=== PATIENT | male | born 1935 | race Caucasian/White ===

== ENCOUNTER 2016-11-14 15:45 | Outpatient (RCR) | payer MEDICARE, OTHER ==
[~2016-11-14 15:45] MED LIST: ACHD5005 PO; AMIO200T50 PO; ASP81CT PO; ASP81TEC PO; ASPI-999 PO; CEPH500C PO; CIPR500T78 PO; CLPD75T PO; DCS100C PO; DOCU-161 PO; FESO4TAB PO; FLUT9.9S NS; LTRS15C TOP; MECL-124 PO; MELO7.5T PO; METO25TA PO; METO25TA2 PO; OMEP20CA6 PO; OMG1KC PO; ONDAN4ODT PO; PHEN200T27 PO; POTA10CA43 PO; PRD10T PO; ROSU10TA12 PO; SCOP1PAT TD; TAMS0.4C2 PO
== END 2016-11-14 16:27 | disposition home or self-care (01) ==
PROVIDERS: ATTEND Orthopaedic Surgery
DX: M41.9 Scoliosis, unspecified (principal); M47.896 Other spondylosis, lumbar region; M51.36 Other intervertebral disc degeneration, lumbar region; M25.551 Pain in right hip

== ENCOUNTER 2016-12-07 14:05 | Emergency (ER) | payer MEDICARE, OTHER ==
[~2016-12-07] VITALS: Ht 170.2 cm; Wt 80.7 kg
--- NOTE | 2016-12-07 15:23 | ED Abdominal Pain ---
General Chief Complaint: Abdominal/GI Problems Stated Complaint: ABD PAIN Nursing Triage Note: Pt c/o lower abd pain and nausea that started this morning. Sepsis Screen: No Definite Risk Source of Information: Patient, Spouse Exam Limitations: No Limitations History of Present Illness Time Seen By Provider: 15:22 Initial Comments Patient woke up this morning with some pain in his abdomen right lower quadrant and suprapubic area. He is having no difficulty urinating or discharge. He has had some nausea and threw up a little bit this morning and again during this interview. He has no history of abdominal surgery however he has had 2 colonoscopies which both were negative and he said no mention of diverticulosis. He had a bowel movement earlier today that was only a small amount. He does not think that he is constipated. No diarrhea rash fevers or chills. 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 He has no shortness of breath cough or chest pain. Allergies and Home Medications Allergies Coded Allergies: No Known Drug Allergies (Unverified , 05/19/11) Home Medications Aspirin 81 Mg Tab.chew, 81 MG PO DAILY, (Reported) Cephalexin 500 Mg Capsule, 500 MG PO BID for 7 Days, #14 Ref 0 Prescribed by: MARILYN SOTO on 12/07/161754 Docusate Sodium 100 Mg Capsule, 100 MG PO DAILY, (Reported) Fesoterodine Fumarate 4 Mg Tab.sr.24h, 4 MG PO DAILY, (Reported) Fluticasone Propionate 9.9 Ml [place].susp, 9.9 ML NS BID, #1 Prescribed by: SADI MATHEWS on 01/13/16 0923 Metoprolol Tartrate 25 Mg Tablet, 12.5 MG PO BID, (Reported) TAKE 1/2 OF (25MG) TAB [place] 3 Polyunsat Fatty Acids 1,000 Mg Cap, 1,200 MG PO DAILY, (Reported) Ondansetron 4 Mg Tab.rapdis, 4 MG PO Q4H PRN for NAUSEA/VOMITING-1ST LINE, #30 Ref 0 Prescribed by: MARILYN SOTO on 12/07/161754 Oxycodone HCl/Acetaminophen 1 Each Tablet, 1-2 EACH PO Q6H PRN for PAIN- MODERATE TO SEVERE, #30 Ref 0 Prescribed by: MARILYN SOTO on 12/07/161754 Rosuvastatin Calcium 10 Mg Tablet, 10 MG PO EVERY OTHER DAY, (Reported) Tamsulosin HCl 0.4 Mg Cap, 0.4 MG PO HS for 7 Days, #7 Ref 0 Prescribed by: MARILYN SOTO on 12/07/16 6583 Tamsulosin Hcl 0.4 Mg Cap.sr.24h, 0.4 MG PO HS, (Reported) Review of Systems Constitutional: No chills, No diaphoresis, No dizziness, No fever, malaise EENTM: No Blurred Vision, No Eye Pain, No Ear Pain Respiratory: Denies Cough, Denies Shortness of Air Cardiovascular: Denies Chest Pain, Denies Lightheadedness, Denies Syncope Gastrointestinal: See HPI, Denies Abdomen Distended, Abdominal Pain, Denies Constipated, Denies Diarrhea, Nausea, Vomiting Genitourinary: See HPI, Denies Burning, Denies Discharge, Denies Frequency, Flank Pain Musculoskeletal: No back pain, No joint pain Skin: No pruritus, No rash Psychiatric/Neurological: Denies Anxiety, Denies Depressed, Denies Headache Endocrine: Denies Increased Thrist, Denies Increased Urine, Denies Unexplained Weight Gain, Denies Unexplaned Weight Loss Hematologic/Lymphatic: Denies Blood Clots, Denies Easy Bleeding, Denies Easy Bruising Past Txehnex-Jhnmuy-Ewjrcs Hx Patient Social History Recent Foreign Travel: No Contact w/Someone Who Travel: No Recent Infectious Disease Expo: No Recent Hopitalizations: Yes Immunizations Up To Date Date of Influenza Vaccine: Jan 31, 2013 Surgeries Surgeries: Cardiac, CABG, Joint Replacement, Orthopedic Cardiovascular Cardiac Disorders: Coronary Artery Disease, High Cholesterol, Hypertension Reproductive System Hx Reproductive Disorders: No Sexually Transmitted Disease: No HIV/AIDS: No Genitourinary Genitourinary Disorders: Benign Prostatic Hyperpl Gastrointestinal Gastrointestinal Disorders: Chronic Constipation Musculoskeletal Musculoskeletal Disorders: Arthritis HEENT Loss of Vision: Bilateral Hearing Impairment: Denies Blood Transfusions Adverse Reaction to a Blood Tr: Yes Family Medical History Significant Family History: No Pertinent Family Hx Physical Exam Vital Signs VS - Last 72 Hours, by Label 12/07/16 12/07/16 14:29 16:27 Temp 97.3 Pulse 48 Resp 18 B/P (MAP) 189/60 Pulse Ox 99 84 O2 Delivery Room Air Nasal Cannula O2 Flow Rate 2.00 Capillary Refill : Less Than 3 Seconds General Appearance: WD/WN, moderate distress HEENT: PERRL/EOMI, pharynx normal (Oral mucous membranes dry) Neck: supple, normal inspection Respiratory: lungs clear, normal breath sounds Cardiovascular: normal peripheral pulses, regular rate, rhythm, no edema Peripheral Pulses: 2+ Dorsalis Pedis (R), 2+ Left Dors-Pedis (L) Gastrointestinal: normal bowel sounds, soft, tenderness (Right lower quadrant and suprapubic and left lower quadrant) Extremities: normal range of motion, non-tender, normal inspection, no pedal edema, normal capillary refill Back: normal inspection, CVA tenderness (R), CVA tenderness (L) Neurologic/Psychiatric: alert, oriented x 3 Skin: normal color, warm/dry Progress/Results/Core Measures Results/Orders Lab Results Laboratory Tests Test 12/07/16 15:15 12/07/16 15:50 12/07/16 16:05 Range/Units Sodium Level 143 135-145 MMOL/L Potassium Level 4.4 3.6-5.0 MMOL/L Chloride Level 109 H 98-107 MMOL/L Carbon Dioxide Level 25 21-32 MMOL/L Anion Gap 9 5-14 MMOL/L Blood Urea Nitrogen 18 7-18 MG/DL Creatinine 1.15 0.60-1.30 MG/DL Estimat Glomerular Filtration Rate > 60 BUN/Creatinine Ratio 16 Glucose Level 137 H 70-105 MG/DL Calcium Level 8.8 8.5-10.1 MG/DL Total Bilirubin 1.0 0.1-1.0 MG/DL Aspartate Amino Transf (AST/SGOT) 25 5-34 U/L Alanine Aminotransferase (ALT/SGPT) 23 0-55 U/L Alkaline Phosphatase 59 40-136 U/L Total Protein 6.4 6.4-8.2 GM/DL Albumin 4.1 3.2-4.5 GM/DL Urine Color YELLOW Urine Clarity SLIGHTLY CLOUDY Urine pH 6.5 5-9 Urine Specific [place] 1.015 L 1.016-1.022 Urine Protein 1+ H NEGATIVE Urine Glucose (UA) NEGATIVE NEGATIVE Urine Ketones 3+ H NEGATIVE Urine Nitrite NEGATIVE NEGATIVE Urine Bilirubin NEGATIVE NEGATIVE Urine Urobilinogen NORMAL NORMAL MG/DL Urine Leukocyte Esterase NEGATIVE NEGATIVE Urine RBC (Auto) 5+ H NEGATIVE Urine RBC 50-100 H /HPF Urine WBC NONE /HPF Urine Crystals NONE /LPF Urine Bacteria NONE /HPF Urine Casts NONE /LPF Urine Mucus NEGATIVE /LPF Urine Culture Indicated NO White Blood Count 17.9 H 4.3-11.0 10^3/uL Red Blood Count 4.40 4.35-5.85 10^6/uL Hemoglobin 13.4 13.3-17.7 G/DL Hematocrit 40 40-54 % Mean Corpuscular Volume 90 80-99 FL Mean Corpuscular Hemoglobin 31 25-34 PG Mean Corpuscular Hemoglobin Concent 34 32-36 G/DL Red Cell Distribution Width 13.0 10.0-14.5 % Platelet Count 168 130-400 10^3/uL Mean Platelet Volume 9.9 7.4-10.4 FL Prothrombin Time 14.7 12.2-14.7 SEC INR Comment 1.1 0.8-1.4 Activated Partial Thromboplast Time 27 24-35 SEC My Orders Orders - MARILYN SOTO Cbc No Diff (12/07/16 14:56) Comprehensive Metabolic Panel (12/07/16 14:56) Ua Culture If Indicated (12/07/16 14:56) Ondansetron Injection (Zofran Injectio (12/07/16 15:30) Fentanyl Injection (Sublimaze Injection (12/07/16 16:15) Ct Abd/Pelvis Wo(Kidney Stone) (12/07/16 16:54) Protime With Inr (12/07/16 16:57) Partial Thromboplastin Time (12/07/16 16:57) Chest 1 View, Ap/Pa Only (12/07/16 16:57) O2 (12/07/16 16:57) Saline Lock/Iv-Start (12/07/16 16:57) Vital Signs Adult Sepsis Patie Q1HR (12/07/16 16:57) Remove Rings In Anticipation O (12/07/16 16:57) Oxycodone/Acet 10/325mg Tablet (Percocet (12/07/16 18:00) Ondansetron Injection (Zofran Injectio (12/07/16 18:00) Ceftriaxone Injection (Rocephin Injectio (12/07/16 18:00) Abdomen/Kub 1[place] (12/07/16 17:50) Medications Given in ED Current Medications Medications Dose Ordered Sig/Emeli Route Start Time Stop Time Status Last Admin Dose Admin Ceftriaxone Sodium 1000 mg/ Sodium Chloride 50 ml @ 100 mls/hr ONCE ONCE IV 12/07/16 18:00 12/07/16 18:21 DC 12/07/16 17:59 100 MLS/HR Fentanyl Citrate 50 mcg ONCE ONCE IVP 12/07/16 16:15 12/07/16 16:16 DC 12/07/16 16:22 50 MCG Ondansetron HCl 4 mg ONCE ONCE IVP 12/07/16 15:30 12/07/16 15:31 DC 12/07/16 15:40 4 MG Ondansetron HCl 4 mg ONCE ONCE IVP 12/07/16 18:00 12/07/16 18:01 DC 12/07/16 17:59 4 MG Oxycodone/ Acetaminophen 1 tab ONCE ONCE PO 12/07/16 18:00 12/07/16 18:01 DC 12/07/16 18:15 1 TAB Vital Signs/I&O Vital Sign - Last 12Hours 12/07/16 12/07/16 14:29 16:27 Temp 97.3 Pulse 48 Resp 18 B/P (MAP) 189/60 Pulse Ox 99 84 O2 Delivery Room Air Nasal Cannula O2 Flow Rate 2.00 Blood Pressure Mean: 103 Progress Note #1: Time: 16:56 Progress Note Patient got significant white count as well as bradycardia. We'll go ahead and collect some cultures and since he's having red blood cells in his urine we'll get a CT without looking for kidney stones. Also the differential could be appendix or tumor. Progress Note #2: Time: 17:39 Progress Note Despite his white count he has a stone which is 5 mm so we'll get him in touch with urology next week and adequate pain management and given a gram or Rocephin today. If he feels like he can go home then we'll treat him outpatient tilting to the stone removed if it doesn't pass spontaneously. Diagnostic Imaging Diagonstic Imaging: CT Plain Films/CT/US/NM/MRI: abdomen, pelvis (without) Comments [facility], [facility] [place], [place] NAME: EL LINDO MED REC#: [id number] PT STATUS: REG ER : 1935 PHYSICIAN: MARILYN SOTO MD ADMIT DATE: 12/07/16/ER Draft Date of Exam:12/07/16 CT ABD/PELVIS WO(KIDNEY STONE) PROCEDURE: CT urinary tract, rule out kidney stone. TECHNIQUE: Multiple contiguous axial images were obtained through the abdomen and pelvis without the use of intravenous contrast. INDICATION: Pelvic pain. COMPARISON: Comparison made with prior examination from 11/21/2013. FINDINGS: There is cardiomegaly. Minimal scarring or atelectasis in the lung bases. The liver is normal in size and without focal lesions. There is cholelithiasis. Spleen is unremarkable. The pancreas and adrenal glands are unremarkable. There is left hydronephrosis and hydroureter secondary to a 5 mm stone at the left UVJ. There are mild chronic inflammatory changes about the right kidney. A few other nonobstructing calcifications are seen in both kidneys. There is atherosclerotic calcification in the aorta which is nonaneurysmal. The bowel gas pattern is nonspecific. There is no pelvic mass, adenopathy, or free fluid. There are degenerative changes in the spine. IMPRESSION: Moderate left hydronephrosis and hydroureter secondary to a 5 mm stone in the left UVJ. Additional bilateral nonobstructing calculi are also seen. Degenerative changes in the spine. Cholelithiasis. Dictated on workstation # [id number] Dict: 12/07/16 1712 Trans: 12/07/16 1716 [id number] Interpreted by: SHAYNA HUTCHINSON MD Electronically signed by: Reviewed: Reviewed by Me Diagonstic Imaging: Xray Plain Films/CT/US/NM/MRI: chest Comments [facility] [place], [place] NAME: EL LINDO [facility] REC#: [id number] PT STATUS: REG ER : 1935 PHYSICIAN: MRAILYN SOTO MD ADMIT DATE: 12/07/16/ER Draft Date of Exam:12/07/16 CHEST 1 VIEW, AP/PA ONLY INDICATION: Pelvic pain. FINDINGS: There is cardiomegaly. There is some left basilar atelectasis and/or pneumonitis. There has been previous median sternotomy and coronary bypass graft. There is no pleural effusion or pneumothorax. Mediastinum is unremarkable. IMPRESSION: Left basilar atelectasis and/or pneumonitis. Cardiomegaly. Dictated on workstation # [id number] Dict: 12/07/16 1718 Trans: 12/07/16 1722 [id number] Interpreted by: SHAYNA HUTCHINSON MD Electronically signed by: Reviewed: Reviewed by Me Departure Impression Impression: Primary Impression: Kidney stone on left side Disposition: 01 HOME, SELF-CARE Condition: Stable Departure-Patient Inst. Decision time for Depature: 17:46 Referrals: AUDI HALE MD (PCP/Family) Primary Care Physician Patient Instructions: Kidney Stones (DC) Add. Discharge Instructions: Drink lots of fluids. Caffeine is perfectly okay. Strain your urine every time to try and catch the stone. Use the Percocet 1-2 tablets every 6 hours as needed to control your pain. Do not wait for your pain to get out of control before using the pain medicine. While you're on the pain medicine you can experience side effects such as nausea or constipation. Make sure you have some kind of MiraLAX or other laxative to keep your bowels moving. Take the Flomax 1 tablet every night to help the stone pass. If you're expressing nausea you can take one tablet of the Zofran and place under your tongue allowed to dissolve and absorbed your mouth every 4 hours as needed for nausea or vomiting. Finally take the antibiotics 1 capsule twice a day for the next week. If you're not able to pass the stone by Sunday morning call Dr. [place], urology at [phone] and get scheduled to be seen to have the stone removed. If your symptoms become worse she started developing fevers or intractable nausea and vomiting or your pain is unbearable you should return to the ER to be reevaluated. All discharge instructions reviewed with patient and/or family. Voiced understanding. Scripts Oxycodone HCl/Acetaminophen (Percocet 10-325 mg Tablet) 1 Each Tablet 1-2 EACH PO Q6H Y for PAIN-MODERATE TO SEVERE, #30 TAB 0 Refills Prov: MARILYN SOTO 12/07/16 Tamsulosin HCl (Flomax) 0.4 Mg Cap 0.4 MG PO HS for 7 Days, #7 CAP 0 Refills Prov: MARILYN SOTO 12/07/16 Ondansetron (Zofran Odt) 4 Mg Tab.rapdis 4 MG PO Q4H Y for NAUSEA/VOMITING-1ST LINE, #30 TAB 0 Refills Prov: MARILYN SOTO 12/07/16 Cephalexin (Keflex) 500 Mg Capsule 500 MG PO BID for 7 Days, #14 CAP 0 Refills Prov: MARILYN SOTO 12/07/16 Copy Copies To 1: AUDI HALE MD Copies To 2: DELMAR HARDING MD, TITUS J Dec 07, 2016 15:23
[2016-12-07] MEDS ORDERED: ONDANSETRON 4 MG/2 ML (SDV) Z0FRAN IVP ONE ×2 (15:30→18:00)
[2016-12-07 16:02] LABS: ALANINE AMINOTRANSFERASE 23 U/L (0-55); ALBUMIN 4.1 GM/DL (3.2-4.5); ANION GAP 9 MMOL/L (5-14); ASPARTATE AMINO TRANSFERASE 25 U/L (5-34); BLOOD UREA NITROGEN 18 MG/DL (7-18); BUN/CREATININE RATIO 16; CALCIUM 8.8 MG/DL (8.5-10.1); CARBON DIOXIDE 25 MMOL/L (21-32); CHLORIDE 109 MMOL/L (98-107); CREATININE SERUM 1.15 MG/DL (0.60-1.30); GFR ESTIMATED > 60; GLUCOSE 137 MG/DL (70-105); POTASSIUM 4.4 MMOL/L (3.6-5.0); SODIUM 143 MMOL/L (135-145); TOTAL PROTEIN 6.4 GM/DL (6.4-8.2)
[2016-12-07 16:15] LABS: MEAN PLATELET VOLUME 9.9 FL (7.4-10.4); RED BLOOD COUNT 4.4 10^6/uL (4.35-5.85); WHITE BLOOD COUNT 17.9 10^3/uL (4.3-11.0)
[2016-12-07] MEDS ORDERED: fentaNYL INJECTION 100 MCG/2 ML AMP IVP ONE (16:15)
[2016-12-07 16:36] LABS: BILIRUBIN,URINE NEGATIVE (NEGATIVE); KETONES,URINE 3+ (NEGATIVE); LEUKOCYTE ESTERASE ,URINE NEGATIVE (NEGATIVE); NITRITE,URINE NEGATIVE (NEGATIVE); PH,URINE 6.5 (5-9); PROTEIN,URINE 1+ (NEGATIVE); UROBILINOGEN,URINE NORMAL (NORMAL)
--- NOTE | 2016-12-07 17:17 | Diagnostic Imaging Report ---
PROCEDURE: CT urinary tract, rule out kidney stone. TECHNIQUE: Multiple contiguous axial images were obtained through the abdomen and pelvis without the use of intravenous contrast. INDICATION: Pelvic pain. COMPARISON: Comparison made with prior examination from 11/21/2013. FINDINGS: There is cardiomegaly. Minimal scarring or atelectasis in the lung bases. The liver is normal in size and without focal lesions. There is cholelithiasis. Spleen is unremarkable. The pancreas and adrenal glands are unremarkable. There is left hydronephrosis and hydroureter secondary to a 5 mm stone at the left UVJ. There are mild chronic inflammatory changes about the right kidney. A few other nonobstructing calcifications are seen in both kidneys. There is atherosclerotic calcification in the aorta which is nonaneurysmal. The bowel gas pattern is nonspecific. There is no pelvic mass, adenopathy, or free fluid. There are degenerative changes in the spine. IMPRESSION: Moderate left hydronephrosis and hydroureter secondary to a 5 mm stone in the left UVJ. Additional bilateral nonobstructing calculi are also seen. Degenerative changes in the spine. Cholelithiasis. Dictated by: Dictated on workstation # [id number]
--- NOTE | 2016-12-07 17:23 | Diagnostic Imaging Report ---
INDICATION: Pelvic pain. FINDINGS: There is cardiomegaly. There is some left basilar atelectasis and/or pneumonitis. There has been previous median sternotomy and coronary bypass graft. There is no pleural effusion or pneumothorax. Mediastinum is unremarkable. IMPRESSION: Left basilar atelectasis and/or pneumonitis. Cardiomegaly. Dictated by: Dictated on workstation # [id number]
[2016-12-07 17:38] LABS: INR 1.1 (0.8-1.4); PROTHROMBIN TIME PATIENT 14.7 SEC (12.2-14.7)
[2016-12-07] MEDS ORDERED: OXYC-202 PO (17:55)
[2016-12-07] MEDS ORDERED: CEPH-507 PO (17:55)
[2016-12-07] MEDS ORDERED: ONDA4TAB8 PO (17:55)
[2016-12-07] MEDS ORDERED: TAMS0.4C98 PO (17:55)
[2016-12-07] MEDS ORDERED: oxyCODONE/APAP 10/325MG (PERCOCET 10) TABLET PO ONE (18:00)
[2016-12-07] MEDS ORDERED: cefTRIAXone INJECTION 1,000 MG in NS (IVPB) 50 ML IV ONE (18:00)
--- NOTE | 2016-12-07 18:19 | Diagnostic Imaging Report ---
INDICATION: Abdominal pain. FINDINGS: The bowel gas pattern is nonspecific. There are several calcifications in the left hemipelvis. These are indeterminate between phleboliths and/or distal ureteral stones. There are degenerative changes in the spine. There appears to be a mild age-indeterminate compression fracture of the L2 vertebral body although this is likely chronic. IMPRESSION: Several round calcifications in the left hemipelvis which are indeterminate between phleboliths and/or distal ureteral stones. Dictated by: Dictated on workstation # [id number]
[2016-12-07 18:21] VITALS: BP 135/64
== END 2016-12-07 18:21 | disposition home or self-care (01) ==
LOC: EDUNIT# 14:05 → ER 14:07
DX: N20.0 Calculus of kidney (principal); I25.10 Atherosclerotic heart disease of native coronary artery without angina pectoris; I10 Essential (primary) hypertension; E78.00 Pure hypercholesterolemia, unspecified; N40.0 Benign prostatic hyperplasia without lower urinary tract symptoms; M19.90 Unspecified osteoarthritis, unspecified site; Z87.19 Personal history of other diseases of the digestive system; Z79.82 Long term (current) use of aspirin; Z95.1 Presence of aortocoronary bypass graft
CPT/HCPCS: 36415; 71010; 74000; 74176; 80053; 81000; 85027; 85610; 85730; 96365; 96375; 96376

== ENCOUNTER 2016-12-09 00:22 | Emergency (ER) | payer MEDICARE, OTHER ==
[~2016-12-09] VITALS: Ht 170.2 cm; Wt 81.1 kg
[~2016-12-09 00:22] MED LIST changes: +CEPH-507 PO; +ONDA4TAB8 PO; +OXYC-202 PO; +TAMS0.4C98 PO
--- OUTSIDE RECORDS SUMMARY | 2016-12-09 00:32 | XMS REPORT | Clinical Summary ---
Author Author User, [employer] Dahiana Ahn DO, FACP Address Unknown Phone Allergies, Adverse Reactions, Alerts Allergy Name Reaction Description Start Date Severity Status Provider No Known Allergies Esequiel Judd Conditions or Problems Problem Name Problem Code Onset Date Status Entry Date Provider Comment Standard Description Annotate BURSITIS, LEFT ELBOW 726.33 Resolved Dahiana Ahn Olecranon bursitis NAUSEA 787.02 Resolved Dahiana Ahn Nausea alone BACK PAIN 724.5 Resolved Dahiana Ahn Backache, unspecified URINARY FREQUENCY 788.41 Resolved Dahiana Ahn Urinary frequency IBS 564.1 Resolved Dahiana Ahn Irritable bowel syndrome BENIGN PROSTATIC HYPERTROPHY, WITH OBSTRUCTION 600.01 Active Dahiana Ahn Hypertrophy (benign) of prostate with urinary obstruction and other lower urinary tract symptoms (LUTS) OTITIS EXTERNA 380.10 Resolved Dahiana Ahn Infective otitis externa, unspecified CORONARY ATHEROSCLEROSIS, [place] VESSEL 414.01 Active Dahiana Ahn Coronary atherosclerosis of [place] coronary artery CERUMEN IMPACTION, BILATERAL 380.4 Resolved Dahiana Ahn Impacted cerumen ABDOMINAL PAIN, EPIGASTRIC 789.06 Resolved Dahiana Ahn Abdominal pain, epigastric ABDOMINAL PAIN, GENERALIZED 789.07 Resolved Dahiana Ahn Abdominal pain, generalized SHOULDER PAIN 719.41 Resolved Dahiana Ahn Pain in joint involving shoulder region GERD 530.81 Active Dahiana Ahn Esophageal reflux CORONARY ARTERY BYPASS GRAFT, [place]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, 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 Dahiana Ahn Postsurgical aortocoronary bypass status ATRIAL FIBRILLATION 427.31 Resolved Dahiana Ahn Atrial fibrillation TREMOR, ESSENTIAL 333.1 Resolved Dahiana Ahn Essential and other specified forms of tremor HYPERCHOLESTEROLEMIA 272.0 Active Dahiana Ahn Pure hypercholesterolemia HOT FLASHES 627.2 Resolved Dahiana Ahn Symptomatic menopausal or female climacteric states NEUROPATHY, IDIOPATHIC PERIPHERAL 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 Dahiana Ahn Unspecified idiopathic peripheral neuropathy URTICARIA, ACUTE 708.9 Inactive Dahiana Ahn Unspecified urticaria RENAL CALCULUS 592.0 Active Dahiana Ahn Calculus of kidney Medication List Medication Instructions Start Date Stop Date Generic Name NDC Status Provider Patient Instruction FREESTYLE TEST STRP Test BS once daily DX: Diabetes GLUCOSE BLOOD 06539273693 No Longer Active Dahiana Ahn LASIX 40 MG TAB 1/2 PO daily FUROSEMIDE 71582484272 No Longer Active Dahiana Ahn AMIODARONE HCL 200 MG TABS 1 PO daily AMIODARONE HCL 43844009874 No Longer Active Dahiana Ahn COLACE 100 MG CAP 1 PO QAM DOCUSATE SODIUM 53885959866 Active Maddy Hendrix COLACE 100 MG CAP 1 PO QAM DOCUSATE SODIUM 59091158753 No Longer Active Dahiana Ahn K-DUR 20 MEQ TAB CR 1 PO daily POTASSIUM CHLORIDE No Longer Active Dahiana Kaye Ahn PLAVIX 75 MG TABS 1 po QD CLOPIDOGREL BISULFATE 91233377360 No Longer Active Dahiana Kaye Ahn ULTRAM 50 MG TAB 1 PO TID prn TRAMADOL HCL 83155775213 No Longer Active Dahiana Kaye Ahn HYDROCODONE-ACETAMINOPHEN 5-325 MG TABS 1 PO Q4hrs prn pain HYDROCODONE-ACETAMINOPHEN 33114572677 No Longer Active Dahiana Kaye Ahn ASPIRIN 81 MG TAB 1 PO BID ASPIRIN 37455121689 Active Dahiana Kaye Ahn FISH OIL 1000 MG CAPS 3 PO daily OMEGA-3 FATTY ACIDS 90768675316 Active Dahiana Kaye Ahn CRESTOR 10 MG TABS 1 PO daily ROSUVASTATIN CALCIUM 49100871832 Active Maddy Hendrix METOPROLOL TARTRATE 25 MG TABS 1/2 PO BID METOPROLOL TARTRATE 90609773464 Active Maddy Hendrix FLOMAX 0.4 MG CAPS 1 PO QHS TAMSULOSIN HCL 63508448241 Active Maddy Hendrix ANUSOL-HC 2.5 % CREA apply to rectum tid prn HYDROCORTISONE 28900105353 No Longer Active Dahiana Kaye Ahn LANCING DEVICE Test BS 1 time daily DX: Diabeties LANCING DEVICE No Longer Active Dahiana Kaye Ahn PRILOSEC 20 MG CAP CR 1 PO prn OMEPRAZOLE 96181649409 No Longer Active Dahiana Kaye Ahn CARAFATE 1 GM/10ML SUSP 1 teaspoon PO QID SUCRALFATE 24791444734 No Longer Active Dahiana Kaye Ahn OCUFLOX 0.3 % SOLN 3 drops right ear TID for 7 days OFLOXACIN 68137510658 No Longer Active Dahiana Kaye Ahn AVODART 0.5 MG CAPS 1 PO daily DUTASTERIDE 29589324094 No Longer Active Dahiana Kaye Ahn PHENERGAN 25 MG TAB 1 PO Q6hrs prn nausea PROMETHAZINE HCL 70498105169 No Longer Active Dahiana Ahn CARDURA 1 MG TAB 1 PO QHS DOXAZOSIN MESYLATE 50829480837 No Longer Active Dahiana Ahn FLOMAX 0.4 MG CP24 1 PO Daily in PM TAMSULOSIN HCL 68851478962 No Longer Active Dahianadg Ahn PREDNISONE 20 MG TAB 2 pills at once for 2 days then 1 pill daily for 2 days PREDNISONE 66725827511 No Longer Active Dahiana Ahn NAPROXEN 500 MG TAB 1 PO BID for 5 days NAPROXEN 92497572228 No Longer Active Dahiana Ahn LEVAQUIN 500 MG TAB 1 PO QD LEVOFLOXACIN 51585966350 No Longer Active Dahiana Ahn Vital Signs Date Name Value Unit Range Description blood pressure, diastolic - 8462-4 68 mm[Hg] BP aviels blood pressure, systolic - 8480-6 118 mm[Hg] BP sys pulse rate E&M - 8867-4 70 /min Heart rate respiratory rate E&M - 9279-1 14 /min Resp rate weight E&M - 3141-9 185 [lb_av] Weight Measured blood pressure, diastolic - 8462-4 64 mm[Hg] BP aviles blood pressure, systolic - 8480-6 114 mm[Hg] BP sys pulse rate E&M - 8867-4 60 /min Heart rate respiratory rate E&M - 9279-1 16 /min Resp rate weight E&M - 3141-9 182 [lb_av] Weight Measured Diagnostic Results Date Name Value Unit Range Description Clinical Lists Update: CBC,.CMP,FLP,TSH,HGA1C - Chemistry Estimated Glomerular Filtration Rate (calc) 84 mL/min/1.73m2 glucose, plasma fasting 102 mg/dL albumin, serum 4.0 g/dL alkaline phosphatase, serum 53 U/L urea nitrogen, blood 15 mg/dL calcium, serum 8.6 mg/dL chloride, serum 108 mmol/L cholesterol, serum 117 mg/dL cholesterol/HDL ratio, serum, percent 3.2 anion gap, serum 10 sodium, serum 138 mmol/L triglyceride, serum, fasting 92 mg/dL bilirubin, serum, total 0.8 mg/dL alanine aminotransferase (SGPT), serum 20 U/L aspartate aminotransferase (SGOT), serum 21 U/L protein, total, serum 6.1 g/dL potassium, serum 4.2 mmol/L LDL cholesterol, serum 62 mg/dL thyroid stimulating hormone, serum 2.00 u[iU]/mL hemoglobin A1C, blood, as % of total hemoglobin 5.7 % HDL cholesterol, serum 37.0 mg/dL creatinine, serum 0.9 mg/dL carbon dioxide, venous blood 24.0 mmol/L Clinical Lists Update: CBC,.CMP,FLP,TSH,HGA1C - Hematology leukocyte count, blood 6.3 10*3/mm3 mean corpuscular volume, RBC 95 fL red blood cell distribution width 13.2 % hemoglobin, blood 13.6 g/dL platelet count 181 10*3/mm3 erythrocyte (RBC) count 4.44 10*6/mm3 hematocrit, blood 42 % Clinical Lists Update: CBC,CMP,UA ER LABS - Chemistry Estimated Glomerular Filtration Rate (calc) 56 mL/min/1.73m2 glucose, plasma fasting 109 mg/dL sodium, serum 144 mmol/L bilirubin, serum, total 0.6 mg/dL alanine aminotransferase (SGPT), serum 22 U/L aspartate aminotransferase (SGOT), serum 23 U/L protein, total, serum 6.9 g/dL potassium, serum 4.4 mmol/L creatinine, serum 1.25 mg/dL carbon dioxide, venous blood 23 mmol/L chloride, serum 112 mmol/L calcium, serum 8.8 mg/dL urea nitrogen, blood 17 mg/dL alkaline phosphatase, serum 63 U/L albumin, serum 3.8 g/dL Clinical Lists Update: CBC,CMP,UA ER LABS - Hematology hematocrit, blood 40 % hemoglobin, blood 14.1 g/dL platelet count 176 10*3/mm3 erythrocyte (RBC) count 4.56 10*6/mm3 leukocyte count, blood 8.5 10*3/mm3 mean corpuscular volume, RBC 89 fL red blood cell distribution width 12.8 % Clinical Lists Update: CBC,CMP,UA ER LABS - Urinalysis glucose, urine, semiquantitative neg protein, urine, semiquantitative (dipstick) neg bilirubin, urine neg ketones, urine, by test strip neg nitrite, urine, semiquantitative neg pH, urine, semiquantitative 5 specific gravity, urine 1.025 urobilinogen, urine, semiquantitative (dipstick) normal appearance, urine Clear Yellow WBC urine on microscopy 0-2 {Cells}/[HPF] RBC urine by microscopy >100 bacteria, urine microscopy none hyaline casts, urine none /[LPF] mucus on urinalysis small blood in urine (hemoglobin) by dipstick 5+ Clinical Lists Update: CMP,FLP - Chemistry triglyceride, serum, fasting 97 mg/dL alanine aminotransferase (SGPT), serum 19 U/L anion gap, serum 10 cholesterol/HDL ratio, serum, percent 3.2 glucose, plasma fasting 111 mg/dL Estimated Glomerular Filtration Rate (calc) 87 mL/min/1.73m2 bilirubin, serum, total 0.8 mg/dL albumin, serum 3.9 g/dL alkaline phosphatase, serum 55 U/L urea nitrogen, blood 16 mg/dL calcium, serum 8.7 mg/dL chloride, serum 107 mmol/L cholesterol, serum 111 mg/dL carbon dioxide, venous blood 27.0 mmol/L creatinine, serum 0.9 mg/dL HDL cholesterol, serum 35.0 mg/dL LDL cholesterol, serum 57 mg/dL potassium, serum 4.3 mmol/L protein, total, serum 6.1 g/dL aspartate aminotransferase (SGOT), serum 23 U/L sodium, serum 140 mmol/L Encounters Code Encounter Date Provider Facility CPT-02980 Ofc Vst, Est Level III 12:19:17 CDT Dahiana Ahn DO, FACP CPT-77976 Ofc Vst, Est Level III 21:43:28 CDT Dahiana Ahn DO, FACP CPT-88395 Ofc Vst, Est Level III 16:47:28 CDT Dahiana Ahn DO, FACP CPT-76088 Ofc Vst, Est Level III 16:03:06 CDT Dahiana Ahn DO, FACP CPT-09139 Ofc Vst, Est Level IV 11:33:43 CDT Dahianadg Holder Jimy, DO, FACP CPT-25671 Ofc Vst, Est Level IV 11:50:30 CDT Dahiana Kaye Holder Ahn, DO, FACP CPT-77299 Ofc Vst, Est Level IV 14:39:32 [employer] Dahiana Kaye Holder Jimy, DO, FACP CPT-33331 Ofc Vst, Est Level III 14:07:15 [employer]ENER HEL[employer] Dahiana Holder Jimy, DO, FACP CPT-07046 Ofc Vst, Est Level V 11:55:56 CDT Dahiana Kaye Holder Jimy, DO, FACP CPT-64792 Ofc Vst, Est Level III 11:33:43 HARDENER HELPER Dahiana Bellner Dahiana Holder Jimy, DO, FACP CPT-17991 Ofc Vst, Est Level III 11:29:42 CDT Dahiana Kaye Holder Jimy, DO, FACP CPT-91044 Ofc Vst, Est Level IV 11:57:09 HARDENER HELPER Dahiana Holder Jimy, DO, FACP CPT-79733 Ofc Vst, Est Level III 10:14:45 CDT Dahianadg Bellner Dahiana Holder Jimy, DO, FACP CPT-50157 Ofc Vst, Est Level III 12:18:03 CDT Dahianadg Holder Jimy, DO, FACP CPT-57149 Ofc Vst, New Level III 16:51:24 CDT Dahiana Holder Jimy, DO, FACP Procedures Code Procedure Name Date Entry Date Standard Description CPT-G0439 Medicare Annual Wellness Visit 17:19:52 CDT CPT-G8446 E-Prescribing not done due to controlled substance 21:29 :22 CDT CPT-G0439 Medicare Annual Wellness Visit 21:29:22 CDT CPT-G8445 E-Prescribing Not sent due to no medication given 21:43: 28 CDT CPT-G8443 E-Prescribing Medication Sent 16:47:28 CDT CPT-G8443 E-Prescribing Medication Sent 16:03:06 CDT CPT-G8445 E-Prescribing Not sent due to no medication given 15:18: 03 CDT CPT-G0439 Medicare Annual Wellness Visit 15:18:03 CDT CPT-02601 EKG w/ Interpretation 11:55:56 CDT CPT-G0402 Medicare Annual Wellness Visit Initial 11:26:58 CDT CPT-65027 Ear Wax Removal 11:33:43 HARDENER HELPER
--- OUTSIDE RECORDS SUMMARY | 2016-12-09 00:32 | XMS REPORT | Clinical Summary ---
Author Author User, [employer] Dahiana Ahn DO, FACP Address Unknown [...] Ahn Infective otitis externa, unspecified CORONARY ATHEROSCLEROSIS, [place] VESSEL 414.01 Active Dahiana Ahn Coronary atherosclerosis of [place] coronary artery CERUMEN IMPACTION, BILATERAL 380.4 Resolved [...] BS once daily DX: Diabetes GLUCOSE BLOOD 83906153810 No Longer Active Dahiana Ahn LASIX 40 MG TAB 1/2 PO daily FUROSEMIDE 74529904842 No Longer Active Dahiana Ahn AMIODARONE HCL 200 MG TABS 1 PO daily AMIODARONE HCL 51832923763 No Longer Active Dahiana Ahn COLACE 100 MG CAP 1 PO QAM DOCUSATE SODIUM 91138311135 Active Maddy Hendrix COLACE 100 MG CAP 1 PO QAM DOCUSATE SODIUM 07264356448 No Longer Active Dahiana Ahn K-DUR 20 MEQ TAB CR 1 PO daily POTASSIUM CHLORIDE No Longer Active Dahiana Kaye Ahn PLAVIX 75 MG TABS 1 po QD CLOPIDOGREL BISULFATE 28184668745 No Longer Active Dahiana Kaye Ahn ULTRAM 50 MG TAB 1 PO TID prn TRAMADOL HCL 46923190865 No Longer Active Dahiana Kaye Ahn HYDROCODONE-ACETAMINOPHEN 5-325 MG TABS 1 PO Q4hrs prn pain HYDROCODONE-ACETAMINOPHEN 96615069569 No Longer Active Dahiana Kaye Ahn ASPIRIN 81 MG TAB 1 PO BID ASPIRIN 96298416480 Active Dahiana Kaye Ahn FISH OIL 1000 MG CAPS 3 PO daily OMEGA-3 FATTY ACIDS 78908572781 Active Dahiana Kaye Ahn CRESTOR 10 MG TABS 1 PO daily ROSUVASTATIN CALCIUM 76898081773 Active Maddy Hendrix METOPROLOL TARTRATE 25 MG TABS 1/2 PO BID METOPROLOL TARTRATE 97343668661 Active Maddy Hendrix FLOMAX 0.4 MG CAPS 1 PO QHS TAMSULOSIN HCL 98777501268 Active Maddy Hendrix ANUSOL-HC 2.5 % CREA apply to rectum tid prn HYDROCORTISONE 02788920937 No Longer Active Dahiana Kaye Ahn LANCING DEVICE Test BS 1 time daily DX: Diabeties LANCING DEVICE No Longer Active Dahiana Kaye Ahn PRILOSEC 20 MG CAP CR 1 PO prn OMEPRAZOLE 21785908522 No Longer Active Dahiana Kaye Ahn CARAFATE 1 GM/10ML SUSP 1 teaspoon PO QID SUCRALFATE 01010270769 No Longer Active Dahiana Kaye Ahn OCUFLOX 0.3 % SOLN 3 drops right ear TID for 7 days OFLOXACIN 66644226168 No Longer Active Dahiana Kaye Ahn AVODART 0.5 MG CAPS 1 PO daily DUTASTERIDE 58431652410 No Longer Active Dahiana Kaye Ahn PHENERGAN 25 MG TAB 1 PO Q6hrs prn nausea PROMETHAZINE HCL 23968297729 No Longer Active Dahiana Ahn CARDURA 1 MG TAB 1 PO QHS DOXAZOSIN MESYLATE 42362452622 No Longer Active Dahiana Ahn FLOMAX 0.4 MG CP24 1 PO Daily in PM TAMSULOSIN HCL 84997676433 No Longer Active Dahianadg Ahn PREDNISONE 20 MG TAB 2 pills at once for 2 days then 1 pill daily for 2 days PREDNISONE 52596210961 No Longer Active Dahiana Ahn NAPROXEN 500 MG TAB 1 PO BID for 5 days NAPROXEN 46674820683 No Longer Active Dahiana Ahn LEVAQUIN 500 MG TAB 1 PO QD LEVOFLOXACIN 35277769871 No Longer Active Dahiana Ahn Vital Signs Date Name Value Unit Range Description blood pressure, diastolic - 8462-4 68 mm[Hg] BP aviles blood pressure, systolic - 8480-6 118 mm[Hg] [...] mmol/L Encounters Code Encounter Date Provider Facility CPT-06255 Ofc Vst, Est Level III 12:19:17 CDT Dahiana Ahn DO, FACP CPT-48153 Ofc Vst, Est Level III 21:43:28 CDT Dahiana Ahn DO, FACP CPT-88525 Ofc Vst, Est Level III 16:47:28 CDT Dahiana Ahn DO, FACP CPT-11619 Ofc Vst, Est Level III 16:03:06 CDT Dahiana Ahn DO, FACP CPT-22871 Ofc Vst, Est Level IV 11:33:43 CDT Dahianadg Holder Jimy, DO, FACP CPT-75303 Ofc Vst, Est Level IV 11:50:30 CDT Dahiana Kaye Holder Ahn, DO, FACP CPT-67538 Ofc Vst, Est Level IV 14:39:32 COMPENSATION AGENT Dahiana Kaye Holder Jimy, DO, FACP CPT-65157 Ofc Vst, Est Level III 14:07:15 COMPENSATION AGENT Dahiana Holder Jimy, DO, FACP CPT-34476 Ofc Vst, Est Level V 11:55:56 CDT Dahiana Kaye Holder Jimy, DO, FACP CPT-04583 Ofc Vst, Est Level III 11:33:43 COMPENSATION AGENT Dahiana Bellner Dahiana Holder Jimy, DO, FACP CPT-91530 Ofc Vst, Est Level III 11:29:42 CDT Dahiana Kaye Holder Jimy, DO, FACP CPT-85667 Ofc Vst, Est Level IV 11:57:09 COMPENSATION AGENT Dahiana Holder Jimy, DO, FACP CPT-77690 Ofc Vst, Est Level III 10:14:45 CDT Dahianadg Bellner Dahiana Holder Jimy, DO, FACP CPT-23160 Ofc Vst, Est Level III 12:18:03 CDT Dahianadg Holder Jimy, DO, FACP CPT-95755 Ofc Vst, New Level III 16:51:24 CDT [...] CPT-G0439 Medicare Annual Wellness Visit 15:18:03 CDT CPT-40029 EKG w/ Interpretation 11:55:56 CDT CPT-G0402 Medicare Annual Wellness Visit Initial 11:26:58 CDT CPT-60615 Ear Wax Removal 11:33:43 COMPENSATION AGENT
--- NOTE | 2016-12-09 00:46 | ED GU-Male ---
General Chief Complaint: -Male Stated Complaint: POSS KIDNEY STONE Source: patient, spouse Exam Limitations: no limitations History of Present Illness Time seen by provider: 00:36 Initial Comments Patient present to ER by private conveyance with a chief complaint of hesitancy and inability to fully micturate. He says he can get a few dribbles out just before he came to the ER but still feels a lot of pressure and pain in his bladder. He was diagnosed , 2 days ago with a 5 mm distal ureteral vesicle junction stone. He says his urinary hesitancy began shortly after that. He has been taking the medications as prescribed. He is on an antibiotic, Flomax , Percocet and Zofran when necessary. He's had no fevers chills, cough, diarrhea , rash. Allergies and Home Medications Allergies Coded Allergies: No Known Drug Allergies (Unverified , 05/19/11) Home Medications Aspirin 81 Mg Tab.chew, 81 MG PO DAILY, (Reported) Cephalexin 500 Mg Capsule, 500 MG PO BID for 7 Days, #14 Ref 0 Prescribed by: MARILYN SOTO on 12/07/161754 Docusate Sodium 100 Mg Capsule, 100 MG PO DAILY, (Reported) Fesoterodine Fumarate 4 Mg Tab.sr.24h, 4 MG PO DAILY, (Reported) Fluticasone Propionate 9.9 Ml [place].susp, 9.9 ML NS BID, #1 Prescribed by: SADI MATHEWS on 01/13/16 0923 Metoprolol Tartrate 25 Mg Tablet, 12.5 MG PO BID, (Reported) TAKE 1/2 OF (25MG) TAB Burns 3 Polyunsat Fatty Acids 1,000 Mg Cap, 1,200 MG PO DAILY, (Reported) Ondansetron 4 Mg Tab.rapdis, 4 MG PO Q4H PRN for NAUSEA/VOMITING-1ST LINE, #30 Ref 0 Prescribed by: MARILYN SOTO on 12/07/161754 Oxycodone HCl/Acetaminophen 1 Each Tablet, 1-2 EACH PO Q6H PRN for PAIN- MODERATE TO SEVERE, #30 Ref 0 Prescribed by: MARILYN SOTO on 12/07/161754 Rosuvastatin Calcium 10 Mg Tablet, 10 MG PO EVERY OTHER DAY, (Reported) Tamsulosin HCl 0.4 Mg Cap, 0.4 MG PO HS for 7 Days, #7 Ref 0 Prescribed by: MARILYN SOTO on 12/07/16 1755 Tamsulosin Hcl 0.4 Mg Cap.sr.24h, 0.4 MG PO HS, (Reported) Constitutional: No chills, No diaphoresis, No fever, No malaise Respiratory: No cough, No short of breath Cardiovascular: No chest pain, No palpitations Gastrointestinal: abdominal pain (suprapubic), No constipation, No diarrhea, nausea, No vomiting Genitourinary: see HPI, burning, denies discharge, dysuria (hesitancy) Musculoskeletal: No back pain, No joint pain Skin: No pruritus, No rash Psychiatric/Neurological: Denies Headache, Denies Numbness, Denies Paresthesia Past Lhejcei-Vmrtzl-Eyqunc Hx Patient Social History Recent Foreign Travel: No Contact w/Someone Who Travel: No Recent Hopitalizations: No Immunizations Up To Date Date of Influenza Vaccine: Jan 31, 2013 Surgeries History of Surgeries: Yes (BILAT TKR, QUAD BYPASS, STENT, ESWL) Surgeries: Cardiac, CABG, Joint Replacement, Orthopedic Respiratory History of Respiratory Disorde: No Cardiovascular History of Cardiac Disorders: Yes Cardiac Disorders: Coronary Artery Disease, High Cholesterol, Hypertension Neurological History of Neurological Disord: No Reproductive System Hx Reproductive Disorders: No Sexually Transmitted Disease: No HIV/AIDS: No Genitourinary Genitourinary Disorders: Benign Prostatic Hyperpl, Kidney Stones Gastrointestinal History of Gastrointestinal Di: Yes (BLOOD IN STOOLS) Gastrointestinal Disorders: Chronic Constipation Musculoskeletal History of Musculoskeletal Dis: Yes Musculoskeletal Disorders: Arthritis Endocrine History of Endocrine Disorders: No HEENT Loss of Vision: Bilateral Hearing Impairment: Denies Cancer History of Cancer: No Psychosocial History of Psychiatric Problem: No Integumentary History of Skin or Integumenta: No Blood Transfusions History of Blood Disorders: No Adverse Reaction to a Blood Tr: Yes Family Medical History Significant Family History: No Pertinent Family Hx Physical Exam Vital Signs Vital Sign - Last 12Hours 12/09/16 00:29 Temp 99.3 Pulse 87 Resp 20 B/P (MAP) 193/105 Pulse Ox 94 O2 Delivery Room Air Capillary Refill : General Appearance: WD/WN, no apparent distress HEENT: PERRL/EOMI, pharynx normal Neck: non-tender, normal inspection Cardiovascular: normal peripheral pulses, regular rate, rhythm Respiratory: chest non-tender, lungs clear, normal breath sounds Gastrointestinal: normal bowel sounds, soft, no organomegaly, tenderness ( suprapubic, palpable bladder just over the pelvic brim.) Back: normal inspection, no CVA tenderness Extremities: non-tender, normal inspection, no pedal edema Neurologic/Psychiatric: alert, normal mood/affect, oriented x 3 Skin: normal color, warm/dry Progress/Results/Core Measures Results/Orders Lab Results Laboratory Tests Test 12/09/16 00:50 Range/Units Urine Color YELLOW Urine Clarity CLEAR Urine pH 5 5-9 Urine Specific [place] 1.015 L 1.016-1.022 Urine Protein NEGATIVE NEGATIVE Urine Glucose (UA) NEGATIVE NEGATIVE Urine Ketones NEGATIVE NEGATIVE Urine Nitrite NEGATIVE NEGATIVE Urine Bilirubin NEGATIVE NEGATIVE Urine Urobilinogen NORMAL NORMAL MG/DL Urine Leukocyte Esterase NEGATIVE NEGATIVE Urine RBC (Auto) 4+ H NEGATIVE Urine RBC 0-2 /HPF Urine WBC NONE /HPF Urine Crystals NONE /LPF Urine Bacteria NEGATIVE /HPF Urine Casts NONE /LPF Urine Mucus NEGATIVE /LPF Urine Culture Indicated NO My Orders Orders - MARILYN SOTO Straight Cath (Urinary) (12/09/16 00:37) Ua Culture If Indicated (12/09/16 00:37) Abdomen/Kub 1view (12/09/16 01:11) Vital Signs/I&O Vital Sign - Last 12Hours 12/09/16 00:29 Temp 99.3 Pulse 87 Resp 20 B/P (MAP) 193/105 Pulse Ox 94 O2 Delivery Room Air Progress Note #1: Time: 01:12 Progress Note 450 cc out by straight catheter after the patient micturated about 25 cc. Hard to know if the patient's got a urethral stone pass on its own or just has some soft tissue swelling after passing the stone. We'll get a KUB and compared to the last one see if we can see movement. Either way may be advantageous just to leave the Batres catheter in him until he sees the urologist Sunday or Sunday. Progress Note #2: Time: 01:34 Progress Note Patient's taking all the medications prescribed and does not appear to have anything of some red blood cells in his urine. X-ray is unchanged. Her to see if the opacities in the left side of the bladder are authorization representative of phleboliths versus kidney stone. Reviewed the CT scans and sagittal view. Since he's having urinary hesitancy ahead and put a Batres catheter in him and leg bag that he keep with him until he sees the urologist Sunday or Sunday. Patient's pre-sure he does not want a Batres catheter at this time and would like to just try to make 2 more days before he sees urologist. He says if he is not able to urinate again he will come back in except a Batres catheter. He's came back before so I trust he will seek help if he needs it. Gave good return precautions. Diagnostic Imaging Diagonstic Imaging: Xray Plain Films/CT/US/NM/MRI: abdomen (kub) Comments Unchanged exam from 12/07/16. Reviewed: Reviewed by Me Departure Impression Impression: Primary Impression: Urinary retention Additional Impression: Kidney stone Disposition: HOME, SELF-CARE Condition: Stable Departure-Patient Inst. Decision time for Depature: 01:41 Referrals: AUDI HALE MD (PCP/Family) Primary Care Physician Patient Instructions: Urinary Retention (DC) Add. Discharge Instructions: If you're unable to urinate and meaningful amount or your having increasing pain there pelvis or you start developing a fever he should return to the ER for evaluation. Otherwise plan on following up Sunday morning by calling Dr. Harding at [phone]. Continue to take all medications as prescribed. All discharge instructions reviewed with patient and/or family. Voiced understanding. Copy Copies To 1: AUDI HALE MD Copies To 2: DELMAR HARDING MD, TITUS J Dec 09, 2016 00:46
[2016-12-09 01:05] LABS: BILIRUBIN,URINE NEGATIVE (NEGATIVE); KETONES,URINE NEGATIVE (NEGATIVE); LEUKOCYTE ESTERASE ,URINE NEGATIVE (NEGATIVE); NITRITE,URINE NEGATIVE (NEGATIVE); PH,URINE 5 (5-9); PROTEIN,URINE NEGATIVE (NEGATIVE); UROBILINOGEN,URINE NORMAL (NORMAL)
[2016-12-09 01:48] VITALS: BP 178/96
--- NOTE | 2016-12-09 07:30 | Diagnostic Imaging Report ---
EXAM: ABDOMEN/KUB 1VIEW INDICATION: Renal stone. COMPARISON: Abdominal radiographs and CT abdomen pelvis without contrast 12/07/2016. FINDINGS: Nonspecific bowel gas pattern. Stable calcifications in the pelvis. Moderate to advanced degenerative changes in the lumbar spine including compression deformity of L2. Mild degenerative changes in both hips. No acute osseous findings. Sternotomy. Surgical clips near the GE junction. IMPRESSION: Stable calcifications in the pelvis. The prior CT demonstrated one of these to be a renal stone near the left UVJ. Dictated by: Dictated on workstation # [id number]
== END 2016-12-09 01:48 | disposition home or self-care (01) ==
LOC: EDUNIT# 00:22 → ER 00:26
DX: N20.0 Calculus of kidney (principal); I25.10 Atherosclerotic heart disease of native coronary artery without angina pectoris; E78.00 Pure hypercholesterolemia, unspecified; I10 Essential (primary) hypertension; N40.0 Benign prostatic hyperplasia without lower urinary tract symptoms; M19.90 Unspecified osteoarthritis, unspecified site; Z87.19 Personal history of other diseases of the digestive system; Z79.82 Long term (current) use of aspirin; Z96.653 Presence of artificial knee joint, bilateral; Z95.5 Presence of coronary angioplasty implant and graft; Z95.1 Presence of aortocoronary bypass graft
CPT/HCPCS: 51701; 74000; 81000; 99284

== ENCOUNTER → 2016-12-13 | Outpatient (CLI) | payer MEDICARE, OTHER ==
--- NOTE | 2016-12-13 19:24 | Diagnostic Imaging Report ---
INDICATION: History of left ureteral stone. COMPARISON: CT abdomen and pelvis from 12/07/2016 FINDINGS: There are numerous pelvic phleboliths. The calculus previously noted in the distal left ureter on CT cannot definitively be seen by radiography. Nonobstructive bowel gas pattern. Degenerative changes in lumbar spine. Atherosclerotic calcifications in the aorta. IMPRESSION: 1. Previously seen left ureteral stone cannot be definitively seen radiographically as there are multiple vascular calcifications and phleboliths within the pelvis. Dictated by: Dictated on workstation # [id number]
== END ==
LOC: RAD 11:52
PROVIDERS: ATTEND Urology
DX: Z87.442 Personal history of urinary calculi (principal)
CPT/HCPCS: 74000

== ENCOUNTER → 2017-01-10 | Outpatient (CLI) | payer MEDICARE, OTHER ==
--- NOTE | 2017-01-10 12:13 | Diagnostic Imaging Report ---
EXAMINATION: PA and lateral views of the chest. INDICATION: Chest pain. FINDINGS: The heart size is borderline enlarged. The lungs are mildly hyperexpanded but clear. No effusion or pneumothorax. The mediastinum and perla appear unremarkable. There are sternotomy wires noted. IMPRESSION: Borderline enlarged cardiac size. Dictated by: Dictated on workstation # [id number]
== END ==
LOC: RAD 10:47
PROVIDERS: ATTEND Family Medicine
DX: R07.9 Chest pain, unspecified (principal)
CPT/HCPCS: 71020

== ENCOUNTER → 2017-02-12 | Outpatient (CLI) | payer MEDICARE, OTHER | LOC: CARD 08:02 | PROVIDERS: ATTEND Physician Assistant | DX: I10 Essential (primary) hypertension (principal); I65.23 Occlusion and stenosis of bilateral carotid arteries; R07.89 Other chest pain; E78.2 Mixed hyperlipidemia ==

== ENCOUNTER → 2017-02-28 | Outpatient (CLI) | payer MEDICARE, OTHER ==
[~2017-02-28] VITALS: Ht 172.7 cm; Wt 81.2 kg
[~2017-02-28] MED LIST changes: +CATHETER FLUSH 10 ML SYR IV PRN
--- NOTE | 2017-02-28 22:15 | STRESS TEST ---
DATE OF SERVICE: 02/28/2017 EXERCISE MYOVIEW STRESS TEST REPORT REFERRING PHYSICIAN: Dr. Rajat Jackson. Baseline heart rate is 46. Baseline blood pressure 141/55. Baseline EKG is sinus rhythm with no ischemic changes. SUMMARY: The patient was injected with 10.73 mCi of technetium-99 Myoview and the resting images were obtained. Then, the patient started exercising with a baseline heart rate, blood pressure and EKG mentioned above. At minute 3 and 30 seconds, the patient was injected with 30.2 mCi of technetium-99 Myoview. The patient was able to finish a total of 4 minutes 30 seconds on standard Boom protocol. With peak exercise level, EKG was showing nondiagnostic changes. During recovery, heart rate and blood pressure returned to baseline. EKG returned to baseline. The resting and stress images were reviewed and compared in the short axis, horizontal long axis and vertical long axis views. Review of the images showed mild decreased uptake at the mid to apical anterolateral and inferolateral wall with subtle reversibility. SSS is 7, SDS 5, TID value 1.01. On the gated images, the left ventricle appeared to be in normal size with normal contractility. Calculated ejection fraction 72%. CONCLUSION: 1. Fair exercise tolerance, a total of 4 minutes 30 seconds on standard Boom protocol, total of 6.2 METS achieving over 100% of maximum expected heart rate. 2. Minimal nondiagnostic EKG changes with exercise, returned to baseline during recovery. 3. Mild decreased uptake at the mid to apical anterolateral and inferolateral wall with mild reversibility. 4. Normal left ventricular size with normal contractility. Calculated ejection fraction 72%. Job ID: [id number] DocumentID: [id number] Dictated Date: 02/28/2017 15:59:30 [employer] Date: 02/28/2017 19:44:35 Dictated By: YAMILE GRIGSBY MD
== END ==
LOC: CARD 08:03
PROVIDERS: ATTEND Physician Assistant
DX: I10 Essential (primary) hypertension (principal); I65.23 Occlusion and stenosis of bilateral carotid arteries; E78.2 Mixed hyperlipidemia; R07.89 Other chest pain
CPT/HCPCS: 78452; 93017

== ENCOUNTER → 2017-08-13 | Outpatient (CLI) | payer MEDICARE, OTHER ==
[~2017-08-13] MED LIST changes: -CATHETER FLUSH 10 ML SYR IV PRN; +DOCU100C37 PO; +IBUP-1780 PO; +METO-333 PO; +OMEG-109 PO; +ROSU10TA26 PO
--- NOTE | 2017-08-13 17:10 | Diagnostic Imaging Report ---
EXAM: LUMBAR SPINE - 2-3 VIEWS INDICATION: LOW BACK PAIN, SCIATICA LT LEG COMPARISON: Lumbar spine radiographs 11/14/2007. FINDINGS: There are five lumbar type vertebral bodies. Moderate right apex lumbar curvature centered at L2 has progressed since the prior exam. Increasing anterolisthesis of L5 on S1 is now grade 2. Superior endplate compression deformity of L2, resulting in approximately 30% height loss, is also new since the prior exam. Interval progression of diffuse advanced degenerative endplate changes with large anterior osteophytes. Progression of advanced facet arthropathy which is greatest at L3-S1. Advanced atherosclerotic calcifications including the abdominal aorta. IMPRESSION: 1. Marked interval progression of spondylotic changes which are now advanced. 2. Superior endplate compression deformity of L2 is new since the 2007 exam. Dictated by: Dictated on workstation # [id number]
--- NOTE | 2017-08-13 17:15 | Diagnostic Imaging Report ---
EXAMINATION: Pelvis, single view. COMPARISON: CT abdomen and pelvis from December 07, 2016. HISTORY: 82-year-old male, low back pain, left-sided sciatica symptoms. FINDINGS: There is severe disc height loss at L5-S1 and moderate disc height loss at L4-L5. There is severe disc height loss at L2-L3. There is a lumbosacral levocurvature. There is partial ankylosis across the sacroiliac joints bilaterally. The hips are not obviously dislocated. There is moderate medial joint space loss of both hips. There is mild osteophyte formation. There are vascular calcifications. There is normal alignment of the pubic symphysis. There is no identified acute fracture. There is no radiographically apparent bone lesion. IMPRESSION: 1. 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 2. Moderate osteoarthritis of the bilateral hips. 3. Advanced disc degenerative changes of the lumbar spine. 4. No identified acute fracture. Dictated by: Dictated on workstation # [id number]
== END ==
LOC: RAD 10:39
PROVIDERS: ATTEND Chiropractor Sports Physician
DX: M47.816 Spondylosis without myelopathy or radiculopathy, lumbar region (principal); M43.8X6 Other specified deforming dorsopathies, lumbar region; M43.28 Fusion of spine, sacral and sacrococcygeal region; M16.0 Bilateral primary osteoarthritis of hip; M51.16 Intervertebral disc disorders with radiculopathy, lumbar region
CPT/HCPCS: 72100; 72170

== ENCOUNTER 2017-09-03 09:11 | Outpatient (CLI) | payer MEDICARE, OTHER ==
[~2017-09-03] VITALS: Ht 170.2 cm; Wt 79.4 kg
[~2017-09-03 09:11] MED LIST changes: -DOCU100C37 PO; -IBUP-1780 PO; -METO-333 PO; -OMEG-109 PO; -ROSU10TA26 PO
[2017-09-03 09:23] VITALS: BP 129/60
[2017-09-03] MEDS ORDERED: DOCU100C37 PO (09:35)
[2017-09-03] MEDS ORDERED: ROSU10TA26 PO (09:35)
[2017-09-03] MEDS ORDERED: TAMS0.4C2 PO (09:35)
[2017-09-03] MEDS ORDERED: OMEG-109 PO (09:35)
[2017-09-03] MEDS ORDERED: METO-333 PO (09:35)
== END 2017-09-03 09:40 | disposition home or self-care (01) ==
LOC: PREOP 09:11
PROVIDERS: ATTEND Podiatrist Foot Surgery
DX: Z01.818 Encounter for other preprocedural examination (principal); M20.11 Hallux valgus (acquired), right foot
CPT/HCPCS: 87081

== ENCOUNTER 2017-09-10 06:00 | Day surgery (SDC) | payer MEDICARE, OTHER ==
[~2017-09-10] VITALS: Ht 170.2 cm; Wt 79.4 kg
[~2017-09-10 06:00] MED LIST changes: +DOCU100C37 PO; +METO-333 PO; +OMEG-109 PO; +ROSU10TA26 PO
[2017-09-10 06:10] VITALS: BP 146/78
[2017-09-10] MEDS ORDERED: LACTATED RINGERS 1,000 ML IV PRN (06:19)
--- OUTSIDE RECORDS SUMMARY | 2017-09-10 06:24 | XMS REPORT ---
Author Author JIM Guan [facility] Address [address] [place] [address] Care Team Providers Care Pension Manager Name Role Phone JIM Guan Unavailable PROBLEMS Unknown Problems ALLERGIES No Known Allergies ENCOUNTERS Encounter Location Date Diagnosis [facility] [address] [id number] [address] Dec, Nausea R11.0 and Acute nasopharyngitis (common cold) J00 IMMUNIZATIONS No Known Immunizations SOCIAL HISTORY Never Assessed REASON FOR VISIT nauseated for the past 4 hours. runny nose, cough and just doesnt feel good. [email or web address] PLAN OF CARE Activity Details Follow Up prn Reason: VITAL SIGNS Height 67 in 2016-12-07 Weight 179.2 lbs 2016-12-07 Temperature 98.2 degrees Fahrenheit 2016-12-07 Heart Rate 62 bpm 2016-12-07 Respiratory Rate 20 2016-12-07 BMI 28.06 kg/m2 2016-12-07 Blood pressure systolic 122 mmHg 2016-12-07 Blood pressure diastolic 68 mmHg 2016-12-07 MEDICATIONS Medication Instructions Dosage Frequency Start Date End Date Duration Status Docusate Sodium 100 MG Orally Once a day 1 capsule as needed 24h Active Aspir-81 81 MG Orally Once a day 1 tablet 24h Active Fish Oil 1200 MG Orally Once a day 1 capsule 24h Active Tamsulosin HCl 0.4 MG Orally Once a day 1 capsule 24h Active Crestor 10 MG Orally Once a day 1 tablet 24h Active Metoprolol Tartrate 25 MG Orally Twice a day 1 tablet with food 12h Active RESULTS Name Result Date Reference Range UA LONG DIP (IN HOUSE) 2016-12-07 Lot # [id number] Exp date 2017 Clarity clear Color dk yellow Odor none GLU negative JOCELYNE 1+ KET 1+ SG >1.030 BLO 3+ pH 5.5 Protein 1+ URO 0.2 NIT negative PALMER negative Lot # [id number] Exp date july 2017 PROCEDURES Procedure Date Ordered Result Body Site URINALYSIS, AUTO, W/O SCOPE Dec 07, 2016 [facility] VISIT ESTABLISHED PATIENT Dec 07, 2016 INSTRUCTIONS MEDICATIONS ADMINISTERED No Known Medications MEDICAL (GENERAL) HISTORY Type Description Date Surgical History CABG X 4 2011 Surgical History stent in heart 2002 Hospitalization History post surgery
[2017-09-10] MEDS ORDERED: ceFAZolin INJECTION 1,000 MG in NS (IVPB) 50 ML IV ONE (06:30)
[2017-09-10] MEDS ORDERED: MEPIVACAINE (CARBOCAINE) 2% 20 ML VIAL ONE (07:16)
[2017-09-10] MEDS ORDERED: BUPIVACAINE 0.5% 30 ML (SENSORCAINE) VIAL ONE (07:17)
[2017-09-10] MEDS ORDERED: PROPOFOL INJECTION 50 ML IV ONE (07:30)
--- NOTE | 2017-09-10 07:35 | Progress Note-Pre Operative ---
Pre-Operative Progress Note H&P Reviewed The H&P was reviewed, patient examined and no changes noted. Date Seen by Provider: Sep 10, 2017 Time Seen by Provider: 07:45 Date H&P Reviewed: Sep 10, 2017 Time H&P Reviewed: 07:46 Pre-Operative Diagnosis: hallux limoitis right foot DOMINICK NOVAK DPM Sep 10, 2017 7:35 am
[2017-09-10] MEDS ORDERED: fentaNYL INJECTION 100 MCG/2 ML AMP ONE (07:51)
[2017-09-10] MEDS ORDERED: DEXAMETHASONE 10 MG/ML (DECADRON) 1 ML VIAL ONE (09:15)
[2017-09-10] MEDS ORDERED: ESMOLOL 100 MG/10 ML (BREVIBLOC) VIAL ONE (09:23)
[2017-09-10] MEDS ORDERED: IBUP-1780 PO (09:56)
[2017-09-10 10:00] VITALS: BP 158/76
[2017-09-10 10:05] VITALS: BP 158/76
[2017-09-10 10:30] VITALS: BP 161/76
[2017-09-10 10:37] VITALS: BP 158/76
--- NOTE | 2017-09-10 10:51 | Anesthesia-General Post-Op ---
MAC Patient Condition Mental Status/LOC: Same as Preop Cardiovascular: Satisfactory Nausea/Vomiting: Absent Respiratory: Satisfactory Pain: Controlled Complications: Absent Post Op Complications Complications None Follow Up Care/Instructions Patient Instructions None needed. Anesthesiology Discharge Order Discharge Order Patient is doing well, no complaints, stable vital signs, no apparent adverse anesthesia problems. GRACIELA PEGUERO DO Sep 10, 2017 10:51
--- NOTE | 2017-09-10 10:56 | Diagnostic Imaging Report ---
INDICATION: Foot pain. FINDINGS: Three views of the right foot show postop changes from osteotomy of the base of the proximal phalanx of the great toe. There is no acute fracture or dislocation seen. IMPRESSION: Postop changes from hallux valgus repair of the right first MTP joint. No acute abnormality is seen. Dictated by: Dictated on workstation # [id number]
[2017-09-10 11:00] VITALS: BP 162/70
--- NOTE | 2017-09-10 14:34 | OPERATIVE REPORT ---
DATE OF SERVICE: 09/10/2017 PREOPERATIVE DIAGNOSIS: Hallux rigidus, right foot. POSTOPERATIVE DIAGNOSIS: Hallux rigidus, right foot. NAME OF OPERATION: Hernandez bunionectomy, right foot with remodeled first metatarsal head. DESCRIPTION OF OPERATION: With the patient in supine position, having been affected by a regional anesthetic utilizing 10 mL of 50:50 mixture of 0.5% Marcaine plain and 1% Carbocaine plain with anesthesia assist. Sterile prep and drape were performed. Jeison bandage was applied above the level of the right ankle and a 9 cm curvilinear incision was made over the dorsal aspect of the first metatarsal extended onto the first digit. This incision was deepened with sharp and blunt dissection. Vital structures were identified and retracted. Dissection was carried deep to the first MPJ capsule. Capsule periosteum were freed from the dorsal, medial and lateral aspect of the first metatarsal head and the proximal phalangeal base. A significant osteophytic lipping was noted on the first metatarsal head and proximal phalangeal base. This was remodeled down to normal bony contours. The base of the proximal phalanx was resected approximately 1 cm distal to the articular surface perpendicular to the long axis of the proximal phalanx. A plantar drill hole was then placed in the plantar medial aspect of the cortex, proximal phalanx and 2-0 Prolene suture was used to attach the plantar medial base of the proximal phalanx to the sesamoid apparatus. The area was flushed with copious amounts of saline, inspected for any other anatomical abnormalities. Following removal of any loose bony fragments and all osteophytes, the capsule was closed with continuous lock suture of 3-0 Vicryl. Superficial fascia was closed with continuous suture of 4-0 Vicryl and the skin was reapproximated with Dermabond. Tourniquet was released. Blood flow returned to the digits was within normal limits. The incision was injected with Marcaine to control postoperative pain. Adaptic and sterile corrective compressive wet to dry dressing were applied and carried above the level of the right ankle covered with circular Coban. The patient tolerated the procedure well with minimal blood loss, left the OR to PAR in apparent good condition. Job ID: [id number] DocumentID: [id number] Dictated Date: 09/10/2017 10:00:31 Retail Sales Clerk Date: 09/10/2017 14:33:13 Dictated By: DOMINICK NOVAK DPM
== END 2017-09-10 11:15 | disposition home or self-care (01) ==
LOC: SDC 06:00
PROVIDERS: ATTEND Podiatrist Foot Surgery
DX: M20.21 Hallux rigidus, right foot (principal); I25.10 Atherosclerotic heart disease of native coronary artery without angina pectoris; E78.5 Hyperlipidemia, unspecified; R07.9 Chest pain, unspecified; R00.1 Bradycardia, unspecified; Z95.5 Presence of coronary angioplasty implant and graft; I10 Essential (primary) hypertension; I65.29 Occlusion and stenosis of unspecified carotid artery; Z87.891 Personal history of nicotine dependence; Z79.82 Long term (current) use of aspirin; Z79.899 Other long term (current) drug therapy
CPT/HCPCS: 73620

== ENCOUNTER 2017-10-06 07:21 | Emergency (ER) | payer MEDICARE, OTHER ==
[~2017-10-06] VITALS: Ht 170.2 cm; Wt 77.1 kg
[~2017-10-06 07:21] MED LIST changes: +IBUP-1780 PO; -ROSU10TA26 PO; +ROSU10TA27 PO
--- NOTE | 2017-10-06 07:34 | ED Lower Extremity ---
General Chief Complaint: Lower Extremity Stated Complaint: R FOOT SWELLING Source: patient Exam Limitations: no limitations History of Present Illness Date Seen by Provider: Oct 06, 2017 Time Seen by Provider: 07:25 Initial Comments Patient reports to the ER with a chief complaint of nonhealing wound of his right foot. 3 weeks ago he had surgery by Dr. Beal and says he's been treating the wound with Merthiolate the past couple days. He denies any nausea fever chills or diarrhea. Says he does not have diabetes. He said he was getting some numbness in his toes of the surgeon corrected the bone of his first digit. Since then he had a little swelling in the skin edges . He said he went to see the surgeon one or 2 days ago and they put another dressing on it but that dressing fell off so he put his own dressing on it and it is still open. He's never been on antibiotics for this. He is not having any pain he says because he's got numbness in his feet. Allergies and Home Medications Allergies Coded Allergies: No Known Drug Allergies (Unverified , 05/19/11) Home Medications Aspirin 81 Mg Tab.chew, 81 MG PO DAILY, (Reported) Docusate Sodium 100 Mg Capsule, 100 MG PO BID, (Reported) Ibuprofen 800 Mg Tablet, 800 MG PO BID PRN for PAIN Prescribed by: ADDIE MORALES on 09/10/17 0956 Metoprolol Tartrate 25 Mg Tablet, 12.5 MG PO BID, (Reported) take 1/2 of 25mg tab Balfour-3 Fatty Acids/Fish Oil 1 Each Capsule, 1,200 MG PO BID, (Reported) Rosuvastatin Calcium 10 Mg Tablet, 10 MG PO Q48H, (Reported) Tamsulosin HCl 0.4 Mg Cap.er.24h, 0.4 MG PO HS, (Reported) Patient Home Medication List Home Medication List Reviewed: Yes Constitutional: No chills, No diaphoresis EENTM: No ear discharge, No ear pain Respiratory: No cough, No short of breath Cardiovascular: No chest pain, No palpitations Gastrointestinal: No abdominal pain, No constipation Genitourinary: No discharge, No dysuria Musculoskeletal: see HPI, joint swelling Skin: No pruritus, No rash Psychiatric/Neurological: Denies Headache, Denies Numbness Past Lmnuuvc-Ftdzpw-Phkkjv Hx Patient Social History Alcohol Use: Denies Use Recreational Drug Use: No Smoking Status: Never a Smoker 2nd Hand Smoke Exposure: No Recent Foreign Travel: No Contact w/Someone Who Travel: No Recent Hopitalizations: No Immunizations Up To Date Tetanus Booster (TDap): Unknown PED Vaccines UTD: No Date of Influenza Vaccine: Jan 31, 2013 Seasonal Allergies Seasonal Allergies: No Past Medical History Surgeries: Yes (BILAT TKR, QUAD BYPASS, STENT, ESWL, right arm fx) Cardiac, CABG, Joint Replacement, Orthopedic Respiratory: No Cardiac: Yes (quad bypass, ) Coronary Artery Disease, High Cholesterol, Hypertension Neurological: No Reproductive Disorders: No Sexually Transmitted Disease: No HIV/AIDS: No Genitourinary: Yes Benign Prostatic Hyperpl, Kidney Stones Gastrointestinal: Yes (BLOOD IN STOOLS) Chronic Constipation Musculoskeletal: Yes Arthritis, Chronic Back Pain, Fractures Endocrine: No HEENT: No Loss of Vision: Bilateral Hearing Impairment: Denies Cancer: No Psychosocial: No Integumentary: No Blood Disorders: No Adverse Reaction/Blood Tranf: Yes Family Medical History No Pertinent Family Hx Physical Exam Vital Signs Vital Signs - First Documented 10/06/17 07:27 Temp 95.9 Pulse 68 Resp 18 B/P (MAP) 170/80 (110) Pulse Ox 95 O2 Delivery Room Air Capillary Refill : Height, Weight, BMI Height: 5', 7.00" Weight: 175lbs 0.0oz, [id number] Method:Stated ,27.4BMI General Appearance: WD/WN, no apparent distress HEENT: PERRL/EOMI, pharynx normal Cardiovascular: normal peripheral pulses, regular rate, rhythm Respiratory: no respiratory distress, no accessory muscle use Ankles: bilateral ankle non-tender, bilateral ankle normal inspection, bilateral ankle normal range of motion, bilateral ankle no evidence of injury Feet: bilateral foot non-tender; left foot normal inspection; bilateral foot normal range of motion; left foot no evidence of injury; right foot swelling, right foot other (healing wound with granulation tissue on the dorsum of the right foot over the first metatarsal and digit without significant erythema or discharge. ) Neurologic/Tendon: normal motor functions, normal tendon functions, no evidence tendon injury, sensory deficit Neurologic/Psychiatric: alert, normal mood/affect, oriented x 3 Progress/Results/Core Measures Results/Orders My Orders Orders - MARILYN SOTO Foot, Right, 3 View (10/06/17 07:31) Vital Signs/I&O 10/06/17 07:27 Temp 95.9 Pulse 68 Resp 18 B/P (MAP) 170/80 (110) Pulse Ox 95 O2 Delivery Room Air Progress Progress Note : Time: 08:07 Progress Note Wound does not look particularly infected. Doesn't like some delayed healing of the skin and we'll recommend he go see his primary care provider Sunday and look into a wound care consult. We'll put him on some antibiotics for 7 days just for coverage. Diagnostic Imaging Diagonstic Imaging: Xray Plain Films/CT/US/NM/MRI: other (right foot) Comments VIA [facility]. [place], [place] NAME: [facility] REC#: [id number] PT STATUS: REG ER : 1935 PHYSICIAN: MARILYN SOTO MD ADMIT DATE: 10/06/17/ER Draft Date of Exam:10/06/17 FOOT, RIGHT, 3 VIEW EXAMINATION: Right foot, three views. COMPARISON: September 10, 2017. HISTORY: 82-year-old male, swelling of the right foot. FINDINGS: There are postoperative related changes of the proximal aspect of the first proximal phalanx. There is slight widening of the first metatarsophalangeal joint. There is adjacent soft tissue swelling which appears fairly similar to the comparison exam. There is no overt aggressive cortical or otherwise noted bone destruction. There is no periosteal reaction. There are vascular calcifications. There is a well-corticated ossification adjacent to the distal fibular tip most likely relating to sequela of remote prior injury and/or accessory ossicle. There is prominent degenerative type enthesopathy at the Achilles tendon insertion. There is a calcaneal heel spur. 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 There is no large ankle joint effusion. There are mild midfoot degenerative changes. IMPRESSION: 1. Postoperative changes of the base of the first proximal phalanx with slight widening of the first metatarsophalangeal joint and adjacent soft tissue swelling which appears fairly similar to comparison exam. 2. No radiographic evidence of osteomyelitis. Dictated on workstation # [id number] Dict: 10/06/17 0754 Trans: 10/06/17 0759 [facility] [id number] Interpreted by: LOBITO JUNE MD Electronically signed by: Reviewed: Reviewed by Me Departure Impression Primary Impression: Delayed surgical wound healing Qualified Codes: T81.89XA - Other complications of procedures, not elsewhere classified, initial encounter Disposition: 01 HOME, SELF-CARE Condition: Stable Departure-Patient Inst. Decision time for Depature: 08:08 Referrals: AUDI HALE MD (PCP/Family) Primary Care Physician Patient Instructions: Surgical Wound (DC), Wound Care Add. Discharge Instructions: Keep the wound clean with regular soap and water. You can apply thin layer of Vaseline over the wound and dress it with some gauze or a large Band-Aid. Follow up with your primary care doctor Sunday morning and discuss a referral to wound care Dr. Hernández. 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 If you begin to experience fevers, chills or nausea you should return to the doctor as soon as possible for reevaluation. All discharge instructions reviewed with patient and/or family. Voiced understanding. Scripts Sulfamethoxazole/Trimethoprim (Bactrim Ds Tablet) 1 Each Tablet 1 EACH PO BID for 7 Days, #14 TAB 0 Refills Prov: MARILYN SOTO 10/06/17 Copy Copies To 1: AUDI HALE MD, TITUS J Oct 06, 2017 07:34
--- NOTE | 2017-10-06 08:00 | Diagnostic Imaging Report ---
EXAMINATION: Right foot, three views. COMPARISON: September 10, 2017. HISTORY: 82-year-old male, swelling of the right foot. FINDINGS: There are postoperative related changes of the proximal aspect of the first proximal phalanx. There is slight widening of the first metatarsophalangeal joint. There is adjacent soft tissue swelling which appears fairly similar to the comparison exam. There is no overt aggressive cortical or otherwise noted bone destruction. There is no periosteal reaction. There are vascular calcifications. There is a well-corticated ossification adjacent to the distal fibular tip most likely relating to sequela of remote prior injury and/or accessory ossicle. There is prominent degenerative type enthesopathy at the Achilles tendon insertion. There is a calcaneal heel spur. 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 There is no large ankle joint effusion. There are mild midfoot degenerative changes. IMPRESSION: 1. Postoperative changes of the base of the first proximal phalanx with slight widening of the first metatarsophalangeal joint and adjacent soft tissue swelling which appears fairly similar to comparison exam. 2. No radiographic evidence of osteomyelitis. Dictated by: Dictated on workstation # [id number]
[2017-10-06] MEDS ORDERED: SULF1TAB35 PO (08:11)
[2017-10-06 08:23] VITALS: BP 170/80
== END 2017-10-06 08:23 | disposition home or self-care (01) ==
LOC: EDUNIT# 07:21 → ER 07:23
DX: T81.89XA Other complications of procedures, not elsewhere classified, initial encounter (principal); I25.10 Atherosclerotic heart disease of native coronary artery without angina pectoris; E78.00 Pure hypercholesterolemia, unspecified; I10 Essential (primary) hypertension; Z87.442 Personal history of urinary calculi; Z87.19 Personal history of other diseases of the digestive system; Z79.82 Long term (current) use of aspirin; Z95.1 Presence of aortocoronary bypass graft; Z96.653 Presence of artificial knee joint, bilateral; Z95.5 Presence of coronary angioplasty implant and graft; Z98.890 Other specified postprocedural states
CPT/HCPCS: 73630

== ENCOUNTER 2017-10-11 12:27 | Outpatient (CLI) | payer MEDICARE, OTHER ==
[~2017-10-11] VITALS: Ht 170.2 cm; Wt 77.1 kg
[~2017-10-11 12:27] MED LIST changes: +SULF1TAB35 PO
[2017-10-11] MEDS ORDERED: methylPREDNISolone 80 MG/ML (DEPO MEDROL) VIAL ONE (12:34)
[2017-10-11 12:44] VITALS: BP 149/71
[2017-10-11 13:23] VITALS: BP 121/69
== END 2017-10-11 13:24 | disposition home or self-care (01) ==
LOC: CARD 12:27
PROVIDERS: ATTEND Pain Medicine Interventional Pain Medicine
DX: M54.16 Radiculopathy, lumbar region (principal)
CPT/HCPCS: 62323

== ENCOUNTER 2017-10-17 05:40 | Emergency (ER) | payer MEDICARE, OTHER ==
[~2017-10-17] VITALS: Ht 170.2 cm; Wt 77.1 kg
[2017-10-17 05:54] LABS: BILIRUBIN,URINE NEGATIVE (NEGATIVE); CLARITY,URINE CLEAR; COLOR,URINE YELLOW; GLUCOSE, URINE (UA) NEGATIVE (NEGATIVE); KETONES,URINE NEGATIVE (NEGATIVE); LEUKOCYTE ESTERASE ,URINE NEGATIVE (NEGATIVE); NITRITE,URINE NEGATIVE (NEGATIVE); PH,URINE 6.5 (5-9); PROTEIN,URINE NEGATIVE (NEGATIVE); UROBILINOGEN,URINE NORMAL (NORMAL)
--- OUTSIDE RECORDS SUMMARY | 2017-10-17 05:55 | XMS REPORT | Continuity of Care Document ---
Author Author [facility] Organization [facility] Address Unknown Phone Unavailable Allergies Active Description Code Type Severity Reaction Onset Reported/Identified Relationship to Patient Clinical Status Yes No Known Drug Allergies [id number] Drug Allergy Unknown N/A 05/19/2011 Medications There is no data. Problems Date Dx Coded Attending Type Code Diagnosis Diagnosed By 03/01/1453 TASHA YEN DO Ot M47.816 SPONDYLOSIS W/O MYELOPATHY OR RADICULOPA 03/01/1453 TASHA YEN DO Ot M51.36 OTHER INTERVERTEBRAL DISC DEGENERATION, 05/19/2011 Ot 530.11 REFLUX ESOPHAGITIS 05/19/2011 Ot 535.50 UNSP GASTRITIS GASTRODUODENITIS W/O ME 05/19/2011 Ot 553.3 DIAPHRAGMATIC HERNIA 08/12/2011 Ot 272.4 HYPERLIPIDEMIA NEC/NOS 08/12/2011 Ot 414.01 CORONARY ATHEROSCLEROSIS OF [place] CORON 08/12/2011 Ot 427.89 CARDIAC DYSRHYTHMIAS NEC 08/12/2011 Ot 440.0 AORTIC ATHEROSCLEROSIS 08/12/2011 Ot 715.90 OSTEOARTHROS NOS-UNSPEC 08/12/2011 Ot V17.49 FAMILY HISTORY OF OTHER CARDIOVASCULAR D 08/12/2011 Ot V43.65 KNEE JOINT REPLACEMENT STATUS 08/12/2011 Ot V45.82 PERCUTANEOUS TRANSLUM CORON ANGIOPLASTY 08/12/2011 Ot V58.63 LONG-TERM( CURRENT)USE OF ANTIPLATELET/AN 09/17/2011 Ot 414.00 CORON ATHEROSCLER NOS TYPE VESSEL, NATIV 09/17/2011 Ot 530.81 ESOPHAGEAL REFLUX 09/17/2011 Ot 780.4 DIZZINESS AND GIDDINESS 09/17/2011 Ot 787.01 NAUSEA WITH VOMITING 09/17/2011 Ot V15.82 HISTORY OF TOBACCO USE 09/17/2011 Ot V45.81 AORTOCORONARY BYPASS 09/17/2011 Ot V58.66 LONG-TERM ( CURRENT) USE OF ASPIRIN 09/17/2011 Ot V58.69 OTH MED,LT, CURRENT USE 11/10/2011 Ot 780.4 DIZZINESS AND GIDDINESS 11/11/2011 Ot 414.00 CORON ATHEROSCLER NOS TYPE VESSEL, NATIV 11/11/2011 Ot 780.4 DIZZINESS AND GIDDINESS 11/11/2011 Ot V45.81 AORTOCORONARY BYPASS 11/11/2011 Ot V58.66 LONG-TERM ( CURRENT) USE OF ASPIRIN 11/11/2011 Ot V58.69 OTH MED,LT, CURRENT USE 12/30/2012 RIKI DOW KIESELGUHR REGENERATOR OPERATOR Ot 684 IMPETIGO 12/30/2012 RIKI DOW KIESELGUHR REGENERATOR OPERATOR Ot 708.9 URTICARIA NOS 01/02/2013 OKSANA NIETO, TOMAS Villarreal Ot 708.9 URTICARIA NOS 05/31/2013 SADI MATHEWS MD Ot 786.50 CHEST PAIN NOS 05/31/2013 SADI MATHEWS MD Ot 786.52 PAINFUL RESPIRATION 11/03/2013 MIRIAM LANDEROS DO Ot 272.0 PURE HYPERCHOLESTEROLEM 11/03/2013 MIRIAM LANDEROS DO Ot 401.9 HYPERTENSION NOS 11/03/2013 MIRIAM LANDEROS DO Ot 414.00 CORON ATHEROSCLER NOS TYPE VESSEL, NATIV 11/03/2013 MIRIAM LANDEROS DO Ot 564.00 UNSPEC CONSTIPATION 11/03/2013 MIRIAM LANDEROS DO Ot 592.1 CALCULUS OF URETER 11/03/2013 MIRIAM LANDEROS DO Ot 599.70 HEMATURIA, UNSPECIFIED 11/03/2013 MIRIAM LANDEROS DO Ot 716.90 ARTHROPATHY NOS-UNSPEC 11/03/2013 MIRIAM LANDEROS DO Ot 789.02 ABDOMINAL PAIN, LEFT UPPER QUADRANT 11/03/2013 MIRIAM LANDEROS DO Ot V45.81 AORTOCORONARY BYPASS 11/03/2013 MIRIAM LANDEROS DO Ot V45.82 PERCUTANEOUS TRANSLUM CORON ANGIOPLASTY 11/03/2013 MIRIAM LANDEROS DO Ot V58.66 LONG-TERM (CURRENT) USE OF ASPIRIN 12/02/2013 DELMAR HARDING MD Ot 592.1 CALCULUS OF URETER 12/02/2013 DELMAR HARDING MD Ot 598.9 URETHRAL STRICTURE NOS 12/02/2013 DELMAR HARDING MD Ot 600.00 HYPERTROPHY (BENIGN) OF PROSTATE W/O URI 05/27/2014 OJ ESCALONA, MARINA Mckeon Ot 272.4 05/27/2014 OJ PA, MARINA Mckeon Ot 401.1 05/27/2014 OJ ESCALONA, MARINA Mckeon Ot 414.00 02/28/2015 MARI NIETO, MERCEDEZ Zarate Ot F17.210 NICOTINE DEPENDENCE, CIGARETTES, UNCOMPL 02/28/2015 MARI NIETO, MERCEDEZ Zarate Ot M54.5 LOW BACK PAIN 02/28/2015 MARI NIETO, MERCEDEZ Zarate Ot R10.32 LEFT LOWER QUADRANT PAIN 02/28/2015 MARI NIETO, MERCEDEZ Zarate Ot R31.2 OTHER MICROSCOPIC HEMATURIA 05/20/2015 Ot 789.06 05/20/2015 Ot 789.07 05/20/2015 Ot V72.84 05/20/2015 Ot 401.9 05/20/2015 Ot 414.00 05/20/2015 Ot 786.50 05/20/2015 Ot 397.0 05/20/2015 Ot 401.9 05/20/2015 Ot 414.00 05/20/2015 Ot 424.0 05/20/2015 Ot 786.50 05/20/2015 OJ ESCALONA, MARINA Mckeon Ot 272.4 05/20/2015 OJ PA, MARINA Mckeon Ot 397.0 05/20/2015 OJ PA, MARINA Mckeon Ot 401.1 05/20/2015 OJ PA, MARINA Mckeon Ot 414.00 05/20/2015 OJ PA, MARINA K Ot 424.0 05/20/2015 OJ PA, MARINA K Ot 429.3 05/20/2015 OJ PA, MARINA K Ot 272.4 05/20/2015 OJ PA, MARINA Mckeon Ot 401.1 05/20/2015 OJ PA, MARINA Mckeon Ot 414.00 05/20/2015 Ot 592.1 05/20/2015 MEHDI NIETO, DELMAR Roldan Ot 592.1 05/20/2015 MEHDI NIETO, DELMAR Roldan Ot V72.81 05/20/2015 MEHDI NIETO, DELMAR Roldan Ot V74.8 05/24/2015 CALISTA NIETO, YAMILE Velasquez Ot E78.2 05/24/2015 YAMILE GRIGSBY MD Ot I25.10 05/24/2015 YAMILE GRIGSBY MD Ot I65.23 05/24/2015 YAMILE GRIGSBY MD Ot R07.89 06/08/2015 YAMILE GRIGSBY MD Ot E78.2 06/08/2015 YAMILE GRIGSBY MD Ot I25.10 06/08/2015 YAMILE GRIGSBY MD Ot I65.23 06/08/2015 YAMILE GRIGSBY MD Ot R07.89 06/22/2015 YAMILE GRIGSBY MD Ot E78.2 06/22/2015 YAMILE GRIGSBY MD Ot I25.10 06/22/2015 YAMILE GRIGSBY MD Ot I65.23 06/22/2015 YAMILE GRIGSBY MD Ot R07.89 06/24/2015 YAMILE GRIGSBY MD Ot E78.2 06/24/2015 YAMILE GRIGSBY MD Ot I25.10 06/24/2015 YAMILE GRIGSBY MD Ot I65.23 06/24/2015 YAMILE GRIGSBY MD Ot R07.89 01/13/2016 SADI MATHEWS MD Ot R42 DIZZINESS AND GIDDINESS 01/13/2016 SADI MATHEWS MD Ot R51 HEADACHE 01/13/2016 SADI MATHEWS MD Ot R53.81 OTHER MALAISE 01/13/2016 SADI MATHEWS MD Ot Z79.82 HALFWAY (CURRENT) USE OF ASPIRIN 01/13/2016 SADI MATHEWS MD Ot Z79.899 OTHER HALFWAY (CURRENT) DRUG THERAPY 01/13/2016 SADI MATHEWS MD Ot 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 BYPASS GRAFT 01/13/2016 YAMILE GRIGSBY MD Ot E78.2 MIXED HYPERLIPIDEMIA 01/13/2016 YAMILE GRIGSBY MD Ot I25.10 ATHSCL HEART DISEASE OF [place] CORONARY 01/13/2016 YAMILE GRIGSBY MD Ot 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 01/13/2016 YAMILE GRIGSBY MD Ot R07.89 OTHER CHEST PAIN 01/13/2016 YAMILE GRIGSBY MD Ot E78.2 MIXED HYPERLIPIDEMIA 01/13/2016 YAMILE GRIGSBY MD Ot I25.10 ATHSCL HEART DISEASE OF [place] CORONARY 01/13/2016 YAMILE GRIGSBY MD Ot 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 01/13/2016 YAMILE GRIGSBY MD Ot R07.89 OTHER CHEST PAIN 01/14/2016 SADI MATHEWS MD Ot R42 DIZZINESS AND GIDDINESS 01/14/2016 SADI MATHEWS MD Ot R51 HEADACHE 01/14/2016 SADI MATHEWS MD Ot R53.81 OTHER MALAISE 01/14/2016 SADI MATHEWS MD Ot Z79.82 HALFWAY (CURRENT) USE OF ASPIRIN 01/14/2016 SADI MATHEWS MD Ot Z79.899 OTHER HALFWAY (CURRENT) DRUG THERAPY 01/14/2016 SADI MATHEWS MD Ot 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 BYPASS GRAFT 01/19/2016 CHRISSIE NEWBERRY MD Ot K92.1 MELENA 01/19/2016 CHRISSIE NEWBERRY MD Ot Z01.818 ENCOUNTER FOR OTHER PREPROCEDURAL EXAMIN 01/21/2016 SADI MATHEWS MD Ot R42 DIZZINESS AND GIDDINESS 01/21/2016 SADI MATHEWS MD Ot R51 HEADACHE 01/21/2016 SADI MATHEWS MD Ot R53.81 OTHER MALAISE 01/21/2016 SADI MATHEWS MD Ot Z79.82 HALFWAY (CURRENT) USE OF ASPIRIN 01/21/2016 SADI MATHEWS MD Ot Z79.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 MAKER ROOTED HAIR (CURRENT) DRUG THERAPY 01/21/2016 SADI MATHEWS MD Ot 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 BYPASS GRAFT 01/21/2016 Ot 789.06 ABDOMINAL PAIN, EPIGASTRIC 01/21/2016 Ot 789.07 ABDOMINAL PAIN, GENERALIZED 01/21/2016 Ot V72.84 EXAM PRE- OPERATIVE NOS 01/21/2016 Ot 401.9 HYPERTENSION NOS 01/21/2016 Ot 414.00 CORON ATHEROSCLER NOS TYPE VESSEL, NATIV 01/21/2016 Ot 786.50 CHEST PAIN NOS 01/21/2016 Ot 397.0 TRICUSPID VALVE DISEASE 01/21/2016 Ot 401.9 HYPERTENSION NOS 01/21/2016 Ot 414.00 CORON ATHEROSCLER NOS TYPE VESSEL, NATIV 01/21/2016 Ot 424.0 MITRAL VALVE DISORDER 01/21/2016 Ot 786.50 CHEST PAIN NOS 01/21/2016 MARINA HERNANDEZ Ot 272.4 HYPERLIPIDEMIA NEC/NOS 01/21/2016 MARINA HERNANDEZ Ot 397.0 TRICUSPID VALVE DISEASE 01/21/2016 MARINA HERNANDEZ Ot 401.1 BENIGN HYPERTENSION 01/21/2016 MARINA HERNANDEZ Ot 414.00 CORON ATHEROSCLER NOS TYPE VESSEL, NATIV 01/21/2016 MARINA HERNANDEZ Ot 424.0 MITRAL VALVE DISORDER 01/21/2016 MARINA HERNANDEZ Ot 429.3 CARDIOMEGALY 01/21/2016 MARINA HERNANDEZ Ot 272.4 HYPERLIPIDEMIA NEC/NOS 01/21/2016 MARINA HERNANDEZ Ot 401.1 BENIGN HYPERTENSION 01/21/2016 MARINA HERNANDEZ Ot 414.00 CORON ATHEROSCLER NOS TYPE VESSEL, NATIV 01/21/2016 Ot 592.1 CALCULUS OF URETER 01/21/2016 MEHDI NIETO, DELMAR Roldan Ot 592.1 CALCULUS OF URETER 01/21/2016 MEHDI NIETO, DELAMR Roldan Ot V72.81 [id number] CARDIOVASCULAR 01/21/2016 DELMAR HARDING MD Ot V74.8 SCREEN-BACTERIAL DIS NEC 01/21/2016 YAMILE GRIGSBY MD Ot E78.2 MIXED HYPERLIPIDEMIA 01/21/2016 YAMILE GRIGSBY MD Ot I25.10 ATHSCL HEART DISEASE OF [place] CORONARY 01/21/2016 YAMILE GRIGSBY MD Ot 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 01/21/2016 YAMILE GRIGSBY MD Ot R07.89 OTHER CHEST PAIN 01/21/2016 YAMILE GRIGSBY MD Ot E78.2 MIXED HYPERLIPIDEMIA 01/21/2016 YAMILE GRIGSBY MD Ot I25.10 ATHSCL HEART DISEASE OF [place] CORONARY 01/21/2016 YAMILE GRIGSBY MD Ot 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 01/21/2016 YAMILE GRIGSBY MD Ot R07.89 OTHER CHEST PAIN 01/21/2016 ROHITH NIETO, CHRISSIE Blackwell Ot D12.8 BENIGN NEOPLASM OF RECTUM 01/21/2016 ROHITH NIETO, CHRISSIE Blackwell Ot K62.1 RECTAL POLYP 01/25/2016 ROHITH NIETO, CHRISSIE Blackwell Ot D12.8 BENIGN NEOPLASM OF RECTUM 11/09/2016 YOVANA DO, TASHA F Ot M25.551 PAIN IN RIGHT HIP 11/09/2016 YOVANA DO, TASHA F Ot M41.9 SCOLIOSIS, UNSPECIFIED 11/09/2016 YOVANA DO, TASHA F Ot M47.896 OTHER SPONDYLOSIS, LUMBAR REGION 11/09/2016 YOVANA DO, TASHA F Ot M51.36 OTHER INTERVERTEBRAL DISC DEGENERATION, 11/14/2016 YOVANA DO, TASHA F Ot M25.551 PAIN IN RIGHT HIP 11/14/2016 YOVANA DO, TASHA F Ot M41.9 SCOLIOSIS, UNSPECIFIED 11/14/2016 YOVANA DO, TASHA F Ot M47.896 OTHER SPONDYLOSIS, LUMBAR REGION 11/14/2016 YOVANA DO, TASHA F Ot M51.36 OTHER INTERVERTEBRAL DISC DEGENERATION, 12/07/2016 MARILYN SOTO MD Ot E78.00 PURE HYPERCHOLESTEROLEMIA, UNSPECIFIED 12/07/2016 MARILYN SOTO MD Ot I10 ESSENTIAL (PRIMARY) HYPERTENSION 12/07/2016 MARILYN SOTO MD Ot I25.10 ATHSCL HEART DISEASE OF [place] CORONARY 12/07/2016 MARILYN SOTO MD Ot M19.90 UNSPECIFIED OSTEOARTHRITIS, UNSPECIFIED 12/07/2016 MARILYN SOTO MD Ot N20.0 CALCULUS OF KIDNEY 12/07/2016 MARILYN SOTO MD Ot N40.0 BENIGN PROSTATIC HYPERPLASIA WITHOUT LOW 12/07/2016 MARILYN SOTO MD Ot R10.31 RIGHT LOWER QUADRANT PAIN 12/07/2016 MARILYN SOTO MD Ot Z79.82 DOLL WIG MAKER ROOTED HAIR (CURRENT) USE OF ASPIRIN 12/07/2016 MARILYN SOTO MD Ot Z87.19 PERSONAL HISTORY OF OTHER DISEASES OF TH 12/07/2016 MARILYN SOTO MD Ot 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 BYPASS GRAFT 12/07/2016 YAMILE GRISGBY MD Ot E78.2 MIXED HYPERLIPIDEMIA 12/07/2016 YAMILE GRIGSBY MD Ot I25.10 ATHSCL HEART DISEASE OF [place] CORONARY 12/07/2016 YAMILE GRIGSBY MD Ot 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 12/07/2016 YAMILE GRIGSBY MD Ot R07.89 OTHER CHEST PAIN 12/07/2016 YAMILE GRIGSBY MD Ot E78.2 MIXED HYPERLIPIDEMIA 12/07/2016 YAMILE GRIGSBY MD Ot I25.10 ATHSCL HEART DISEASE OF [place] CORONARY 12/07/2016 YAMILE GRIGSBY MD Ot 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 12/07/2016 YAMILE GRIGSBY MD Ot R07.89 OTHER CHEST PAIN 12/09/2016 Ot 401.9 HYPERTENSION NOS 12/09/2016 Ot 414.00 CORON ATHEROSCLER NOS TYPE VESSEL, NATIV 12/09/2016 Ot 786.50 CHEST PAIN NOS 12/09/2016 Ot 397.0 TRICUSPID VALVE DISEASE 12/09/2016 Ot 401.9 HYPERTENSION NOS 12/09/2016 Ot 414.00 CORON ATHEROSCLER NOS TYPE VESSEL, NATIV 12/09/2016 Ot 424.0 MITRAL VALVE DISORDER 12/09/2016 Ot 786.50 CHEST PAIN NOS 12/09/2016 MARINA HERNANDEZ Ot 272.4 HYPERLIPIDEMIA NEC/NOS 12/09/2016 MARINA HERNANDEZ Ot 397.0 TRICUSPID VALVE DISEASE 12/09/2016 MARINA HERNANDEZ Ot 401.1 BENIGN HYPERTENSION 12/09/2016 MARINA HERNANDEZ Ot 414.00 CORON ATHEROSCLER NOS TYPE VESSEL, NATIV 12/09/2016 MARINA HERNANDEZ Ot 424.0 MITRAL VALVE DISORDER 12/09/2016 MARINA HERNANDEZ Ot 429.3 CARDIOMEGALY 12/09/2016 MARINA HERNANDEZ Ot 272.4 HYPERLIPIDEMIA NEC/NOS 12/09/2016 MARINA HERNANDEZ Ot 401.1 BENIGN HYPERTENSION 12/09/2016 MARINA HERNANDEZ Ot 414.00 CORON ATHEROSCLER NOS TYPE VESSEL, NATIV 12/09/2016 Ot 592.1 CALCULUS OF URETER 12/09/2016 DELMAR HARDING MD Ot 592.1 CALCULUS OF [place]TER 12/09/2016 DELMAR HARDING MD Ot V72.81 [id number] CARDIOVASCULAR 12/09/2016 DELMAR HARDING MD Ot V74.8 SCREEN-BACTERIAL DIS NEC 12/09/2016 YAMILE GRIGSBY MD Ot E78.2 MIXED HYPERLIPIDEMIA 12/09/2016 YAMILE GRIGSBY MD Ot I25.10 ATHSCL HEART DISEASE OF [place] CORONARY 12/09/2016 YAMILE GRIGSBY MD Ot 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 12/09/2016 YAMILE GRIGSBY MD Ot R07.89 OTHER CHEST PAIN 12/09/2016 YAMILE GRIGSBY MD Ot E78.2 MIXED HYPERLIPIDEMIA 12/09/2016 YAMILE GRIGSBY MD Ot I25.10 ATHSCL HEART DISEASE OF [place] CORONARY 12/09/2016 YAMILE GRIGSBY MD Ot 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 12/09/2016 YAMILE GRIGSBY MD Ot R07.89 OTHER CHEST PAIN 12/09/2016 MARILYN SOTO MD Ot E78.00 PURE HYPERCHOLESTEROLEMIA, UNSPECIFIED 12/09/2016 MARILYN SOTO MD Ot I10 ESSENTIAL (PRIMARY) HYPERTENSION 12/09/2016 MARILYN SOTO MD Ot I25.10 ATHSCL HEART DISEASE OF [place] CORONARY 12/09/2016 MARILYN SOTO MD Ot M19.90 UNSPECIFIED OSTEOARTHRITIS, UNSPECIFIED 12/09/2016 MARILYN SOTO MD Ot N20.0 CALCULUS OF KIDNEY 12/09/2016 MARILYN SOTO MD Ot N40.0 BENIGN PROSTATIC HYPERPLASIA WITHOUT LOW 12/09/2016 MARILYN SOTO MD Ot R39.11 HESITANCY OF MICTURITION 12/09/2016 MARILYN SOTO MD Ot Z79.82 HALFWAY (CURRENT) USE OF ASPIRIN 12/09/2016 MARILYN SOTO MD Ot Z87.19 PERSONAL HISTORY OF OTHER DISEASES OF TH 12/09/2016 MARILYN SOTO MD Ot 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 BYPASS GRAFT 12/09/2016 MARILYN SOTO MD Ot Z95.5 PRESENCE OF CORONARY ANGIOPLASTY IMPLANT 12/09/2016 MARILYN SOTO MD Ot Z96.653 PRESENCE OF ARTIFICIAL KNEE JOINT, BILAT 12/09/2016 Ot 401.9 HYPERTENSION NOS 12/09/2016 Ot 414.00 CORON ATHEROSCLER NOS TYPE VESSEL, NATIV 12/09/2016 Ot 786.50 CHEST PAIN NOS 12/09/2016 Ot 397.0 TRICUSPID VALVE DISEASE 12/09/2016 Ot 401.9 HYPERTENSION NOS 12/09/2016 Ot 414.00 CORON ATHEROSCLER NOS TYPE VESSEL, NATIV 12/09/2016 Ot 424.0 MITRAL VALVE DISORDER 12/09/2016 Ot 786.50 CHEST PAIN NOS 12/09/2016 OJ ESCALONA MARINA K Ot 272.4 HYPERLIPIDEMIA NEC/NOS 12/09/2016 OJ ESCALONA MARINA Linda Ot 397.0 TRICUSPID VALVE DISEASE 12/09/2016 OJ ESCALONA MARINA K Ot 401.1 BENIGN HYPERTENSION 12/09/2016 OJ ESCALONA MARINA Linda Ot 414.00 CORON ATHEROSCLER NOS TYPE VESSEL, NATIV 12/09/2016 OJ ESCALONA MARINA K Ot 424.0 MITRAL VALVE DISORDER 12/09/2016 OJ ESCALONA MARINA K Ot 429.3 CARDIOMEGALY 12/09/2016 OJ ESCALONA MARINA K Ot 272.4 HYPERLIPIDEMIA NEC/NOS 12/09/2016 OJ ESCALONA MARINA Linda Ot 401.1 BENIGN HYPERTENSION 12/09/2016 OJ ESCALONA MARINA Linda Ot 414.00 CORON ATHEROSCLER NOS TYPE VESSEL, NATIV 12/09/2016 Ot 592.1 CALCULUS OF URETER 12/09/2016 DELMAR HARDING MD Ot 592.1 CALCULUS OF URETER 12/09/2016 DELMAR HARDING MD Ot V72.81 [id number] CARDIOVASCULAR 12/09/2016 DELMAR HARDING MD Ot V74.8 SCREEN-BACTERIAL DIS NEC 12/09/2016 YAMILE GRIGSBY MD Ot E78.2 MIXED HYPERLIPIDEMIA 12/09/2016 YAMILE GRIGSBY MD Ot I25.10 ATHSCL HEART DISEASE OF [place] CORONARY 12/09/2016 YAMILE GRIGSBY MD Ot 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 12/09/2016 YAMILE GRIGSBY MD Ot R07.89 OTHER CHEST PAIN 12/09/2016 YAMILE GRIGSBY MD Ot E78.2 MIXED HYPERLIPIDEMIA 12/09/2016 YAMILE GRIGSBY MD Ot I25.10 ATHSCL HEART DISEASE OF [place] CORONARY 12/09/2016 YAMILE GRIGSBY MD Ot 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 12/09/2016 YAMILE GRIGSBY MD Ot R07.89 OTHER CHEST PAIN 12/11/2016 MARILYN SOTO MD Ot E78.00 PURE HYPERCHOLESTEROLEMIA, UNSPECIFIED 12/11/2016 MARILYN SOTO MD Ot I10 ESSENTIAL (PRIMARY) HYPERTENSION 12/11/2016 MARILYN SOTO MD Ot I25.10 ATHSCL HEART DISEASE OF [place] CORONARY 12/11/2016 MARILYN SOTO MD Ot M19.90 UNSPECIFIED OSTEOARTHRITIS, UNSPECIFIED 12/11/2016 MARILYN SOTO MD Ot N20.0 CALCULUS OF KIDNEY 12/11/2016 MARILYN SOTO MD Ot N40.0 BENIGN PROSTATIC HYPERPLASIA WITHOUT LOW 12/11/2016 MARILYN SOTO MD Ot R39.11 HESITANCY OF MICTURITION 12/11/2016 MARILYN SOTO MD Ot Z79.82 DOLL WIG MAKER ROOTED HAIR (CURRENT) USE OF ASPIRIN 12/11/2016 MARILYN SOTO MD Ot Z87.19 PERSONAL HISTORY OF OTHER DISEASES OF TH 12/11/2016 MARILYN SOTO MD Ot 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 BYPASS GRAFT 12/11/2016 MARILYN SOTO MD Ot Z95.5 PRESENCE OF CORONARY ANGIOPLASTY IMPLANT 12/11/2016 MARILYN SOTO MD Ot Z96.653 PRESENCE OF ARTIFICIAL KNEE JOINT, BILAT 01/08/2017 MEHDI NIETO, DELMAR Roldan Ot Z87.442 PERSONAL HISTORY OF URINARY CALCULI 01/11/2017 GEOFFREY NIETO, AUDI Pierre Ot R07.9 CHEST PAIN, UNSPECIFIED 01/31/2017 Ot 401.9 HYPERTENSION NOS 01/31/2017 Ot 414.00 CORON ATHEROSCLER NOS TYPE VESSEL, NATIV 01/31/2017 Ot 786.50 CHEST PAIN NOS 01/31/2017 Ot 397.0 TRICUSPID VALVE DISEASE 01/31/2017 Ot 401.9 HYPERTENSION NOS 01/31/2017 Ot 414.00 CORON ATHEROSCLER NOS TYPE VESSEL, NATIV 01/31/2017 Ot 424.0 MITRAL VALVE DISORDER 01/31/2017 Ot 786.50 CHEST PAIN NOS 01/31/2017 MARINA HERNANDEZ Ot 272.4 HYPERLIPIDEMIA NEC/NOS 01/31/2017 MARINA HERNANDEZ Ot 397.0 TRICUSPID VALVE DISEASE 01/31/2017 MARINA HERNANDEZ Ot 401.1 BENIGN HYPERTENSION 01/31/2017 MARINA HERNANDEZ Ot 414.00 CORON ATHEROSCLER NOS TYPE VESSEL, NATIV 01/31/2017 MARINA HERNANDEZ Ot 424.0 MITRAL VALVE DISORDER 01/31/2017 MARINA HERNANDEZ Ot 429.3 CARDIOMEGALY 01/31/2017 MARINA HERNANDEZ Ot 272.4 HYPERLIPIDEMIA NEC/NOS 01/31/2017 MARINA HERNANDEZ Ot 401.1 BENIGN HYPERTENSION 01/31/2017 MARINA HERNANDEZ Ot 414.00 CORON ATHEROSCLER NOS TYPE VESSEL, NATIV 01/31/2017 Ot 592.1 CALCULUS OF URETER 01/31/2017 DELMAR HARDING MD Ot 592.1 CALCULUS OF URETER 01/31/2017 DELMAR HARDING MD Ot V72.81 [id number]-[id number] CARDIOVASCULAR 01/31/2017 DELMAR HARDING MD, Ot V74.8 SCREEN-BACTERIAL DIS NEC 01/31/2017 YAMILE GRIGSBY MD Ot E78.2 MIXED HYPERLIPIDEMIA 01/31/2017 YAMILE GRIGSBY MD Ot I25.10 ATHSCL HEART DISEASE OF [place] CORONARY 01/31/2017 YAMILE GRIGSBY MD Ot 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 01/31/2017 YAMILE GRIGSBY MD Ot R07.89 OTHER CHEST PAIN 01/31/2017 YAMILE GRIGSBY MD Ot E78.2 MIXED HYPERLIPIDEMIA 01/31/2017 YAMILE GRIGSBY MD Ot I25.10 ATHSCL HEART DISEASE OF [place] CORONARY 01/31/2017 YAMILE GRIGSBY MD Ot 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 01/31/2017 YAMILE GRIGSBY MD Ot R07.89 OTHER CHEST PAIN 01/31/2017 DELMAR HARDING MD Ot Z87.442 PERSONAL HISTORY OF URINARY CALCULI 01/31/2017 AUDI HALE MD Ot R07.9 CHEST PAIN, UNSPECIFIED 02/01/2017 AUDI HALE MD Ot R07.9 CHEST PAIN, UNSPECIFIED 02/13/2017 EDEN-AMADA PA, MARINA Mckeon Ot E78.2 MIXED HYPERLIPIDEMIA 02/13/2017 EDEN-AMADA PA, MARINA Mckeon Ot I10 ESSENTIAL (PRIMARY) HYPERTENSION 02/13/2017 EDEN-AMADA PA, MARINA Mckeon Ot 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 02/13/2017 EDEN-AMADA PA, MARINA Mckeon Ot R07.89 OTHER CHEST PAIN 02/26/2017 EDEN-AMADA PA, MARINA Mckeon Ot E78.2 MIXED HYPERLIPIDEMIA 02/26/2017 HARMON-AMADA PA, MARINA Mckeon Ot I10 ESSENTIAL (PRIMARY) HYPERTENSION 02/26/2017 EDEN-AMADA PA, MARINA Mckeon Ot 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 02/26/2017 EDEN-AMADA PA, MARINA Mckeon Ot R07.89 OTHER CHEST PAIN 03/02/2017 EDEN-AMADA PA, MARINA Mckeon Ot E78.2 MIXED HYPERLIPIDEMIA 03/02/2017 EDEN-AMADA PA, MARINA Mckeon Ot I10 ESSENTIAL (PRIMARY) HYPERTENSION 03/02/2017 EDEN-AMADA PA, MARINA Mckeon Ot 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 03/02/2017 EDEN-AMADA PA, MARINA Mckeon Ot R07.89 OTHER CHEST PAIN 03/21/2017 EDEN-AMADA PA, MARINA Mckeon Ot E78.2 MIXED HYPERLIPIDEMIA 03/21/2017 EDEN-AMADA PA, MARINA Mckeon Ot I10 ESSENTIAL (PRIMARY) HYPERTENSION 03/21/2017 EDEN-AMADA PA, MARINA Mckeon Ot 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 03/21/2017 EDEN-AMADA PA, MARINA Mckeon Ot R07.89 OTHER CHEST PAIN 07/12/2017 Ot 401.9 HYPERTENSION NOS 07/12/2017 Ot 414.00 CORON ATHEROSCLER NOS TYPE VESSEL, NATIV 07/12/2017 Ot 786.50 CHEST PAIN NOS 07/12/2017 Ot 397.0 TRICUSPID VALVE DISEASE 07/12/2017 Ot 401.9 HYPERTENSION NOS 07/12/2017 Ot 414.00 CORON ATHEROSCLER NOS TYPE VESSEL, NATIV 07/12/2017 Ot 424.0 MITRAL VALVE DISORDER 07/12/2017 Ot 786.50 CHEST PAIN NOS 07/12/2017 HARMON-AMADA PA, MARINA Mckeon Ot 272.4 HYPERLIPIDEMIA NEC/NOS 07/12/2017 OJ ESCALONA MARINA K Ot 397.0 TRICUSPID VALVE DISEASE 07/12/2017 OJ ESCALONA MARINA K Ot 401.1 BENIGN HYPERTENSION 07/12/2017 OJ ESCALONA MARINA Linda Ot 414.00 CORON ATHEROSCLER NOS TYPE VESSEL, NATIV 07/12/2017 OJ ESCALONA MARINA Linda Ot 424.0 MITRAL VALVE DISORDER 07/12/2017 OJ ESCALONA MARINA K Ot 429.3 CARDIOMEGALY 07/12/2017 OJ ESCALONA MARINA K Ot 272.4 HYPERLIPIDEMIA NEC/NOS 07/12/2017 OJ ESCALONA MARINA K Ot 401.1 BENIGN HYPERTENSION 07/12/2017 OJ ESCALONA MARINA K Ot 414.00 CORON ATHEROSCLER NOS TYPE VESSEL, NATIV 07/12/2017 Ot 592.1 CALCULUS OF URETER 07/12/2017 DELMAR HARDING MD Ot 592.1 CALCULUS OF URETER 07/12/2017 DELMAR HARDING MD Ot V72.81 PBPW-ZUS-[id number] CARDIOVASCULAR 07/12/2017 DELMAR HARDING MD Ot V74.8 SCREEN-BACTERIAL DIS NEC 07/12/2017 YAMILE GRIGSBY MD Ot E78.2 MIXED HYPERLIPIDEMIA 07/12/2017 YAMILE GRIGSBY MD Ot I25.10 ATHSCL HEART DISEASE OF [place] CORONARY 07/12/2017 YAMILE GRIGSBY MD Ot 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 07/12/2017 YAMILE GRIGSBY MD Ot R07.89 OTHER CHEST PAIN 07/12/2017 YAMILE GIRGSBY MD Ot E78.2 MIXED HYPERLIPIDEMIA 07/12/2017 YAMILE GRIGSBY MD Ot I25.10 ATHSCL HEART DISEASE OF [place] CORONARY 07/12/2017 YAMILE GRIGSBY MD Ot 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 07/12/2017 YAMILE GRIGSBY MD Ot R07.89 OTHER CHEST PAIN 07/12/2017 OJ ESCALONA MARINA K Ot E78.2 MIXED HYPERLIPIDEMIA 07/12/2017 OJ ESCALONA MARINA K Ot I10 ESSENTIAL (PRIMARY) HYPERTENSION 07/12/2017 JOSE HERNANDEZTH K Ot 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 07/12/2017 OJ ESCALONA, MARINA Mckeon Ot R07.89 OTHER CHEST PAIN 07/12/2017 OJ ESCALONA, MARINA Mckeon Ot E78.2 MIXED HYPERLIPIDEMIA 07/12/2017 OJ ESCALONA, MARINA Mckeon Ot I10 ESSENTIAL (PRIMARY) HYPERTENSION 07/12/2017 OJ ESCALONA, MARINA Mckeon Ot 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 07/12/2017 OJ ESCALONA, MARINA Mckeon Ot R07.89 OTHER CHEST PAIN 07/12/2017 MEHDI NIETO, DELMAR Roldan Ot Z87.442 PERSONAL HISTORY OF URINARY CALCULI 07/12/2017 GEOFFREY NIETO, AUDI Pierre Ot R07.9 CHEST PAIN, UNSPECIFIED 07/12/2017 OJ ESCALONA, MARINA Mckeon Ot E78.2 MIXED HYPERLIPIDEMIA 07/12/2017 OJ ESCALONA, MARINA Mckeon Ot I10 ESSENTIAL (PRIMARY) HYPERTENSION 07/12/2017 OJ ESCALONA, MARINA Mckeon Ot 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 07/12/2017 OJ ESCALONA, MARINA Mckeon Ot R07.89 OTHER CHEST PAIN 07/12/2017 TASHA YEN DO Ot M47.816 SPONDYLOSIS W/O MYELOPATHY OR RADICULOPA 07/12/2017 TASHA YEN DO Ot M51.36 OTHER INTERVERTEBRAL DISC DEGENERATION, 08/13/2017 Ot 401.9 HYPERTENSION NOS 08/13/2017 Ot 414.00 CORON ATHEROSCLER NOS TYPE VESSEL, NATIV 08/13/2017 Ot 786.50 CHEST PAIN NOS 08/13/2017 Ot 397.0 TRICUSPID VALVE DISEASE 08/13/2017 Ot 401.9 HYPERTENSION NOS 08/13/2017 Ot 414.00 CORON ATHEROSCLER NOS TYPE VESSEL, NATIV 08/13/2017 Ot 424.0 MITRAL VALVE DISORDER 08/13/2017 Ot 786.50 CHEST PAIN NOS 08/13/2017 OJ ESCALONA MARINA Mckeon Ot 272.4 HYPERLIPIDEMIA NEC/NOS 08/13/2017 OJ ESCALONA MARINA Mckeon Ot 397.0 TRICUSPID VALVE DISEASE 08/13/2017 OJ ESCALONA MARINA Mckeon Ot 401.1 BENIGN HYPERTENSION 08/13/2017 MARINA HERNANDEZ Ot 414.00 CORON ATHEROSCLER NOS TYPE VESSEL, NATIV 08/13/2017 MARINA HERNANDEZ Ot 424.0 MITRAL VALVE DISORDER 08/13/2017 MARINA HERNANDEZ Ot 429.3 CARDIOMEGALY 08/13/2017 MARINA HERNANDEZ Ot 272.4 HYPERLIPIDEMIA NEC/NOS 08/13/2017 MARINA HERNANDEZ Ot 401.1 BENIGN HYPERTENSION 08/13/2017 MAIRNA HERNANDEZ Ot 414.00 CORON ATHEROSCLER NOS TYPE VESSEL, NATIV 08/13/2017 Ot 592.1 CALCULUS OF URETER 08/13/2017 DELMAR HARDING MD Ot 592.1 CALCULUS OF [place] 08/13/2017 DELMAR HARDING MD Ot V72.81 [id number] CARDIOVASCULAR 08/13/2017 DELMAR HARDING MD Ot V74.8 SCREEN-BACTERIAL DIS NEC 08/13/2017 YAMILE GRIGSBY MD Ot E78.2 MIXED HYPERLIPIDEMIA 08/13/2017 YAMILE GRIGSBY MD Ot I25.10 ATHSCL HEART DISEASE OF [place] CORONARY 08/13/2017 YAMILE GRIGSBY MD Ot 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 08/13/2017 YAMILE GRIGSBY MD Ot R07.89 OTHER CHEST PAIN 08/13/2017 YAMILE GRIGSBY MD Ot E78.2 MIXED HYPERLIPIDEMIA 08/13/2017 YAMILE GRIGSBY MD Ot I25.10 ATHSCL HEART DISEASE OF [place] CORONARY 08/13/2017 YAMILE GRIGSBY MD Ot 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 08/13/2017 YAMILE GRIGSBY MD Ot R07.89 OTHER CHEST PAIN 08/13/2017 MARINA HERNANDEZ Ot E78.2 MIXED HYPERLIPIDEMIA 08/13/2017 MARINA HERNANDEZ Ot I10 ESSENTIAL (PRIMARY) HYPERTENSION 08/13/2017 MARINA HERNANDEZ Ot 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 08/13/2017 MARINA HERNANDEZ Ot R07.89 OTHER CHEST PAIN 08/13/2017 MARINA HERNANDEZ Ot E78.2 MIXED HYPERLIPIDEMIA 08/13/2017 CONNORAMADA ESCALONA, MARINA Mckeon Ot I10 ESSENTIAL (PRIMARY) HYPERTENSION 08/13/2017 HARMONORTIZ ESCALONA, MARINA Mckeon Ot 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 08/13/2017 HARMON-AMADA ESCALONA, MARINA Mckeon Ot R07.89 OTHER CHEST PAIN 08/13/2017 MEHDI NIETO, DELMAR Roldan Ot Z87.442 PERSONAL HISTORY OF URINARY CALCULI 08/13/2017 GEOFFREY NIETO, AUDI Pierre Ot R07.9 CHEST PAIN, UNSPECIFIED 08/13/2017 EDENORTIZ ESCALONA, MARINA Mckeon Ot E78.2 MIXED HYPERLIPIDEMIA 08/13/2017 CONNORAMADA ESCALONA, MARINA Mckeon Ot I10 ESSENTIAL (PRIMARY) HYPERTENSION 08/13/2017 HARMONORTIZ ESCALONA, MARINA Mckeon Ot 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 08/13/2017 HARMON-AMADA ESCALONA MARINA Mckeon Ot R07.89 OTHER CHEST PAIN 08/13/2017 TASHA YEN DO, Ot M47.816 SPONDYLOSIS W/O MYELOPATHY OR RADICULOPA 08/13/2017 TASHA YEN DO Ot M51.36 OTHER INTERVERTEBRAL DISC DEGENERATION, 08/14/2017 TOMAS MIX DC, Ot 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 OSTEOARTHRITIS OF HIP 08/14/2017 TOMAS MIX DC, Ot 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, SACRAL AND SACROCOCCYGE 08/14/2017 TOMAS MIX DC Ot M43.8X6 OTHER SPECIFIED DEFORMING DORSOPATHIES, 08/14/2017 TOMAS MIX DC, Ot M47.816 SPONDYLOSIS W/O MYELOPATHY OR RADICULOPA 08/14/2017 TOMAS MIX DC, Ot M51.16 INTERVERTEBRAL DISC DISORDERS W RADICULO 08/16/2017 TASHA YEN DO, Ot M47.816 SPONDYLOSIS W/O MYELOPATHY OR RADICULOPA 08/16/2017 TASHA YEN DO, Ot M51.36 OTHER INTERVERTEBRAL DISC DEGENERATION, 09/03/2017 DOMINICK NOVAK DPM Ot M20.11 HALLUX VALGUS (ACQUIRED), RIGHT FOOT 09/03/2017 DOMINICK NOVAK DPM Ot Z01.818 ENCOUNTER FOR OTHER PREPROCEDURAL EXAMIN 09/04/2017 TOMAS MIX DC, Ot 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 OSTEOARTHRITIS OF HIP 09/04/2017 TOMAS MIX DC, Ot 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, SACRAL AND SACROCOCCYGE 09/04/2017 TOMAS MIX DC, Ot M43.8X6 OTHER SPECIFIED DEFORMING DORSOPATHIES, 09/04/2017 TOMAS MIX DC, Ot M47.816 SPONDYLOSIS W/O MYELOPATHY OR RADICULOPA 09/04/2017 TOMAS MIX DC, Ot M51.16 INTERVERTEBRAL DISC DISORDERS W RADICULO 09/04/2017 SCARLET DPDOMINICK Blackwell Ot M20.11 HALLUX VALGUS (ACQUIRED), RIGHT FOOT 09/04/2017 DOMINICK NOVAK DPM Ot Z01.818 ENCOUNTER FOR OTHER PREPROCEDURAL EXAMIN 09/10/2017 DOMINICK NOVAK DPM Ot E78.5 HYPERLIPIDEMIA, UNSPECIFIED 09/10/2017 SCARLET DPDOMINICK Blackwell Ot I10 ESSENTIAL (PRIMARY) HYPERTENSION 09/10/2017 SCARLET DPDOMINICK Blackwell Ot I25.10 ATHSCL HEART DISEASE OF [place] CORONARY 09/10/2017 SCARLET DPDOMINICK Blackwell Ot I65.29 OCCLUSION AND STENOSIS OF UNSPECIFIED CA 09/10/2017 DOMINICK NOVAK DPM Ot M20.21 HALLUX RIGIDUS, RIGHT FOOT 09/10/2017 SCARLET WHALEY, DOMINICK Ramos Ot R00.1 BRADYCARDIA, UNSPECIFIED 09/10/2017 SCARLET DPRishi, DOMINICK Ramos Ot R07.9 CHEST PAIN, UNSPECIFIED 09/10/2017 SCARLET WHALEY, DOMINICK Ramos Ot Z79.82 HALFWAY (CURRENT) USE OF ASPIRIN 09/10/2017 DOMINICK NOVAK DPM Ot Z79.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 ROOTED 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 (CURRENT) 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 THERAPY 09/10/2017 DOMINICK NOVAK DPM Ot Z87.891 PERSONAL HISTORY OF NICOTINE DEPENDENCE 09/10/2017 DOMINICK NOVAK DPM Ot Z95.5 PRESENCE OF CORONARY ANGIOPLASTY IMPLANT 09/12/2017 SCARLET DPDOMINICK Blackwell Ot E78.5 HYPERLIPIDEMIA, UNSPECIFIED 09/12/2017 SCARLET DPM, DOMINICK Ramos Ot I10 ESSENTIAL (PRIMARY) HYPERTENSION 09/12/2017 SCARLET DPRishi, DOMINICK Ramos Ot I25.10 ATHSCL HEART DISEASE OF [place] CORONARY 09/12/2017 NOVAK DPM, DOMINICK P Ot I65.29 OCCLUSION AND STENOSIS OF UNSPECIFIED CA 09/12/2017 NOVAK DPRishi, DOMINICK P Ot M20.21 HALLUX RIGIDUS, RIGHT FOOT 09/12/2017 NOVAK DPM, DOMINICK P Ot R00.1 BRADYCARDIA, UNSPECIFIED 09/12/2017 NOVAK DPM, DOMINICK P Ot R07.9 CHEST PAIN, UNSPECIFIED 09/12/2017 NOVAK DPM, DOMINICK P Ot Z79.82 HALFWAY (CURRENT) USE OF ASPIRIN 09/12/2017 NOVAK DPMDOMINICK Ot Z79.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 ROOTED 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 (CURRENT) 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 THERAPY 09/12/2017 NOVAK DPRishi, DOMINICK P Ot Z87.891 PERSONAL HISTORY OF NICOTINE DEPENDENCE 09/12/2017 SCARLET DPDOMINICK Blackwell Ot Z95.5 PRESENCE OF CORONARY ANGIOPLASTY IMPLANT 10/06/2017 MARILYN SOTO MD Ot E78.00 PURE HYPERCHOLESTEROLEMIA, UNSPECIFIED 10/06/2017 MARILYN SOTO MD Ot I10 ESSENTIAL (PRIMARY) HYPERTENSION 10/06/2017 MARILYN SOTO MD Ot I25.10 ATHSCL HEART DISEASE OF [place] CORONARY 10/06/2017 MARILYN SOTO MD Ot M79.89 OTHER SPECIFIED SOFT TISSUE DISORDERS 10/06/2017 MARILYN SOTO MD Ot T81.89XA OTH COMPLICATIONS OF PROCEDURES, NEC, IN 10/06/2017 MARILYN SOTO MD Ot Z79.82 HALFWAY (CURRENT) USE OF ASPIRIN 10/06/2017 MARILYN SOTO MD Ot Z87.19 PERSONAL HISTORY OF OTHER DISEASES OF TH 10/06/2017 MARILYN SOTO MD Ot Z87.442 PERSONAL HISTORY OF URINARY CALCULI 10/06/2017 MARILYN SOTO MD Ot 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 BYPASS GRAFT 10/06/2017 MARILYN SOTO MD Ot Z95.5 PRESENCE OF CORONARY ANGIOPLASTY IMPLANT 10/06/2017 MARILYN SOTO MD Ot Z96.653 PRESENCE OF ARTIFICIAL KNEE JOINT, BILAT 10/06/2017 MARILYN SOTO MD Ot Z98.890 OTHER SPECIFIED POSTPROCEDURAL STATES 10/08/2017 MARILYN SOTO MD Ot E78.00 PURE HYPERCHOLESTEROLEMIA, UNSPECIFIED 10/08/2017 MARILYN SOTO MD Ot I10 ESSENTIAL (PRIMARY) HYPERTENSION 10/08/2017 MARILYN SOTO MD Ot I25.10 ATHSCL HEART DISEASE OF [place] CORONARY 10/08/2017 MARILYN SOTO MD Ot M79.89 OTHER SPECIFIED SOFT TISSUE DISORDERS 10/08/2017 MARILYN SOTO MD Ot T81.89XA OTH COMPLICATIONS OF PROCEDURES, NEC, IN 10/08/2017 MARILYN SOTO MD Ot Z79.82 HALFWAY (CURRENT) USE OF ASPIRIN 10/08/2017 MARILYN SOTO MD Ot Z87.19 PERSONAL HISTORY OF OTHER DISEASES OF TH 10/08/2017 MARILYN SOTO MD Ot Z87.442 PERSONAL HISTORY OF URINARY CALCULI 10/08/2017 MARIYLN SOTO MD Ot 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 BYPASS GRAFT 10/08/2017 MARILYN SOTO MD Ot Z95.5 PRESENCE OF CORONARY ANGIOPLASTY IMPLANT 10/08/2017 MARILYN SOTO MD Ot Z96.653 PRESENCE OF ARTIFICIAL KNEE JOINT, BILAT 10/08/2017 MARILYN SOTO MD Ot Z98.890 OTHER SPECIFIED POSTPROCEDURAL STATES 10/10/2017 MARINA HERNANDEZ Ot 272.4 HYPERLIPIDEMIA NEC/NOS 10/10/2017 MARINA HERNANDEZ Ot 397.0 TRICUSPID VALVE DISEASE 10/10/2017 MARINA HERNANDEZ Ot 401.1 BENIGN HYPERTENSION 10/10/2017 MARINA HERNANDEZ Ot 414.00 CORON ATHEROSCLER NOS TYPE VESSEL, NATIV 10/10/2017 MARINA HERNANDEZ Ot 424.0 MITRAL VALVE DISORDER 10/10/2017 MARINA HERNANDEZ Ot 429.3 CARDIOMEGALY 10/10/2017 MARINA HERNANDEZ Ot 272.4 HYPERLIPIDEMIA NEC/NOS 10/10/2017 MARINA HERNANDEZ Ot 401.1 BENIGN HYPERTENSION 10/10/2017 MARINA HERNANDEZ Ot 414.00 CORON ATHEROSCLER NOS TYPE VESSEL, NATIV 10/10/2017 Ot 592.1 CALCULUS OF URETER 10/10/2017 MEHDI NIETO, DELMAR Roldan Ot 592.1 CALCULUS OF URETER 10/10/2017 MEHDI NIETO, DELMAR Roldan Ot V72.81 [id number] CARDIOVASCULAR 10/10/2017 DELMAR HARDING MD Ot V74.8 SCREEN-BACTERIAL DIS NEC 10/10/2017 YAMILE GRIGSBY MD Ot E78.2 MIXED HYPERLIPIDEMIA 10/10/2017 YAMILE GRIGSBY MD Ot I25.10 ATHSCL HEART DISEASE OF [place] CORONARY 10/10/2017 YAMILE GRIGSBY MD Ot 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 10/10/2017 YAMILE GRIGSBY MD Ot R07.89 OTHER CHEST PAIN 10/10/2017 YAMILE GRIGSBY MD Ot E78.2 MIXED HYPERLIPIDEMIA 10/10/2017 YAMILE GRIGSBY MD Ot I25.10 ATHSCL HEART DISEASE OF [place] CORONARY 10/10/2017 YAMILE GRIGSBY MD Ot 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 10/10/2017 YAMILE GRIGSBY MD Ot R07.89 OTHER CHEST PAIN 10/10/2017 MARINA HERNANDEZ K Ot E78.2 MIXED HYPERLIPIDEMIA 10/10/2017 OJ ESCALONA, MARINA K Ot I10 ESSENTIAL (PRIMARY) HYPERTENSION 10/10/2017 JOSE HERNANDEZTH K Ot 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 10/10/2017 MARINA HERNANDEZ K Ot R07.89 OTHER CHEST PAIN 10/10/2017 MARINA HERNANDEZ K Ot E78.2 MIXED HYPERLIPIDEMIA 10/10/2017 MARINA HERNANDEZ K Ot I10 ESSENTIAL (PRIMARY) HYPERTENSION 10/10/2017 OJ ESCALONA, MARINA K Ot 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 10/10/2017 EDEN-AMADA PA, MARINA K Ot R07.89 OTHER CHEST PAIN 10/10/2017 MEHDI NIETO, DELMAR Roldan Ot Z87.442 PERSONAL HISTORY OF URINARY CALCULI 10/10/2017 GEOFFREY NIETO, AUDI Pierre Ot R07.9 CHEST PAIN, UNSPECIFIED 10/10/2017 MARINA HERNANDEZ K Ot E78.2 MIXED HYPERLIPIDEMIA 10/10/2017 HARMONMARINA MOYER Ot I10 ESSENTIAL (PRIMARY) HYPERTENSION 10/10/2017 MARINA HERNANDEZ Ot 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 10/10/2017 MARINA HERNANEDZ Ot R07.89 OTHER CHEST PAIN 10/10/2017 TOMAS MIX DC, Ot 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 OSTEOARTHRITIS OF HIP 10/10/2017 TOMAS MIX DC, Ot 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, SACRAL AND SACROCOCCYGE 10/10/2017 TOMAS MIX DC Ot M43.8X6 OTHER SPECIFIED DEFORMING DORSOPATHIES, 10/10/2017 TOMAS MIX DC, Ot M47.816 SPONDYLOSIS W/O MYELOPATHY OR RADICULOPA 10/10/2017 TOMAS MIX DC, Ot M51.16 INTERVERTEBRAL DISC DISORDERS W RADICULO 10/12/2017 MARILYN SOTO MD Ot E78.00 PURE HYPERCHOLESTEROLEMIA, UNSPECIFIED 10/12/2017 MARILYN SOTO MD, Ot I10 ESSENTIAL (PRIMARY) HYPERTENSION 10/12/2017 MARILYN SOTO MD Ot I25.10 ATHSCL HEART DISEASE OF [place] CORONARY 10/12/2017 MARILYN SOTO MD Ot M79.89 OTHER SPECIFIED SOFT TISSUE DISORDERS 10/12/2017 MARILYN SOTO MD Ot T81.89XA OTH COMPLICATIONS OF PROCEDURES, NEC, IN 10/12/2017 MARILYN SOTO MD Ot Z79.82 HALFWAY (CURRENT) USE OF ASPIRIN 10/12/2017 MARILYN SOTO MD Ot Z87.19 PERSONAL HISTORY OF OTHER DISEASES OF TH 10/12/2017 MARILYN SOTO MD Ot Z87.442 PERSONAL HISTORY OF URINARY CALCULI 10/12/2017 MARILYN SOTO MD Ot 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 BYPASS GRAFT 10/12/2017 MARILYN SOTO MD Ot Z95.5 PRESENCE OF CORONARY ANGIOPLASTY IMPLANT 10/12/2017 MARILYN SOTO MD Ot Z96.653 PRESENCE OF ARTIFICIAL KNEE JOINT, BILAT 10/12/2017 MARILYN SOTO MD Ot Z98.890 OTHER SPECIFIED POSTPROCEDURAL STATES 10/12/2017 MARINA HERNANDEZ Ot 272.4 HYPERLIPIDEMIA NEC/NOS 10/12/2017 MARINA HERNANDEZ Ot 397.0 TRICUSPID VALVE DISEASE 10/12/2017 OJ ESCALONA MARINA K Ot 401.1 BENIGN HYPERTENSION 10/12/2017 OJ ESCALONA MARINA K Ot 414.00 CORON ATHEROSCLER NOS TYPE VESSEL, NATIV 10/12/2017 OJ ESCALONA AMRINA K Ot 424.0 MITRAL VALVE DISORDER 10/12/2017 OJ ESCALONA MARINA K Ot 429.3 CARDIOMEGALY 10/12/2017 OJ ESCALONA MARINA K Ot 272.4 HYPERLIPIDEMIA NEC/NOS 10/12/2017 OJ ESCALONA MARINA K Ot 401.1 BENIGN HYPERTENSION 10/12/2017 OJ ESCALONA MARINA K Ot 414.00 CORON ATHEROSCLER NOS TYPE VESSEL, NATIV 10/12/2017 Ot 592.1 CALCULUS OF URETER 10/12/2017 DELMAR HARDING MD Ot 592.1 CALCULUS OF URETER 10/12/2017 DELMAR HARDING MD Ot V72.81 [id number] CARDIOVASCULAR 10/12/2017 DELMAR HARDING MD Ot V74.8 SCREEN-BACTERIAL DIS NEC 10/12/2017 YAMILE GRIGSBY MD Ot E78.2 MIXED HYPERLIPIDEMIA 10/12/2017 YAMILE GRIGSBY MD Ot I25.10 ATHSCL HEART DISEASE OF [place] CORONARY 10/12/2017 YAMILE GRIGSBY MD Ot 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 10/12/2017 YAMILE GRIGSBY MD Ot R07.89 OTHER CHEST PAIN 10/12/2017 YAMILE GRIGSBY MD Ot E78.2 MIXED HYPERLIPIDEMIA 10/12/2017 YAMILE GRIGSBY MD Ot I25.10 ATHSCL HEART DISEASE OF [place] CORONARY 10/12/2017 YAMILE GRIGSBY MD Ot 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 10/12/2017 YAMILE GRIGSBY MD Ot R07.89 OTHER CHEST PAIN 10/12/2017 MARINA HERNANDEZ Ot E78.2 MIXED HYPERLIPIDEMIA 10/12/2017 MARINA HERNANDEZ Ot I10 ESSENTIAL (PRIMARY) HYPERTENSION 10/12/2017 MARINA HERNANDEZ Ot 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 10/12/2017 OJ PA, MARINA Mckeon Ot R07.89 OTHER CHEST PAIN 10/12/2017 OJ IQRA, MARINA Mckeon Ot E78.2 MIXED HYPERLIPIDEMIA 10/12/2017 OJ IQRA, MARINA Mckeon Ot I10 ESSENTIAL (PRIMARY) HYPERTENSION 10/12/2017 OJ IQRA, MARINA Mckeon Ot 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 10/12/2017 OJ PA, MARINA Mckeon Ot R07.89 OTHER CHEST PAIN 10/12/2017 MEHDI NIETO, DELMAR Roldan Ot Z87.442 PERSONAL HISTORY OF URINARY CALCULI 10/12/2017 GEOFFREY NIETO, AUDI Pierre Ot R07.9 CHEST PAIN, UNSPECIFIED 10/12/2017 OJ IQRA, MARINA Mckeon Ot E78.2 MIXED HYPERLIPIDEMIA 10/12/2017 OJ IQRA, MARINA Mckeon Ot I10 ESSENTIAL (PRIMARY) HYPERTENSION 10/12/2017 OJ IQRA, MARINA Mckeon Ot 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 10/12/2017 OJ IQRA, MARINA Mckeon Ot R07.89 OTHER CHEST PAIN 10/12/2017 TOMAS MIX DC Ot 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 OSTEOARTHRITIS OF HIP 10/12/2017 TOMAS MIX DC Ot 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, SACRAL AND SACROCOCCYGE 10/12/2017 TOMAS MIX DC Ot M43.8X6 OTHER SPECIFIED DEFORMING DORSOPATHIES, 10/12/2017 TOMAS MIX DC, Ot M47.816 SPONDYLOSIS W/O MYELOPATHY OR RADICULOPA 10/12/2017 MARIA DEL ROSARIOTOMAS HASSAN DC, Ot M51.16 INTERVERTEBRAL DISC DISORDERS W RADICULO 10/15/2017 ELÍAS KASPER DO Ot M54.16 RADICULOPATHY, LUMBAR REGION Procedures There is no data. Results Test Result Range Complete urinalysis with reflex to culture - 01/13/16 07:15 Urine color determination YELLOW NRG Urine clarity determination CLEAR NRG Urine pH measurement by test strip 5 5-9 Specific gravity of urine by test strip 1.030 1.016- 1.022 Urine protein assay by test strip, semi-quantitative 2+ NEGATIVE Urine glucose detection by automated test strip NEGATIVE NEGATIVE Erythrocytes detection in urine sediment by light microscopy 1+ NEGATIVE Urine ketones detection by automated test strip NEGATIVE NEGATIVE Urine nitrite detection by test strip NEGATIVE NEGATIVE Urine total bilirubin detection by test strip 1+ NEGATIVE Urine urobilinogen measurement by automated test strip (mass/volume) 1 mg/dL NORMAL Urine leukocyte esterase detection by dipstick 1+ NEGATIVE Automated urine sediment erythrocyte count by microscopy (number/high power field) NONE NRG Automated urine sediment leukocyte count by microscopy (number/high power field ) [HPF] NRG Bacteria detection in urine sediment by light microscopy TRACE NRG Squamous epithelial cells detection in urine sediment by light microscopy RARE NRG Crystals detection in urine sediment by light microscopy PRESENT NRG Casts detection in urine sediment by light microscopy PRESENT NRG Mucus detection in urine sediment by light microscopy SMALL NRG Complete urinalysis with reflex to culture YES NRG Yeast detection in urine sediment by light microscopy FEW NRG Hyaline casts detection in urine sediment by light microscopy 2-5 NRG Calcium oxalate crystals detection in urine sediment by light microscopy MODERATE NRG Bacterial urine culture - 01/13/16 07:15 Bacterial urine culture [id number] NRG COLONY COUNT <10,000 NRG Complete blood count (CBC) with automated white blood cell (WBC) differential - 01/13/16 07:57 Blood leukocytes automated count (number/volume) 7.0 10*3/uL 4.3-11.0 Blood erythrocytes automated count (number/volume) 4.63 10*6/uL 4.35-5.85 Venous blood hemoglobin measurement (mass/volume) 14.1 g/dL 13.3-17.7 Blood hematocrit (volume fraction) 41 % 40-54 Automated erythrocyte mean corpuscular volume 89 [foz_us] 80-99 Automated erythrocyte mean corpuscular hemoglobin (mass per erythrocyte) 31 pg 25-34 Automated erythrocyte mean corpuscular hemoglobin concentration measurement ( mass/volume) 34 g/dL 32-36 Automated erythrocyte distribution width ratio 12.9 % 10.0-14.5 Automated blood platelet count (count/volume) 171 10*3/uL 130-400 Automated blood platelet mean volume measurement 9.6 [foz_us] 7.4-10.4 Automated blood neutrophils/100 leukocytes 63 % 42-75 Automated blood lymphocytes/100 leukocytes 24 % 12-44 Blood monocytes/100 leukocytes 10 % 0-12 Automated blood eosinophils/100 leukocytes 3 % 0-10 Automated blood basophils/100 leukocytes 0 % 0-10 Blood neutrophils automated count (number/volume) 4.4 10*3 1.8-7.8 Blood lymphocytes automated count (number/volume) 1.7 10*3 1.0-4.0 Blood monocytes automated count (number/volume) 0.7 10*3 0.0-1.0 Automated eosinophil count 0.2 10*3/uL 0.0-0.3 Automated blood basophil count (count/volume) 0.0 10*3/uL 0.0-0.1 Comprehensive metabolic panel - 01/13/16 07:57 Serum or plasma sodium measurement (moles/volume) 140 mmol/L 135-145 Serum or plasma potassium measurement (moles/volume) 4.1 mmol/L 3.6-5.0 Serum or plasma chloride measurement (moles/volume) 110 mmol/L 98-107 Carbon dioxide 22 mmol/L 21-32 Serum or plasma anion gap determination (moles/volume) 8 mmol/L 5-14 Serum or plasma urea nitrogen measurement (mass/volume) 19 mg/dL 7-18 Serum or plasma creatinine measurement (mass/volume) 1.03 mg/dL 0.60-1.30 Serum or plasma urea nitrogen/creatinine mass ratio 18 NRG Serum or plasma creatinine measurement with calculation of estimated glomerular filtration rate > NRG Serum or plasma glucose measurement (mass/volume) 114 mg/dL 70-105 Serum or plasma calcium measurement (mass/volume) 8.8 mg/dL 8.5-10.1 Serum or plasma total bilirubin measurement (mass/volume) 0.7 mg/dL 0.1-1.0 Serum or plasma alkaline phosphatase measurement (enzymatic activity/volume) 52 U/L 40-136 Serum or plasma aspartate aminotransferase measurement (enzymatic activity/ volume) 27 U/L 5-34 Serum or plasma alanine aminotransferase measurement (enzymatic activity/volume ) 29 U/L 0-55 Serum or plasma protein measurement (mass/volume) 6.5 g/dL 6.4-8.2 Serum or plasma albumin measurement (mass/volume) 4.0 g/dL 3.2-4.5 Comprehensive metabolic panel - 12/07/16 15:15 Serum or plasma sodium measurement (moles/volume) 143 mmol/L 135-145 Serum or plasma potassium measurement (moles/volume) 4.4 mmol/L 3.6-5.0 Serum or plasma chloride measurement (moles/volume) 109 mmol/L 98-107 Carbon dioxide 25 mmol/L 21-32 Serum or plasma anion gap determination (moles/volume) 9 mmol/L 5-14 Serum or plasma urea nitrogen measurement (mass/volume) 18 mg/dL 7-18 Serum or plasma creatinine measurement (mass/volume) 1.15 mg/dL 0.60-1.30 Serum or plasma urea nitrogen/creatinine mass ratio 16 NRG Serum or plasma creatinine measurement with calculation of estimated glomerular filtration rate > NRG Serum or plasma glucose measurement (mass/volume) 137 mg/dL 70-105 Serum or plasma calcium measurement (mass/volume) 8.8 mg/dL 8.5-10.1 Serum or plasma total bilirubin measurement (mass/volume) 1.0 mg/dL 0.1-1.0 Serum or plasma alkaline phosphatase measurement (enzymatic activity/volume) 59 U/L 40-136 Serum or plasma aspartate aminotransferase measurement (enzymatic activity/ volume) 25 U/L 5-34 Serum or plasma alanine aminotransferase measurement (enzymatic activity/volume ) 23 U/L 0-55 Serum or plasma protein measurement (mass/volume) 6.4 g/dL 6.4-8.2 Serum or plasma albumin measurement (mass/volume) 4.1 g/dL 3.2-4.5 Complete urinalysis with reflex to culture - 12/07/16 15:50 Urine color determination YELLOW NRG Urine clarity determination SLIGHTLY CLOUDY NRG Urine pH measurement by test strip 6.5 5-9 Specific gravity of urine by test strip 1.015 1.016- 1.022 Urine protein assay by test strip, semi-quantitative 1+ NEGATIVE Urine glucose detection by automated test strip NEGATIVE NEGATIVE Erythrocytes detection in urine sediment by light microscopy 5+ NEGATIVE Urine ketones detection by automated test strip 3+ NEGATIVE Urine nitrite detection by test strip NEGATIVE NEGATIVE Urine total bilirubin detection by test strip NEGATIVE NEGATIVE Urine urobilinogen measurement by automated test strip (mass/volume) NORMAL NORMAL Urine leukocyte esterase detection by dipstick NEGATIVE NEGATIVE Automated urine sediment erythrocyte count by microscopy (number/high power field) [HPF] NRG Automated urine sediment leukocyte count by microscopy (number/high power field ) NONE NRG Bacteria detection in urine sediment by light microscopy NONE NRG Crystals detection in urine sediment by light microscopy NONE NRG Casts detection in urine sediment by light microscopy NONE NRG Mucus detection in urine sediment by light microscopy NEGATIVE NRG Complete urinalysis with reflex to culture NO NRG Automated blood complete blood count (hemogram) panel - 12/07/16 16:05 Blood leukocytes automated count (number/volume) 17.9 10*3/uL 4.3-11.0 Blood erythrocytes automated count (number/volume) 4.40 10*6/uL 4.35-5.85 Venous blood hemoglobin measurement (mass/volume) 13.4 g/dL 13.3-17.7 Blood hematocrit (volume fraction) 40 % 40-54 Automated erythrocyte mean corpuscular volume 90 [foz_us] 80-99 Automated erythrocyte mean corpuscular hemoglobin (mass per erythrocyte) 31 pg 25-34 Automated erythrocyte mean corpuscular hemoglobin concentration measurement ( mass/volume) 34 g/dL 32-36 Automated erythrocyte distribution width ratio 13.0 % 10.0-14.5 Automated blood platelet count (count/volume) 168 10*3/uL 130-400 Automated blood platelet mean volume measurement 9.9 [foz_us] 7.4-10.4 PT panel in platelet poor plasma by coagulation assay - 12/07/16 16:05 Prothrombin time (PT) in platelet poor plasma by coagulation assay 14.7 s 12.2-14.7 INR in platelet poor plasma or blood by coagulation assay 1.1 0.8-1.4 Activated partial thromboplastin time (aPTT) in platelet poor plasma bycoagulation assay - 12/07/16 16:05 Activated partial thromboplastin time (aPTT) in platelet poor plasma bycoagulation assay 27 s 24-35 Complete urinalysis with reflex to culture - 12/09/16 00:50 Urine color determination YELLOW NRG Urine clarity determination CLEAR NRG Urine pH measurement by test strip 5 5-9 Specific gravity of urine by test strip 1.015 1.016- 1.022 Urine protein assay by test strip, semi-quantitative NEGATIVE NEGATIVE Urine glucose detection by automated test strip NEGATIVE NEGATIVE Erythrocytes detection in urine sediment by light microscopy 4+ NEGATIVE Urine ketones detection by automated test strip NEGATIVE NEGATIVE Urine nitrite detection by test strip NEGATIVE NEGATIVE Urine total bilirubin detection by test strip NEGATIVE NEGATIVE Urine urobilinogen measurement by automated test strip (mass/volume) NORMAL NORMAL Urine leukocyte esterase detection by dipstick NEGATIVE NEGATIVE Automated urine sediment erythrocyte count by microscopy (number/high power field) [HPF] NRG Automated urine sediment leukocyte count by microscopy (number/high power field ) NONE NRG Bacteria detection in urine sediment by light microscopy NEGATIVE NRG Crystals detection in urine sediment by light microscopy NONE NRG Casts detection in urine sediment by light microscopy NONE NRG Mucus detection in urine sediment by light microscopy NEGATIVE NRG Complete urinalysis with reflex to culture NO NRG Methicillin resistant Staphylococcus aureus (MRSA) screening culture - 09:37 Methicillin resistant Staphylococcus aureus (MRSA) screening culture NEG NRG Encounters ACCT No. Visit Date/Time Discharge Status Pt. Type Provider Facility Loc./Unit Complaint [id number] 10/11/2017 12:27:00 10/11/2017 13:24:00 DIS Outpatient ELÍSA KASPER DO [facility] CARD LUMBAR RADICULOPATHY [id number] 10/06/2017 07:23:00 10/06/2017 08:23:00 DIS Emergency MARILYN SOTO MD [facility] ER R FOOT SWELLING [id number] 09/10/2017 06:00:00 09/10/2017 11:15:00 DIS Outpatient DOMINICK NOVAK DPM [facility] SDC HALLUX VALGUS DEFORMITY RT FOOT [id number] 09/03/2017 09:11:00 09/03/2017 09:40:00 DIS Outpatient DOMINICK NOVAK DPM [facility] PREOP HALLUX VALGUS DEFORMITY RT FOOT [id number] 08/10/2017 12:49:00 08/16/2017 14:54:00 DIS Outpatient TASHA YEN DO [facility] REHAB LUMBAR DDD;LUMBAR SPONDYLOSIS;L5-S1 SPONDYLOLISTHE [id number] 08/13/2017 10:39:00 08/13/2017 23:59:59 CLS Outpatient TOMAS MIX DC [facility] RAD LOW BACK PAIN,SCIATICA LT LEG [id number] 02/28/2017 08:03:00 02/28/2017 23:59:59 CLS Outpatient MARINA HERNANDEZ [facility] CARD CHEST PAIN SYNDROME [id number] 02/12/2017 08:02:00 02/12/2017 23:59:59 CLS Outpatient MARINA HERNANDEZ [facility] CARD PALPITATIONS R00.2,CAD I25.10 [id number] 02/02/2017 08:14:00 02/02/2017 23:59:59 CLS Outpatient MARINA HERNANDEZ [facility] CARD HLP E78.2, CHEST PAIN SYNDROME R07.89 [id number] 01/10/2017 10:47:00 01/10/2017 23:59:59 CLS Outpatient AUDI HALE MD [facility] RAD CHEST PAIN,RIGHT SIDED [id number] 12/13/2016 11:52:00 12/13/2016 23:59:59 CLS Outpatient DELMAR HARDING MD [facility] RAD LT URETERAL STONE [id number] 12/09/2016 00:26:00 12/09/2016 01:48:00 DIS Emergency MARILYN SOTO MD [facility] ER POSS KIDNEY STONE [id number] 12/07/2016 14:07:00 12/07/2016 18:21:00 DIS Emergency MARILYN SOTO MD [facility] ER ABD PAIN [id number] 11/14/2016 15:45:00 11/14/2016 16:27:00 DIS Outpatient TASHA YEN DO [facility] REHAB LUMBAR SCOLIOSIS; SPONDYLOSIS;DDD;R HIP PAIN [id number] 01/21/2016 13:00:00 01/21/2016 16:20:00 DIS Outpatient CHRISSIE NEWBERRY MD [facility] SDC BLOOD IN STOOLS [id number] 01/19/2016 05:39:00 01/19/2016 11:30:00 DIS Outpatient CHRISSIE NEWBERRY MD [facility] PREOP BLOOD IN STOOLS [id number] 01/13/2016 06:57:00 01/13/2016 09:31:00 DIS Emergency SADI MATHEWS MD [facility] ER FEELS BAD ALL OVER,DIZZY [id number] 06/02/2015 12:05:00 06/02/2015 23:59:59 CLS Outpatient YAMILE GRIGSBY MD [facility] CARD CAD CAROTID ARTERY STENOSIS CHEST PAIN [id number] 05/20/2015 11:33:00 05/20/2015 23:59:59 CLS Outpatient YAMILE GRIGSBY MD [facility] CARD CAD CAROTID ARTERY STENOSIS CHEST PAIN [id number] 02/28/2015 04:45:00 02/28/2015 06:09:00 DIS Emergency MARI NIETO, MERCEDEZ Zarate [facility] ER ABD,BACK PAIN [id number] 12/02/2013 07:00:00 12/02/2013 12:15:00 DIS Outpatient DELMAR HARDING MD [facility] RIGHT URETERAL STONE [id number] 11/28/2013 08:48:00 11/28/2013 23:59:59 CLS Outpatient DELMAR HARDING MD [facility] PREOP RIGHT URETERAL STONE [id number] 11/03/2013 06:04:00 11/03/2013 08:24:00 DIS Emergency MIRIAM LANDEROS DO [facility] ER ABD PAIN [id number] 08/18/2013 07:18:00 08/18/2013 23:59:59 CLS Outpatient MARINA HERNANDEZ [facility] CARD CAD,DJD,HIP PAIN,HLP [id number] 08/14/2013 08:44:00 08/14/2013 23:59:59 CLS Outpatient MARINA HERNANDEZ [facility] CARD CAD,DJD,HIP PAIN,HLP [id number] 05/31/2013 09:18:00 05/31/2013 10:56:00 DIS Emergency SADI MATHEWS MD [facility] ER CHEST PAIN [id number] 01/02/2013 02:37:00 01/02/2013 07:40:00 DIS Emergency TOMAS GANDHI MD [facility] ER ALLERGIC RXN [id number] 12/30/2012 21:47:00 12/30/2012 22:25:00 DIS Emergency RIKI DOW APRN [facility] ER HIVES, POSS ALLERGIC REACTION [id number] 10/17/2017 05:41:00 ACT Emergency MARI NIETO, MERCEDEZ Zarate [facility] ER UNABLE TO URINATE [id number] 05/20/2015 11:33:00 Document Registration [id number] 11/21/2013 12:43:00 Document Registration [id number] 03/13/2012 11:18:00 Document Registration [id number] 03/06/2012 10:06:00 Document Registration [id number] 11/11/2011 09:08:00 Document Registration [id number] 11/10/2011 16:03:00 Document Registration [id number] 09/16/2011 23:47:00 Document Registration [id number] 08/11/2011 22:00:00 Document Registration [id number] 05/19/2011 09:49:00 Document Registration [id number] 05/17/2011 09:28:00 Document Registration [id number] 01/18/2011 12:13:00 Document Registration [id number] 07/24/2017 09:11:00 07/24/2017 23:59:00 DIS Outpatient KAREEN FLOWERS [id number] 07/04/2017 11:03:00 07/04/2017 23:59:00 DIS Outpatient KAREEN FLOWERS
[2017-10-17 06:04] LABS: BACTERIA,URINE TRACE /HPF; SQUAMOUS EPITHELIAL CELL,UR RARE /HPF; WBC,URINE RARE /HPF
--- NOTE | 2017-10-17 06:32 | ED GU-Male ---
General Chief Complaint: -Male Stated Complaint: UNABLE TO URINATE Nursing Triage Note: TO ED AMB REPORTING DYSURIA AND CAN'T URINATE WELL. PT REPORTS ONGOING PROBLEMS OVER THE YEARS WITH DRIBBLING STREAM. Source: patient Exam Limitations: no limitations History of Present Illness Date Seen by Provider: Oct 17, 2017 Time Seen by Provider: 05:57 Initial Comments Here with report of frequency of urination but still amounts. States that he's had intermittent problems over the past few years and actually has had to have either straight catheter for temporary catheter placed for the problem. He does have established care with Dr. Harding. Denies fever or chills. Denies nausea or vomiting. Does feel fullness in the abdomen and feels like he has to urinate but can't. Timing/Duration: yesterday, getting worse Severity/Quality: moderate, full Location: suprapubic Radiation: none Activities at Onset: none Prior Genitourinary Problems: similar symptoms Modifying Factors: Improves With Urinating Associated Symptoms: abdominal pain; No fever/chills, No nausea/vomiting; urinary frequency Allergies and Home Medications Allergies Coded Allergies: No Known Drug Allergies (Unverified , 05/19/11) Home Medications Aspirin 81 Mg Tab.chew, 81 MG PO DAILY, (Reported) Docusate Sodium 100 Mg Capsule, 100 MG PO BID, (Reported) Ibuprofen 800 Mg Tablet, 800 MG PO BID PRN for PAIN Prescribed by: ADDIE MORALES on 09/10/17 0956 Metoprolol Tartrate 25 Mg Tablet, 12.5 MG PO BID, (Reported) take 1/2 of 25mg tab [place]-3 Fatty Acids/Fish Oil 1 Each Capsule, 1,200 MG PO BID, (Reported) Rosuvastatin Calcium 10 Mg Tablet, 10 MG PO Q48H, (Reported) Sulfamethoxazole/Trimethoprim 1 Each Tablet, 1 EACH PO BID Prescribed by: MARILYN SOTO on 10/06/17 0811 Tamsulosin HCl 0.4 Mg Cap.er.24h, 0.4 MG PO HS, (Reported) Tamsulosin HCl 0.4 Mg Cap, 0.4 MG PO DAILY Prescribed by: TOMAS GANDHI on 10/17/17 0638 Patient Home Medication List Home Medication List Reviewed: Yes Review of Systems Constitutional: see HPI; No chills, No fever Respiratory: no symptoms reported Cardiovascular: no symptoms reported Gastrointestinal: see HPI Genitourinary: see HPI; denies flank pain; pain, urgency Psychiatric/Neurological: No Symptoms Reported Past Owicrrh-Bnqvdu-Morymq Hx Past Med/Social Hx: Reviewed Nursing Past Med/Soc Hx Patient Social History Alcohol Use: Denies Use Recreational Drug Use: No Smoking Status: Never a Smoker 2nd Hand Smoke Exposure: No Recent Foreign Travel: No Contact w/Someone Who Travel: No Recent Infectious Disease Expo: No Recent Hopitalizations: No Immunizations Up To Date Tetanus Booster (TDap): Unknown PED Vaccines UTD: No Date of Influenza Vaccine: Jan 31, 2013 Seasonal Allergies Seasonal Allergies: No Past Medical History Surgeries: Yes (BILAT TKR, QUAD BYPASS, STENT, ESWL, R ARM FX) Cardiac, CABG, Joint Replacement, Orthopedic Respiratory: No Cardiac: Yes (QUAD BYPASS) Coronary Artery Disease, High Cholesterol, Hypertension Neurological: No Reproductive Disorders: No Sexually Transmitted Disease: No HIV/AIDS: No Genitourinary: Yes Benign Prostatic Hyperpl, Kidney Stones Gastrointestinal: Yes (BLOOD IN STOOLS) Chronic Constipation Musculoskeletal: Yes Arthritis, Chronic Back Pain, Fractures Endocrine: No HEENT: No Loss of Vision: Bilateral Hearing Impairment: Denies Cancer: No Psychosocial: No Integumentary: No Blood Disorders: No Adverse Reaction/Blood Tranf: Yes Family Medical History Reviewed Nursing Family Hx No Pertinent Family Hx Physical Exam Vital Signs Vital Signs - First Documented 10/17/17 05:50 Temp 96.9 Pulse 57 Resp 20 B/P (MAP) 148/76 (100) Pulse Ox 98 O2 Delivery Room Air Capillary Refill : Less Than 3 Seconds Height, Weight, BMI Height: 5'7.00" Weight: 170lbs. 0.0oz. 77.876902qa; 26.6 BMI Method:Stated General Appearance: WD/WN, no apparent distress Cardiovascular: regular rate, rhythm, no murmur Respiratory: lungs clear, normal breath sounds Gastrointestinal: soft; No guarding, No rebound; other (bladder palpable suprapubic region) Back: normal inspection, no CVA tenderness, no vertebral tenderness Neurologic/Psychiatric: alert, oriented x 3 Skin: normal color, warm/dry Progress/Results/Core Measures Suspected Sepsis Recent Fever Within 48 Hours: No Infection Criteria Present: None New/Unexplained Altered Menta: No Sepsis Screen: No Definite Risk SIRS Temperature:96.9 Pulse: 57 Respiratory Rate: 20 Blood Pressure 148 /76 Mean: 100 Results/Orders Lab Results Laboratory Tests Test 10/17/17 05:45 Range/Units Urine Color YELLOW Urine Clarity CLEAR Urine pH 6.5 5-9 Urine Specific [place] 1.010 L 1.016-1.022 Urine Protein NEGATIVE NEGATIVE Urine Glucose (UA) NEGATIVE NEGATIVE Urine Ketones NEGATIVE NEGATIVE Urine Nitrite NEGATIVE NEGATIVE Urine Bilirubin NEGATIVE NEGATIVE Urine Urobilinogen NORMAL NORMAL MG/DL Urine Leukocyte Esterase NEGATIVE NEGATIVE Urine RBC (Auto) NEGATIVE NEGATIVE Urine RBC NONE /HPF Urine WBC RARE /HPF Urine Squamous Epithelial Cells RARE /HPF Urine Crystals NONE /LPF Urine Bacteria TRACE /HPF Urine Casts NONE /LPF Urine Mucus NEGATIVE /LPF Urine Culture Indicated NO My Orders Orders - TOMAS GANDHI MD Bladder Scan (10/17/17 06:32) Vital Signs/I&O 10/17/17 05:50 Temp 96.9 Pulse 57 Resp 20 B/P (MAP) 148/76 (100) Pulse Ox 98 O2 Delivery Room Air Capillary Refill : Less Than 3 Seconds Blood Pressure Mean: 100 Progress Note : Progress Note Seen and evaluated. UA obtained. Post void residual 700. Catheter placed by nursing and had about this much out. We did discuss keeping the catheter in place versus withdrawing and have him return if things are coming back. Patient does not want to keep the catheter and at this point. Catheter was removed after urine flow complete. Discharged home with return precautions. Patient verbalize understanding instructions and agreement with plan. Departure Impression Primary Impression: Acute urinary retention Disposition: 01 HOME, SELF-CARE Condition: Improved Departure-Patient Inst. Decision time for Depature: 06:32 Referrals: AUDI HALE MD (PCP/Family) Primary Care Physician DELMAR HARDING MD Patient Instructions: Batres Catheter, Male, Urinary Retention (DC) Add. Discharge Instructions: All discharge instructions reviewed with patient and/or family. Voiced understanding. Follow-up with Dr. Harding in the next few days for recheck and further evaluation. Take medications as directed. Return for worse pain, fever, vomiting, weakness, breathing problems, difficulties with urination or other concerns as needed. Scripts Tamsulosin HCl (Flomax) 0.4 Mg Cap 0.4 MG PO DAILY for 30 Days, #30 CAP 0 Refills Prov: TOMAS GANDHI MD 10/17/17 Copy Copies To 1: DELMAR HARDING MD Copies To 2: AUDI HALE MD, TIMOTHY D MD Oct 17, 2017 06:32
[2017-10-17] MEDS ORDERED: TAMS0.4C98 PO (06:38)
[2017-10-17 07:00] VITALS: BP 141/73
== END 2017-10-17 07:00 | disposition home or self-care (01) ==
LOC: EDUNIT# 05:40 → ER 05:41
DX: R33.9 Retention of urine, unspecified (principal); N40.1 Benign prostatic hyperplasia with lower urinary tract symptoms; I25.10 Atherosclerotic heart disease of native coronary artery without angina pectoris; I10 Essential (primary) hypertension; E78.00 Pure hypercholesterolemia, unspecified; Z87.19 Personal history of other diseases of the digestive system; Z87.442 Personal history of urinary calculi; Z79.82 Long term (current) use of aspirin; Z95.1 Presence of aortocoronary bypass graft; Z96.653 Presence of artificial knee joint, bilateral; Z95.5 Presence of coronary angioplasty implant and graft
CPT/HCPCS: 51702; 81000

== ENCOUNTER 2017-11-11 06:21 | Emergency (ER) | payer MEDICARE, OTHER ==
[~2017-11-11] VITALS: Ht 170.2 cm; Wt 77.1 kg
--- OUTSIDE RECORDS SUMMARY | 2017-11-11 06:31 | XMS REPORT | Continuity of Care Document ---
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 NEC [...] OTH MED,LT, CURRENT USE 12/30/2012 RIKI DOW PROFESSOR OF RELIGION Ot 684 IMPETIGO 12/30/2012 RIKI DOW PROFESSOR OF RELIGION Ot 708.9 URTICARIA NOS 01/02/2013 OKSANA NIETO, [...] MALAISE 01/13/2016 SADI MATHEWS MD Ot Z79.82 SNF (CURRENT) USE OF ASPIRIN 01/13/2016 SADI MATHEWS MD Ot Z79.899 OTHER SNF (CURRENT) DRUG THERAPY 01/13/2016 SADI MATHEWS MD Ot 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 BYPASS GRAFT 01/13/2016 YAMILE GRIGSBY MD Ot E78.2 MIXED HYPERLIPIDEMIA 01/13/2016 YAMILE GRIGSBY MD Ot I25.10 ATHSCL HEART DISEASE OF [place] CORONARY 01/13/2016 YAMILE GRIGSBY MD Ot 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 01/13/2016 YAMILE GRIGSBY MD Ot R07.89 OTHER CHEST PAIN 01/13/2016 YAMILE GRIGSBY MD Ot E78.2 MIXED HYPERLIPIDEMIA 01/13/2016 YAMILE GRIGSBY MD Ot I25.10 ATHSCL HEART DISEASE OF [place] CORONARY 01/13/2016 YAMILE GRIGSBY MD Ot 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 01/13/2016 YAMILE GRIGSBY MD Ot R07.89 OTHER CHEST PAIN 01/14/2016 SADI MATHEWS MD Ot R42 DIZZINESS AND GIDDINESS 01/14/2016 SADI MATHEWS MD Ot R51 HEADACHE 01/14/2016 SADI MATHEWS MD Ot R53.81 OTHER MALAISE 01/14/2016 SADI MATHEWS MD Ot Z79.82 SNF (CURRENT) USE OF ASPIRIN 01/14/2016 SADI MATHEWS MD Ot Z79.899 OTHER SNF (CURRENT) DRUG THERAPY 01/14/2016 SADI MATHEWS MD Ot 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 BYPASS GRAFT 01/19/2016 CHRISSIE NEWBERRY MD Ot K92.1 MELENA 01/19/2016 CHRISSIE NEWBERRY MD Ot Z01.818 ENCOUNTER FOR OTHER PREPROCEDURAL EXAMIN 01/21/2016 SADI MATHEWS MD Ot R42 DIZZINESS AND GIDDINESS 01/21/2016 SADI MATHEWS MD Ot R51 HEADACHE 01/21/2016 SADI MATHEWS MD Ot R53.81 OTHER MALAISE 01/21/2016 SADI MATHEWS MD Ot Z79.82 SNF (CURRENT) USE OF ASPIRIN 01/21/2016 SADI MATHEWS MD Ot Z79.899 OTHER [place] (CURRENT) DRUG THERAPY 01/21/2016 SADI MATHEWS MD [...] URETER 01/21/2016 MEHDI NIETO, DELMAR Roldan Ot V72.81 BUHQ-JHW-JTGKEQZNF CARDIOVASCULAR 01/21/2016 DELMAR HARDING MD Ot V74.8 SCREEN-BACTERIAL DIS NEC 01/21/2016 YAMILE GRIGSBY MD Ot E78.2 MIXED HYPERLIPIDEMIA 01/21/2016 YAMILE GRIGSBY MD Ot I25.10 ATHSCL HEART DISEASE OF [place] CORONARY 01/21/2016 YAMILE GRIGSBY MD Ot 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 01/21/2016 YAMILE GRIGSBY MD Ot R07.89 OTHER CHEST PAIN 01/21/2016 YAMILE GRIGSBY MD Ot E78.2 MIXED HYPERLIPIDEMIA 01/21/2016 YAMILE GRIGSBY MD Ot I25.10 ATHSCL HEART DISEASE OF [place] CORONARY 01/21/2016 YAMILE GRIGSBY MD Ot I65.23 [...] MD Ot I25.10 ATHSCL HEART DISEASE OF [place] CORONARY 12/07/2016 MARILYN SOTO MD Ot M19.90 UNSPECIFIED OSTEOARTHRITIS, UNSPECIFIED 12/07/2016 MARILYN SOTO MD Ot N20.0 CALCULUS OF KIDNEY 12/07/2016 MARILYN SOTO MD Ot N40.0 BENIGN PROSTATIC HYPERPLASIA WITHOUT LOW 12/07/2016 MARILYN SOTO MD Ot R10.31 RIGHT LOWER QUADRANT PAIN 12/07/2016 MARILYN SOTO MD Ot Z79.82 [place] (CURRENT) USE OF ASPIRIN 12/07/2016 MARILYN SOTO MD Ot Z87.19 PERSONAL HISTORY OF OTHER DISEASES OF TH 12/07/2016 MARILYN SOTO MD Ot 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 BYPASS GRAFT 12/07/2016 YAMILE GRIGSBY MD Ot E78.2 MIXED HYPERLIPIDEMIA 12/07/2016 YAMILE GRIGSBY MD Ot I25.10 ATHSCL HEART DISEASE OF [place] CORONARY 12/07/2016 YAMILE GRIGSBY MD Ot 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 12/07/2016 YAMILE GRIGSBY MD Ot R07.89 OTHER CHEST PAIN 12/07/2016 YAMILE GRIGSBY MD Ot E78.2 MIXED HYPERLIPIDEMIA 12/07/2016 YAMILE GRIGSBY MD Ot I25.10 ATHSCL HEART DISEASE OF [place] CORONARY 12/07/2016 YAMILE GRIGSBY MD Ot I65.23 [...] URETER 12/09/2016 DELMAR HARDING MD Ot V72.81 BLRK-[id number]-[id number] CARDIOVASCULAR 12/09/2016 DELMAR HARDING MD Ot V74.8 SCREEN-BACTERIAL DIS NEC 12/09/2016 YAMILE GRIGSBY MD Ot E78.2 MIXED HYPERLIPIDEMIA 12/09/2016 YAMILE GRIGSBY MD Ot I25.10 ATHSCL HEART DISEASE OF [place] CORONARY 12/09/2016 YAMILE GRIGSBY MD Ot 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 12/09/2016 YAMILE GRIGSBY MD Ot R07.89 OTHER CHEST PAIN 12/09/2016 YAMILE GRIGSBY MD Ot E78.2 MIXED HYPERLIPIDEMIA 12/09/2016 YAMILE GRIGSBY MD Ot I25.10 ATHSCL HEART DISEASE OF [place] CORONARY 12/09/2016 YAMILE GRIGSBY MD Ot 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 12/09/2016 YAMILE GRIGSBY MD Ot R07.89 OTHER CHEST PAIN 12/09/2016 MARILYN SOTO MD Ot E78.00 PURE HYPERCHOLESTEROLEMIA, UNSPECIFIED 12/09/2016 MARILYN SOTO MD Ot I10 ESSENTIAL (PRIMARY) HYPERTENSION 12/09/2016 MARILYN SOTO MD Ot I25.10 ATHSCL HEART DISEASE OF [place] CORONARY 12/09/2016 MARILYN SOTO MD Ot M19.90 UNSPECIFIED OSTEOARTHRITIS, UNSPECIFIED 12/09/2016 MARILYN SOTO MD Ot N20.0 CALCULUS OF KIDNEY 12/09/2016 MARILYN SOTO MD Ot N40.0 BENIGN PROSTATIC HYPERPLASIA WITHOUT LOW 12/09/2016 MARILYN SOTO MD Ot R39.11 HESITANCY OF MICTURITION 12/09/2016 MARILYN SOTO MD Ot Z79.82 SNF (CURRENT) USE OF ASPIRIN 12/09/2016 MARILYN SOTO [...] URETER 12/09/2016 DELMAR HARDING MD Ot V72.81 GHMT-ZPT-TLOBGFVRE CARDIOVASCULAR 12/09/2016 DELMAR HARDING MD Ot V74.8 SCREEN-BACTERIAL DIS NEC 12/09/2016 YAMILE GRIGSBY MD Ot E78.2 MIXED HYPERLIPIDEMIA 12/09/2016 YAMILE GRIGSBY MD Ot I25.10 ATHSCL HEART DISEASE OF [place] CORONARY 12/09/2016 YAMILE GRIGSBY MD Ot 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 12/09/2016 YAMILE GRIGSBY MD Ot R07.89 OTHER CHEST PAIN 12/09/2016 YAMILE GRIGSBY MD Ot E78.2 MIXED HYPERLIPIDEMIA 12/09/2016 YAMILE GRIGSBY MD Ot I25.10 ATHSCL HEART DISEASE OF [place] CORONARY 12/09/2016 YAMILE GRIGSBY MD Ot 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 12/09/2016 YAMILE GRIGSBY MD Ot R07.89 OTHER CHEST PAIN 12/11/2016 MARILYN SOTO MD Ot E78.00 PURE HYPERCHOLESTEROLEMIA, UNSPECIFIED 12/11/2016 MARILYN SOTO MD Ot I10 ESSENTIAL (PRIMARY) HYPERTENSION 12/11/2016 MARILYN SOTO MD Ot I25.10 ATHSCL HEART DISEASE OF [place] CORONARY 12/11/2016 MARILYN SOTO MD Ot M19.90 UNSPECIFIED OSTEOARTHRITIS, UNSPECIFIED 12/11/2016 MARILYN SOTO MD Ot N20.0 CALCULUS OF KIDNEY 12/11/2016 MARILYN SOTO MD Ot N40.0 BENIGN PROSTATIC HYPERPLASIA WITHOUT LOW 12/11/2016 MRAILYN SOTO MD Ot R39.11 HESITANCY OF MICTURITION 12/11/2016 MARILYN SOTO MD Ot Z79.82 [place] (CURRENT) USE OF ASPIRIN 12/11/2016 MARILYN SOTO [...] URETER 01/31/2017 DELMAR HARDING MD Ot V72.81 HYBY-GAA-HQEUIAVGY CARDIOVASCULAR 01/31/2017 DELMAR HARDING MD, Ot V74.8 SCREEN-BACTERIAL DIS NEC 01/31/2017 YAMILE GRIGSBY MD Ot E78.2 MIXED HYPERLIPIDEMIA 01/31/2017 YAMILE GRIGSBY MD Ot I25.10 ATHSCL HEART DISEASE OF [place] CORONARY 01/31/2017 YAMILE GRIGSBY MD Ot 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 01/31/2017 YAMILE GRIGSBY MD Ot R07.89 OTHER CHEST PAIN 01/31/2017 YAMILE GRIGSBY MD Ot E78.2 MIXED HYPERLIPIDEMIA 01/31/2017 YAMILE GRIGSBY MD Ot I25.10 ATHSCL HEART DISEASE OF [place] CORONARY 01/31/2017 YAMILE GRIGSBY MD Ot I65.23 [...] URETER 07/12/2017 DELMAR HARDING MD Ot V72.81 YRHD-PIY-PJFTXQHOA CARDIOVASCULAR 07/12/2017 DELMAR HARDING MD Ot V74.8 SCREEN-BACTERIAL DIS NEC 07/12/2017 YAMILE GRIGSBY MD Ot E78.2 MIXED HYPERLIPIDEMIA 07/12/2017 YAMILE GRIGSBY MD Ot I25.10 ATHSCL HEART DISEASE OF [place] CORONARY 07/12/2017 YAMILE GRIGSBY MD Ot 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 07/12/2017 YAMILE GRIGSBY MD Ot R07.89 OTHER CHEST PAIN 07/12/2017 YAMILE GRIGSBY MD Ot E78.2 MIXED HYPERLIPIDEMIA 07/12/2017 YAMILE GRIGSBY MD Ot I25.10 ATHSCL HEART DISEASE OF [place] CORONARY 07/12/2017 YAMILE GRIGSBY MD Ot 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 07/12/2017 YAMILE GRIGSBY MD Ot R07.89 OTHER CHEST PAIN 07/12/2017 OJ ESCALONA MARINA K Ot E78.2 MIXED HYPERLIPIDEMIA 07/12/2017 OJ ESCALONA MARINA K Ot I10 ESSENTIAL (PRIMARY) HYPERTENSION 07/12/2017 JOSE HENRANDEZTH K Ot I65.23 OCCLUSION AND STENOSIS OF [...] MARINA HERNANDEZ Ot 401.1 BENIGN HYPERTENSION 08/13/2017 MARINA HERNANDEZ Ot 414.00 CORON ATHEROSCLER NOS TYPE VESSEL, NATIV 08/13/2017 Ot 592.1 CALCULUS OF URETER 08/13/2017 DELMAR HARDING MD Ot 592.1 CALCULUS OF URETER 08/13/2017 DELMAR HARDING MD Ot V72.81 SSAL-HIO-PVLNZFTTS CARDIOVASCULAR 08/13/2017 DELMAR HARDING MD Ot V74.8 SCREEN-BACTERIAL DIS NEC 08/13/2017 YAMILE GRIGSBY MD Ot E78.2 MIXED HYPERLIPIDEMIA 08/13/2017 YAMILE GRIGSBY MD Ot I25.10 ATHSCL HEART DISEASE OF [place] CORONARY 08/13/2017 YAMILE GRIGSBY MD Ot 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 08/13/2017 YAMILE GRIGSBY MD Ot R07.89 OTHER CHEST PAIN 08/13/2017 YAMILE GRIGSBY MD Ot E78.2 MIXED HYPERLIPIDEMIA 08/13/2017 YAMILE GRIGSBY MD Ot I25.10 ATHSCL HEART DISEASE OF [place] CORONARY 08/13/2017 YAMILE GRIGSBY MD Ot I65.23 [...] AND STENOSIS OF BILATERAL [place] 08/13/2017 HARMON-AMADA ESCALOAN MARINA Mckeon Ot R07.89 OTHER CHEST PAIN [...] Blackwell Ot I25.10 ATHSCL HEART DISEASE OF [place] CORONARY 09/10/2017 SCARLET DPDOMINICK Blackwell Ot I65.29 OCCLUSION AND STENOSIS OF UNSPECIFIED CA 09/10/2017 DOMINICK NOVAK DPM Ot M20.21 HALLUX RIGIDUS, RIGHT FOOT 09/10/2017 SCARLET WHALEY, DOMINICK Ramos Ot R00.1 BRADYCARDIA, UNSPECIFIED 09/10/2017 SCARLET DPRishi, DOMINICK Ramos Ot R07.9 CHEST PAIN, UNSPECIFIED 09/10/2017 SCARLET WHALEY, DOMINICK Ramos Ot Z79.82 SNF (CURRENT) USE OF ASPIRIN 09/10/2017 DOMINICK NOVAK DPM Ot Z79.899 OTHER [place] (CURRENT) DRUG THERAPY 09/10/2017 DOMINICK NOVAK DPM Ot Z87.891 PERSONAL HISTORY OF NICOTINE DEPENDENCE 09/10/2017 DOMINICK NOVAK DPM Ot Z95.5 PRESENCE OF CORONARY ANGIOPLASTY IMPLANT 09/12/2017 SCARLET DPDOMINICK Blackwell Ot E78.5 HYPERLIPIDEMIA, UNSPECIFIED 09/12/2017 SCARLET DPM, DOMINICK Ramos Ot I10 ESSENTIAL (PRIMARY) HYPERTENSION 09/12/2017 SCARLET DPRishi, DOMINICK Ramos Ot I25.10 ATHSCL HEART DISEASE OF [place] CORONARY 09/12/2017 NOVAK DPM, DOMINICK P Ot I65.29 OCCLUSION AND STENOSIS OF UNSPECIFIED CA 09/12/2017 NOVAK DPRishi, DOMINICK P Ot M20.21 HALLUX RIGIDUS, RIGHT FOOT 09/12/2017 NOVAK DPM, DOMINICK P Ot R00.1 BRADYCARDIA, UNSPECIFIED 09/12/2017 NOVAK DPM, DOMINICK P Ot R07.9 CHEST PAIN, UNSPECIFIED 09/12/2017 NOVAK DPM, DOMINICK P Ot Z79.82 SNF (CURRENT) USE OF ASPIRIN 09/12/2017 NOVAK DPMDOMINICK Ot Z79.899 OTHER [place] (CURRENT) DRUG THERAPY 09/12/2017 NOVAK DPRishi, DOMINICK P Ot Z87.891 PERSONAL HISTORY OF NICOTINE DEPENDENCE 09/12/2017 SCARLET DPDOMINICK Blackwell Ot Z95.5 PRESENCE OF CORONARY ANGIOPLASTY IMPLANT 10/06/2017 MARILYN SOTO MD Ot E78.00 PURE HYPERCHOLESTEROLEMIA, UNSPECIFIED 10/06/2017 MARILYN SOTO MD Ot I10 ESSENTIAL (PRIMARY) HYPERTENSION 10/06/2017 MARILYN SOTO MD Ot I25.10 ATHSCL HEART DISEASE OF [place] CORONARY 10/06/2017 MARILYN SOTO MD Ot M79.89 OTHER SPECIFIED SOFT TISSUE DISORDERS 10/06/2017 MAIRLYN SOTO MD Ot T81.89XA OTH COMPLICATIONS OF PROCEDURES, NEC, IN 10/06/2017 MARILYN SOTO MD Ot Z79.82 SNF (CURRENT) USE OF ASPIRIN 10/06/2017 MARILYN SOTO [...] MD Ot I25.10 ATHSCL HEART DISEASE OF [place] CORONARY 10/08/2017 MARILYN SOTO MD Ot M79.89 OTHER SPECIFIED SOFT TISSUE DISORDERS 10/08/2017 MARILYN SOTO MD Ot T81.89XA OTH COMPLICATIONS OF PROCEDURES, NEC, IN 10/08/2017 MARILYN SOTO MD Ot Z79.82 SNF (CURRENT) USE OF ASPIRIN 10/08/2017 MARILYN SOTO MD Ot Z87.19 PERSONAL HISTORY OF OTHER DISEASES OF TH 10/08/2017 MARILYN SOTO MD Ot Z87.442 PERSONAL HISTORY OF URINARY CALCULI 10/08/2017 MARILYN SOTO MD Ot 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 BYPASS GRAFT 10/08/2017 AMRILYN SOTO MD Ot Z95.5 PRESENCE OF CORONARY [...] 10/10/2017 MEHDI NIETO, DELMAR Roldan Ot V72.81 VJTR-IVI-VQFGAZPRT CARDIOVASCULAR 10/10/2017 DELMAR HARDING MD Ot V74.8 SCREEN-BACTERIAL DIS NEC 10/10/2017 YAMILE GRIGSBY MD Ot E78.2 MIXED HYPERLIPIDEMIA 10/10/2017 YAMILE GRIGSBY MD Ot I25.10 ATHSCL HEART DISEASE OF [place] CORONARY 10/10/2017 YAMILE GRIGSBY MD Ot 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 10/10/2017 YAMILE GRIGSBY MD Ot R07.89 OTHER CHEST PAIN 10/10/2017 YAMILE GRIGSBY MD Ot E78.2 MIXED HYPERLIPIDEMIA 10/10/2017 YAMILE GRIGSBY MD Ot I25.10 ATHSCL HEART DISEASE OF [place] CORONARY 10/10/2017 YAMILE GRIGSBY MD Ot I65.23 [...] STENOSIS OF [place]ILATERAL [place] 10/10/2017 MARINA HERNANDEZ Ot R07.89 OTHER CHEST PAIN 10/10/2017 TOMAS [...] MD Ot I25.10 ATHSCL HEART DISEASE OF [place] CORONARY 10/12/2017 MARILYN SOTO MD Ot M79.89 OTHER SPECIFIED SOFT TISSUE DISORDERS 10/12/2017 MARILYN SOTO MD Ot T81.89XA OTH COMPLICATIONS OF PROCEDURES, NEC, IN 10/12/2017 MARILYN SOTO MD Ot Z79.82 SNF (CURRENT) USE OF ASPIRIN 10/12/2017 MARILYN SOTO [...] NOS TYPE VESSEL, NATIV 10/12/2017 OJ ESCALONA MARINA K Ot 424.0 MITRAL VALVE DISORDER 10/12/2017 [...] URETER 10/12/2017 DELMAR HARDING MD Ot V72.81 GHMI-XRC-ACMFLPIIE CARDIOVASCULAR 10/12/2017 DELMAR HARDING MD Ot V74.8 SCREEN-BACTERIAL DIS NEC 10/12/2017 YAMILE GRIGSBY MD Ot E78.2 MIXED HYPERLIPIDEMIA 10/12/2017 YAMILE GRIGSBY MD Ot I25.10 ATHSCL HEART DISEASE OF [place] CORONARY 10/12/2017 YAMILE GRIGSBY MD Ot 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 10/12/2017 YAMILE GRIGSBY MD Ot R07.89 OTHER CHEST PAIN 10/12/2017 YAMILE GRIGSBY MD Ot E78.2 MIXED HYPERLIPIDEMIA 10/12/2017 YAMILE GRIGSBY MD Ot I25.10 ATHSCL HEART DISEASE OF [place] CORONARY 10/12/2017 YAMILE GRIGSBY MD Ot 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 10/12/2017 YAMILE GRIGSBY MD Ot R07.89 OTHER CHEST PAIN 10/12/2017 MARINA HERNANDEZ Ot E78.2 MIXED HYPERLIPIDEMIA 10/12/2017 MARINA HERNANDEZ Ot I10 ESSENTIAL (PRIMARY) HYPERTENSION 10/12/2017 MARINA HERNANDEZ Ot 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 10/12/2017 OJ PA, MARINA Mckeon Ot R07.89 OTHER CHEST PAIN 10/12/2017 OJ PA, MARINA Mckeon Ot E78.2 MIXED HYPERLIPIDEMIA 10/12/2017 OJ PA, MARINA Mckeon Ot I10 ESSENTIAL (PRIMARY) HYPERTENSION 10/12/2017 OJ PA, MARINA Mckeon Ot 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 10/12/2017 OJ PA, MARINA Mckeon Ot R07.89 OTHER CHEST PAIN 10/12/2017 MEHDI NIETO, DELMAR Roldan Ot Z87.442 PERSONAL HISTORY OF URINARY CALCULI 10/12/2017 GEOFFREY NIETO, AUDI Pierre Ot R07.9 CHEST PAIN, UNSPECIFIED 10/12/2017 OJ PA, MARINA Mckeon Ot E78.2 MIXED HYPERLIPIDEMIA 10/12/2017 OJ PA, MARINA Mckeon Ot I10 ESSENTIAL (PRIMARY) HYPERTENSION 10/12/2017 OJ PA, MARINA Mckeon Ot 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 10/12/2017 OJ PA, MARINA Mckeon Ot R07.89 OTHER CHEST PAIN 10/12/2017 TOMAS MIX DC Ot 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 OSTEOARTHRITIS OF HIP 10/12/2017 TOMAS MIX DC, Ot 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, SACRAL AND SACROCOCCYGE 10/12/2017 TOMAS MIX DC Ot M43.8X6 OTHER SPECIFIED DEFORMING DORSOPATHIES, 10/12/2017 TOMAS MIX DC, Ot M47.816 SPONDYLOSIS W/O MYELOPATHY OR RADICULOPA 10/12/2017 TOMAS MIX DC, Ot M51.16 INTERVERTEBRAL DISC DISORDERS W RADICULO 10/15/2017 ELÍAS KASPER DO Ot M54.16 RADICULOPATHY, LUMBAR REGION 10/19/2017 TOMAS GANDHI MD, Ot E78.00 PURE HYPERCHOLESTEROLEMIA, UNSPECIFIED 10/19/2017 TOMAS GANDHI MD Ot I10 ESSENTIAL (PRIMARY) HYPERTENSION 10/19/2017 TOMAS GANDHI MD, Ot I25.10 ATHSCL HEART DISEASE OF [place] CORONARY 10/19/2017 TOMAS GANDHI MD Ot N40.1 BENIGN PROSTATIC HYPERPLASIA WITH LOWER 10/19/2017 TOMAS GANDHI MD Ot R33.9 RETENTION OF URINE, UNSPECIFIED 10/19/2017 TOMAS GANDHI MD Ot R35.0 FREQUENCY OF MICTURITION 10/19/2017 TOMAS GANDHI MD Ot Z79.82 SNF (CURRENT) USE OF ASPIRIN 10/19/2017 TOMAS GANDHI MD Ot Z87.19 PERSONAL HISTORY OF OTHER DISEASES OF 10/19/2017 TOMAS GANDHI MD Ot Z87.442 PERSONAL HISTORY OF URINARY CALCULI 10/19/2017 TOMAS GANDHI MD Ot 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 BYPASS GRAFT 10/19/2017 TOMAS GANDHI MD Ot Z95.5 PRESENCE OF CORONARY ANGIOPLASTY IMPLANT 10/19/2017 TOMAS GANDHI MD Ot Z96.653 PRESENCE OF ARTIFICIAL KNEE JOINT, BILAT 10/23/2017 TOMAS GANDHI MD Ot E78.00 PURE HYPERCHOLESTEROLEMIA, UNSPECIFIED 10/23/2017 TOMAS GANDHI MD Ot I10 ESSENTIAL (PRIMARY) HYPERTENSION 10/23/2017 TOMAS GANDHI MD Ot I25.10 ATHSCL HEART DISEASE OF [place] CORONARY 10/23/2017 TOMAS GANDHI MD Ot N40.1 BENIGN PROSTATIC HYPERPLASIA WITH LOWER 10/23/2017 TOMAS GANDHI MD Ot R33.9 RETENTION OF URINE, UNSPECIFIED 10/23/2017 TOMAS GANDHI MD Ot R35.0 FREQUENCY OF MICTURITION 10/23/2017 TOMAS GANDHI MD Ot Z79.82 SNF (CURRENT) USE OF ASPIRIN 10/23/2017 TOMAS GANDHI MD Ot Z87.19 PERSONAL HISTORY OF OTHER DISEASES OF 10/23/2017 TOMAS GANDHI MD Ot Z87.442 PERSONAL HISTORY OF URINARY CALCULI 10/23/2017 TOMAS GANDHI MD Ot 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 BYPASS GRAFT 10/23/2017 TOMAS GANDHI MD Ot Z95.5 PRESENCE OF CORONARY ANGIOPLASTY IMPLANT 10/23/2017 TOMAS GANDHI MD Ot Z96.653 PRESENCE OF ARTIFICIAL KNEE JOINT, BILAT Procedures There is no data. Results Test [...] culture - 01/13/16 07:15 Bacterial urine culture [id number] NRG COLONY COUNT <10,000 NRG Complete blood [...] Staphylococcus aureus (MRSA) screening culture NEG NRG Complete urinalysis with reflex to culture - 10/17/17 05:45 Urine color determination YELLOW NRG Urine clarity determination CLEAR NRG Urine pH measurement by test strip 6.5 5-9 Specific gravity of urine by test strip 1.010 1.016- 1.022 Urine protein assay by test strip, semi-quantitative NEGATIVE NEGATIVE Urine glucose detection by automated test strip NEGATIVE NEGATIVE Erythrocytes detection in urine sediment by light microscopy NEGATIVE NEGATIVE Urine ketones detection by automated test [...] count by microscopy (number/high power field ) RARE NRG Bacteria detection in urine sediment by light microscopy TRACE NRG Squamous epithelial cells detection in urine sediment by light microscopy RARE NRG Crystals detection in urine sediment by light microscopy NONE NRG Casts detection in urine sediment by light microscopy NONE NRG Mucus detection in urine sediment by light microscopy NEGATIVE NRG Complete urinalysis with reflex to culture NO NRG Encounters ACCT No. Visit Date/Time Discharge Status Pt. Type Provider Facility Loc./Unit Complaint [id number] 10/17/2017 05:41:00 10/17/2017 07:00:00 DIS Outpatient TOMAS GANDHI MD [facility] ER UNABLE TO URINATE [id number] 10/11/2017 12:27:00 10/11/2017 13:24:00 DIS Outpatient ELÍAS KASPER DO [facility] CARD LUMBAR RADICULOPATHY [id number] 10/06/2017 07:23:00 10/06/2017 08:23:00 DIS Emergency MARILYN SOTO MD [facility] ER R FOOT SWELLING [id number] 09/10/2017 06:00:00 09/10/2017 11:15:00 DIS [facility] HALLUX VALGUS DEFORMITY RT FOOT [id number] 09/03/2017 09:11:00 09/03/2017 09:40:00 DIS Outpatient DOMINICK NOVAK DPM [facility] PREOP HALLUX VALGUS DEFORMITY RT FOOT [id number] 08/10/2017 12:49:00 08/16/2017 14:54:00 DIS Outpatient TASHA YEN DO [facility] REHAB LUMBAR DDD;LUMBAR SPONDYLOSIS;L5-S1 SPONDYLOLISTHE [id number] 08/13/2017 10:39:00 08/13/2017 23:59:59 CLS Outpatient TOMAS MIX DC [facility] RAD LOW BACK PAIN,SCIATICA LT LEG [id number] 02/28/2017 08:03:00 02/28/2017 23:59:59 CLS Outpatient MARINA HERNANDEZ [facility] CARD CHEST PAIN SYNDROME [id number] 02/12/2017 08:02:00 02/12/2017 23:59:59 CLS Outpatient MARINA HERNANDEZ [facility] CARD PALPITATIONS R00.2,CAD I25.10 [id number] 02/02/2017 08:14:00 02/02/2017 23:59:59 CLS Outpatient MARINA HERNANDEZ [facility] CARD HLP E78.2, CHEST PAIN SYNDROME R07.89 [id number] 01/10/2017 10:47:00 01/10/2017 23:59:59 CLS Outpatient AUDI HALE MD [facility] RAD CHEST PAIN,RIGHT SIDED [id number] 12/13/2016 11:52:00 12/13/2016 23:59:59 CLS Outpatient DELMAR HARDING MD [facility] RAD LT URETERAL STONE [id number] 12/09/2016 00:26:00 12/09/2016 01:48:00 DIS Emergency MARILYN SOTO MD [facility] ER POSS KIDNEY STONE [id number] 12/07/2016 14:07:00 12/07/2016 18:21:00 DIS Emergency MARILYN SOTO MD [facility] ER ABD PAIN [id number] 11/14/2016 15:45:00 11/14/2016 16:27:00 DIS Outpatient TASHA YEN DO [facility] REHAB LUMBAR SCOLIOSIS; SPONDYLOSIS;DDD;R HIP PAIN [id number] 01/21/2016 13:00:00 01/21/2016 16:20:00 DIS Outpatient CHRISSIE NEWBERRY MD [facility] SDC BLOOD IN STOOLS [id number] 01/19/2016 05:39:00 01/19/2016 11:30:00 DIS Outpatient CHRISSIE NEWBERRY MD [facility] PREOP BLOOD IN STOOLS [id number] 01/13/2016 06:57:00 01/13/2016 09:31:00 DIS Emergency SADI MATHEWS MD [facility] ER FEELS BAD ALL OVER,DIZZY [id number] 06/02/2015 12:05:00 06/02/2015 23:59:59 CLS Outpatient YAMILE GRIGSBY MD [facility] CARD CAD CAROTID ARTERY STENOSIS CHEST PAIN [id number] 05/20/2015 11:33:00 05/20/2015 23:59:59 CLS Outpatient YAMILE GRIGSBY MD [facility] CARD CAD CAROTID ARTERY STENOSIS CHEST PAIN [id number] 02/28/2015 04:45:00 02/28/2015 06:09:00 DIS Emergency BRUEGGEMANN MD, MERCEDEZ Zarate [facility] ER ABD,BACK PAIN [id number] 12/02/2013 07:00:00 12/02/2013 12:15:00 DIS Out[facility] URETERAL ST[facility] [id number] 11/28/2013 08:48:00 11/28/2013 23:59:59 CLS Outpatient DELMAR HARDING MD [facility] PREOP RIGHT URETERAL STONE [id number] 11/03/2013 06:04:00 11/03/2013 08:24:00 DIS Emergency MIRIAM LANDEROS DO [facility] ER ABD PAIN [id number] 08/18/2013 07:18:00 08/18/2013 23:59:59 CLS Outpatient MARINA HERNANDEZ [facility] CARD CAD,DJD,HIP PAIN,HLP [id number] 08/14/2013 08:44:00 08/14/2013 23:59:59 CLS Outpatient MARINA HERNANDEZ [facility] CARD CAD,DJD,HIP PAIN,HLP [id number] 05/31/2013 09:18:00 05/31/2013 10:56:00 DIS Emergency SADI MATHEWS MD [facility] ER CHEST PAIN [id number] 01/02/2013 02:37:00 01/02/2013 07:40:00 DIS Emergency TOMAS GANDHI MD [facility] ER ALLERGIC RXN [id number] 12/30/2012 21:47:00 12/30/2012 22:25:00 DIS Emergency RIKI DOW [employer] [facility] ER KHANG AGUILLON ALLERGIC REACTION [id number] 05/20/2015 11:33:00 Document Registration [id number] 11/21/2013 12:43:00 Document Registration [id number] 03/13/2012 11:18:00 Document Registration [id number] 03/06/2012 10:06:00 Document Registration [id number] 11/11/2011 09:08:00 Document Registration [id number] 11/10/2011 16:03:00 Document Registration [id number] 09/16/2011 23:47:00 Document Registration [id number] 08/11/2011 22:00:00 Document Registration [id number] 05/19/2011 09:49:00 Document Registration [id number] 05/17/2011 09:28:00 Document Registration [id number] 01/18/2011 12:13:00 Document Registration [id number] 07/24/2017 09:11:00 07/24/2017 23:59:00 DIS Outpatient KAREEN FLOWERS [id number] 07/04/2017 11:03:00 07/04/2017 23:59:00 DIS Outpatient KAREEN FLOEWRS
--- NOTE | 2017-11-11 07:34 | ED Lower Extremity ---
General Chief Complaint: Lower Extremity Stated Complaint: BOTH FEET HURTING & HAVE SORES Nursing Triage Note: BILATERAL FOOT PAIN/SWELLING X3 MONTHS WITHOUT IMPROVEMENT Nursing Sepsis Screen: No Definite Risk Source: patient Exam Limitations: no limitations History of Present Illness Date Seen by Provider: Nov 11, 2017 Time Seen by Provider: 06:30 Initial Comments Here with report of bilateral foot pain that is greatest at the great toes bilaterally but also spreads across the bottom of the feet. This is gotten worse over the last weeks to months. Did have lumbar spine x-ray and this year which did show degeneration at L5 and S1. This was reviewed by me. States that he takes Tylenol occasionally that will sometimes help and he has been putting cream on his feet and that has helped. Did recently have surgery to the right great toe in August of this year and that has healed up well. Denies fever or chills. His main concern was infection of the feet. Onset: other Severity: mild, moderate Pain/Injury Location: bilateral foot Method of Injury: unknown Modifying Factors: Improves With Rest Allergies and Home Medications Allergies Coded Allergies: No Known Drug Allergies (Unverified , 05/19/11) Home Medications Aspirin 81 Mg Tab.chew, 81 MG PO DAILY, (Reported) Docusate Sodium 100 Mg Capsule, 100 MG PO BID, (Reported) Ibuprofen 800 Mg Tablet, 800 MG PO BID PRN for PAIN Prescribed by: ADDIE MORALES on 09/10/17 0956 Metoprolol Tartrate 25 Mg Tablet, 12.5 MG PO BID, (Reported) take 1/2 of 25mg tab [place]-3 Fatty Acids/Fish Oil 1 Each Capsule, 1,200 MG PO BID, (Reported) Rosuvastatin Calcium 10 Mg Tablet, 10 MG PO Q48H, (Reported) Sulfamethoxazole/Trimethoprim 1 Each Tablet, 1 EACH PO BID Prescribed by: MARILYN SOTO on 10/06/17 0811 Tamsulosin HCl 0.4 Mg Cap.er.24h, 0.4 MG PO HS, (Reported) Tamsulosin HCl 0.4 Mg Cap, 0.4 MG PO DAILY Prescribed by: TOMAS GANDHI on 10/17/17 0638 Patient Home Medication List Home Medication List Reviewed: Yes Constitutional: see HPI; No chills, No fever Respiratory: no symptoms reported Cardiovascular: no symptoms reported Musculoskeletal: see HPI, muscle pain Psychiatric/Neurological: See HPI, Numbness, Tingling; Denies Weakness Past Tfyvpxc-Xuykiu-Wmxdpf Hx Past Med/Social Hx: Reviewed Nursing Past Med/Soc Hx Patient Social History Alcohol Use: Denies Use Recreational Drug Use: No Smoking Status: Never a Smoker 2nd Hand Smoke Exposure: No Recent Foreign Travel: No Contact w/Someone Who Travel: No Recent Infectious Disease Expo: No Recent Hopitalizations: No Immunizations Up To Date Tetanus Booster (TDap): Unknown PED Vaccines UTD: No Date of Influenza Vaccine: Jan 31, 2013 Seasonal Allergies Seasonal Allergies: No Past Medical History Surgeries: Yes (BILAT TKR, QUAD BYPASS, STENT, ESWL, R ARM FX, R FOOT) Cardiac, CABG, Joint Replacement, Orthopedic Respiratory: No Cardiac: Yes (QUAD BYPASS) Coronary Artery Disease, High Cholesterol, Hypertension Neurological: No Reproductive Disorders: No Sexually Transmitted Disease: No HIV/AIDS: No Genitourinary: Yes Benign Prostatic Hyperpl, Kidney Stones Gastrointestinal: Yes (BLOOD IN STOOLS) Chronic Constipation Musculoskeletal: Yes Arthritis, Chronic Back Pain, Fractures Endocrine: No HEENT: No Loss of Vision: Bilateral Hearing Impairment: Denies Cancer: No Psychosocial: No Integumentary: No Blood Disorders: No Adverse Reaction/Blood Tranf: Yes Family Medical History Reviewed Nursing Family Hx No Pertinent Family Hx Physical Exam Vital Signs Vital Signs - First Documented 11/11/17 06:25 Temp 96.6 Pulse 64 Resp 18 B/P (MAP) 129/86 (100) Pulse Ox 98 O2 Delivery Room Air Capillary Refill : Less Than 3 Seconds Height, Weight, BMI Height: 5'7.00" Weight: 170lbs. 0.0oz. [id number]; 26.6 BMI Method:Stated General Appearance: WD/WN, no apparent distress Cardiovascular: regular rate, rhythm, no murmur Respiratory: lungs clear, normal breath sounds Feet: bilateral foot other (bilateral feet without any significant signs of infection or wounds/injuries. Right great toe dorsum has healed surgical wounds at the MTP. Retains full range of motion throughout the bilateral as well as sensation. No obvious signs of infection or wounds.) Neurologic/Psychiatric: alert, oriented x 3 Skin: normal color, warm/dry Progress/Results/Core Measures Results/Orders Vital Signs/I&O 11/11/17 06:25 Temp 96.6 Pulse 64 Resp 18 B/P (MAP) 129/86 (100) Pulse Ox 98 O2 Delivery Room Air Blood Pressure Mean: 100 Progress Progress Note : Progress Note Seen and evaluated. Previous x-rays of feet and lumbar spine reviewed. Patient has findings consistent with neuropathy and potentially radiculopathy. This was discussed with the patient. He will try and Aleve at nighttime and follow-up with his doctor. Consideration for gabapentin or similar that we will defer to primary care. Discharged home with return precautions. Patient verbalize understanding instructions and agreement with plan. Departure Impression Primary Impression: Neuropathy involving both lower extremities Additional Impression: Radiculopathy Qualified Codes: M54.10 - Radiculopathy, site unspecified Disposition: HOME, SELF-CARE Condition: Stable Departure-Patient Inst. Decision time for Depature: 07:33 Referrals: AUDI HALE MD (PCP/Family) Primary Care Physician Patient Instructions: Peripheral Neuropathy (DC), Radiculopathy (DC) Add. Discharge Instructions: All discharge instructions reviewed with patient and/or family. Voiced understanding. You may take an Aleve at nighttime a couple hours before you go to bed to help with the pain. You may also take Tylenol/acetaminophen 1000 mg every 8 hours as needed for pain. Follow-up with Dr. Hale earlier this week for recheck and further evaluation and to discuss other options for evaluation and treatment. Return for worse pain, fever, weakness, swelling of the feet, red streaks up the leg or other concerns as needed Copy Copies To 1: AUDI HALE MD, TIMOTHY D MD Nov 11, 2017 07:34
[2017-11-11 07:43] VITALS: BP 129/86
== END 2017-11-11 07:39 | disposition home or self-care (01) ==
LOC: EDUNIT# 06:21 → ER 06:23
DX: G57.93 Unspecified mononeuropathy of bilateral lower limbs (principal); M54.16 Radiculopathy, lumbar region; I25.10 Atherosclerotic heart disease of native coronary artery without angina pectoris; I10 Essential (primary) hypertension; E78.00 Pure hypercholesterolemia, unspecified; Z87.19 Personal history of other diseases of the digestive system; Z87.442 Personal history of urinary calculi; Z79.82 Long term (current) use of aspirin; Z96.653 Presence of artificial knee joint, bilateral; Z95.1 Presence of aortocoronary bypass graft; Z95.5 Presence of coronary angioplasty implant and graft
CPT/HCPCS: 99283

== ENCOUNTER → 2017-12-14 | Outpatient (CLI) | payer MEDICARE, OTHER ==
[~2017-12-14] MED LIST changes: +AMOX500C2 PO; -OXYC-202 PO; +OXYC1TAB12 PO; +TRAM-42 PO
--- NOTE | 2017-12-14 11:25 | Diagnostic Imaging Report ---
PROCEDURE: MRI lumbar spine. TECHNIQUE: Multiplanar, multisequence MRI of the lumbar spine was performed without contrast. INDICATION: Low back pain. FINDINGS: Curvature of the lumbar spine is normal. There is grade 1 spondylolisthesis of L5 on S1. There appear to be bilateral pars defects at this level. 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 No acute compression fracture is identified. There is multilevel degenerative disc disease with variable disc space narrowing and desiccation. The conus is unremarkable at the T12-L1 level. T12-L1: Central canal is widely patent. The neural foramina are patent. L1-2: There is broad-based disc/osteophyte complex as well as ligamentous thickening and facet changes resulting in moderate trefoil stenosis to the canal. There is also significant bilateral lateral recess stenosis and moderate bilateral neural foraminal stenosis. L2-3: Severe trefoil stenosis due to ligamentous thickening, facet changes and broad-based disc/osteophyte complex is seen. Severe bilateral lateral recess stenosis is seen. There is significant bilateral neural foraminal stenosis. L3-4: There is severe central canal stenosis with ligamentous and facet changes as well as broad-based disc/osteophyte complex. There is severe bilateral lateral recess stenosis and moderate bilateral neural foraminal stenosis. L4-5: Marked hypertrophic facet changes are identified. There is ligamentous thickening. The AP dimensions of the canal are within normal limits. There is narrowing in the transverse diameter. Severe lateral recess stenosis is seen. There is severe right and moderate left neural foraminal stenosis. L5-S1: There is marked facet arthropathy. Significant central canal stenosis is seen. There is severe lateral recess stenosis and moderate neural foraminal stenosis. Paraspinous tissues are unremarkable. IMPRESSION: Severe lumbar spondylosis with multilevel severe central canal, lateral recess and neural foraminal stenosis described level by level above. No acute compression fracture is seen. Dictated by: Dictated on workstation # [id number]
== END ==
LOC: RAD 08:58
PROVIDERS: ATTEND Pain Medicine Interventional Pain Medicine
DX: M48.07 Spinal stenosis, lumbosacral region (principal); M47.26 Other spondylosis with radiculopathy, lumbar region; M51.16 Intervertebral disc disorders with radiculopathy, lumbar region; M43.17 Spondylolisthesis, lumbosacral region; M46.87 Other specified inflammatory spondylopathies, lumbosacral region; M99.73 Connective tissue and disc stenosis of intervertebral foramina of lumbar region
CPT/HCPCS: 72148

== ENCOUNTER 2017-12-29 13:49 | Emergency (ER) | payer MEDICARE, OTHER ==
[~2017-12-29] VITALS: Ht 170.2 cm; Wt 77.1 kg
[~2017-12-29 13:49] MED LIST changes: -AMOX500C2 PO; -TRAM-42 PO
[2017-12-29] MEDS ORDERED: TRAM-42 PO (14:21)
[2017-12-29] MEDS ORDERED: AMOX500C2 PO (14:21)
--- NOTE | 2017-12-29 14:23 | ED EENT ---
History of Present Illness General Stated Complaint: TOOTH PAIN Source: patient Exam Limitations: no limitations History of Present Illness Date Seen by Provider: Dec 29, 2017 Time Seen by Provider: 14:18 Initial Comments To ER with reports of left lower dental pain for about 6 months. He has seen his dentist 3 times and states this tooth has been "drilled on". Denies any improvement after that. He believes the tooth needs to be pulled. However he is taking aspirin which does help with the pain but the pain recurs as soon as the aspirin wears off. Timing/Duration: gradual Severity: moderate Location: dental Associated Symptoms: facial pain/swelling (pain no swelling) Allergies and Home Medications Allergies Coded Allergies: No Known Drug Allergies (Unverified , 05/19/11) Home Medications Amoxicillin 500 Mg Capsule, 500 MG PO TID Prescribed by: RIKI DOW on 12/29/17 1421 Aspirin 81 Mg Tab.chew, 81 MG PO DAILY, (Reported) Docusate Sodium 100 Mg Capsule, 100 MG PO BID, (Reported) Ibuprofen 800 Mg Tablet, 800 MG PO BID PRN for PAIN Prescribed by: ADDIE MORALES on 09/10/17 0956 Metoprolol Tartrate 25 Mg Tablet, 12.5 MG PO BID, (Reported) take 1/2 of 25mg tab [place]-3 Fatty Acids/Fish Oil 1 Each Capsule, 1,200 MG PO BID, (Reported) Rosuvastatin Calcium 10 Mg Tablet, 10 MG PO Q48H, (Reported) Tamsulosin HCl 0.4 Mg Cap.er.24h, 0.4 MG PO HS, (Reported) Tamsulosin HCl 0.4 Mg Cap, 0.4 MG PO DAILY Prescribed by: TOMAS GANDHI on 10/17/17 0638 Tramadol HCl 50 Mg Tablet, 50 MG PO Q6H PRN for PAIN-MODERATE TO SEVERE Prescribed by: RIKI DOW on 12/29/17 142 Patient Home Medication List Home Medication List Reviewed: Yes Review of Systems Review of Systems Constitutional: see HPI Eyes: No Symptoms Reported Ears: No Symptoms Reported Nose: see HPI Mouth: see HPI, pain Throat: no symptoms reported Respiratory: no symptoms reported Cardiovascular: no symptoms reported Past Jdulzzj-Mgaots-Ilbtzv Hx Patient Social History 2nd Hand Smoke Exposure: No Recent Foreign Travel: No Contact w/Someone Who Travel: No Recent Hopitalizations: No Immunizations Up To Date Tetanus Booster (TDap): Unknown PED Vaccines UTD: No Date of Influenza Vaccine: Jan 31, 2013 Seasonal Allergies Seasonal Allergies: No Past Medical History Surgeries: Yes (BILAT TKR, QUAD BYPASS, STENT, ESWL, R ARM FX, R FOOT) Cardiac, CABG, Joint Replacement, Orthopedic Respiratory: No Cardiac: Yes (QUAD BYPASS) Coronary Artery Disease, High Cholesterol, Hypertension Neurological: No Reproductive Disorders: No Sexually Transmitted Disease: No HIV/AIDS: No Genitourinary: Yes Benign Prostatic Hyperpl, Kidney Stones Gastrointestinal: Yes (BLOOD IN STOOLS) Chronic Constipation Musculoskeletal: Yes Arthritis, Chronic Back Pain, Fractures Endocrine: No HEENT: No Loss of Vision: Bilateral Hearing Impairment: Denies Cancer: No Psychosocial: No Integumentary: No Blood Disorders: No Adverse Reaction/Blood Tranf: Yes Family Medical History No Pertinent Family Hx Physical Exam Vital Signs Vital Signs - First Documented 12/29/17 14:19 Temp 95.0 Pulse 58 Resp 18 B/P (MAP) 155/82 (106) O2 Delivery Room Air Height, Weight, BMI Height: 5'7.00" Weight: 170lbs. 0.0oz. [id number]; 26.6 BMI Method:Stated General Appearance: WD/WN, no apparent distress Eyes: bilateral eye normal inspection, bilateral eye PERRL, bilateral eye EOMI Ears: bilateral ear auricle normal, bilateral ear canal normal, bilateral ear TM normal Mouth/Throat: No mandibular swelling; other (left lower molar pain. There is no fluctuance or palpable abscess. I did offer an inferior alveolar nerve block for pain control and he would like to have this done.) Neck: non-tender, full range of motion; No lymphadenopathy (R), No lymphadenopathy (L) Respiratory: no respiratory distress, no accessory muscle use Gastrointestinal: normal bowel sounds, non tender Neurologic/Psychiatric: alert, normal mood/affect, oriented x 3 Skin: normal color, warm/dry Left inferior alveolar nerve block done using 1 mL of 2% lidocaine with epinephrine 1-100,001 mL of 0.5% Marcaine. Progress/Results/Core Measures Results/Orders My Orders Orders - RIKI DOW APRN Lidocaine/Epi 1% 1:100,000 (Xylocaine /E (12/29/17 14:30) Lidocaine/Epi 2% 1:100,000 (Xylocaine/Ep (12/29/17 14:30) Bupivacaine 0.5% Injection (Sensorcaine (12/29/17 14:30) Vital Signs/I&O 12/29/17 14:19 Temp 95.0 Pulse 58 Resp 18 B/P (MAP) 155/82 (106) O2 Delivery Room Air Departure Impression Primary Impression: Pain, dental Disposition: HOME, SELF-CARE Condition: Stable Departure-Patient Inst. Decision time for Depature: 14:20 Referrals: AUDI HALE MD (PCP/Family) Primary Care Physician Patient Instructions: Dental Pain Add. Discharge Instructions: 1. Call your dentist on Sunday for follow up . Return to ER for any concerns Scripts Tramadol HCl (Ultram) 50 Mg Tablet 50 MG PO Q6H PRN for PAIN-MODERATE TO SEVERE, #20 TAB Prov: RIKI DOW APRN 12/29/17 Amoxicillin (Amoxicillin) 500 Mg Capsule 500 MG PO TID, #15 CAP Prov: RIKI DOW APRN 12/29/17 Images Mouth/Nose 1 - Tenderness RIKI DOW APRN Dec 29, 2017 14:23
[2017-12-29] MEDS ORDERED: LIDOCAINE/EPI 1%-1:100,000 (XYLOCAINE) 20ML INJ ONE (14:30)
[2017-12-29] MEDS ORDERED: LIDOCAINE/EPI 2% 1:100,00 (XYLOCAINE) 20 ML VIAL INJ ONE (14:30)
[2017-12-29] MEDS ORDERED: BUPIVACAINE 0.5% 30 ML (SENSORCAINE) VIAL INJ ONE (14:30)
[2017-12-29 14:50] VITALS: BP 155/82
== END 2017-12-29 14:50 | disposition home or self-care (01) ==
LOC: EDUNIT# 13:49 → ER 13:50
DX: K08.89 Other specified disorders of teeth and supporting structures (principal); I25.10 Atherosclerotic heart disease of native coronary artery without angina pectoris; E78.00 Pure hypercholesterolemia, unspecified; I10 Essential (primary) hypertension; Z87.19 Personal history of other diseases of the digestive system; Z87.442 Personal history of urinary calculi; Z79.82 Long term (current) use of aspirin; Z96.653 Presence of artificial knee joint, bilateral; Z95.5 Presence of coronary angioplasty implant and graft; Z95.1 Presence of aortocoronary bypass graft
CPT/HCPCS: 99282

== ENCOUNTER 2018-02-10 12:39 | Emergency (ER) | payer MEDICARE, OTHER ==
[~2018-02-10] VITALS: Ht 170.2 cm; Wt 77.1 kg
[~2018-02-10 12:39] MED LIST changes: +AMOX500C2 PO; +TRAM-42 PO
--- OUTSIDE RECORDS SUMMARY | 2018-02-10 13:06 | XMS REPORT | Continuity of Care Document ---
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 NEC [...] OTH MED,LT, CURRENT USE 12/30/2012 RIKI DOW CISCO CERTIFIED INTERNETWORK EXPERT Ot 684 IMPETIGO 12/30/2012 RIKI DOW CISCO CERTIFIED INTERNETWORK EXPERT Ot 708.9 URTICARIA NOS 01/02/2013 OKSANA NIETO, [...] YAMILE GRIGSBY MD Ot I25.10 06/24/2015 YAMILE GIRGSBY MD Ot I65.23 06/24/2015 YAMILE GRIGSBY MD Ot R07.89 01/13/2016 SADI MATHWES MD Ot R42 DIZZINESS AND GIDDINESS 01/13/2016 SADI MATHEWS MD Ot R51 HEADACHE 01/13/2016 SADI MATHEWS MD Ot R53.81 OTHER MALAISE 01/13/2016 SADI MATHEWS MD Ot Z79.82 ALF (CURRENT) USE OF ASPIRIN 01/13/2016 SADI MATHEWS MD Ot Z79.899 OTHER ALF (CURRENT) DRUG THERAPY 01/13/2016 SADI MATHEWS MD Ot 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 BYPASS GRAFT 01/13/2016 YAMILE GRIGSBY MD Ot E78.2 MIXED HYPERLIPIDEMIA 01/13/2016 YAMILE GRIGSBY MD Ot I25.10 ATHSCL HEART DISEASE OF [place] CORONARY 01/13/2016 YAMILE GRIGSBY MD Ot 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 01/13/2016 YAMILE GRIGSBY MD Ot R07.89 OTHER CHEST PAIN 01/13/2016 YAMILE GRIGSBY MD Ot E78.2 MIXED HYPERLIPIDEMIA 01/13/2016 YAMILE GRIGSBY MD Ot I25.10 ATHSCL HEART DISEASE OF [place] CORONARY 01/13/2016 YAMILE GRIGSBY MD Ot 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 01/13/2016 YAMILE GRIGSBY MD Ot R07.89 OTHER CHEST PAIN 01/14/2016 SADI MATHEWS MD Ot R42 DIZZINESS AND GIDDINESS 01/14/2016 SADI MATHEWS MD Ot R51 HEADACHE 01/14/2016 SADI MATHEWS MD Ot R53.81 OTHER MALAISE 01/14/2016 SADI MATHEWS MD Ot Z79.82 ALF (CURRENT) USE OF ASPIRIN 01/14/2016 SADI MATHEWS MD Ot Z79.899 OTHER ALF (CURRENT) DRUG THERAPY 01/14/2016 SADI MATHEWS MD Ot 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 BYPASS GRAFT 01/19/2016 CHRISSIE NEWBERRY MD Ot K92.1 MELENA 01/19/2016 CHRISSIE NEWBERRY MD Ot Z01.818 ENCOUNTER FOR OTHER PREPROCEDURAL EXAMIN 01/21/2016 SADI MATHEWS MD Ot R42 DIZZINESS AND GIDDINESS 01/21/2016 SADI MATHEWS MD Ot R51 HEADACHE 01/21/2016 SADI MATHEWS MD Ot R53.81 OTHER MALAISE 01/21/2016 SADI MATHEWS MD Ot Z79.82 ALF (CURRENT) USE OF ASPIRIN 01/21/2016 SADI MATHEWS MD Ot 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.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 THERAPY 01/21/2016 SADI MATHEWS MD [...] 01/21/2016 MEHDI NIETO, DELMAR Roldan Ot V72.81 CQLP-DJH-KLATIDFWG CARDIOVASCULAR 01/21/2016 DELMAR HARDING MD Ot V74.8 SCREEN-BACTERIAL DIS NEC 01/21/2016 YAMILE GRIGSBY MD Ot E78.2 MIXED HYPERLIPIDEMIA 01/21/2016 YAMILE GRIGSBY MD Ot I25.10 ATHSCL HEART DISEASE OF [place] CORONARY 01/21/2016 YAMILE GRIGSBY MD Ot 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 01/21/2016 YAMILE GRIGSBY MD Ot R07.89 OTHER CHEST PAIN 01/21/2016 YAMILE GRIGSBY MD Ot E78.2 MIXED HYPERLIPIDEMIA 01/21/2016 YAMILE GRIGSBY MD Ot I25.10 ATHSCL HEART DISEASE OF [place] CORONARY 01/21/2016 YAMILE GRIGSBY MD Ot I65.23 [...] PAIN IN RIGHT HIP 11/09/2016 YOVANA DO, TASAH F Ot M41.9 SCOLIOSIS, UNSPECIFIED 11/09/2016 YOVANA [...] MD Ot I25.10 ATHSCL HEART DISEASE OF [place] CORONARY 12/07/2016 MARILYN SOTO MD Ot M19.90 UNSPECIFIED OSTEOARTHRITIS, UNSPECIFIED 12/07/2016 MARILYN SOTO MD Ot N20.0 CALCULUS OF KIDNEY 12/07/2016 MARILYN SOTO MD Ot N40.0 BENIGN PROSTATIC HYPERPLASIA WITHOUT LOW 12/07/2016 MARILYN SOTO MD Ot R10.31 RIGHT LOWER QUADRANT PAIN 12/07/2016 MARILYN SOTO MD Ot 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 12/07/2016 MARILYN SOTO MD Ot Z87.19 PERSONAL HISTORY OF OTHER DISEASES OF TH 12/07/2016 MARILYN SOTO MD Ot 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 BYPASS GRAFT 12/07/2016 YAMILE GRIGSBY MD Ot E78.2 MIXED HYPERLIPIDEMIA 12/07/2016 YAMILE GRIGSBY MD Ot I25.10 ATHSCL HEART DISEASE OF [place] CORONARY 12/07/2016 YAMILE GRIGSBY MD Ot 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 12/07/2016 YAMILE GRIGSBY MD Ot R07.89 OTHER CHEST PAIN 12/07/2016 YAMILE GRIGSBY MD Ot E78.2 MIXED HYPERLIPIDEMIA 12/07/2016 YAMILE GRIGSBY MD Ot I25.10 ATHSCL HEART DISEASE OF [place] CORONARY 12/07/2016 YAMILE GRIGSBY MD Ot I65.23 [...] URETER 12/09/2016 DELMAR HARDING MD Ot V72.81 IUYN-LUK-QYPOEHTCT CARDIOVASCULAR 12/09/2016 DELMAR HARDING MD Ot V74.8 SCREEN-BACTERIAL DIS NEC 12/09/2016 YAMILE GRIGSBY MD Ot E78.2 MIXED HYPERLIPIDEMIA 12/09/2016 YAMILE GRIGSBY MD Ot I25.10 ATHSCL HEART DISEASE OF [place] CORONARY 12/09/2016 YAMILE GRIGSBY MD Ot 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 12/09/2016 YAMILE GRIGSBY MD Ot R07.89 OTHER CHEST PAIN 12/09/2016 YAMILE GRIGSBY MD Ot E78.2 MIXED HYPERLIPIDEMIA 12/09/2016 YAMILE GRIGSBY MD Ot I25.10 ATHSCL HEART DISEASE OF [place] CORONARY 12/09/2016 YAMILE GRIGSBY MD Ot 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 12/09/2016 YAMILE GRIGSBY MD Ot R07.89 OTHER CHEST PAIN 12/09/2016 MARILYN SOTO MD Ot E78.00 PURE HYPERCHOLESTEROLEMIA, UNSPECIFIED 12/09/2016 MARILYN SOTO MD Ot I10 ESSENTIAL (PRIMARY) HYPERTENSION 12/09/2016 MARILYN SOTO MD Ot I25.10 ATHSCL HEART DISEASE OF [place] CORONARY 12/09/2016 MARILYN SOTO MD Ot M19.90 UNSPECIFIED OSTEOARTHRITIS, UNSPECIFIED 12/09/2016 MARILYN SOTO MD Ot N20.0 CALCULUS OF KIDNEY 12/09/2016 MARILYN SOTO MD Ot N40.0 BENIGN PROSTATIC HYPERPLASIA WITHOUT LOW 12/09/2016 MARILYN SOTO MD Ot R39.11 HESITANCY OF MICTURITION 12/09/2016 MARILYN SOTO MD Ot Z79.82 ALF (CURRENT) USE OF ASPIRIN 12/09/2016 MARILYN SOTO [...] URETER 12/09/2016 DELMAR HARDING MD Ot V72.81 NLGY-TTL-OHNSUEQWI CARDIOVASCULAR 12/09/2016 DELMAR HARDING MD Ot V74.8 SCREEN-BACTERIAL DIS NEC 12/09/2016 YAMILE GRIGSBY MD Ot E78.2 MIXED HYPERLIPIDEMIA 12/09/2016 YAMILE GRIGSBY MD Ot I25.10 ATHSCL HEART DISEASE OF [place] CORONARY 12/09/2016 YAMILE GRIGSBY MD Ot 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 12/09/2016 YAMILE GRIGSBY MD Ot R07.89 OTHER CHEST PAIN 12/09/2016 YAMILE GRIGSBY MD Ot E78.2 MIXED HYPERLIPIDEMIA 12/09/2016 YAMILE GRIGSBY MD Ot I25.10 ATHSCL HEART DISEASE OF [place] CORONARY 12/09/2016 YAMILE GRIGSBY MD Ot 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 12/09/2016 YAMILE GRIGSBY MD Ot R07.89 OTHER CHEST PAIN 12/11/2016 MARILYN SOTO MD Ot E78.00 PURE HYPERCHOLESTEROLEMIA, UNSPECIFIED 12/11/2016 MARILYN SOTO MD Ot I10 ESSENTIAL (PRIMARY) HYPERTENSION 12/11/2016 MARILYN SOTO MD Ot I25.10 ATHSCL HEART DISEASE OF [place] CORONARY 12/11/2016 MARILYN SOTO MD Ot M19.90 UNSPECIFIED OSTEOARTHRITIS, UNSPECIFIED 12/11/2016 MARILYN SOTO MD Ot N20.0 CALCULUS OF KIDNEY 12/11/2016 MARILYN SOTO MD Ot N40.0 BENIGN PROSTATIC HYPERPLASIA WITHOUT LOW 12/11/2016 MARILYN SOTO MD Ot R39.11 HESITANCY OF MICTURITION 12/11/2016 MARILYN SOTO MD Ot 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 12/11/2016 MARILYN SOTO [...] URETER 01/31/2017 DELMAR HARDING MD Ot V72.81 JQHE-JHY-EYVNYWLBV CARDIOVASCULAR 01/31/2017 DELMAR HARDING MD, Ot V74.8 SCREEN-BACTERIAL DIS NEC 01/31/2017 YAMILE GRIGSBY MD Ot E78.2 MIXED HYPERLIPIDEMIA 01/31/2017 YAMILE GRIGSBY MD Ot I25.10 ATHSCL HEART DISEASE OF [place] CORONARY 01/31/2017 YAMILE GRIGSBY MD Ot 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 01/31/2017 YAMILE GRIGSBY MD Ot R07.89 OTHER CHEST PAIN 01/31/2017 YAMILE GRIGSBY MD Ot E78.2 MIXED HYPERLIPIDEMIA 01/31/2017 YAMILE GRIGSBY MD Ot I25.10 ATHSCL HEART DISEASE OF [place] CORONARY 01/31/2017 YAMILE GRIGSBY MD Ot I65.23 [...] URETER 07/12/2017 DELMAR HARDING MD Ot V72.81 DZAR-TGE-PMVCQUZQD CARDIOVASCULAR 07/12/2017 DELMAR HARDING MD Ot V74.8 SCREEN-BACTERIAL DIS NEC 07/12/2017 YAMILE GRIGSBY MD Ot E78.2 MIXED HYPERLIPIDEMIA 07/12/2017 YAMILE GRIGSBY MD Ot I25.10 ATHSCL HEART DISEASE OF [place] CORONARY 07/12/2017 YAMILE GRIGSBY MD Ot 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 07/12/2017 YAMILE GRIGSBY MD Ot R07.89 OTHER CHEST PAIN 07/12/2017 YAMILE GRIGSBY MD Ot E78.2 MIXED HYPERLIPIDEMIA 07/12/2017 YAMILE GRIGSBY MD Ot I25.10 ATHSCL HEART DISEASE OF [place] CORONARY 07/12/2017 YAMILE GRIGSBY MD Ot I65.23 [...] URETER 08/13/2017 DELMAR HARDING MD Ot V72.81 WJZW-NQM-XQJDJAJTK CARDIOVASCULAR 08/13/2017 DELMAR HARDING MD Ot V74.8 SCREEN-BACTERIAL DIS NEC 08/13/2017 YAMILE GRIGSBY MD Ot E78.2 MIXED HYPERLIPIDEMIA 08/13/2017 YAMILE GRIGSBY MD Ot I25.10 ATHSCL HEART DISEASE OF [place] CORONARY 08/13/2017 YAMILE GRIGSBY MD Ot 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 08/13/2017 YAMILE GRIGSBY MD Ot R07.89 OTHER CHEST PAIN 08/13/2017 YAMILE GRIGSBY MD Ot E78.2 MIXED HYPERLIPIDEMIA 08/13/2017 YAMILE GRIGSBY MD Ot I25.10 ATHSCL HEART DISEASE OF [place] CORONARY 08/13/2017 YAMILE GRIGSBY MD Ot I65.23 [...] ESSENTIAL (PRIMARY) HYPERTENSION 08/13/2017 HARMONORTIZ ESCALONA, MARINA cMkeon Ot I65.23 OCCLUSION AND STENOSIS OF BILATERAL [...] Blackwell Ot I25.10 ATHSCL HEART DISEASE OF [place] CORONARY 09/10/2017 SCARLET DPDOMINICK Blackwell Ot I65.29 OCCLUSION AND STENOSIS OF UNSPECIFIED CA 09/10/2017 DOMINICK NOVAK DPM Ot M20.21 HALLUX RIGIDUS, RIGHT FOOT 09/10/2017 SCARLET WHALEY, DOMINICK Ramos Ot R00.1 BRADYCARDIA, UNSPECIFIED 09/10/2017 SCARLET DPRishi, DOMINICK Ramos Ot R07.9 CHEST PAIN, UNSPECIFIED 09/10/2017 SCARLET WHALEY, DOMINICK Ramos Ot Z79.82 ALF (CURRENT) USE OF ASPIRIN 09/10/2017 DOMINICK NOVAK DPM Ot Z79.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 THERAPY 09/10/2017 DOMINICK NOVAK DPM Ot Z87.891 PERSONAL HISTORY OF NICOTINE DEPENDENCE 09/10/2017 DOMINICK NOVAK DPM Ot Z95.5 PRESENCE OF CORONARY ANGIOPLASTY IMPLANT 09/12/2017 SCARLET DPDOMINICK Blackwell Ot E78.5 HYPERLIPIDEMIA, UNSPECIFIED 09/12/2017 SCARLET DPM, DOMINICK Ramos Ot I10 ESSENTIAL (PRIMARY) HYPERTENSION 09/12/2017 SCARLET DPRishi, DOMINICK Ramos Ot I25.10 ATHSCL HEART DISEASE OF [place] CORONARY 09/12/2017 NOVAK DPM, DOMINICK P Ot I65.29 OCCLUSION AND STENOSIS OF UNSPECIFIED CA 09/12/2017 NOVAK DPRishi, DOMINICK P Ot M20.21 HALLUX RIGIDUS, RIGHT FOOT 09/12/2017 NOVAK DPM, DOMINICK P Ot R00.1 BRADYCARDIA, UNSPECIFIED 09/12/2017 NOVAK DPM, DOMINICK P Ot R07.9 CHEST PAIN, UNSPECIFIED 09/12/2017 NOVAK DPM, DOMINICK P Ot Z79.82 ALF (CURRENT) USE OF ASPIRIN 09/12/2017 NOVAK DPMDOMINICK Ot Z79.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 09/12/2017 NOVAK DPRishi, DOMINICK P Ot Z87.891 PERSONAL HISTORY OF NICOTINE DEPENDENCE 09/12/2017 SCARLET DPDOMINICK Blackwell Ot Z95.5 PRESENCE OF CORONARY ANGIOPLASTY IMPLANT 10/06/2017 MARILYN SOTO MD Ot E78.00 PURE HYPERCHOLESTEROLEMIA, UNSPECIFIED 10/06/2017 MARILYN SOTO MD Ot I10 ESSENTIAL (PRIMARY) HYPERTENSION 10/06/2017 MARILYN SOTO MD Ot I25.10 ATHSCL HEART DISEASE OF [place] CORONARY 10/06/2017 MARILYN SOTO MD Ot M79.89 OTHER SPECIFIED SOFT TISSUE DISORDERS 10/06/2017 MARILYN SOTO MD Ot T81.89XA OTH COMPLICATIONS OF PROCEDURES, NEC, IN 10/06/2017 MARILYN SOTO MD Ot Z79.82 ALF (CURRENT) USE OF ASPIRIN 10/06/2017 MARILYN SOTO [...] MD Ot I25.10 ATHSCL HEART DISEASE OF [place] CORONARY 10/08/2017 MARILYN SOTO MD Ot M79.89 OTHER SPECIFIED SOFT TISSUE DISORDERS 10/08/2017 MARILYN SOTO MD Ot T81.89XA OTH COMPLICATIONS OF PROCEDURES, NEC, IN 10/08/2017 MARILYN SOTO MD Ot Z79.82 ALF (CURRENT) USE OF ASPIRIN 10/08/2017 MARILYN SOTO [...] 10/10/2017 MEHDI NIETO, DELMAR Roldan Ot V72.81 GDVR-GKZ-HMQBZOYEW CARDIOVASCULAR 10/10/2017 DELMAR HARDING MD Ot V74.8 SCREEN-BACTERIAL DIS NEC 10/10/2017 YAMILE GRIGSBY MD Ot E78.2 MIXED HYPERLIPIDEMIA 10/10/2017 YAMILE GRIGSBY MD Ot I25.10 ATHSCL HEART DISEASE OF [place] CORONARY 10/10/2017 YAMILE GRIGSBY MD Ot 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 10/10/2017 YAMILE GRIGSBY MD Ot R07.89 OTHER CHEST PAIN 10/10/2017 YAMILE GRIGSBY MD Ot E78.2 MIXED HYPERLIPIDEMIA 10/10/2017 YAMILE GRIGSBY MD Ot I25.10 ATHSCL HEART DISEASE OF [place] CORONARY 10/10/2017 YAMILE GRIGSBY MD Ot I65.23 [...] SPINE, SACRAL AND SACROCOCCYGE 10/10/2017 TOMAS MIX DC, Ot M43.8X6 OTHER SPECIFIED DEFORMING DORSOPATHIES, 10/10/2017 TOMAS MIX DC, Ot M47.816 SPONDYLOSIS W/O MYELOPATHY OR RADICULOPA 10/10/2017 TOMAS MIX DC, Ot M51.16 INTERVERTEBRAL DISC DISORDERS W RADICULO 10/11/2017 ELÍAS KASPER DO Ot M54.16 RADICULOPATHY, LUMBAR REGION 10/12/2017 MARILYN SOTO MD Ot E78.00 PURE HYPERCHOLESTEROLEMIA, UNSPECIFIED 10/12/2017 MARILYN SOTO MD, Ot I10 ESSENTIAL (PRIMARY) HYPERTENSION 10/12/2017 MARILYN SOTO MD Ot I25.10 ATHSCL HEART DISEASE OF [place] CORONARY 10/12/2017 MARILYN SOTO MD Ot M79.89 OTHER SPECIFIED SOFT TISSUE DISORDERS 10/12/2017 MARILYN SOTO MD Ot T81.89XA OTH COMPLICATIONS OF PROCEDURES, NEC, IN 10/12/2017 MARILYN SOTO MD Ot Z79.82 ALF (CURRENT) USE OF ASPIRIN 10/12/2017 MARILYN SOTO [...] ARTIFICIAL KNEE JOINT, BILAT 10/12/2017 MARILYN SOTO MD, Ot Z98.890 OTHER SPECIFIED POSTPROCEDURAL STATES 10/12/2017 OJ ESCALONA MARINA K Ot 272.4 HYPERLIPIDEMIA NEC/NOS 10/12/2017 OJ ESCALONA MARINA K Ot 397.0 TRICUSPID VALVE DISEASE 10/12/2017 OJ [...] URETER 10/12/2017 DELMAR HARDING MD Ot V72.81 QRYZ-BWQ-WNAIHRDOA CARDIOVASCULAR 10/12/2017 DELMAR HARDING MD Ot V74.8 SCREEN-BACTERIAL DIS NEC 10/12/2017 YAMILE GRIGSBY MD Ot E78.2 MIXED HYPERLIPIDEMIA 10/12/2017 YAMILE GRIGSBY MD Ot I25.10 ATHSCL HEART DISEASE OF [place] CORONARY 10/12/2017 YAMILE GRIGSBY MD Ot 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 10/12/2017 YAMILE GRIGSBY MD Ot R07.89 OTHER CHEST PAIN 10/12/2017 YAMILE GRIGSBY MD Ot E78.2 MIXED HYPERLIPIDEMIA 10/12/2017 YAMILE GRIGSBY MD Ot I25.10 ATHSCL HEART DISEASE OF [place] CORONARY 10/12/2017 YAMILE GRIGSBY MD Ot 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 10/12/2017 YAMILE GRIGSBY MD Ot R07.89 OTHER CHEST PAIN 10/12/2017 MARINA HERNANDEZ Ot E78.2 MIXED HYPERLIPIDEMIA 10/12/2017 MARINA HERNANDEZ Ot I10 ESSENTIAL (PRIMARY) HYPERTENSION 10/12/2017 OJ PA, MARINA Mckeon Ot 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 10/12/2017 OJ PA, MARINA Mckeon Ot R07.89 OTHER CHEST PAIN 10/12/2017 OJ PA, MARINA Mckeon Ot E78.2 MIXED HYPERLIPIDEMIA 10/12/2017 OJ PA, MARINA Mckeon Ot I10 ESSENTIAL (PRIMARY) HYPERTENSION 10/12/2017 OJ PA, MARINA Mckeon Ot 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 10/12/2017 EDEN-AMADA PA, MARINA Mckeon Ot R07.89 OTHER CHEST PAIN 10/12/2017 MEHDI NIETO, DELMAR Roldan Ot Z87.442 PERSONAL HISTORY OF URINARY CALCULI 10/12/2017 GEOFFREY NIETO, AUDI Pierre Ot R07.9 CHEST PAIN, UNSPECIFIED 10/12/2017 OJ PA, MARINA Mckeon Ot E78.2 MIXED HYPERLIPIDEMIA 10/12/2017 OJ ESCALONA, MARINA Mckeon Ot I10 ESSENTIAL (PRIMARY) HYPERTENSION 10/12/2017 OJ ESCALONA, MARINA Mckeon Ot 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 10/12/2017 OJ PA, MARINA Mckeon Ot R07.89 OTHER CHEST PAIN 10/12/2017 TOMAS MIX DC, Ot 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 OSTEOARTHRITIS OF HIP 10/12/2017 TOMAS MIX DC Ot 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, SACRAL AND SACROCOCCYGE 10/12/2017 TOMAS MIX DC Ot M43.8X6 OTHER SPECIFIED DEFORMING DORSOPATHIES, 10/12/2017 TOMAS MIX DC, Ot M47.816 SPONDYLOSIS W/O MYELOPATHY OR RADICULOPA 10/12/2017 TOMAS MIX DC, Ot M51.16 INTERVERTEBRAL DISC DISORDERS W RADICULO 10/15/2017 ELÍAS KASPER DO Ot M54.16 RADICULOPATHY, LUMBAR REGION 10/17/2017 OKSANA NIETO, TOMAS Villarreal Ot E78.00 PURE HYPERCHOLESTEROLEMIA, UNSPECIFIED 10/17/2017 TOMAS GANDHI MD Ot I10 ESSENTIAL (PRIMARY) HYPERTENSION 10/17/2017 TOMAS GANDHI MD Ot I25.10 ATHSCL HEART DISEASE OF [place] CORONARY 10/17/2017 TOMAS GANDHI MD Ot N40.1 BENIGN PROSTATIC HYPERPLASIA WITH LOWER 10/17/2017 TOMAS GANDHI MD Ot R33.9 RETENTION OF URINE, UNSPECIFIED 10/17/2017 TOMAS GANDHI MD Ot R35.0 FREQUENCY OF MICTURITION 10/17/2017 TOMAS GANDHI MD Ot 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 10/17/2017 TOMAS GANDHI MD Ot Z87.19 PERSONAL HISTORY OF OTHER DISEASES OF 10/17/2017 TOMAS GANDHI MD Ot Z87.442 PERSONAL HISTORY OF URINARY CALCULI 10/17/2017 TOMAS GANDHI MD Ot 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 BYPASS GRAFT 10/17/2017 TOMAS GANDHI MD Ot Z95.5 PRESENCE OF CORONARY ANGIOPLASTY IMPLANT 10/17/2017 TOMAS GANDHI MD Ot Z96.653 PRESENCE OF ARTIFICIAL KNEE JOINT, BILAT 10/19/2017 TOMAS GANDHI MD Ot E78.00 PURE HYPERCHOLESTEROLEMIA, UNSPECIFIED 10/19/2017 TOMAS GANDHI MD Ot I10 ESSENTIAL (PRIMARY) HYPERTENSION 10/19/2017 TOMAS GANDHI MD Ot I25.10 ATHSCL HEART DISEASE OF [place] CORONARY 10/19/2017 TOMAS GANDHI MD Ot N40.1 BENIGN PROSTATIC HYPERPLASIA WITH LOWER 10/19/2017 TOMAS GANDHI MD Ot R33.9 RETENTION OF URINE, UNSPECIFIED 10/19/2017 TOMAS GANDHI MD Ot R35.0 FREQUENCY OF MICTURITION 10/19/2017 TOMAS GANDHI MD Ot Z79.82 ALF (CURRENT) USE OF ASPIRIN 10/19/2017 TOMAS GANDHI [...] MD Ot I25.10 ATHSCL HEART DISEASE OF [place] CORONARY 10/23/2017 TOMAS GANDHI MD Ot N40.1 BENIGN PROSTATIC HYPERPLASIA WITH LOWER 10/23/2017 TOMAS GANDHI MD Ot R33.9 RETENTION OF URINE, UNSPECIFIED 10/23/2017 TOMAS GANDHI MD Ot R35.0 FREQUENCY OF MICTURITION 10/23/2017 TOMAS GANDHI MD Ot 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 10/23/2017 TOMAS GANDHI MD Ot Z87.19 PERSONAL HISTORY OF OTHER DISEASES OF 10/23/2017 TOMAS GANDHI MD Ot Z87.442 PERSONAL HISTORY OF URINARY CALCULI 10/23/2017 TOMAS GANDHI MD Ot 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 BYPASS GRAFT 10/23/2017 TOMAS GANDHI MD Ot Z95.5 PRESENCE OF CORONARY ANGIOPLASTY IMPLANT 10/23/2017 TOMAS GANDHI MD Ot Z96.653 PRESENCE OF ARTIFICIAL KNEE JOINT, BILAT 11/11/2017 Ot E78.00 PURE HYPERCHOLESTEROLEMIA, UNSPECIFIED 11/11/2017 Ot 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 11/11/2017 Ot I10 ESSENTIAL ( PRIMARY) HYPERTENSION 11/11/2017 Ot I25.10 ATHSCL HEART DISEASE OF [place] CORONARY 11/11/2017 Ot M54.16 RADICULOPATHY, LUMBAR REGION 11/11/2017 Ot M79.672 PAIN IN LEFT FOOT 11/11/2017 Ot Z79.82 ALF ( CURRENT) USE OF ASPIRIN 11/11/2017 Ot Z87.19 PERSONAL HISTORY OF OTHER DISEASES OF TH 11/11/2017 Ot Z87.442 PERSONAL HISTORY OF URINARY CALCULI 11/11/2017 Ot 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 BYPASS GRAFT 11/11/2017 Ot Z95.5 PRESENCE OF CORONARY ANGIOPLASTY IMPLANT 11/11/2017 Ot Z96.653 PRESENCE OF ARTIFICIAL KNEE JOINT, BILAT 12/12/2017 YAMILE GRIGSBY MD Ot E78.2 MIXED HYPERLIPIDEMIA 12/12/2017 YAMILE GRIGSBY MD Ot I25.10 ATHSCL HEART DISEASE OF [place] CORONARY 12/12/2017 YAMILE GRIGSBY MD Ot 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 12/12/2017 YAMILE GRIGSBY MD Ot R07.89 OTHER CHEST PAIN 12/12/2017 YAMILE GRIGSBY MD Ot E78.2 MIXED HYPERLIPIDEMIA 12/12/2017 YAMILE GRIGSBY MD Ot I25.10 ATHSCL HEART DISEASE OF [place] CORONARY 12/12/2017 YAMILE GRIGSBY MD Ot 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 12/12/2017 YAMILE GRIGSBY MD Ot R07.89 OTHER CHEST PAIN 12/12/2017 MARINA HERNANDEZ Ot E78.2 MIXED HYPERLIPIDEMIA 12/12/2017 OJ ESCALONA MARINA K Ot I10 ESSENTIAL (PRIMARY) HYPERTENSION 12/12/2017 OJ ESCALONA, MARINA K Ot 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 12/12/2017 EDEN-AMADA ESCALONA, MARINA K Ot R07.89 OTHER CHEST PAIN 12/12/2017 OJ ESCALONA, MARINA K Ot E78.2 MIXED HYPERLIPIDEMIA 12/12/2017 JO ESCALONA, MARINA K Ot I10 ESSENTIAL (PRIMARY) HYPERTENSION 12/12/2017 OJ ESCALONA, MARINA K Ot 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 12/12/2017 EDEN-AMADA ESCALONA, MARINA K Ot R07.89 OTHER CHEST PAIN 12/12/2017 MEHDI NIETO, DELMAR Roldan Ot Z87.442 PERSONAL HISTORY OF URINARY CALCULI 12/12/2017 GEOFFREY NIETO, AUDI Pierre Ot R07.9 CHEST PAIN, UNSPECIFIED 12/12/2017 OJ ESCALONA MARINA K Ot E78.2 MIXED HYPERLIPIDEMIA 12/12/2017 OJ ESCALONA, MARINA K Ot I10 ESSENTIAL (PRIMARY) HYPERTENSION 12/12/2017 OJ ESCALONA, MARINA K Ot 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 12/12/2017 MARINA HERNANDEZ Ot R07.89 OTHER CHEST PAIN 12/12/2017 TOMAS MIX DC, Ot 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 OSTEOARTHRITIS OF HIP 12/12/2017 TOMAS MIX DC, Ot 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, SACRAL AND SACROCOCCYGE 12/12/2017 MARIA DEL ROSARIOTOMAS HASSAN DC, Ot M43.8X6 OTHER SPECIFIED DEFORMING DORSOPATHIES, 12/12/2017 MARIA DEL ROSARIOTOMAS HASSAN DC, Ot M47.816 SPONDYLOSIS W/O MYELOPATHY OR RADICULOPA 12/12/2017 TOMAS MIX DC, Ot M51.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, LUMBOSACRAL REGION 12/17/2017 ELÍAS KASPER DO, Ot M46.87 OTH INFLAMMATORY SPONDYLOPATHIES, LUMBOS 12/17/2017 ELÍAS KASPER DO Ot M47.26 OTHER SPONDYLOSIS WITH RADICULOPATHY, EJSSIE 12/17/2017 ELÍAS KASPER DO Ot M48.07 SPINAL STENOSIS, LUMBOSACRAL REGION 12/17/2017 ELÍAS KASPER DO Ot M51.16 INTERVERTEBRAL DISC DISORDERS W RADICULO 12/17/2017 ELÍAS KASPER DO Ot M99.73 CONN TISS AND DISC STENOS OF INTVRT FORA 12/29/2017 RIKI DOW APRN Ot E78.00 PURE HYPERCHOLESTEROLEMIA, UNSPECIFIED 12/29/2017 RIKI DOW APRN Ot I10 ESSENTIAL (PRIMARY) HYPERTENSION 12/29/2017 RIKI DOW APRN Ot I25.10 ATHSCL HEART DISEASE OF [place] CORONARY 12/29/2017 RIKI DOW APRN Ot K08.89 OTHER SPECIFIED DISORDERS OF TEETH AND S 12/29/2017 RIKI DOW APRN Ot Z79.82 ALF (CURRENT) USE OF ASPIRIN 12/29/2017 RIKI DOW APRN Ot Z87.19 PERSONAL HISTORY OF OTHER DISEASES OF TH 12/29/2017 RIKI DOW APRN Ot Z87.442 PERSONAL HISTORY OF URINARY CALCULI 12/29/2017 RIKI DOW APRN Ot 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 BYPASS GRAFT 12/29/2017 RIKI DOW APRN Ot Z95.5 PRESENCE OF CORONARY ANGIOPLASTY IMPLANT 12/29/2017 RIKI DOW APRN Ot Z96.653 PRESENCE OF ARTIFICIAL KNEE JOINT, BILAT 12/31/2017 RIKI DOW APRN Ot E78.00 PURE HYPERCHOLESTEROLEMIA, UNSPECIFIED 12/31/2017 RIKI DOW APRN Ot I10 ESSENTIAL (PRIMARY) HYPERTENSION 12/31/2017 RIKI DOW APRN Ot I25.10 ATHSCL HEART DISEASE OF [place] CORONARY 12/31/2017 RIKI DOW APRN Ot K08.89 OTHER SPECIFIED DISORDERS OF TEETH AND S 12/31/2017 RIKI DOW APRN Ot 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 12/31/2017 RIKI DOW APRN Ot Z87.19 PERSONAL HISTORY OF OTHER DISEASES OF TH 12/31/2017 RIKI DOW APRN Ot Z87.442 PERSONAL HISTORY OF URINARY CALCULI 12/31/2017 RIKI DOW APRN Ot 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 BYPASS GRAFT 12/31/2017 RIKI DOW APRN Ot Z95.5 PRESENCE OF CORONARY ANGIOPLASTY IMPLANT 12/31/2017 RIKI DOW APRN Ot Z96.653 PRESENCE OF ARTIFICIAL KNEE JOINT, BILAT 01/03/2018 ELÍAS KASPER DO Ot M43.17 SPONDYLOLISTHESIS, LUMBOSACRAL REGION 01/03/2018 ELÍAS KASPER DO, Ot M46.87 OTH INFLAMMATORY SPONDYLOPATHIES, LUMBOS 01/03/2018 ELÍAS KASPER DO Ot M47.26 OTHER SPONDYLOSIS WITH RADICULOPATHY, JESSIE 01/03/2018 ELÍAS KASPER DO, Ot M48.07 SPINAL STENOSIS, LUMBOSACRAL REGION 01/03/2018 ELÍAS KASPER DO Ot M51.16 INTERVERTEBRAL DISC DISORDERS W RADICULO 01/03/2018 ELÍAS KASPER DO, Ot M99.73 CONN TISS AND DISC STENOS OF INTVRT [place] Procedures There is no data. Results Test [...] culture - 01/13/16 07:15 Bacterial urine culture [id number] NRG COLONY COUNT <10,000 NRG Complete blood [...] Status Pt. Type Provider Facility Loc./Unit Complaint [id number] 12/29/2017 13:50:00 12/29/2017 14:50:00 DIS Emergency RIKI DOW APRN [facility] ER TOOTH PAIN [id number] 12/11/2017 14:11:00 12/11/2017 23:59:59 CLS Outpatient ELÍAS KASPER DO [facility] RAD M54.16 RADICULOPATHY [id number] 10/17/2017 05:41:00 10/17/2017 07:00:00 DIS Emergency TOMAS GANDHI MD [facility] ER UNABLE TO URINATE [id number] 10/11/2017 12:27:00 10/11/2017 13:24:00 DIS Outpatient ELÍAS KASPER DO [facility] CARD LUMBAR RADICULOPATHY [id number] 10/06/2017 07:23:00 10/06/2017 08:23:00 DIS Emergency MARILYN SOTO MD [facility] ER R FOOT SWELLING [id number] 09/10/2017 06:00:00 09/10/2017 11:15:00 DIS Outpatient DOMINICK NOVAK DPM [facility] SDC HALLUX VALGUS DEFORMITY RT FOOT [id number] 09/03/2017 09:11:00 09/03/2017 09:40:00 DIS Outpatient DOMINICK NOVAK DPM [facility] PREOP HALLUX VALGUS DEFORMITY RT FOOT [id number] 08/10/2017 12:49:00 08/16/2017 14:54:00 DIS Outpatient TASHA YEN DO [facility] REHAB LUMBAR DDD;LUMBAR SPONDYLOSIS;L5-S1 SPONDYLOLISTHE [id number] 08/13/2017 10:39:00 08/13/2017 23:59:59 CLS Outpatient TOMAS MIX DC [facility] RAD LOW BACK PAIN,SCIATICA LT LEG [id number] 02/28/2017 08:03:00 02/28/2017 23:59:59 CLS Outpatient MARINA HERNANDEZ [facility] CARD CHEST PAIN SYNDROME [id number] 02/12/2017 08:02:00 02/12/2017 23:59:59 CLS Outpatient MARINA HERNANDEZ [facility] CARD PALPITATIONS R00.2,CAD I25.10 [id number] 02/02/2017 08:14:00 02/02/2017 23:59:59 CLS Outpatient MARINA HERNANDEZ [facility] CARD HLP E78.2, CHEST PAIN SYNDROME R07.89 [id number] 01/10/2017 10:47:00 01/10/2017 23:59:59 CLS Outpatient AUDI HALE MD [facility] RAD CHEST PAIN,RIGHT SIDED [id number] 12/13/2016 11:52:00 12/13/2016 23:59:59 CLS Outpatient DELMAR HARDING MD [facility] RAD LT URETERAL STONE [id number] 12/09/2016 00:26:00 12/09/2016 01:48:00 DIS Emergency MARILYN SOTO MD [facility] ER POSS KIDNEY STONE [id number] 12/07/2016 14:07:00 12/07/2016 18:21:00 DIS Emergency MARILYN SOTO MD [facility] ER ABD PAIN [id number] 11/14/2016 15:45:00 11/14/2016 16:27:00 DIS Outpatient TASHA YEN DO [facility] REHAB LUMBAR SCOLIOSIS; SPONDYLOSIS;DDD;R HIP PAIN [id number] 01/21/2016 13:00:00 01/21/2016 16:20:00 DIS Outpatient CHRISSIE NEWBERRY MD [facility] SDC BLOOD IN STOOLS [id number] 01/19/2016 05:39:00 01/19/2016 11:30:00 DIS Outpatient CHRISSIE NEWBERRY MD [facility] PREOP BLOOD IN STOOLS [id number] 01/13/2016 06:57:00 01/13/2016 09:31:00 DIS Emergency SADI MATHEWS MD [facility] ER FEELS BAD ALL OVER,DIZZY [id number] 06/02/2015 12:05:00 06/02/2015 23:59:59 CLS Outpatient YAMILE GRIGSBY MD [facility] CARD CAD CAROTID ARTERY STENOSIS CHEST PAIN [id number] 05/20/2015 11:33:00 05/20/2015 23:59:59 CLS Outpatient YAMILE GRIGSBY MD [facility] CARD CAD CAROTID ARTERY STENOSIS CHEST PAIN [id number] 02/28/2015 04:45:00 02/28/2015 06:09:00 DIS Emergency MERCEDEZ GUERRA MD [facility] ER ABD,BACK PAIN [id number] 12/02/2013 07:00:00 12/02/2013 12:15:00 DIS Outpatient DELMAR HARDING MD [facility] SDC RIGHT URETERAL STONE [id number] 11/28/2013 08:48:00 11/28/2013 23:59:59 CLS Outpatient DELMAR HARDING MD [facility] PREOP RIGHT URETERAL STONE [id number] 11/03/2013 06:04:00 11/03/2013 08:24:00 DIS Emergency MIRIAM LANDEROS DO [facility] ER ABD PAIN [id number] 08/18/2013 07:18:00 08/18/2013 23:59:59 CLS Outpatient MARINA HERNANDEZ [facility] CARD CAD,DJD,HIP PAIN,HLP [id number] 08/14/2013 08:44:00 08/14/2013 23:59:59 CLS Outpatient MARINA HERNANDEZ [facility] CARD CAD,DJD,HIP PAIN,HLP [id number] 05/31/2013 09:18:00 05/31/2013 10:56:00 DIS Emergency SADI MATHEWS MD [facility] ER CHEST PAIN [id number] 01/02/2013 02:37:00 01/02/2013 07:40:00 DIS Emergency TOMAS GANDHI MD [facility] ER ALLERGIC RXN [id number] 12/30/2012 21:47:00 12/30/2012 22:25:00 DIS Emergency RIKI DOW [employer] [facility] ER HIVJADEN, POSS ALLERGIC REACTION [id number] 11/11/2017 06:23:00 Document Registration [id number] 05/20/2015 11:33:00 Document Registration [id number] 11/21/2013 12:43:00 Document Registration [id number] 03/13/2012 11:18:00 Document Registration [id number] 03/06/2012 10:06:00 Document Registration [id number] 11/11/2011 09:08:00 Document Registration [id number] 11/10/2011 16:03:00 Document Registration [id number] 09/16/2011 23:47:00 Document Registration [id number] 08/11/2011 22:00:00 Document Registration [id number] 05/19/2011 09:49:00 Document Registration [id number] 05/17/2011 09:28:00 Document Registration [id number] 01/18/2011 12:13:00 Document Registration [id number] 07/24/2017 09:11:00 07/24/2017 23:59:00 DIS Outpatient KAREEN FLOWERS [id number] 07/04/2017 11:03:00 07/04/2017 23:59:00 DIS Outpatient KAREEN FLOWERS
--- NOTE | 2018-02-10 13:48 | ED Lower Extremity ---
General Chief Complaint: Lower Extremity Stated Complaint: FEET ARE SWOLLEN,SWELLING IS SPREAD UP TO KNEES Nursing Triage Note: PT PRESENTS TO THE ED ABULATORY, STATES HE HAD AN MRI TAKEN IN AND WAS TOLD HIS TAILBONE IS "CROOKED". PRESENTS TO THE ED COMPLAINING OF INCREASED NUMBNESS AND SWELLING TO THE LOWER EXTREMITY. PT STATES HE FEELS LIKE NUMBNESS IS SPREADING UPWARDS TOWARDS HIS HIPS. 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 Nursing Sepsis Screen: No Definite Risk Source: patient Exam Limitations: no limitations History of Present Illness Date Seen by Provider: Feb 10, 2018 Time Seen by Provider: 13:35 Initial Comments The patient presents to ER by private conveyance with chief complaint that for the past several months she's had some numbness, tingling in his bilateral lower extremities and pain in his low back around the level of coccyx and sacrum. He had MRI done and found to have some narrowing of his canals and no surgery was scheduled but he has been being treated outpatient by his primary doctor. He has a history of CABG but denies CHF, diabetes. He says he presents today because the numbness tingling and swelling sensation has gotten worse today. He is not having any incontinence, saddle anesthesia, urinary hesitancy. He does have some baseline prostatism. He denies any fevers chills nausea vomiting or diarrhea. Bowel movements have been regular. Allergies and Home Medications Allergies Coded Allergies: No Known Drug Allergies (Unverified , 05/19/11) Home Medications Amoxicillin 500 Mg Capsule, 500 MG PO TID Prescribed by: RIKI DOW on 12/29/17 1421 Aspirin 81 Mg Tab.chew, 81 MG PO DAILY, (Reported) Docusate Sodium 100 Mg Capsule, 100 MG PO BID, (Reported) Ibuprofen 800 Mg Tablet, 800 MG PO BID PRN for PAIN Prescribed by: ADDIE MORALES on 09/10/17 0956 Metoprolol Tartrate 25 Mg Tablet, 12.5 MG PO BID, (Reported) take 1/2 of 25mg tab [place]-3 Fatty Acids/Fish Oil 1 Each Capsule, 1,200 MG PO BID, (Reported) Rosuvastatin Calcium 10 Mg Tablet, 10 MG PO Q48H, (Reported) Tamsulosin HCl 0.4 Mg Cap.er.24h, 0.4 MG PO HS, (Reported) Tamsulosin HCl 0.4 Mg Cap, 0.4 MG PO DAILY Prescribed by: TOMAS GANDHI on 10/17/17 0638 Tramadol HCl 50 Mg Tablet, 50 MG PO Q6H PRN for PAIN-MODERATE TO SEVERE Prescribed by: RIKI DOW on 12/29/17 1421 Patient Home Medication List Home Medication List Reviewed: Yes Review of Systems Constitutional: No chills, No diaphoresis Respiratory: No cough, No orthopnea, No short of breath Cardiovascular: No chest pain; Hx of Intervention; No palpitations Gastrointestinal: No abdominal pain, No nausea, No vomiting Genitourinary: No discharge, No dysuria Musculoskeletal: No back pain Past Hhbvcof-Dqapkh-Rcgukj Hx Patient Social History Alcohol Use: Denies Use Recreational Drug Use: No Smoking Status: Never a Smoker 2nd Hand Smoke Exposure: No Recent Foreign Travel: No Contact w/Someone Who Travel: No Recent Infectious Disease Expo: No Recent Hopitalizations: No Immunizations Up To Date Tetanus Booster (TDap): Unknown PED Vaccines UTD: No Date of Influenza Vaccine: Jan 31, 2013 Seasonal Allergies Seasonal Allergies: No Past Medical History Surgeries: Yes (BILAT TKR, QUAD BYPASS, STENT, ESWL, R ARM FX, R FOOT) Cardiac, CABG, Joint Replacement, Orthopedic Respiratory: No Cardiac: Yes (QUAD BYPASS) Coronary Artery Disease, High Cholesterol, Hypertension Neurological: No Reproductive Disorders: No Sexually Transmitted Disease: No HIV/AIDS: No Genitourinary: Yes Benign Prostatic Hyperpl, Kidney Stones Gastrointestinal: Yes (BLOOD IN STOOLS) Chronic Constipation Musculoskeletal: Yes Arthritis, Chronic Back Pain, Fractures Endocrine: No HEENT: No Loss of Vision: Bilateral Hearing Impairment: Denies Cancer: No Psychosocial: No Integumentary: No Blood Disorders: No Adverse Reaction/Blood Tranf: Yes Family Medical History No Pertinent Family Hx Physical Exam Vital Signs Vital Signs - First Documented 02/10/18 13:08 Temp 98.0 Pulse 69 Resp 20 B/P (MAP) 136/70 (92) Pulse Ox 98 O2 Delivery Room Air Capillary Refill : Less Than 3 Seconds Height, Weight, BMI Height: 5'7.00" Weight: 170lbs. 0.0oz. 77.494420pa; 26.6 BMI Method:Stated General Appearance: WD/WN, no apparent distress HEENT: PERRL/EOMI, pharynx normal Neck: non-tender, full range of motion, supple, normal inspection Cardiovascular: normal peripheral pulses, regular rate, rhythm, no edema Respiratory: no respiratory distress, no accessory muscle use Feet: bilateral foot non-tender, bilateral foot normal inspection, bilateral foot normal range of motion, bilateral foot no evidence of injury Neurologic/Psychiatric: no motor/sensory deficits, alert, normal mood/affect, oriented x 3 Progress/Results/Core Measures Results/Orders Lab Results Laboratory Tests Test 02/10/18 13:48 Range/Units White Blood Count 7.3 4.3-11.0 10^3/uL Red Blood Count 4.23 L 4.35-5.85 10^6/uL Hemoglobin 13.0 L 13.3-17.7 G/DL Hematocrit 38 L 40-54 % Mean Corpuscular Volume 91 80-99 FL Mean Corpuscular Hemoglobin 31 25-34 PG Mean Corpuscular Hemoglobin Concent 34 32-36 G/DL Red Cell Distribution Width 12.5 10.0-14.5 % Platelet Count 186 130-400 10^3/uL Mean Platelet Volume 9.5 7.4-10.4 FL Neutrophils (%) (Auto) 72 42-75 % Lymphocytes (%) (Auto) 18 12-44 % Monocytes (%) (Auto) 8 0-12 % Eosinophils (%) (Auto) 1 0-10 % Basophils (%) (Auto) 0 0-10 % Neutrophils # (Auto) 5.3 1.8-7.8 X 10^3 Lymphocytes # (Auto) 1.3 1.0-4.0 X 10^3 Monocytes # (Auto) 0.6 0.0-1.0 X 10^3 Eosinophils # (Auto) 0.1 0.0-0.3 10^3/uL Basophils # (Auto) 0.0 0.0-0.1 10^3/uL Sodium Level 141 135-145 MMOL/L Potassium Level 3.7 3.6-5.0 MMOL/L Chloride Level 109 H 98-107 MMOL/L Carbon Dioxide Level 21 21-32 MMOL/L Anion Gap 11 5-14 MMOL/L Blood Urea Nitrogen 20 H 7-18 MG/DL Creatinine 0.82 0.60-1.30 MG/DL Estimat Glomerular Filtration Rate > 60 BUN/Creatinine Ratio 24 Glucose Level 143 H 70-105 MG/DL Calcium Level 9.2 8.5-10.1 MG/DL Corrected Calcium 9.2 8.5-10.1 MG/DL Total Bilirubin 0.6 0.1-1.0 MG/DL Aspartate Amino Transf (AST/SGOT) 26 5-34 U/L Alanine Aminotransferase (ALT/SGPT) 28 0-55 U/L Alkaline Phosphatase 52 40-136 U/L B-Type Natriuretic Peptide 94.3 <100.0 PG/ML Total Protein 6.4 6.4-8.2 GM/DL Albumin 4.0 3.2-4.5 GM/DL My Orders Orders - MARILYN SOTO BNP (02/10/18 13:41) Cbc With Automated Diff (02/10/18 13:41) Comprehensive Metabolic Panel (02/10/18 13:41) Ct Lumbar Spine Wo (02/10/18 13:53) Vital Signs/I&O 02/10/18 13:08 Temp 98.0 Pulse 69 Resp 20 B/P (MAP) 136/70 (92) Pulse Ox 98 O2 Delivery Room Air Blood Pressure Mean: 92 Progress Progress Note #1: Time: 13:51 Progress Note Central and foraminal spinal stenosis with more paresthesias and numbness working the way up his calves. No saddle anesthesia just pain. No hesitancy or incontinence. No falls. Possibility of changes such as fracture or pathologic fracture or worsening stenosis so we will obtain a CT without contrast of his lumbar spine to compare with the MRI from December. If there is nothing acute to be seen and we can have him follow-up with the outpatient. Progress Note #2: Time: 15:33 Progress Note Spondylosis of L5-S1 similar to that seen in December on the MRI. No new acute fractures or other pathology acutely noted. Plan to put him on some prednisone. Because of his CABG he is not a good candidate for NSAIDs so we will also supply him with a small dose of some opiate medicines for pain. Diagnostic Imaging Diagonstic Imaging: CT (c/o contrast) Plain Films/CT/US/NM/MRI: other (lumbar spine) Comments NAME: EL LINDO MED REC#: [id number] PHYSICIAN: MARILYN SOTO MD CC: MARY ANN PARKS MD; MARILYN SOTO Page 1 of 1 RADIOLOGY REPORT VIA [facility]. [place], [place] CC: MARY ANN PARKS MD; MARILYN SOTO Page 1 of 1 RADIOLOGY REPORT NAME: EL LINDO [facility] REC#: [id number] PT STATUS: REG ER : 1935 PHYSICIAN: MARILYN SOTO MD ADMIT DATE: 02/10/18/ER Signed Date of Exam: 02/10/18 CT LUMBAR SPINE WO PROCEDURE: CT lumbar spine without contrast. TECHNIQUE: Multiple contiguous axial images were obtained through the lumbar spine without the use of intravenous contrast. Sagittal and coronal reformations were then performed. INDICATION: Bilateral feet swelling and difficulty standing. Curvature of the lumbar spine is normal. There is approximately 11 mm of anterolisthesis of L5 on S1. Patient appears to have bilateral pars defects at this level. Vertebral body heights appear to be fairly well-maintained. There is a chronic anterior wedging of the L2 vertebral body with large anterior osteophytes at the L1-S2 level. No acute compression fracture is seen. Multilevel degenerative disc disease with variable disc space narrowing and marginal spurring with vacuum disc phenomena. Severe multilevel facet arthropathy is seen. No acute fracture is identified. Paraspinous tissues are unremarkable. IMPRESSION: Severe lumbar spondylosis with L5-S1 spondylolisthesis and spondylolysis. No acute bony abnormality is detected. Dictated by: Dictated on workstation # [id number] Dict: 02/10/18 1434 Trans: 02/10/18 1506 Interpreted by: MARY ANN PARKS MD Electronically signed by: MARY ANN PARKS MD 02/10/18 1506 Reviewed: Reviewed by Me Departure Impression Primary Impression: Spondylosis Qualified Codes: M47.817 - Spondylosis without myelopathy or radiculopathy, lumbosacral region Additional Impression: Bilateral leg paresthesia Disposition: 01 HOME, SELF-CARE Condition: Stable Departure-Patient Inst. Decision time for Depature: 15:47 Referrals: AUDI HALE MD (PCP/Family) Primary Care Physician Patient Instructions: Spinal Stenosis Stretching Exercises Add. Discharge Instructions: The prednisone from the pharmacy and start taking 2 tablets daily for the next 5 days. You can also use Tylenol 1000 g every 8 hours. Plan to follow up with the orthopedic surgeon Dr. Eisenberg as was recommended to you. If you lose all feeling in her legs, control of your bowel or bladder, inability to walk or start having weakness and falls that he should return to the nearest ER immediately. Follow-up with primary care. All discharge instructions reviewed with patient and/or family. Voiced understanding. Scripts Prednisone (Prednisone) 20 Mg Tab 40 MG PO DAILY for 5 Days, #10 TAB 0 Refills Prov: MARILYN SOTO 02/10/18 MARILYN SOTO Feb 10, 2018 13:48
[2018-02-10 13:56] LABS: BASOPHILS % (AUTO) 0 % (0-10); EOSINOPHILS # (AUTO) 0.1 10^3/uL (0.0-0.3); EOSINOPHILS % (AUTO) 1 % (0-10); HEMATOCRIT 38 % (40-54); LYMPHOCYTES # (AUTO) 1.3 X 10^3 (1.0-4.0); LYMPHOCYTES % (AUTO) 18 % (12-44); MEAN CORPUSCULAR HEMOGLOBIN 31 PG (25-34); MEAN CORPUSCULAR HGB CONC 34 G/DL (32-36); MEAN CORPUSCULAR VOLUME 91 FL (80-99); MEAN PLATELET VOLUME 9.5 FL (7.4-10.4); MONOCYTES # (AUTO) 0.6 X 10^3 (0.0-1.0); MONOCYTES % (AUTO) 8 % (0-12); NEUTROPHILS # (AUTO) 5.3 X 10^3 (1.8-7.8); NEUTROPHILS % (AUTO) 72 % (42-75); PLATELET COUNT 186 10^3/uL (130-400); RED BLOOD COUNT 4.23 10^6/uL (4.35-5.85); RED CELL DISTRIBUTION WIDTH 12.5 % (10.0-14.5); WHITE BLOOD COUNT 7.3 10^3/uL (4.3-11.0)
[2018-02-10 14:16] LABS: ALANINE AMINOTRANSFERASE 28 U/L (0-55); ALKALINE PHOSPHATASE 52 U/L (40-136); BILIRUBIN,TOTAL 0.6 MG/DL (0.1-1.0); BUN/CREATININE RATIO 24; CALCIUM 9.2 MG/DL (8.5-10.1); CARBON DIOXIDE 21 MMOL/L (21-32); CHLORIDE 109 MMOL/L (98-107); CREATININE SERUM 0.82 MG/DL (0.60-1.30); GFR ESTIMATED > 60; GLUCOSE 143 MG/DL (70-105); POTASSIUM 3.7 MMOL/L (3.6-5.0); SODIUM 141 MMOL/L (135-145); TOTAL PROTEIN 6.4 GM/DL (6.4-8.2)
--- NOTE | 2018-02-10 14:39 | Diagnostic Imaging Report ---
PROCEDURE: CT lumbar spine without contrast. TECHNIQUE: Multiple contiguous axial images were obtained through the lumbar spine without the use of intravenous contrast. Sagittal and coronal reformations were then performed. INDICATION: Bilateral feet swelling and difficulty standing. Curvature of the lumbar spine is normal. There is approximately 11 mm of anterolisthesis of L5 on S1. Patient appears to have bilateral pars defects at this level. Vertebral body heights appear to be fairly well-maintained. There is a chronic anterior wedging of the L2 vertebral body with large anterior osteophytes at the L1-S2 level. No acute compression fracture is seen. Multilevel degenerative disc disease with variable disc space narrowing and marginal spurring with vacuum disc phenomena. Severe multilevel facet arthropathy is seen. No acute fracture is identified. Paraspinous tissues are unremarkable. IMPRESSION: Severe lumbar spondylosis with L5-S1 spondylolisthesis and spondylolysis. No acute bony abnormality is detected. Dictated by: Dictated on workstation # [id number]
[2018-02-10] MEDS ORDERED: PRD20T PO (15:50)
[2018-02-10] MEDS ORDERED: predniSONE 20 MG TAB PO ONE (16:00)
[2018-02-10 16:01] VITALS: BP 177/81
== END 2018-02-10 16:02 | disposition home or self-care (01) ==
LOC: EDUNIT# 12:39 → ER 12:40
DX: M47.817 Spondylosis without myelopathy or radiculopathy, lumbosacral region (principal); R20.2 Paresthesia of skin; I25.10 Atherosclerotic heart disease of native coronary artery without angina pectoris; E78.00 Pure hypercholesterolemia, unspecified; I10 Essential (primary) hypertension; Z87.19 Personal history of other diseases of the digestive system; Z87.448 Personal history of other diseases of urinary system; Z87.442 Personal history of urinary calculi; Z79.82 Long term (current) use of aspirin; Z96.653 Presence of artificial knee joint, bilateral; Z95.5 Presence of coronary angioplasty implant and graft; Z95.1 Presence of aortocoronary bypass graft
CPT/HCPCS: 36415; 72131; 80053; 83880; 85025

== ENCOUNTER → 2018-05-22 | Outpatient (CLI) | payer MEDICARE, OTHER ==
[~2018-05-22] MED LIST changes: +CATHETER FLUSH 10 ML SYR IV PRN; +PRD20T PO; +REGADENOSON 0.4 MG/5 ML SYR (LEXISCAN) IV ONE
--- NOTE | 2018-05-22 17:58 | STRESS TEST ---
DATE OF SERVICE: 05/22/2018 LEXISCAN MYOVIEW STRESS TEST REPORT REFERRING PHYSICIAN: Dr. Rajat Jackson. Baseline heart rate is 61, baseline blood pressure 158/69. Baseline EKG is sinus rhythm with no ischemic changes. In summary, the patient was injected with 10.17 mCi of technetium-99 Myoview and the resting images were obtained. Then, the patient received 0.4 mg of Lexiscan followed by 28.4 mCi of technetium-99 Myoview. Throughout the test, there were no EKG changes. The resting and stress images were reviewed and compared in the short axis, horizontal long axis, and vertical long axis views. Review of the images showed diaphragmatic attenuation with mild decrease uptake at the basal to mid inferior wall with subtle reversibility. SSS is 6, SDS 2, and TID value 1.12. On the gated images, the left ventricle appeared to be normal size with normal contractility. Calculated ejection fraction is 70%. CONCLUSION: 1. The patient tolerated Lexiscan well. 2. Diaphragmatic attenuation with typical male pattern affecting the quality of the images, subtle abnormality at the basal to mid inferolateral wall with no significant reversibility, no significant ischemia or infarction was noted. 3. Normal left ventricular size with normal contractility. Calculated ejection fraction is 70%. Job ID: [id number] DocumentID: [id number] Dictated Date: 05/22/2018 15:35:22 Byproducts Maker Date: 05/22/2018 17:57:53 Dictated By: YAMILE GRIGSBY MD
== END ==
LOC: CARD 11:38
PROVIDERS: ATTEND Physician Assistant
DX: I25.10 Atherosclerotic heart disease of native coronary artery without angina pectoris (principal); R07.89 Other chest pain; E78.5 Hyperlipidemia, unspecified
CPT/HCPCS: 78452; 93017

== ENCOUNTER 2018-09-25 12:19 | Emergency (ER) | payer MEDICARE, OTHER ==
[~2018-09-25] VITALS: Ht 170.2 cm; Wt 77.1 kg
[~2018-09-25 12:19] MED LIST changes: -CATHETER FLUSH 10 ML SYR IV PRN; -REGADENOSON 0.4 MG/5 ML SYR (LEXISCAN) IV ONE
[2018-09-25] MEDS ORDERED: MELO7.5T46 PO (12:48)
--- NOTE | 2018-09-25 12:48 | ED Lower Extremity ---
General Chief Complaint: Lower Extremity Stated Complaint: FOOT SWELLING Nursing Triage Note: PT AMBULATES TO TRIAGE. PT STATES HE'S HAD SWELLING IN HIS FEET FOR A YEAR AND A HALF. Nursing Sepsis Screen: No Definite Risk Source: patient Exam Limitations: no limitations History of Present Illness Date Seen by Provider: Sep 25, 2018 Time Seen by Provider: 12:45 Initial Comments To ER with bilateral ankle stiffness and swelling to the bottom of his feet for a year and a half. It is no different today. Onset: just prior to arrival Severity: moderate Pain/Injury Location: bilateral ankle Method of Injury: fell Modifying Factors: Worse With Movement Allergies and Home Medications Allergies Coded Allergies: No Known Drug Allergies (Unverified , 05/19/11) Home Medications Amoxicillin 500 Mg Capsule, 500 MG PO TID Prescribed by: RIKI DOW on 12/29/17 142 Aspirin 81 Mg Tab.chew, 81 MG PO DAILY, (Reported) Docusate Sodium 100 Mg Capsule, 100 MG PO BID, (Reported) Ibuprofen 800 Mg Tablet, 800 MG PO BID PRN for PAIN Prescribed by: ADDIE MORALES on 09/10/17 0956 Metoprolol Tartrate 25 Mg Tablet, 12.5 MG PO BID, (Reported) take 1/2 of 25mg tab [place]-3 Fatty Acids/Fish Oil 1 Each Capsule, 1,200 MG PO BID, (Reported) Prednisone 20 Mg Tab, 40 MG PO DAILY Prescribed by: MARILYN SOTO on 02/10/18 1550 Rosuvastatin Calcium 10 Mg Tablet, 10 MG PO Q48H, (Reported) Tamsulosin HCl 0.4 Mg Cap.er.24h, 0.4 MG PO HS, (Reported) Tamsulosin HCl 0.4 Mg Cap, 0.4 MG PO DAILY Prescribed by: TOMAS GANDHI on 10/17/17 0638 Tramadol HCl 50 Mg Tablet, 50 MG PO Q6H PRN for PAIN-MODERATE TO SEVERE Prescribed by: RIKI DOW on 12/29/17 142 Patient Home Medication List Home Medication List Reviewed: Yes Review of Systems Constitutional: see HPI EENTM: see HPI Respiratory: no symptoms reported Cardiovascular: no symptoms reported Genitourinary: no symptoms reported Musculoskeletal: see HPI Skin: no symptoms reported Psychiatric/Neurological: No Symptoms Reported Past Lxyestw-Zivwtg-Ywktgv Hx Patient Social History Alcohol Use: Denies Use Recreational Drug Use: No Smoking Status: Never a Smoker 2nd Hand Smoke Exposure: No Recent Foreign Travel: No Contact w/Someone Who Travel: No Recent Infectious Disease Expo: No Recent Hopitalizations: No Immunizations Up To Date Tetanus Booster (TDap): Unknown PED Vaccines UTD: No Date of Influenza Vaccine: Jan 31, 2013 Seasonal Allergies Seasonal Allergies: No Past Medical History Surgeries: Yes (BILAT TKR, QUAD BYPASS, STENT, ESWL, R ARM FX, R FOOT) Cardiac, CABG, Joint Replacement, Orthopedic Respiratory: No Cardiac: Yes (QUAD BYPASS) Coronary Artery Disease, High Cholesterol, Hypertension Neurological: No Reproductive Disorders: No Sexually Transmitted Disease: No HIV/AIDS: No Genitourinary: Yes Benign Prostatic Hyperpl, Kidney Stones Gastrointestinal: Yes (BLOOD IN STOOLS) Chronic Constipation Musculoskeletal: Yes Arthritis, Chronic Back Pain, Fractures Endocrine: No HEENT: No Loss of Vision: Bilateral Hearing Impairment: Denies Cancer: No Psychosocial: No Integumentary: No Blood Disorders: No Adverse Reaction/Blood Tranf: Yes Family Medical History No Pertinent Family Hx Physical Exam Vital Signs Vital Signs - First Documented 09/25/18 12:31 Temp 98.1 Pulse 67 Resp 18 B/P (MAP) 130/79 (96) Pulse Ox 97 O2 Delivery Room Air Capillary Refill : Less Than 3 Seconds Height, Weight, BMI Height: 5'7.00" Weight: 170lbs. 0.0oz. 77.218489gk; 26.6 BMI Method:Stated General Appearance: WD/WN, no apparent distress Hips: bilateral hip non-tender, bilateral hip normal inspection, bilateral hip normal range of motion Legs: bilateral leg non-tender, bilateral leg normal inspection, bilateral leg normal range of motion Knees: bilateral knee non-tender, bilateral knee normal inspection, bilateral knee normal range of motion, bilateral knee other (scars from bilateral knee replacements) Ankles: bilateral ankle other (complains of ankle stiffness but there is absolutely no swelling to the ankles or feet, no erythema no open wounds. He has an incision has healed over the first MTP joint right foot.) Neurologic/Psychiatric: alert, normal mood/affect, oriented x 3 Skin: normal color, warm/dry Progress/Results/Core Measures Results/Orders Vital Signs/I&O 09/25/18 12:31 Temp 98.1 Pulse 67 Resp 18 B/P (MAP) 130/79 (96) Pulse Ox 97 O2 Delivery Room Air Blood Pressure Mean: 96 Departure Impression Primary Impression: Ankle stiffness Additional Impression: subjective swelling of feet Disposition: 01 HOME, SELF-CARE Condition: Stable Departure-Patient Inst. Decision time for Depature: 12:47 Referrals: AUDI HALE MD (PCP/Family) Primary Care Physician Patient Instructions: NO INSTRUCTIONS GIVEN Add. Discharge Instructions: 1. Medication as directed 2. Follow-up with your doctor next week 3. All discharge instructions reviewed with patient and/or family. Voiced understanding. Scripts Meloxicam (Meloxicam) 7.5 Mg Tablet 7.5 MG PO DAILY, #7 TAB Prov: RIKI DOW APRN 09/25/18 Copy Copies To 1: AUDI HALE MD, PETER J APRN Sep 25, 2018 12:48
[2018-09-25 12:53] VITALS: BP 130/79
== END 2018-09-25 12:53 | disposition home or self-care (01) ==
LOC: EDUNIT# 12:19 → ER 12:20
DX: M25.671 Stiffness of right ankle, not elsewhere classified (principal); M25.672 Stiffness of left ankle, not elsewhere classified; I10 Essential (primary) hypertension; E78.00 Pure hypercholesterolemia, unspecified; I25.10 Atherosclerotic heart disease of native coronary artery without angina pectoris; N40.0 Benign prostatic hyperplasia without lower urinary tract symptoms; Z87.19 Personal history of other diseases of the digestive system; Z87.442 Personal history of urinary calculi; Z79.82 Long term (current) use of aspirin; Z96.653 Presence of artificial knee joint, bilateral; Z95.1 Presence of aortocoronary bypass graft; Z87.81 Personal history of (healed) traumatic fracture
CPT/HCPCS: 99282

== ENCOUNTER 2018-12-28 09:12 | Emergency (ER) | payer MEDICARE, OTHER ==
[~2018-12-28] VITALS: Ht 170 cm; Wt 82.0 kg
[~2018-12-28 09:12] MED LIST changes: +MELO7.5T46 PO; -ROSU10TA27 PO; +ROSU10TA28 PO
[2018-12-28] MEDS ORDERED: ROSU20TA2 PO (09:39)
[2018-12-28 09:42] LABS: BASOPHILS % (AUTO) 1 % (0-10); EOSINOPHILS # (AUTO) 0.1 10^3/uL (0.0-0.3); EOSINOPHILS % (AUTO) 1 % (0-10); HEMATOCRIT 43 % (40-54); HEMOGLOBIN 14.8 G/DL (13.3-17.7); LYMPHOCYTES # (AUTO) 1.5 X 10^3 (1.0-4.0); LYMPHOCYTES % (AUTO) 20 % (12-44); MEAN CORPUSCULAR HEMOGLOBIN 31 PG (25-34); MEAN CORPUSCULAR HGB CONC 35 G/DL (32-36); MEAN CORPUSCULAR VOLUME 89 FL (80-99); MEAN PLATELET VOLUME 9.6 FL (7.4-10.4); MONOCYTES # (AUTO) 0.6 X 10^3 (0.0-1.0); MONOCYTES % (AUTO) 8 % (0-12); NEUTROPHILS # (AUTO) 5.1 X 10^3 (1.8-7.8); NEUTROPHILS % (AUTO) 70 % (42-75); PLATELET COUNT 211 10^3/uL (130-400); WHITE BLOOD COUNT 7.3 10^3/uL (4.3-11.0)
[2018-12-28 09:57] LABS: ALANINE AMINOTRANSFERASE 30 U/L (0-55); ALBUMIN 4.2 GM/DL (3.2-4.5); ALKALINE PHOSPHATASE 74 U/L (40-136); BILIRUBIN,TOTAL 0.9 MG/DL (0.1-1.0); BUN/CREATININE RATIO 18; CALCIUM 9.1 MG/DL (8.5-10.1); CARBON DIOXIDE 24 MMOL/L (21-32); CHLORIDE 108 MMOL/L (98-107); CREATININE SERUM 1.09 MG/DL (0.60-1.30); GFR ESTIMATED > 60; GLUCOSE 142 MG/DL (70-105); POTASSIUM 5.2 MMOL/L (3.6-5.0); SODIUM 140 MMOL/L (135-145); TOTAL PROTEIN 7.5 GM/DL (6.4-8.2)
[2018-12-28 09:58] LABS: BILIRUBIN,URINE NEGATIVE (NEGATIVE); CLARITY,URINE SLIGHTLY CLOUDY; COLOR,URINE YELLOW; GLUCOSE, URINE (UA) NEGATIVE (NEGATIVE); KETONES,URINE NEGATIVE (NEGATIVE); LEUKOCYTE ESTERASE ,URINE 2+ (NEGATIVE); NITRITE,URINE NEGATIVE (NEGATIVE); PH,URINE 7 (5-9); PROTEIN,URINE NEGATIVE (NEGATIVE); UROBILINOGEN,URINE NORMAL (NORMAL)
[2018-12-28 10:09] LABS: AMORPHOUS SEDIMENT,UR FEW AMOR PHOSPHATE /LPF; BACTERIA,URINE LARGE /HPF; SQUAMOUS EPITHELIAL CELL,UR 0-2 /HPF
[2018-12-28 10:09] LABS: ERYTHROCYTE SEDIMENTATION RATE 7 MM/HR (0-30)
--- NOTE | 2018-12-28 10:22 | ED General ---
General Chief Complaint: General Problems/Pain Stated Complaint: BACK PAIN / CRAMPING IN LEGS Nursing Triage Note: PT TO ROOM 6 PT CO OF BACK PAIN DURING NITE /, DENIES PAIN AT THIS X. SWOLLEN FEET, NO EDEMA NOTED, CRAMPING IN LOWER EXT UP TO THIGHS AND BUTTOCKS SOMETIMES AT NITE. HAS SEEN NUMEROUS DR.S FOR C/O W NO RELIEF. HAS BEEN GOING ON FOR 2 YEARS Nursing Sepsis Screen: No Definite Risk Source of Information: Patient Exam Limitations: No Limitations History of Present Illness Date Seen by Provider: Dec 28, 2018 Time Seen by Provider: 09:27 Initial Comments Here with bradycardia of complaints centered around his legs. States that he has muscles on the bottom of his feet and in his legs that are cramping especially at night. He states is been to multiple doctors and none of whom are doing anything for him over the last 2 years. Not significantly changed today but did have very significant cramps overnight and he is worried that the problem with his muscle is getting travel to his heart and that we will "be the end of it". Denies any recent injury. Has not taken anything for the pain. Does not currently have the pain. Has taken Tylenol/acetaminophen in the past and that has helped some. He does follow with Dr. Audi Hale. He has seen neurosurgery and they did not recommend operation. He is somewhat frustrated and concerned and would like to figure out what's going on. States that he has tried ev erything including stopping drinking tea, driving with his windows down so he doesn't get exhaust fumes and even wearing a mask. Concerned about exhaust zacarias because he has a film on the inside of his windows that he is concerned is from the exhaust. Does report occasional pain from the right low back to the right upper leg. Does have history of sciatica symptoms. Timing/Duration: Changing Over Time, Other (2 years) Severity: Moderate Associated Systoms: No Chest Pain, No Fever/Chills, No Nausea/Vomiting, No Shortness of Air, No Weakness Allergies and Home Medications Allergies Coded Allergies: No Known Drug Allergies (Unverified , 05/19/11) Patient Home Medication List Home Medication List Reviewed: Yes Review of Systems Review of Systems Constitutional: see HPI; No chills, No fever EENTM: no symptoms reported Respiratory: no symptoms reported Cardiovascular: no symptoms reported Gastrointestinal: no symptoms reported Musculoskeletal: see HPI, joint pain, muscle pain, muscle cramps Skin: no symptoms reported Psychiatric/Neurological: Anxiety; Denies Emotional Problems, Denies Numbness Hematologic/Lymphatic: No Symptoms Reported All Other Systems Reviewed Negative Unless Noted: Yes Past Vcigjhv-Ezimyp-Agbtwa Hx Past Med/Social Hx: Reviewed Nursing Past Med/Soc Hx Patient Social History Alcohol Use: Denies Use Recreational Drug Use: No Smoking Status: Never a Smoker 2nd Hand Smoke Exposure: No Recent Foreign Travel: No Contact w/Someone Who Travel: No Recent Infectious Disease Expo: No Recent Hopitalizations: No Physical Abuse: No Sexual Abuse: No Immunizations Up To Date Tetanus Booster (TDap): Unknown PED Vaccines UTD: No Date of Influenza Vaccine: Jan 31, 2013 Seasonal Allergies Seasonal Allergies: No Past Medical History Surgeries: Yes (BILAT TKR, QUAD BYPASS, STENT, ESWL, R ARM FX, R FOOT) Cardiac, CABG, Joint Replacement, Orthopedic Respiratory: No Cardiac: Yes (QUAD BYPASS) Coronary Artery Disease, High Cholesterol, Hypertension Neurological: No Reproductive Disorders: No Sexually Transmitted Disease: No HIV/AIDS: No Genitourinary: Yes Benign Prostatic Hyperpl, Kidney Stones Gastrointestinal: Yes (BLOOD IN STOOLS) Chronic Constipation Musculoskeletal: Yes Arthritis, Chronic Back Pain, Fractures Endocrine: No HEENT: No Loss of Vision: Bilateral Hearing Impairment: Denies Cancer: No Psychosocial: No Integumentary: No Blood Disorders: No Adverse Reaction/Blood Tranf: Yes Family Medical History Reviewed Nursing Family Hx No Pertinent Family Hx Physical Exam Vital Signs Vital Signs - First Documented 12/28/18 09:15 Temp 36.0 Pulse 72 Resp 18 B/P (MAP) 144/77 (99) Pulse Ox 97 Capillary Refill : Less Than 3 Seconds Height, Weight, BMI Height: 5'7.00" Weight: 170lbs. 0.0oz. [id number]; 28.00 BMI Method:Stated General Appearance: No Apparent Distress, WD/WN HEENT: PERRL/EOMI, Pharynx Normal Neck: Non Tender, Supple Respiratory: Lungs Clear, Normal Breath Sounds Cardiovascular: Regular Rate, Rhythm, No Murmur Gastrointestinal: Non Tender, Soft Back: Normal Inspection, No CVA Tenderness, No Vertebral Tenderness Extremity: Normal Capillary Refill, Normal Inspection, Normal Range of Motion, Non Tender, No Calf Tenderness Neurologic/Psychiatric: Alert, Oriented x3 Skin: Normal Color, Warm/Dry Progress/Results/Core Measures Suspected Sepsis Recent Fever Within 48 Hours: No Infection Criteria Present: None New/Unexplained Altered Menta: No Sepsis Screen: No Definite Risk SIRS Temperature: Pulse: 72 Respiratory Rate: 18 Laboratory Tests 12/28/18 09:28: White Blood Count 7.3 Blood Pressure 144 /77 Mean: 99 Laboratory Tests 12/28/18 09:28: Creatinine 1.09, Platelet Count 211, Total Bilirubin 0.9 Results/Orders Lab Results Laboratory Tests Test 12/28/18 09:28 12/28/18 09:54 Range/Units White Blood Count 7.3 4.3-11.0 10^3/uL Red Blood Count 4.85 4.35-5.85 10^6/uL Hemoglobin 14.8 13.3-17.7 G/DL Hematocrit 43 40-54 % Mean Corpuscular Volume 89 80-99 FL Mean Corpuscular Hemoglobin 31 25-34 PG Mean Corpuscular Hemoglobin Concent 35 32-36 G/DL Red Cell Distribution Width 13.0 10.0-14.5 % Platelet Count 211 130-400 10^3/uL Mean Platelet Volume 9.6 7.4-10.4 FL Neutrophils (%) (Auto) 70 42-75 % Lymphocytes (%) (Auto) 20 12-44 % Monocytes (%) (Auto) 8 0-12 % Eosinophils (%) (Auto) 1 0-10 % Basophils (%) (Auto) 1 0-10 % Neutrophils # (Auto) 5.1 1.8-7.8 X 10^3 Lymphocytes # (Auto) 1.5 1.0-4.0 X 10^3 Monocytes # (Auto) 0.6 0.0-1.0 X 10^3 Eosinophils # (Auto) 0.1 0.0-0.3 10^3/uL Basophils # (Auto) 0.0 0.0-0.1 10^3/uL Erythrocyte Sedimentation Rate 7 0-30 MM/HR Sodium Level 140 135-145 MMOL/L Potassium Level 5.2 H 3.6-5.0 MMOL/L Chloride Level 108 H 98-107 MMOL/L Carbon Dioxide Level 24 21-32 MMOL/L Anion Gap 8 5-14 MMOL/L Blood Urea Nitrogen 20 H 7-18 MG/DL Creatinine 1.09 0.60-1.30 MG/DL Estimat Glomerular Filtration Rate > 60 BUN/Creatinine Ratio 18 Glucose Level 142 H 70-105 MG/DL Calcium Level 9.1 8.5-10.1 MG/DL Corrected Calcium 8.9 8.5-10.1 MG/DL Total Bilirubin 0.9 0.1-1.0 MG/DL Aspartate Amino Transf (AST/SGOT) 38 H 5-34 U/L Alanine Aminotransferase (ALT/SGPT) 30 0-55 U/L Alkaline Phosphatase 74 40-136 U/L C-Reactive Protein High Sensitivity 0.07 0.00-0.50 MG/DL Total Protein 7.5 6.4-8.2 GM/DL Albumin 4.2 3.2-4.5 GM/DL Urine Color YELLOW Urine Clarity SLIGHTLY CLOUDY Urine pH 7 5-9 Urine Specific [place] 1.015 L 1.016-1.022 Urine Protein NEGATIVE NEGATIVE Urine Glucose (UA) NEGATIVE NEGATIVE Urine Ketones NEGATIVE NEGATIVE Urine Nitrite NEGATIVE NEGATIVE Urine Bilirubin NEGATIVE NEGATIVE Urine Urobilinogen NORMAL NORMAL MG/DL Urine Leukocyte Esterase 2+ H NEGATIVE Urine RBC (Auto) NEGATIVE NEGATIVE Urine RBC NONE /HPF Urine WBC 2-5 /HPF Urine Squamous Epithelial Cells 0-2 /HPF Urine Crystals PRESENT H /LPF Urine Amorphous Sediment FEW CLAUDIO PHOSPHATE H /LPF Urine Bacteria LARGE H /HPF Urine Casts NONE /LPF Urine Mucus NEGATIVE /LPF Urine Culture Indicated YES My Orders Orders - TOMAS GANDHI MD Cbc With Automated Diff (12/28/18 09:36) Comprehensive Metabolic Panel (12/28/18 09:36) Hs C Reactive Protein (12/28/18 09:36) Ua Culture If Indicated (12/28/18 09:36) Erythrocyte Sedimentation Rate (12/28/18 09:36) Ed Iv/Invasive Line Start (12/28/18 09:36) Urine Culture (12/28/18 09:54) Vital Signs/I&O 12/28/18 09:15 Temp 36.0 Pulse 72 Resp 18 B/P (MAP) 144/77 (99) Pulse Ox 97 Capillary Refill : Less Than 3 Seconds Blood Pressure Mean: 99 Progress Note : Progress Note Seen and evaluated. Challenging evaluation due to prolonged history. We will check basic labs at this point including UA as patient has reported some minor incontinence of urine/dribbling of urine. Monitor patient. 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 1125: Labs reviewed. There is a question of urinary tract infection so we will treat that. Given his previous MRI findings, I do have concerns that this may be related to spinal stenosis and degenerative changes in the spine. We will initiate short course of steroids and see if that helps. I have given him the name of Dr. Benoit and we'll add that to his discharge instructions to see if he would like to follow-up with him. I have highly recommended that he follow up with Dr. Hale. I will send a copy of the chart to Dr. Hale. Discharged home with return precautions. Patient verbalize understanding instructions and agreement with plan. Departure Impression Primary Impression: Leg cramping Additional Impression: UTI (urinary tract infection) Qualified Codes: N30.00 - Acute cystitis without hematuria Disposition: HOME, SELF-CARE Condition: Stable Departure-Patient Inst. Decision time for Depature: 11:27 Referrals: RADHA BENOIT MD, CHAD C MD (PCP/Family) Primary Care Physician Patient Instructions: Urinary Tract Infection, Adult (DC), Nocturnal (Nighttime) Leg Cramps (DC) Add. Discharge Instructions: All discharge instructions reviewed with patient and/or family. Voiced understanding. Take medications as directed. You may take an Aleve/Naprosyn one tablet at night time. You may also take one or 2 ofuk-gsk-uwoxwls Tylenol tablets at nighttime to help with leg pain and cramping. Is very important that you follow up with your doctor for recheck and further evaluation. You may also follow up with Dr. BENOIT for further evaluation of her back. Return for worse pain, fever, vomiting, weakness, breathing problems or other concerns as needed. Scripts Prednisone (Prednisone) 20 Mg Tab 40 MG PO DAILY, #10 TAB 0 Refills Prov: TOMAS GANDHI MD 12/28/18 Cephalexin (Cephalexin) 500 Mg Tablet 500 MG PO BID, #10 TAB 0 Refills Prov: TOMAS GANDHI MD 12/28/18 Copy Copies To 1: AUDI HALE MD, TIMOTHY D MD Dec 28, 2018 10:21
[2018-12-28] MEDS ORDERED: PRD20T PO (11:29)
[2018-12-28] MEDS ORDERED: CEPH500T PO (11:29)
[2018-12-28 11:34] VITALS: BP 144/77
== END 2018-12-28 11:34 | disposition home or self-care (01) ==
LOC: EDUNIT# 09:12 → ER 09:13
DX: R25.2 Cramp and spasm (principal); N39.0 Urinary tract infection, site not specified; I10 Essential (primary) hypertension; E78.00 Pure hypercholesterolemia, unspecified; I25.10 Atherosclerotic heart disease of native coronary artery without angina pectoris; Z87.442 Personal history of urinary calculi; Z95.1 Presence of aortocoronary bypass graft; Z96.653 Presence of artificial knee joint, bilateral
CPT/HCPCS: 36415; 80053; 81000; 85025; 85652; 86141; 87077; 87088; 87186

== ENCOUNTER 2019-04-03 06:57 | Emergency (ER) | payer MEDICARE, OTHER ==
[~2019-04-03] VITALS: Ht 170 cm; Wt 84.0 kg
[~2019-04-03 06:57] MED LIST changes: +CEPH500T PO; +ROSU20TA2 PO
--- NOTE | 2019-04-03 07:04 | ED Chest Pain ---
General Stated Complaint: PAIN UNDER RT NIPPLE,STABBING PAIN Source: patient Exam Limitations: no limitations History of Present Illness Date Seen by Provider: Apr 03, 2019 Time Seen by Provider: 07:03 Initial Comments This 83-year-old white male presents with stabbing pain to his right chest. The patient at approximately 11 p.m. last night noted sharp pain beneath his right nipple when he lay on his right side in bed. Sharp severe right-sided chest pain was relieved by rolling onto his back or left side. The sharp chest pain required approximately 30 minutes of lying on his right side to reproduce. At this time the patient is pain-free. Patient denies any associated shortness of breath, productive cough, fever or chill, associated nausea or vomiting, diaphoresis, or similar episodes in the past. The patient denies previous myocardial infarction, stent, or bypass that on looking at his chest evidence of a sternotomy was present. Patient then recalled that he had had quadruple bypass surgery in the past Allergies and Home Medications Allergies Coded Allergies: No Known Drug Allergies (Unverified , 05/19/11) Patient Home Medication List Home Medication List Reviewed: Yes Review of Systems Review of Systems Constitutional: No chills, No fever Respiratory: Denies Cough, Denies Shortness of Air Cardiovascular: See HPI, Chest Pain; Denies Palpitations, Denies Syncope Gastrointestinal: Denies Diarrhea, Denies Vomiting Genitourinary: No Symptoms Reported Musculoskeletal: no symptoms reported Skin: no symptoms reported; No rash Psychiatric/Neurological: No Symptoms Reported Endocrine: No Symptoms Reported Hematologic/Lymphatic: No Symptoms Reported Past Kqndsaq-Htlalq-Dydbgd Hx Past Med/Social Hx: Reviewed Nursing Past Med/Soc Hx Patient Social History 2nd Hand Smoke Exposure: No Recent Foreign Travel: No Contact w/Someone Who Travel: No Recent Hopitalizations: No Immunizations Up To Date Tetanus Booster (TDap): Unknown PED Vaccines UTD: No Date of Influenza Vaccine: Jan 31, 2013 Seasonal Allergies Seasonal Allergies: No Past Medical History Surgeries: Yes (BILAT TKR, QUAD BYPASS, STENT, ESWL, R ARM FX, R FOOT) Cardiac, CABG, Joint Replacement, Orthopedic Respiratory: No Cardiac: Yes (QUAD BYPASS) Coronary Artery Disease, High Cholesterol, Hypertension Neurological: No Reproductive Disorders: No Sexually Transmitted Disease: No HIV/AIDS: No Genitourinary: Yes Benign Prostatic Hyperpl, Kidney Stones Gastrointestinal: Yes (BLOOD IN STOOLS) Chronic Constipation Musculoskeletal: Yes Arthritis, Chronic Back Pain, Fractures Endocrine: No HEENT: No Loss of Vision: Bilateral Hearing Impairment: Denies Cancer: No Psychosocial: No Integumentary: No Blood Disorders: No Adverse Reaction/Blood Tranf: Yes Family Medical History No Pertinent Family Hx Physical Exam Vital Signs Vital Signs - First Documented 04/03/19 07:02 Temp 36.4 Pulse 68 Resp 18 B/P (MAP) 160/95 (116) Pulse Ox 98 O2 Delivery Room Air Capillary Refill : Height, Weight, BMI Height: 5'7.00" Weight: 170lbs. 0.0oz. 77.714411sb; 28.00 BMI Method:Stated General Appearance: No Apparent Distress, WD/WN HEENT: Normal ENT Inspection Neck: Normal Inspection Respiratory: Lungs Clear, Normal Breath Sounds Cardiovascular: Regular Rate, Rhythm Gastrointestinal: Normal Bowel Sounds, Non Tender Extremity: Normal Inspection Neurologic/Psychiatric: Oriented x3, No Motor/Sensory Deficits, Normal Mood/Affect Skin: Normal Color, Warm/Dry Progress/Results/Core Measures Results/Orders Lab Results Laboratory Tests Test 04/03/19 08:09 04/03/19 08:17 Range/Units White Blood Count 6.0 4.3-11.0 10^3/uL Red Blood Count 4.38 4.35-5.85 10^6/uL Hemoglobin 13.2 L 13.3-17.7 G/DL Hematocrit 39 L 40-54 % Mean Corpuscular Volume 90 80-99 FL Mean Corpuscular Hemoglobin 30 25-34 PG Mean Corpuscular Hemoglobin Concent 34 32-36 G/DL Red Cell Distribution Width 13.1 10.0-14.5 % Platelet Count 188 130-400 10^3/uL Mean Platelet Volume 9.6 7.4-10.4 FL Neutrophils (%) (Auto) 64 42-75 % Lymphocytes (%) (Auto) 23 12-44 % Monocytes (%) (Auto) 11 0-12 % Eosinophils (%) (Auto) 2 0-10 % Basophils (%) (Auto) 1 0-10 % Neutrophils # (Auto) 3.8 1.8-7.8 X 10^3 Lymphocytes # (Auto) 1.4 1.0-4.0 X 10^3 Monocytes # (Auto) 0.7 0.0-1.0 X 10^3 Eosinophils # (Auto) 0.1 0.0-0.3 10^3/uL Basophils # (Auto) 0.0 0.0-0.1 10^3/uL Erythrocyte Sedimentation Rate 7 0-30 MM/HR D-Dimer 0.78 H 0.00-0.49 UG/ML Sodium Level 142 135-145 MMOL/L Potassium Level 3.8 3.6-5.0 MMOL/L Chloride Level 110 H 98-107 MMOL/L Carbon Dioxide Level 21 21-32 MMOL/L Anion Gap 11 5-14 MMOL/L Blood Urea Nitrogen 21 H 7-18 MG/DL Creatinine 0.84 0.60-1.30 MG/DL Estimat Glomerular Filtration Rate > 60 BUN/Creatinine Ratio 25 Glucose Level 107 H 70-105 MG/DL Calcium Level 8.5 8.5-10.1 MG/DL Corrected Calcium 8.6 8.5-10.1 MG/DL Total Bilirubin 0.8 0.1-1.0 MG/DL Aspartate Amino Transf (AST/SGOT) 23 5-34 U/L Alanine Aminotransferase (ALT/SGPT) 23 0-55 U/L Alkaline Phosphatase 57 40-136 U/L Troponin I < 0.028 <0.028 NG/ML C-Reactive Protein High Sensitivity 0.03 0.00-0.50 MG/DL B-Type Natriuretic Peptide 133.3 H <100.0 PG/ML Total Protein 6.1 L 6.4-8.2 GM/DL Albumin 3.9 3.2-4.5 GM/DL Urine Color YELLOW Urine Clarity CLEAR Urine pH 6.0 5-9 Urine Specific [place] >=1.030 1.016-1.022 Urine Protein NEGATIVE NEGATIVE Urine Glucose (UA) NEGATIVE NEGATIVE Urine Ketones NEGATIVE NEGATIVE Urine Nitrite NEGATIVE NEGATIVE Urine Bilirubin NEGATIVE NEGATIVE Urine Urobilinogen 0.2 < = 1.0 MG/DL Urine Leukocyte Esterase NEGATIVE NEGATIVE Urine RBC (Auto) NEGATIVE NEGATIVE Urine RBC RARE /HPF Urine WBC 0-2 /HPF Urine Squamous Epithelial Cells RARE /HPF Urine Crystals PRESENT H /LPF Urine Calcium Oxalate Crystals RARE H /LPF Urine Bacteria TRACE /HPF Urine Casts NONE /LPF Urine Mucus MODERATE H /LPF Urine Culture Indicated NO My Orders Orders - TRACY DEJESUS MD Cbc With Automated Diff (04/03/19 07:27) Troponin I (04/03/19 07:27) Chest 1 View, Ap/Pa Only (04/03/19 07:27) Ekg Tracing (04/03/19 07:27) Comprehensive Metabolic Panel (04/03/19 07:27) Erythrocyte Sedimentation Rate (04/03/19 07:27) Hs C Reactive Protein (04/03/19 07:27) Ua Culture If Indicated (04/03/19 07:27) Fibrin Degradation Products (04/03/19 07:27) BNP (04/03/19 07:27) Ns Iv 1000 Ml (Sodium Chloride 0.9%) (04/03/19 07:30) Ct Angio Chest W (04/03/19 08:46) Iohexol Injection (Omnipaque 350 Mg/Ml 1 (04/03/19 09:00) Received Contrast (Hold Metformin- Contr (04/03/19 09:00) Sodium Chloride Flush (Catheter Flush Sy (04/03/19 09:00) Ns (Ivpb) (Sodium Chloride 0.9% Ivpb Bag (04/03/19 09:00) Ekg Tracing (04/03/19 10:18) Medications Given in ED Current Medications Medications Dose Ordered Sig/Emeli Route Start Time Stop Time Status Last Admin Dose Admin Iohexol 100 ml ONCE ONCE IV 04/03/19 09:00 04/03/19 09:01 DC 04/03/19 09:12 73 ML Sodium Chloride 10 ml NEEDED PRN IV 04/03/19 09:00 04/03/19 09:12 10 ML Sodium Chloride 100 ml ONCE ONCE IV 04/03/19 09:00 04/03/19 09:01 DC 04/03/19 09:12 80 ML Vital Signs/I&O 04/03/19 07:02 Temp 36.4 Pulse 68 Resp 18 B/P (MAP) 160/95 (116) Pulse Ox 98 O2 Delivery Room Air Progress Progress Note : Time: 08:50 Progress Note The patient's d-dimer was elevated. A CT of his chest for PE study was ordered. 1014 a.m. The patient's PE study was unremarkable. The remainder the patient's laboratory evaluation was completed. The patient appeared to have new A. fib on his EKG. Patient is to stay for further evaluation in the hospital. I talked with Dr. Audi Hale, the patient's primary care physician, placed the patient on baby aspirin daily. We asked Mr. Ortega to follow-up with Doctor Desai next week. Departure Impression Primary Impression: Chest wall pain Additional Impression: Atrial fibrillation Disposition: 01 HOME, SELF-CARE Condition: Unchanged Departure-Patient Inst. Decision time for Depature: 10:43 Referrals: AUDI HALE MD (PCP/Family) Primary Care Physician Patient Instructions: Atrial Fibrillation (DC) Add. Discharge Instructions: Taking a baby aspirin each day. Follow-up with Dr. Hale next week. Return if any problems. TRACY DEJESUS MD Apr 03, 2019 07:04
[2019-04-03] MEDS ORDERED: NS IV 1000 ML 1,000 ML IV SCH (07:30)
[2019-04-03 08:17] LABS: BASOPHILS % (AUTO) 1 % (0-10); EOSINOPHILS # (AUTO) 0.1 10^3/uL (0.0-0.3); EOSINOPHILS % (AUTO) 2 % (0-10); HEMATOCRIT 39 % (40-54); HEMOGLOBIN 13.2 G/DL (13.3-17.7); LYMPHOCYTES # (AUTO) 1.4 X 10^3 (1.0-4.0); LYMPHOCYTES % (AUTO) 23 % (12-44); MEAN CORPUSCULAR HEMOGLOBIN 30 PG (25-34); MEAN CORPUSCULAR HGB CONC 34 G/DL (32-36); MEAN CORPUSCULAR VOLUME 90 FL (80-99); MEAN PLATELET VOLUME 9.6 FL (7.4-10.4); MONOCYTES # (AUTO) 0.7 X 10^3 (0.0-1.0); MONOCYTES % (AUTO) 11 % (0-12); NEUTROPHILS # (AUTO) 3.8 X 10^3 (1.8-7.8); NEUTROPHILS % (AUTO) 64 % (42-75); PLATELET COUNT 188 10^3/uL (130-400); RED CELL DISTRIBUTION WIDTH 13.1 % (10.0-14.5)
[2019-04-03 08:25] LABS: BILIRUBIN,URINE NEGATIVE (NEGATIVE); CLARITY,URINE CLEAR; COLOR,URINE YELLOW; GLUCOSE, URINE (UA) NEGATIVE (NEGATIVE); KETONES,URINE NEGATIVE (NEGATIVE); LEUKOCYTE ESTERASE ,URINE NEGATIVE (NEGATIVE); NITRITE,URINE NEGATIVE (NEGATIVE); PROTEIN,URINE NEGATIVE (NEGATIVE)
[2019-04-03 08:38] LABS: BACTERIA,URINE TRACE /HPF; RBC,URINE RARE /HPF; SQUAMOUS EPITHELIAL CELL,UR RARE /HPF; WBC,URINE 0-2 /HPF
--- NOTE | 2019-04-03 08:38 | Diagnostic Imaging Report ---
INDICATION: Chest pain. Frontal chest obtained at 0826 a.m. and compared to 01/10/2017. There is cardiomegaly with poststernotomy change. There is no focal infiltrate or pneumothorax or pleural fluid. There is no significant change from 01/10/2017. IMPRESSION: Cardiomegaly with postoperative changes with no acute pulmonary infiltrate or pleural fluid. Dictated by: Dictated on workstation # [id number]
[2019-04-03 08:39] LABS: CALCIUM OXALATE CRYSTALS,UR RARE /LPF
[2019-04-03 08:42] LABS: ALANINE AMINOTRANSFERASE 23 U/L (0-55); ALBUMIN 3.9 GM/DL (3.2-4.5); ALKALINE PHOSPHATASE 57 U/L (40-136); BILIRUBIN,TOTAL 0.8 MG/DL (0.1-1.0); BUN/CREATININE RATIO 25; CALCIUM 8.5 MG/DL (8.5-10.1); CARBON DIOXIDE 21 MMOL/L (21-32); CHLORIDE 110 MMOL/L (98-107); CREATININE SERUM 0.84 MG/DL (0.60-1.30); GFR ESTIMATED > 60; GLUCOSE 107 MG/DL (70-105); POTASSIUM 3.8 MMOL/L (3.6-5.0); SODIUM 142 MMOL/L (135-145); TOTAL PROTEIN 6.1 GM/DL (6.4-8.2)
[2019-04-03 08:46] LABS: ERYTHROCYTE SEDIMENTATION RATE 7 MM/HR (0-30)
[2019-04-03] MEDS ORDERED: CATHETER FLUSH 10 ML SYR IV PRN (09:00)
[2019-04-03] MEDS ORDERED: IOHEXOL 350 MG/ML 100 ML (OMNIPAQUE 350) VIAL IV ONE (09:00)
[2019-04-03] MEDS ORDERED: HOLD METFORMIN - RECEIVED CONTRAST 20 ML VIAL IV SCH (09:00)
[2019-04-03] MEDS ORDERED: NS 100 ML (IVPB) BAG IV ONE (09:00)
--- NOTE | 2019-04-03 09:51 | Diagnostic Imaging Report ---
PROCEDURE: CT angiography of the chest with contrast. TECHNIQUE: Multiple contiguous axial images were obtained through the chest after uneventful bolus administration of intravenous contrast. 3D reconstructed CTA MIP acquisitions were also performed. Auto Exposure Controls were utilized during the CT exam to meet ALARA standards for radiation dose reduction. INDICATION: Right nipple pain. Positive D-dimer. COMPARISON: 09/17/2011 FINDINGS: There is no evidence acute pulmonary embolus in the first subsegmental division of the pulmonary arteries. Thoracic aorta is minimally opacified. There is moderate scattered calcified aortic atherosclerosis. There is no evidence of focal stenosis or aneurysm. Heart size is mildly prominent. There is no large pericardial effusion. Note is made of advanced calcified coronary atherosclerosis. Indwelling coronary stents are noted. No pathologically enlarged or morphologically abnormal adenopathy is seen within the mediastinum, perla, nor axilla. Evaluation of the lung israel demonstrates no focal consolidation, large effusion, nor pneumothorax. Small 3-4 mm micronodular densities associated with the minor fissure on the right (image 76, series 4). 4 mm subpleural micronodule is also noted within the posterior margins of the left lower lobe (image 106, series 4). Slightly superior and lateral to this, there is an additional 3 mm subpleural micronodule also within the left lower lobe (image 104, series 4). These appear to be new when compared to 09/17/2011. Several small micronodular densities are also noted within the subpleural posterior lateral margins of the left upper lobe (image 53, series 4). Osseous structures show no acute abnormalities. Age-related degenerative changes are noted. Sternotomy wires are present. Included portions of the upper abdomen show punctate nonobstructive right renal calculus, which may be vascular in nature. Note is also made of cholelithiasis. IMPRESSION: 1. No evidence of acute pulmonary embolus the first subsegmental division of the pulmonary arteries. 2. Significant calcified coronary and aortic atherosclerosis as described above. 3. Mild cardiomegaly. 4. Small pulmonary micronodules, bilaterally. Please see below for follow-up recommendations. 5. Cholelithiasis. 6. Punctate nonobstructive right renal calculus. PULMONARY NODULE FOLLOW-UP Multiple nodules: <6 mm: * Low risk patient - no routine follow up * High risk patient - optional CT at 12 months 6-8 mm in size: * Low risk patient - Ct at 3-6 months, then consider CT at 18-24 months * High risk patient - CT at 3-6 months, then at 18-24 months >8 mm: * Low risk patient - CT at 3-6 months, then consider CT at 18-24 months * High risk patient - CT at 3-6 months, then at 18-24 months (Use most suspicious nodule as guide to management. Follow up interval may vary according to size and risk) Dictated by: Dictated on workstation # [id number]
[2019-04-03 10:50] VITALS: BP 170/85
== END 2019-04-03 10:58 | disposition home or self-care (01) ==
LOC: EDUNIT# 06:57 → ER 06:59
DX: R07.89 Other chest pain (principal); I48.91 Unspecified atrial fibrillation; I25.10 Atherosclerotic heart disease of native coronary artery without angina pectoris; E78.00 Pure hypercholesterolemia, unspecified; I10 Essential (primary) hypertension; Z87.442 Personal history of urinary calculi; Z96.653 Presence of artificial knee joint, bilateral; Z95.1 Presence of aortocoronary bypass graft
CPT/HCPCS: 36415; 71045; 71275; 80053; 81000; 83880; 84484; 85025; 85379; 85652; 86141; 93005; 96360

== ENCOUNTER 2019-06-27 13:09 | Emergency (ER) | payer MEDICARE, OTHER ==
[~2019-06-27] VITALS: Ht 170.2 cm; Wt 81.4 kg
[~2019-06-27 13:09] MED LIST changes: -TAMS0.4C98 PO; +TMSL.4C PO
[2019-06-27 13:15] VITALS: BP 127/77
[2019-06-27] MEDS ORDERED: TRAM-42 PO (13:36)
--- NOTE | 2019-06-27 13:36 | ED Lower Extremity ---
General Chief Complaint: Orthopedic Problems Stated Complaint: FEET SWELLING Nursing Triage Note: Pt amb to triage with c/o bilat feet swelling. Pt reports he has been experiencing swelling et discomfort to his feet for >2 years. Pt reports "numbness" when he is in seated position. Pt arrives wearing compression socks. No swelling noted to bilat feet . Pt denies injury. A&OX4. Nursing Sepsis Screen: No Definite Risk Source: patient Exam Limitations: no limitations History of Present Illness Date Seen by Provider: Jun 27, 2019 Time Seen by Provider: 13:33 Initial Comments To ER with bilateral feet swelling for over 2 years. He seen a multitude of physicians and no one could find an answer Onset: other Severity: moderate Method of Injury: unknown Modifying Factors: Worse With Movement Allergies and Home Medications Allergies Coded Allergies: No Known Drug Allergies (Unverified , 05/19/11) Patient Home Medication List Home Medication List Reviewed: Yes Review of Systems Constitutional: see HPI EENTM: see HPI Respiratory: no symptoms reported Cardiovascular: no symptoms reported Genitourinary: no symptoms reported Musculoskeletal: see HPI Skin: no symptoms reported Psychiatric/Neurological: No Symptoms Reported Past [id number]-[id number]-Iyzaqi Hx Patient Social History 2nd Hand Smoke Exposure: No Recent Foreign Travel: No Contact w/Someone Who Travel: No Recent Infectious Disease Expo: No Recent Hopitalizations: No Immunizations Up To Date Tetanus Booster (TDap): Unknown PED Vaccines UTD: No Date of Influenza Vaccine: Jan 31, 2013 Seasonal Allergies Seasonal Allergies: No Past Medical History Surgeries: Yes (BILAT TKR, QUAD BYPASS, STENT, ESWL, R ARM FX, R FOOT) Cardiac, CABG, Joint Replacement, Orthopedic Respiratory: No Cardiac: Yes (QUAD BYPASS) Coronary Artery Disease, High Cholesterol, Hypertension Neurological: No Reproductive Disorders: No Sexually Transmitted Disease: No HIV/AIDS: No Genitourinary: Yes Benign Prostatic Hyperpl, Kidney Stones Gastrointestinal: Yes (BLOOD IN STOOLS) Chronic Constipation Musculoskeletal: Yes Arthritis, Chronic Back Pain, Fractures Endocrine: No HEENT: No Loss of Vision: Bilateral Hearing Impairment: Denies Cancer: No Psychosocial: No Integumentary: No Blood Disorders: No Adverse Reaction/Blood Tranf: Yes Family Medical History No Pertinent Family Hx Physical Exam Vital Signs Vital Signs - First Documented 06/27/19 13:15 Temp 36.5 Pulse 68 Resp 18 B/P (MAP) 127/77 (94) Pulse Ox 97 O2 Delivery Room Air Capillary Refill : Less Than 3 Seconds Height, Weight, BMI Height: 5'7.00" Weight: 170lbs. 0.0oz. [id number]; 28.00 BMI Method:Stated General Appearance: WD/WN, no apparent distress Respiratory: no respiratory distress, no accessory muscle use Hips: bilateral hip non-tender, bilateral hip normal inspection Legs: bilateral leg non-tender, bilateral leg normal inspection Knees: bilateral knee non-tender, bilateral knee normal inspection Ankles: bilateral ankle non-tender, bilateral ankle normal inspection, bilateral ankle normal range of motion Feet: bilateral foot non-tender, bilateral foot normal inspection, bilateral foot normal range of motion, bilateral foot other (both feet are warm, there is a palpable dorsalis pedis pulse bilaterally, there is absolutely no swelling to either foot or ankle) Neurologic/Psychiatric: alert, normal mood/affect, oriented x 3 Skin: normal color, warm/dry He may have some neuropathy causing him to have discomfort in his feet. He's taken Tylenol without much improvement, we could try an Ultram. Progress/Results/Core Measures Results/Orders Vital Signs/I&O 06/27/19 13:15 Temp 36.5 Pulse 68 Resp 18 B/P (MAP) 127/77 (94) Pulse Ox 97 O2 Delivery Room Air Blood Pressure Mean: 94 Departure Impression Primary Impression: chronic sensation of feet swelling Disposition: 01 HOME, SELF-CARE Condition: Stable Departure-Patient Inst. Decision time for Depature: 13:35 Referrals: AUDI HALE MD (PCP/Family) Primary Care Physician Patient Instructions: NO INSTRUCTIONS GIVEN RIKI DOW APRN Jun 27, 2019 13:36
--- OUTSIDE RECORDS SUMMARY | 2019-06-27 13:40 | XMS REPORT | Continuity of Care Document ---
Author Organization Unknown Address Unknown Phone Unavailable Allergies Active Description Code Type Severity Reaction Onset Reported/Identified Relationship to Patient Clinical Status Yes No Known Drug Allergies [id number] Drug Allergy Unknown N/A 05/19/2011 Medications There is no data. 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 08/12/2011 Ot 440.0 AORT IC ATHEROSCLEROSIS 08/12/2011 Ot 715.90 OST EOARTHROS NOS- UNSPEC 08/12/2011 Ot V17.49 FAM ROSIO HISTORY OF OTHER CARDIOVASCULAR D 08/12/2011 Ot V43.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 08/12/2011 Ot V45.82 PER CUTANEOUS TRANSLUM CORON ANGIOPLASTY 08/12/2011 Ot V58.63 STARLA G- TERM(CURRENT)USE OF ANTIPLATELET/AN 09/17/2011 Ot 414.00 COR ON ATHEROSCLER NOS TYPE VESSEL, NATIV 09/17/2011 Ot 530.81 ESO PHAGEAL REFLUX 09/17/2011 Ot 780.4 DIZZ INESS AND GIDDINESS 09/17/2011 Ot 787.01 WILLIAM SEA WITH VOMITING 09/17/2011 Ot V15.82 HIS TORY OF TOBACCO USE 09/17/2011 Ot 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 09/17/2011 Ot V58.66 STARLA G-TERM (CURRENT) USE OF ASPIRIN 09/17/2011 Ot V58.69 OTH MED,LT,CURRENT USE 11/10/2011 Ot 780.4 DIZZ INESS AND GIDDINESS 11/11/2011 Ot 414.00 COR ON ATHEROSCLER NOS TYPE VESSEL, NATIV 11/11/2011 Ot 780.4 DIZZ INESS AND GIDDINESS 11/11/2011 Ot 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 11/11/2011 Ot V58.66 STARLA G-TERM (CURRENT) USE OF ASPIRIN 11/11/2011 Ot V58.69 OTH MED,LT,CURRENT USE 12/30/2012 RIKI DOW INSURANCE UNDERWRITER Ot 684 IMPETIGO 12/30/2012 RIKI DOW INSURANCE UNDERWRITER Ot 708 .9 URTICARIA NOS 01/02/2013 OKSANA NIETO, TOMAS Villarreal [...] MD Ot 598.9 URETHRAL STRICTURE NOS 12/02/2013 MEHDI MD, DELMAR A Ot 600.0 0 HYPERTROPHY (BENIGN) OF PROSTATE W/O URI 05/27/2014 OJ ESCALONA, MARINA Mckeon Ot 272.4 05/27/2014 OJ ESCALONA, MARINA Mckeon Ot 401.1 05/27/2014 OJ ESCALONA, [...] ESCALONA, MARINA Mckeon Ot 272.4 05/20/2015 OJ ESCALONA, MARINA Mckeon Ot 397.0 05/20/2015 OJ ESCALONA, MARINA Mckeon Ot 401.1 05/20/2015 OJ ESCALONA, MARINA Mckeon Ot 414.00 05/20/2015 OJ ESCALONA, MARINA Mckeon Ot 424.0 05/20/2015 OJ ESCALONA, MARINA Mckeon Ot 429.3 05/20/2015 OJ ESCALONA, MARINA Mckeon Ot 272.4 05/20/2015 OJ ESCALONA, MARINA Mckeon Ot 401.1 05/20/2015 OJ ESCALONA, MARINA Mckeon Ot 414.00 05/20/2015 Ot 592.1 05/20/2015 MEHDI NIETO, DELMAR Roldan Ot 592.1 05/20/2015 MEHDI NIETO, DELMAR Roldan Ot V72.8 1 05/20/2015 MEHDI NIETO, DELMAR A Ot V74.8 05/24/2015 YAMILE GRIGSBY MD Ot E78. 2 05/24/2015 YAMILE GRIGSBY MD Ot I25. 10 05/24/2015 YAMILE GRIGSBY MD Ot I65. 23 05/24/2015 YAMILE GRIGSBY MD Ot R07. 89 06/08/2015 YAMILE GRIGSBY MD Ot E78. 2 06/08/2015 YAMILE GRIGSBY MD Ot I25. 10 06/08/2015 YAMILE GRIGSBY MD Ot I65. 23 06/08/2015 YAMILE GRIGSBY MD Ot R07. 89 06/22/2015 YAMILE GRIGSBY MD Ot E78. 2 06/22/2015 YAMILE GRIGSBY MD Ot I25. 10 06/22/2015 YAMILE GRIGSBY MD Ot I65. 23 06/22/2015 YAMLIE GRIGSBY MD Ot R07. 89 06/24/2015 YAMILE GRIGSBY MD Ot E78. 2 06/24/2015 YAMILE GRIGSBY MD Ot I25. 10 06/24/2015 YAMILE GRIGSBY MD Ot I65. 23 06/24/2015 YAMILE GRIGSBY MD Ot R07. 89 01/13/2016 SADI MATHEWS MD Ot R42 DIZZINESS AND GIDDINESS 01/13/2016 SADI MATHEWS MD Ot R51 HEADACHE 01/13/2016 SADI MATHEWS MD Ot R53.81 OTHER [place] 01/13/2016 SADI MATHEWS MD Ot Z79.82 SHELTER (CURRENT) USE OF ASPIRIN 01/13/2016 SADI MATHEWS MD Ot Z79.899 OTHER JAMMER HOOKER (CURRENT) DRUG THERAPY 01/13/2016 SADI MATHEWS MD Ot Z95 .1 PRESENCE OF AORTOCORONARY BYPASS GRAFT 01/13/2016 YAMILE GRIGSBY MD Ot E78. 2 MIXED HYPERLIPIDEMIA 01/13/2016 YAMILE GRIGSBY MD Ot I25. 10 ATHSCL HEART DISEASE OF [place] CORONARY 01/13/2016 YAMILE GRIGSBY MD Ot I65. 23 OCCLUSION AND STENOSIS OF BILATERAL [place] 01/13/2016 YAMILE GRIGSBY MD Ot R07. 89 OTHER CHEST PAIN 01/13/2016 YAMILE GRIGSBY MD Ot E78. 2 MIXED HYPERLIPIDEMIA 01/13/2016 YAMILE GRIGSBY MD Ot I25. 10 ATHSCL HEART DISEASE OF [place] CORONARY 01/13/2016 YAMILE GRIGSBY MD Ot I65. 23 OCCLUSION AND STENOSIS OF [place]ILATERAL [place] 01/13/2016 YAMILE GRIGSBY MD Ot R07. 89 OTHER CHEST PAIN 01/14/2016 SADI MATHEWS MD Ot R42 DIZZINESS AND GIDDINESS 01/14/2016 SADI MATHEWS MD Ot R51 HEADACHE 01/14/2016 SADI MATHEWS MD Ot R53.81 OTHER [place] 01/14/2016 SADI MATHEWS MD Ot Z79.82 SHELTER (CURRENT) USE OF ASPIRIN 01/14/2016 SADI MATHEWS MD Ot Z79.899 OTHER JAMMER HOOKER (CURRENT) DRUG THERAPY 01/14/2016 SADI MATHEWS MD Ot Z95 .1 PRESENCE OF AORTOCORONARY BYPASS GRAFT 01/19/2016 CHRISSIE NEWBERRY MD Ot K92.1 MELENA 01/19/2016 CHRISSIE NEWBERRY MD Ot Z01.818 ENCOUNTER FOR OTHER PREPROCEDURAL EXAMIN 01/21/2016 SADI MATHEWS MD Ot R42 DIZZINESS AND GIDDINESS 01/21/2016 SADI MATHEWS MD Ot R51 HEADACHE 01/21/2016 SADI MATHEWS MD Ot R53.81 OTHER [place] 01/21/2016 SADI MATHEWS MD Ot Z79.82 JAMMER HOOKER (CURRENT) USE OF ASPIRIN 01/21/2016 SADI MATHEWS MD Ot Z79.899 OTHER JAMMER HOOKER (CURRENT) DRUG THERAPY 01/21/2016 SADI MATHEWS MD Ot Z95 .1 PRESENCE OF AORTOCORONARY BYPASS GRAFT 01/21/2016 Ot 789.06 ABD OMINAL PAIN, EPIGASTRIC 01/21/2016 Ot 789.07 ABD OMINAL PAIN, GENERALIZED 01/21/2016 Ot V72.84 EXA M PRE- OPERATIVE NOS 01/21/2016 Ot 401.9 HYPE RTENSION NOS 01/21/2016 Ot 414.00 COR ON ATHEROSCLER NOS TYPE VESSEL, NATIV 01/21/[address] PAIN NOS 01/21/2016 Ot 397.0 TRIC USPID VALVE DISEASE 01/21/2016 Ot 401.9 HYPE RTENSION NOS 01/21/2016 Ot 414.00 COR ON ATHEROSCLER NOS TYPE VESSEL, NATIV 01/21/2016 Ot 424.0 MITR AL VALVE DISORDER 01/21/[address] PAIN NOS 01/21/2016 OJ ESCALONA MARINA K Ot 272.4 HYPERLIPIDEMIA NEC/NOS 01/21/2016 OJ ESCALONA MARINA K Ot 397.0 TRICUSPID VALVE DISEASE 01/21/2016 OJ ESCALONA MARINA K Ot 401.1 BENIGN HYPERTENSION 01/21/2016 OJ ESCALONA MARINA K Ot 414.00 CORON ATHEROSCLER NOS TYPE VESSEL, NATIV 01/21/2016 OJ ESCALONA MARINA K Ot 424.0 MITRAL VALVE DISORDER 01/21/2016 OJ ESCALONA MARINA K Ot 429.3 CARDIOMEGALY 01/21/2016 OJ ESCALONA MARINA K Ot 272.4 HYPERLIPIDEMIA NEC/NOS 01/21/2016 OJ ESCALONA MARINA K Ot 401.1 BENIGN HYPERTENSION 01/21/2016 OJ ESCALONA MARINA K Ot 414.00 CORON ATHEROSCLER NOS TYPE VESSEL, NATIV 01/21/2016 Ot 592.1 CALC ULUS OF [place] 01/21/2016 DELMAR HARDING MD Ot 592.1 CALCULUS OF [place] 01/21/2016 DELMAR HARDING MD Ot V72.8 1 KKWK-[id number]-APLIUIGOH CARDIOVASCULAR 01/21/2016 DELMAR HARDING MD Ot V74.8 SCREEN-BACTERIAL DIS NEC 01/21/2016 YAMILE GRIGSBY MD Ot E78. 2 MIXED HYPERLIPIDEMIA 01/21/2016 YAMILE GRIGSBY MD Ot I25. 10 ATHSCL HEART DISEASE OF [place] CORONARY 01/21/2016 YAMILE GRIGSBY MD Ot I65. 23 OCCLUSION AND STENOSIS OF BILATERAL [place] 01/21/2016 YAMILE GRIGSBY MD Ot R07. 89 OTHER CHEST PAIN 01/21/2016 YAMILE GRIGSBY MD Ot E78. 2 MIXED HYPERLIPIDEMIA 01/21/2016 YAMILE GRIGSBY MD Ot I25. 10 ATHSCL HEART DISEASE OF [place] CORONARY 01/21/2016 YAMILE GRIGSBY MD Ot I65. 23 OCCLUSION AND STENOSIS OF [place]ILATERAL [place] 01/21/2016 CALISTA NIETO, YAMILE Velasquez Ot R07. 89 OTHER CHEST PAIN 01/21/2016 ROHITH NIETO, CHRISSIE Blackwell Ot D12.8 BENIGN NEOPLASM OF RECTUM 01/21/2016 ROHITH NIETO, CHRISSIE Blackwell Ot K62.1 RECTAL POLYP 01/25/2016 ROHITH NIETO, CHRISSIE Blackwell Ot D12.8 BENIGN NEOPLASM OF RECTUM 11/09/2016 YVOANA DO, TASHA F Ot M25.551 PAIN IN [...] DISC DEGENERATION, 12/07/2016 MARILYN SOTO MD Ot E78. 00 PURE HYPERCHOLESTEROLEMIA, UNSPECIFIED 12/07/2016 MARILYN SOTO MD Ot I10 ESSENTIAL (PRIMARY) HYPERTENSION 12/07/2016 MARILYN SOTO MD Ot I25. 10 ATHSCL HEART DISEASE OF [place] CORONARY 12/07/2016 MARILYN SOTO MD Ot M19. 90 UNSPECIFIED OSTEOARTHRITIS, UNSPECIFIED 12/07/2016 MARILYN SOTO MD Ot N20. 0 CALCULUS OF KIDNEY 12/07/2016 MARILYN SOTO MD Ot N40. 0 BENIGN PROSTATIC HYPERPLASIA WITHOUT LOW 12/07/2016 MARILYN SOTO MD Ot R10. 31 RIGHT LOWER QUADRANT PAIN 12/07/2016 MARILYN SOTO MD Ot Z79. 82 JAMMER HOOKER (CURRENT) USE OF ASPIRIN 12/07/2016 MARILYN SOTO MD Ot Z87. 19 PERSONAL HISTORY OF OTHER DISEASES OF TH 12/07/2016 MARILYN SOTO MD Ot Z95. 1 PRESENCE OF AORTOCORONARY BYPASS GRAFT 12/07/2016 YAMILE GRIGSBY MD Ot E78. 2 MIXED HYPERLIPIDEMIA 12/07/2016 YAMILE GRIGSBY MD Ot I25. 10 ATHSCL HEART DISEASE OF [place] CORONARY 12/07/2016 YAMILE GRIGSBY MD Ot I65. 23 OCCLUSION AND STENOSIS OF [place]ILATERAL [place] 12/07/2016 YAMILE GRIGSBY MD Ot R07. 89 OTHER CHEST PAIN 12/07/2016 YAMILE GRIGSBY MD Ot E78. 2 MIXED HYPERLIPIDEMIA 12/07/2016 YAMILE GRIGSBY MD Ot I25. 10 ATHSCL HEART DISEASE OF [place] CORONARY 12/07/2016 YAMILE GRIGSBY MD Ot I65. 23 OCCLUSION AND STENOSIS OF [place]ILATERAL [place] 12/07/2016 YAMILE GRIGSBY MD Ot R07. 89 OTHER CHEST PAIN 12/09/2016 Ot 401.9 HYPE RTENSION NOS 12/09/2016 Ot 414.00 COR ON ATHEROSCLER NOS TYPE VESSEL, NATIV 12/09/[address] PAIN NOS 12/09/2016 Ot 397.0 TRIC USPID VALVE DISEASE 12/09/2016 Ot 401.9 HYPE RTENSION NOS 12/09/2016 Ot 414.00 COR ON ATHEROSCLER NOS TYPE VESSEL, NATIV 12/09/2016 Ot 424.0 MITR AL VALVE DISORDER 12/09/[address] PAIN NOS 12/09/2016 MARINA HERNANDEZ Ot 272.4 [...] NOS TYPE VESSEL, NATIV 12/09/2016 Ot 592.1 CALC ULUS OF [place] 12/09/2016 DELMAR HARDING MD Ot 592.1 CALCULUS OF [place] 12/09/2016 DELMAR HARDING MD Ot V72.8 1 [id number]-[id number]-[id number] CARDIOVASCULAR 12/09/2016 DELMAR HARDING MD Ot V74.8 SCREEN-BACTERIAL DIS NEC 12/09/2016 YAMILE GRIGSBY MD Ot E78. 2 MIXED HYPERLIPIDEMIA 12/09/2016 YAMILE GRIGSBY MD Ot I25. 10 ATHSCL HEART DISEASE OF [place] CORONARY 12/09/2016 YAMILE GRIGSBY MD Ot I65. 23 OCCLUSION AND STENOSIS OF [place]ILATERAL [place] 12/09/2016 YAMILE GRIGSBY MD Ot R07. 89 OTHER CHEST PAIN 12/09/2016 YAMILE GRIGSBY MD Ot E78. 2 MIXED HYPERLIPIDEMIA 12/09/2016 YAMILE GRIGSBY MD Ot I25. 10 ATHSCL HEART DISEASE OF [place] CORONARY 12/09/2016 YAMILE GRIGSBY MD Ot I65. 23 OCCLUSION AND STENOSIS OF [place]ILATERAL [place] 12/09/2016 YAMILE GRIGSBY MD Ot R07. 89 OTHER CHEST PAIN 12/09/2016 MARILYN SOTO MD Ot E78. 00 PURE HYPERCHOLESTEROLEMIA, UNSPECIFIED 12/09/2016 MARILYN SOTO MD Ot I10 ESSENTIAL (PRIMARY) HYPERTENSION 12/09/2016 MARILYN SOTO MD Ot I25. 10 ATHSCL HEART DISEASE OF [place] CORONARY 12/09/2016 MARILYN SOTO MD Ot M19. 90 UNSPECIFIED OSTEOARTHRITIS, UNSPECIFIED 12/09/2016 MARILYN SOTO MD Ot N20. 0 CALCULUS OF KIDNEY 12/09/2016 MARILYN SOTO MD Ot N40. 0 BENIGN PROSTATIC HYPERPLASIA WITHOUT LOW 12/09/2016 MARILYN SOTO MD Ot R39. 11 HESITANCY OF MICTURITION 12/09/2016 MARILYN SOTO MD Ot Z79. 82 JAMMER HOOKER (CURRENT) USE OF ASPIRIN 12/09/2016 MARILYN SOTO MD Ot Z87. 19 PERSONAL HISTORY OF OTHER DISEASES OF TH 12/09/2016 MARILYN SOTO MD Ot Z95. 1 PRESENCE OF AORTOCORONARY BYPASS GRAFT 12/09/2016 MARILYN SOTO MD Ot Z95. 5 PRESENCE OF CORONARY ANGIOPLASTY IMPLANT 12/09/2016 BRITTANY NIETO, MARILYN Velasquez Ot Z96.653 PRESENCE OF ARTIFICIAL KNEE JOINT, BILAT 12/09/2016 Ot 401.9 HYPE RTENSION NOS 12/09/2016 Ot 414.00 COR ON ATHEROSCLER NOS TYPE VESSEL, NATIV 12/09/[address] PAIN NOS 12/09/2016 Ot 397.0 TRIC USPID VALVE DISEASE 12/09/2016 Ot 401.9 HYPE RTENSION NOS 12/09/2016 Ot 414.00 COR ON ATHEROSCLER NOS TYPE VESSEL, NATIV 12/09/2016 Ot 424.0 MITR AL VALVE DISORDER 12/09/[address] PAIN NOS 12/09/2016 MARINA HERNANDEZ Ot 272.4 [...] NOS TYPE VESSEL, NATIV 12/09/2016 Ot 592.1 CALC ULUS OF [place] 12/09/2016 DELMAR HARDING MD Ot 592.1 CALCULUS OF [place] 12/09/2016 DELMAR HARDING MD Ot V72.8 1 AJQP-HMI-IBMBKDFIG CARDIOVASCULAR 12/09/2016 DELMAR HARDING MD Ot V74.8 SCREEN-BACTERIAL DIS NEC 12/09/2016 YAMILE GRIGSBY MD Ot E78. 2 MIXED HYPERLIPIDEMIA 12/09/2016 YAMILE GRIGSBY MD Ot I25. 10 ATHSCL HEART DISEASE OF [place] CORONARY 12/09/2016 YAMILE GRIGSBY MD Ot I65. 23 OCCLUSION AND STENOSIS OF [place]ILATERAL [place] 12/09/2016 YAMILE GRIGSBY MD Ot R07. 89 OTHER CHEST PAIN 12/09/2016 YAMILE GRIGSBY MD Ot E78. 2 MIXED HYPERLIPIDEMIA 12/09/2016 YAMILE GRIGSBY MD Ot I25. 10 ATHSCL HEART DISEASE OF [place] CORONARY 12/09/2016 YAMIEL GRIGSBY MD Ot I65. 23 OCCLUSION AND STENOSIS OF [place]ILATERAL [place] 12/09/2016 YAMILE GRIGSBY MD Ot R07. 89 OTHER CHEST PAIN 12/11/2016 MARILYN SOTO MD Ot E78. 00 PURE HYPERCHOLESTEROLEMIA, UNSPECIFIED 12/11/2016 MARILYN SOTO MD Ot I10 ESSENTIAL (PRIMARY) HYPERTENSION 12/11/2016 MARILYN SOTO MD Ot I25. 10 ATHSCL HEART DISEASE OF [place] CORONARY 12/11/2016 MARILYN SOTO MD Ot M19. 90 UNSPECIFIED OSTEOARTHRITIS, UNSPECIFIED 12/11/2016 MARILYN SOTO MD Ot N20. 0 CALCULUS OF KIDNEY 12/11/2016 MARILYN SOTO MD Ot N40. 0 BENIGN PROSTATIC HYPERPLASIA WITHOUT LOW 12/11/2016 MARILYN SOTO MD Ot R39. 11 HESITANCY OF MICTURITION 12/11/2016 MARILYN SOTO MD Ot Z79. 82 JAMMER HOOKER (CURRENT) USE OF ASPIRIN 12/11/2016 MARILYN SOTO MD Ot Z87. 19 PERSONAL HISTORY OF OTHER DISEASES OF TH 12/11/2016 MARILYN SOTO MD Ot Z95. 1 PRESENCE OF AORTOCORONARY BYPASS GRAFT 12/11/2016 MARILYN SOTO MD Ot Z95. 5 PRESENCE OF CORONARY ANGIOPLASTY IMPLANT 12/11/2016 MARILYN SOTO MD Ot Z96.653 PRESENCE OF ARTIFICIAL KNEE JOINT, BILAT 01/08/2017 DELMAR HARDING MD Ot Z87.4 42 PERSONAL HISTORY OF URINARY CALCULI 01/11/2017 GEOFFREY NIETO, AUDI Pierre Ot R07. 9 CHEST PAIN, UNSPECIFIED 01/31/2017 Ot 401.9 HYPE RTENSION NOS 01/31/2017 Ot 414.00 COR ON ATHEROSCLER NOS TYPE VESSEL, NATIV 01/31/[address] PAIN NOS 01/31/2017 Ot 397.0 TRIC USPID VALVE DISEASE 01/31/2017 Ot 401.9 HYPE RTENSION NOS 01/31/2017 Ot 414.00 COR ON ATHEROSCLER NOS TYPE VESSEL, NATIV 01/31/2017 Ot 424.0 MITR AL VALVE DISORDER 01/31/[address] PAIN NOS 01/31/2017 OJ ESCALONA MARINA K Ot 272.4 HYPERLIPIDEMIA NEC/NOS 01/31/2017 OJ ESCALONA MARINA K Ot 397.0 TRICUSPID VALVE DISEASE 01/31/2017 OJ ESCALONA MARINA K Ot 401.1 BENIGN HYPERTENSION 01/31/2017 OJ ESCALONA MARINA K Ot 414.00 CORON ATHEROSCLER NOS TYPE VESSEL, NATIV 01/31/2017 OJ ESCALONA MARINA K Ot 424.0 MITRAL VALVE DISORDER 01/31/2017 OJ ESCALONA MARINA K Ot 429.3 CARDIOMEGALY 01/31/2017 OJ ESCALONA MARINA K Ot 272.4 HYPERLIPIDEMIA NEC/NOS 01/31/2017 OJ ESCALONA MARINA K Ot 401.1 BENIGN HYPERTENSION 01/31/2017 OJ ESCALONA MARINA K Ot 414.00 CORON ATHEROSCLER NOS TYPE VESSEL, NATIV 01/31/2017 Ot 592.1 CALC ULUS OF [place] 01/31/2017 DELMAR HARDING MD Ot 592.1 CALCULUS OF [place] 01/31/2017 DELMAR HARDING MD Ot V72.8 1 QMSM-EOY-EWGLMCKCZ CARDIOVASCULAR 01/31/2017 DELMAR HARDING MD Ot V74.8 SCREEN-BACTERIAL DIS NEC 01/31/2017 YAMILE GRIGSBY MD Ot E78. 2 MIXED HYPERLIPIDEMIA 01/31/2017 YAMILE GRIGSBY MD Ot I25. 10 ATHSCL HEART DISEASE OF [place] CORONARY 01/31/2017 YAMILE GRIGSBY MD Ot I65. 23 OCCLUSION AND STENOSIS OF [place]ILATERAL [place] 01/31/2017 YAMILE GRIGSBY MD Ot R07. 89 OTHER CHEST PAIN 01/31/2017 YAMILE GRIGSBY MD Ot E78. 2 MIXED HYPERLIPIDEMIA 01/31/2017 YAMILE GRIGSBY MD Ot I25. 10 ATHSCL HEART DISEASE OF [place] CORONARY 01/31/2017 YAMILE GRIGSBY MD Ot I65. 23 OCCLUSION AND STENOSIS OF BILATERAL [place] 01/31/2017 CALISTA NIETO, YAMILE Velasquez Ot R07. 89 OTHER CHEST PAIN 01/31/2017 MEHDI NIETO, DELMAR Roldan Ot Z87.4 42 PERSONAL HISTORY OF URINARY CALCULI 01/31/2017 GEOFFREY NIETO, AUDI Pierre Ot R07. 9 CHEST PAIN, UNSPECIFIED 02/01/2017 GEOFFREY NIETO, AUDI Pierre Ot R07. 9 CHEST PAIN, UNSPECIFIED 02/13/2017 HARMON-AMADA PA, MARINA K Ot E78.2 MIXED HYPERLIPIDEMIA 02/13/2017 HARMON-AMADA PA, MARINA K Ot I10 ESSENTIAL (PRIMARY) HYPERTENSION 02/13/2017 HARMON-AMADA PA, MARINA K Ot 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 02/13/2017 HARMON-AMADA PA, MARINA K Ot R07.89 OTHER CHEST PAIN 02/26/2017 HARMON-AMADA PA, MARINA K Ot E78.2 MIXED HYPERLIPIDEMIA 02/26/2017 HARMON-AMADA PA, MARINA K Ot I10 ESSENTIAL (PRIMARY) HYPERTENSION 02/26/2017 HARMON-AMADA PA, MARINA K Ot 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 02/26/2017 HARMON-AMADA PA, MARINA K Ot R07.89 OTHER CHEST PAIN 03/02/2017 HARMON-AMADA PA, MARINA K Ot E78.2 MIXED HYPERLIPIDEMIA 03/02/2017 HARMON-AMADA PA, MARINA K Ot I10 ESSENTIAL (PRIMARY) HYPERTENSION 03/02/2017 HARMON-AMADA PA, MARINA K Ot 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 03/02/2017 HARMON-AMADA PA, MARINA K Ot R07.89 OTHER CHEST PAIN 03/21/2017 HARMON-AMADA PA, MARINA K Ot E78.2 MIXED HYPERLIPIDEMIA 03/21/2017 HARMON-AMADA PA, MARINA K Ot I10 ESSENTIAL (PRIMARY) HYPERTENSION 03/21/2017 HARMON-AMADA PA, MARINA K Ot 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 03/21/2017 HARMON-AMADA PA, MARINA K Ot R07.89 OTHER CHEST PAIN 07/12/2017 Ot 401.9 HYPE RTENSION NOS 07/12/2017 Ot 414.00 COR ON ATHEROSCLER NOS TYPE VESSEL, NATIV 07/12/[address] PAIN NOS 07/12/2017 Ot 397.0 TRIC USPID VALVE DISEASE 07/12/2017 Ot 401.9 HYPE RTENSION NOS 07/12/2017 Ot 414.00 COR ON ATHEROSCLER NOS TYPE VESSEL, NATIV 07/12/2017 Ot 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 AL VALVE DISORDER 07/12/[address] PAIN NOS 07/12/2017 OJ ESCALONA MARINA K Ot 272.4 HYPERLIPIDEMIA NEC/NOS 07/12/2017 OJ ESCALONA MARINA K Ot 397.0 TRICUSPID VALVE DISEASE 07/12/2017 OJ ESCALONA MARINA K Ot 401.1 BENIGN HYPERTENSION 07/12/2017 OJ ESCALONA MARINA K Ot 414.00 CORON ATHEROSCLER NOS TYPE VESSEL, NATIV 07/12/2017 MARINA HERNANDEZ Ot 424.0 MITRAL VALVE DISORDER 07/12/2017 MARINA HERNANDEZ Ot 429.3 CARDIOMEGALY 07/12/2017 OJ ESCALONA MARINA K Ot 272.4 HYPERLIPIDEMIA NEC/NOS 07/12/2017 OJ ESCALONA MARINA K Ot 401.1 BENIGN HYPERTENSION 07/12/2017 OJ ESCALONA MARINA K Ot 414.00 CORON ATHEROSCLER NOS TYPE VESSEL, NATIV 07/12/2017 Ot 592.1 CALC ULUS OF [place] 07/12/2017 DELMAR HARDING MD Ot 592.1 CALCULUS OF [place] 07/12/2017 MEHDI NIETO, DELMAR Roldan Ot V72.8 1 PUIO-LYT-MNVZUQUIB CARDIOVASCULAR 07/12/2017 DELMAR HARDING MD Ot V74.8 SCREEN-BACTERIAL DIS NEC 07/12/2017 YAMILE GRIGSBY MD Ot E78. 2 MIXED HYPERLIPIDEMIA 07/12/2017 YAMILE GRIGSBY MD Ot I25. 10 ATHSCL HEART DISEASE OF [place] CORONARY 07/12/2017 YAMILE GRIGSBY MD Ot I65. 23 OCCLUSION AND STENOSIS OF BILATERAL [place] 07/12/2017 YAMILE GRIGSBY MD Ot R07. 89 OTHER CHEST PAIN 07/12/2017 YAMILE GRIGSBY MD Ot E78. 2 MIXED HYPERLIPIDEMIA 07/12/2017 YAMILE GRIGSBY MD Ot I25. 10 ATHSCL HEART DISEASE OF [place] CORONARY 07/12/2017 CALISTA NIETO, YAMILE Velasquez Ot I65. 23 OCCLUSION AND STENOSIS OF [place]ILATERAL [place] 07/12/2017 CALISTA NIETO, YAMILE Velasquez Ot R07. 89 OTHER CHEST PAIN 07/12/2017 OJ ESCALONA MARINA K Ot E78.2 MIXED HYPERLIPIDEMIA 07/12/2017 OJ ESCALONA, MARINA K Ot I10 ESSENTIAL (PRIMARY) HYPERTENSION 07/12/2017 OJ ESCALONA, MARINA Linda Ot 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 07/12/2017 HARMONORTIZ ESCALONA, MARINA Linda Ot R07.89 OTHER CHEST PAIN 07/12/2017 OJ ESCALONA, MARINA Linda Ot E78.2 MIXED HYPERLIPIDEMIA 07/12/2017 OJ ESCALONA, MARINA Linda Ot I10 ESSENTIAL (PRIMARY) HYPERTENSION 07/12/2017 OJ ESCALONA, MARINA Linda Ot 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 07/12/2017 EDEN-AMADA ESCALONA, MARINA Linda Ot R07.89 OTHER CHEST PAIN 07/12/2017 MEHDI NIETO, DELMAR Roldan Ot Z87.4 42 PERSONAL HISTORY OF URINARY CALCULI 07/12/2017 GEOFFREY NIETO, AUDI Pierre Ot R07. 9 CHEST PAIN, UNSPECIFIED 07/12/2017 OJ ESCALONA, MARINA Linda Ot E78.2 MIXED HYPERLIPIDEMIA 07/12/2017 OJ ESCALONA, MARINA Linda Ot I10 ESSENTIAL (PRIMARY) HYPERTENSION 07/12/2017 OJ ESCALONA, MARINA Linda Ot 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 07/12/2017 OJ ESCALONA, MARINA Mckeon Ot R07.89 OTHER CHEST PAIN 07/12/2017 TASHA YEN DO Ot M47.816 SPONDYLOSIS W/O MYELOPATHY OR RADICULOPA 07/12/2017 TASHA YEN DO Ot M51.36 OTHER INTERVERTEBRAL DISC DEGENERATION, 08/13/2017 Ot 401.9 HYPE RTENSION NOS 08/13/2017 Ot 414.00 COR ON ATHEROSCLER NOS TYPE VESSEL, NATIV 08/13/[address] PAIN NOS 08/13/2017 Ot 397.0 TRIC USPID VALVE DISEASE 08/13/2017 Ot 401.9 HYPE RTENSION NOS 08/13/2017 Ot 414.00 COR ON ATHEROSCLER NOS TYPE VESSEL, NATIV 08/13/2017 Ot 424.0 MITR AL VALVE DISORDER 08/13/[address] PAIN NOS 08/13/2017 OJ ESCALONA MARINA Mckeon Ot 272.4 HYPERLIPIDEMIA NEC/NOS 08/13/2017 OJ ESCALONA MARINA Mckeon Ot 397.0 TRICUSPID VALVE DISEASE 08/13/2017 OJ ESCALONA MARINA Mckeon Ot 401.1 BENIGN HYPERTENSION 08/13/2017 OJ ESCALONA MARINA Mckeon Ot 414.00 CORON ATHEROSCLER NOS TYPE VESSEL, NATIV 08/13/2017 OJ ESCALONA MARINA Mckeon Ot 424.0 MITRAL VALVE DISORDER 08/13/2017 OJ ESCALONA MARINA Mckeon Ot 429.3 CARDIOMEGALY 08/13/2017 OJ ESCALONA MARINA Mckeon Ot 272.4 HYPERLIPIDEMIA NEC/NOS 08/13/2017 OJ ESCALONA MARINA Mckeon Ot 401.1 BENIGN HYPERTENSION 08/13/2017 OJ ESCALONA MARINA Mckeon Ot 414.00 CORON ATHEROSCLER NOS TYPE VESSEL, NATIV 08/13/2017 Ot 592.1 CALC ULUS OF URETER 08/13/2017 DELMAR HARDING MD Ot 592.1 CALCULUS OF URETER 08/13/2017 DELMAR HARDING MD Ot V72.8 1 [id number] CARDIOVASCULAR 08/13/2017 DELMAR HARDING MD Ot V74.8 SCREEN-BACTERIAL DIS NEC 08/13/2017 YAMILE GRIGSBY MD Ot E78. 2 MIXED HYPERLIPIDEMIA 08/13/2017 YAMILE GRIGSBY MD Ot I25. 10 ATHSCL HEART DISEASE OF [place] CORONARY 08/13/2017 YAMILE GRIGSBY MD Ot I65. 23 OCCLUSION AND STENOSIS OF BILATERAL [place] 08/13/2017 YAMILE GRIGSBY MD Ot R07. 89 OTHER CHEST PAIN 08/13/2017 YAMILE GRIGSBY MD Ot E78. 2 MIXED HYPERLIPIDEMIA 08/13/2017 YAMILE GRIGSBY MD Ot I25. 10 ATHSCL HEART DISEASE OF [place] CORONARY 08/13/2017 YAMILE GRIGSBY MD Ot I65. 23 OCCLUSION AND STENOSIS OF BILATERAL [place] 08/13/2017 CALISTA NIETO, YAMILE Velasquez Ot R07. 89 OTHER CHEST PAIN 08/13/2017 EDEN-AMADA PA, MARINA Mckoen Ot E78.2 MIXED HYPERLIPIDEMIA 08/13/2017 EDEN-AMADA PA, MARINA Mckeon Ot I10 ESSENTIAL (PRIMARY) HYPERTENSION 08/13/2017 OJ PA, MARINA Mckeon Ot 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 08/13/2017 EDEN-AMADA PA, MARINA Mckeon Ot R07.89 OTHER CHEST PAIN 08/13/2017 EDEN-AMADA PA, MARINA Mckeon Ot E78.2 MIXED HYPERLIPIDEMIA 08/13/2017 EDEN-AMADA PA, MARINA K Ot I10 ESSENTIAL (PRIMARY) HYPERTENSION 08/13/2017 EDEN-AMADA PA, MARINA Mckeon Ot 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 08/13/2017 EDEN-AMADA PA, MARINA Mckeon Ot R07.89 OTHER CHEST PAIN 08/13/2017 MEHDI NIETO, DELMAR Roldan Ot Z87.4 42 PERSONAL HISTORY OF URINARY CALCULI 08/13/2017 GEOFFREY NIETO, AUDI Pierre Ot R07. 9 CHEST PAIN, UNSPECIFIED 08/13/2017 OJ PA, MARINA Mckeon Ot E78.2 MIXED HYPERLIPIDEMIA 08/13/2017 OJ ESCALONA, MARINA Mckeon Ot I10 ESSENTIAL (PRIMARY) HYPERTENSION 08/13/2017 OJ ESCALONA, MARINA Mckeon Ot 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 08/13/2017 OJ PA, MARINA Mckeon Ot R07.89 OTHER CHEST PAIN 08/13/2017 TASHA YEN DO Ot M47.816 SPONDYLOSIS W/O MYELOPATHY OR RADICULOPA 08/13/2017 TASHA YEN DO Ot M51.36 OTHER INTERVERTEBRAL DISC DEGENERATION, 08/14/2017 TOMAS MIX DC, Ot M16. 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 16 INTERVERTEBRAL DISC DISORDERS W RADICULO 08/16/2017 TASHA YEN DO, Ot M47.816 SPONDYLOSIS W/O MYELOPATHY OR RADICULOPA 08/16/2017 TASHA YEN DO Ot M51.36 OTHER INTERVERTEBRAL DISC DEGENERATION, 09/03/2017 DOMINICK NOVAK DPM Ot M20.11 HALLUX VALGUS (ACQUIRED), RIGHT FOOT 09/03/2017 DOMINICK NOVAK DPM Ot Z01.818 ENCOUNTER FOR OTHER PREPROCEDURAL EXAMIN 09/04/2017 TOMAS MIX DC, Ot M16. 0 BILATERAL PRIMARY OSTEOARTHRITIS OF HIP 09/04/2017 TOMAS MIX DC, Ot M43. 28 FUSION OF SPINE, SACRAL AND SACROCOCCYGE 09/04/2017 TOMAS MIX DC, Ot M43.8X6 OTHER SPECIFIED DEFORMING DORSOPATHIES, 09/04/2017 TOMAS MIX DC, Ot M47.816 SPONDYLOSIS W/O MYELOPATHY OR RADICULOPA 09/04/2017 TOMAS MIX DC, Ot M51. 16 INTERVERTEBRAL DISC DISORDERS W RADICULO 09/04/2017 DOMINICK NOVAK DPM Ot M20.11 HALLUX VALGUS (ACQUIRED), RIGHT FOOT 09/04/2017 DOMINICK NOVAK DPM Ot Z01.818 ENCOUNTER FOR OTHER PREPROCEDURAL EXAMIN 09/10/2017 DOMINICK NOVAK DPM Ot E78.5 HYPERLIPIDEMIA, UNSPECIFIED 09/10/2017 DOMINICK NOVAK DPM Ot I 10 ESSENTIAL (PRIMARY) HYPERTENSION 09/10/2017 DOMINICK NOVAK DPM Ot I25.10 ATHSCL HEART DISEASE OF [place] CORONARY 09/10/2017 DOMINICK NOVAK DPM Ot I65.29 OCCLUSION AND STENOSIS OF UNSPECIFIED CA 09/10/2017 DOMINICK NOVAK DPM Ot M20.21 HALLUX RIGIDUS, RIGHT FOOT 09/10/2017 DOMINICK NOVAK DPM Ot R00.1 BRADYCARDIA, UNSPECIFIED 09/10/2017 DOMINICK NOVAK DPM Ot R07.9 CHEST PAIN, UNSPECIFIED 09/10/2017 DOMINICK NOVAK DPM Ot Z79.82 SHELTER (CURRENT) USE OF ASPIRIN 09/10/2017 NOVAK DPM, DOMINICK P Ot Z79.899 OTHER SHELTER (CURRENT) DRUG THERAPY 09/10/2017 NOVAK DPM, DOMINICK P Ot Z87.891 PERSONAL HISTORY OF NICOTINE DEPENDENCE 09/10/2017 NOVAK DPM, DOMINICK P Ot Z95.5 PRESENCE OF CORONARY ANGIOPLASTY IMPLANT 09/12/2017 NOVAK DPM, DOMINICK P Ot E78.5 HYPERLIPIDEMIA, UNSPECIFIED 09/12/2017 NOVAK DPM, DOMINICK P Ot I 10 ESSENTIAL (PRIMARY) HYPERTENSION 09/12/2017 NOVAK DPM, DOMINICK P Ot I25.10 ATHSCL HEART DISEASE OF [place] CORONARY 09/12/2017 NOVAK DPM, DOMINICK P Ot I65.29 OCCLUSION AND STENOSIS OF UNSPECIFIED CA 09/12/2017 NOVAK DPM, DOMINICK P Ot M20.21 HALLUX RIGIDUS, RIGHT FOOT 09/12/2017 NOVAK DPM, DOMINICK P Ot R00.1 BRADYCARDIA, UNSPECIFIED 09/12/2017 NOVAK DPM, DOMINICK P Ot R07.9 CHEST PAIN, UNSPECIFIED 09/12/2017 NOVAK DPM, DOMINICK P Ot Z79.82 SHELTER (CURRENT) USE OF ASPIRIN 09/12/2017 NOVAK DPM, DOMINICK P Ot Z79.899 OTHER JAMMER HOOKER (CURRENT) DRUG THERAPY 09/12/2017 NOVAK DPM, DOMINICK P Ot Z87.891 PERSONAL HISTORY OF NICOTINE DEPENDENCE 09/12/2017 NOVAK DPRishi, DOMINICK P Ot Z95.5 PRESENCE OF CORONARY ANGIOPLASTY IMPLANT 10/06/2017 MARILYN SOTO MD Ot E78. 00 PURE HYPERCHOLESTEROLEMIA, UNSPECIFIED 10/06/2017 MARILYN SOTO MD Ot I10 ESSENTIAL (PRIMARY) HYPERTENSION 10/06/2017 MARILYN SOTO MD Ot I25. 10 ATHSCL HEART DISEASE OF [place] CORONARY 10/06/2017 MARILYN SOTO MD Ot M79. 89 OTHER SPECIFIED SOFT TISSUE DISORDERS 10/06/2017 MARILYN SOTO MD Ot T81.89XA OTH COMPLICATIONS OF PROCEDURES, NEC, IN 10/06/2017 MARILYN SOTO MD Ot Z79. 82 SHELTER (CURRENT) USE OF ASPIRIN 10/06/2017 MARILYN SOTO MD Ot Z87. 19 PERSONAL HISTORY OF OTHER DISEASES OF TH 10/06/2017 MARILYN SOTO MD Ot Z87.442 PERSONAL HISTORY OF URINARY CALCULI 10/06/2017 MARILYN SOTO MD Ot Z95. 1 PRESENCE OF AORTOCORONARY BYPASS GRAFT 10/06/2017 MARILYN SOTO MD Ot Z95. 5 PRESENCE OF CORONARY ANGIOPLASTY IMPLANT 10/06/2017 MARILYN SOTO MD Ot Z96.653 PRESENCE OF ARTIFICIAL KNEE JOINT, BILAT 10/06/2017 MARILYN SOTO MD Ot Z98.890 OTHER SPECIFIED POSTPROCEDURAL STATES 10/08/2017 MARILYN SOTO MD Ot E78. 00 PURE HYPERCHOLESTEROLEMIA, UNSPECIFIED 10/08/2017 MARILYN SOTO MD Ot I10 ESSENTIAL (PRIMARY) HYPERTENSION 10/08/2017 MARILYN SOTO MD Ot I25. 10 ATHSCL HEART DISEASE OF [place] CORONARY 10/08/2017 MARILYN SOTO MD Ot M79. 89 OTHER SPECIFIED SOFT TISSUE DISORDERS 10/08/2017 MARILYN SOTO MD Ot T81.89XA OTH COMPLICATIONS OF PROCEDURES, NEC, IN 10/08/2017 MARILYN SOTO MD Ot Z79. 82 SHELTER (CURRENT) USE OF ASPIRIN 10/08/2017 MARILYN SOTO MD Ot Z87. 19 PERSONAL HISTORY OF OTHER DISEASES OF TH 10/08/2017 MARILYN SOTO MD Ot Z87.442 PERSONAL HISTORY OF URINARY CALCULI 10/08/2017 MARILYN SOTO MD Ot Z95. 1 PRESENCE OF AORTOCORONARY BYPASS GRAFT 10/08/2017 MARILYN SOTO MD Ot Z95. 5 PRESENCE OF CORONARY ANGIOPLASTY IMPLANT 10/08/2017 MARILYN [...] NOS TYPE VESSEL, NATIV 10/10/2017 Ot 592.1 CALC ULUS OF [place]RE[place] 10/10/2017 DELMAR HARDING MD Ot 592.1 CALCULUS OF [place] 10/10/2017 DELMAR HARDING MD Ot V72.8 1 [id number]-[id number] CARDIOVASCULAR 10/10/2017 DELMAR HARDING MD Ot V74.8 SCREEN-BACTERIAL DIS NEC 10/10/2017 YAMILE GRIGSBY MD Ot E78. 2 MIXED HYPERLIPIDEMIA 10/10/2017 YAMILE GRIGSBY MD Ot I25. 10 ATHSCL HEART DISEASE OF [place] CORONARY 10/10/2017 YAMILE GRIGSBY MD Ot I65. 23 OCCLUSION AND STENOSIS OF BILATERAL [place] 10/10/2017 YAMILE GRIGSBY MD Ot R07. 89 OTHER CHEST PAIN 10/10/2017 YAMILE GRIGSBY MD Ot E78. 2 MIXED HYPERLIPIDEMIA 10/10/2017 YAMILE GRIGSBY MD Ot I25. 10 ATHSCL HEART DISEASE OF [place] CORONARY 10/10/2017 YAMILE GRIGSBY MD Ot I65. 23 OCCLUSION AND STENOSIS OF BILATERAL [place] 10/10/2017 YAMILE GRIGSBY MD Ot R07. 89 OTHER CHEST PAIN 10/10/2017 MARINA HERNANDEZ Ot E78.2 MIXED HYPERLIPIDEMIA 10/10/2017 MARINA HERNANDEZ Ot I10 ESSENTIAL (PRIMARY) HYPERTENSION 10/10/2017 MARINA HERNANDEZ Ot 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 10/10/2017 MARINA HERNANDEZ Ot R07.89 OTHER CHEST PAIN 10/10/2017 MARINA HERNANDEZ Ot E78.2 MIXED HYPERLIPIDEMIA 10/10/2017 MARINA HERNANDEZ Ot I10 ESSENTIAL (PRIMARY) HYPERTENSION 10/10/2017 MARINA HERNANDEZ Ot 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 10/10/2017 OJ ESCALONA MARINA K Ot R07.89 OTHER CHEST PAIN 10/10/2017 MEHDI NIETO, DELMAR Roldan Ot Z87.4 42 PERSONAL HISTORY OF URINARY CALCULI 10/10/2017 GEOFFREY NIETO, AUDI Pierre Ot R07. 9 CHEST PAIN, UNSPECIFIED 10/10/2017 MARINA HERNANDEZ Ot E78.2 MIXED HYPERLIPIDEMIA 10/10/2017 MARINA HERNANDEZ Ot I10 ESSENTIAL (PRIMARY) HYPERTENSION 10/10/2017 OJ ESCALONA MARINA K Ot 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 10/10/2017 MARINA HERNANDEZ Ot R07.89 OTHER CHEST PAIN 10/10/2017 TOMAS MIX DC Ot M16. 0 BILATERAL PRIMARY OSTEOARTHRITIS OF HIP 10/10/2017 TOMAS MIX DC Ot M43. 28 FUSION OF SPINE, SACRAL AND SACROCOCCYGE 10/10/2017 TOMAS MIX DC Ot M43.8X6 OTHER SPECIFIED DEFORMING DORSOPATHIES, 10/10/2017 TOMAS MIX DC Ot M47.816 SPONDYLOSIS W/O MYELOPATHY OR RADICULOPA 10/10/2017 TOMAS MIX DC, Ot M51. 16 INTERVERTEBRAL DISC DISORDERS W RADICULO 10/11/2017 ELÍAS KASPER DO Ot M54.16 RADICULOPATHY, LUMBAR REGION 10/12/2017 MARILYN SOTO MD Ot E78. 00 PURE HYPERCHOLESTEROLEMIA, UNSPECIFIED 10/12/2017 MARILYN SOTO MD Ot I10 ESSENTIAL (PRIMARY) HYPERTENSION 10/12/2017 MARILYN SOTO MD Ot I25. 10 ATHSCL HEART DISEASE OF [place] CORONARY 10/12/2017 MARILYN SOTO MD Ot M79. 89 OTHER SPECIFIED SOFT TISSUE DISORDERS 10/12/2017 MARILYN SOTO MD Ot T81.89XA OTH COMPLICATIONS OF PROCEDURES, NEC, IN 10/12/2017 MARILYN SOTO MD Ot Z79. 82 SHELTER (CURRENT) USE OF ASPIRIN 10/12/2017 MARILYN SOTO MD Ot Z87. 19 PERSONAL HISTORY OF OTHER DISEASES OF 10/12/2017 MARILYN SOTO MD Ot Z87.442 PERSONAL HISTORY OF URINARY CALCULI 10/12/2017 MARILYN SOTO MD Ot Z95. 1 PRESENCE OF AORTOCORONARY BYPASS GRAFT 10/12/2017 MARILYN SOTO MD Ot Z95. 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 2 MIXED HYPERLIPIDEMIA 10/12/2017 YAMILE GRIGSBY MD Ot I25. 10 ATHSCL HEART DISEASE OF [place] CORONARY 10/12/2017 YAMILE GRIGSBY MD Ot I65. 23 OCCLUSION AND STENOSIS OF BILATERAL [place] 10/12/2017 YAMILE GRIGSBY MD Ot R07. 89 OTHER CHEST PAIN 10/12/2017 CALISTA NIETO, YAMILE Velasquez Ot E78. 2 MIXED HYPERLIPIDEMIA 10/12/2017 CALISTA NIETO, YAMILE Velasquez Ot I25. 10 ATHSCL HEART DISEASE OF [place] CORONARY 10/12/2017 CALISTA NIETO, YAMILE Velasquez Ot I65. 23 OCCLUSION AND STENOSIS OF BILATERAL [place] 10/12/2017 CALISTA NIETO, YAMILE Velasquez Ot R07. 89 OTHER CHEST PAIN 10/12/2017 HARMON-AMADA PA, MARINA K Ot E78.2 MIXED HYPERLIPIDEMIA 10/12/2017 HARMON-AMADA PA, MARINA K Ot I10 ESSENTIAL (PRIMARY) HYPERTENSION 10/12/2017 HARMON-AMADA PA, MARINA K Ot 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 10/12/2017 HARMON-AMADA PA, MARINA K Ot R07.89 OTHER CHEST PAIN 10/12/2017 HARMON-AMADA PA, MARINA K Ot E78.2 MIXED HYPERLIPIDEMIA 10/12/2017 HARMON-AMADA PA, MARINA K Ot I10 ESSENTIAL (PRIMARY) HYPERTENSION 10/12/2017 HARMON-AMADA PA, MARINA K Ot 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 10/12/2017 HARMON-AMADA PA, MARINA K Ot R07.89 OTHER CHEST PAIN 10/12/2017 MEHDI NIETO, DELMAR Roldan Ot Z87.4 42 PERSONAL HISTORY OF URINARY CALCULI 10/12/2017 GEOFFREY NIETO, AUDI Pierre Ot R07. 9 CHEST PAIN, UNSPECIFIED 10/12/2017 HARMON-AMADA PA, MARINA K Ot E78.2 MIXED HYPERLIPIDEMIA 10/12/2017 HARMON-AMADA PA, MARINA K Ot I10 ESSENTIAL (PRIMARY) HYPERTENSION 10/12/2017 HARMON-AMADA PA, MARINA K Ot 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 10/12/2017 HARMON-AMADA PA, MARINA K Ot R07.89 OTHER CHEST PAIN 10/12/2017 MARIA DEL ROSARIOMO MERRITT, TOMAS Velasquez Ot M16. 0 BILATERAL PRIMARY OSTEOARTHRITIS OF HIP 10/12/2017 MARIA DEL ROSARIOMO MERRITT, TOMAS Velasquez Ot M43. 28 FUSION OF SPINE, SACRAL AND SACROCOCCYGE 10/12/2017 MARIA DEL ROSARIO SHAINA, TOMAS Velasquez Ot M43.8X6 OTHER SPECIFIED DEFORMING DORSOPATHIES, 10/12/2017 TOMAS MIX DC Ot M47.816 SPONDYLOSIS W/O MYELOPATHY OR RADICULOPA 10/12/2017 TOMAS MIX DC, Ot M51. 16 INTERVERTEBRAL DISC DISORDERS W RADICULO 10/15/2017 YUNIMELINDA CARNEYELÍAS Ot M54.16 RADICULOPATHY, LUMBAR REGION 10/17/2017 TOMAS GANDHI MD, Ot E78.00 PURE HYPERCHOLESTEROLEMIA, UNSPECIFIED 10/17/2017 TOMAS GANDHI MD, Ot I10 ESSENTIAL (PRIMARY) HYPERTENSION 10/17/2017 TOMAS GANDHI MD Ot I25.10 ATHSCL HEART DISEASE OF [place] CORONARY 10/17/2017 TOMAS GANDHI MD, Ot N40.1 BENIGN PROSTATIC HYPERPLASIA WITH LOWER 10/17/2017 TOMAS GANDHI MD Ot R33.9 RETENTION OF URINE, UNSPECIFIED 10/17/2017 TOMAS GANDHI MD Ot R35.0 FREQUENCY OF MICTURITION 10/17/2017 TOMAS GANDHI MD Ot Z79.82 JAMMER HOOKER (CURRENT) USE OF ASPIRIN 10/17/2017 TOMAS GANDHI MD Ot Z87.19 PERSONAL HISTORY OF OTHER DISEASES OF TH 10/17/2017 TOMAS GANDHI MD, Ot Z87.442 PERSONAL HISTORY OF URINARY CALCULI [...] MD Ot I25.10 ATHSCL HEART DISEASE OF [place] CORONARY 10/19/2017 TOMAS GANDHI MD Ot N40.1 BENIGN PROSTATIC HYPERPLASIA WITH LOWER 10/19/2017 TOMAS GANDHI MD Ot R33.9 RETENTION OF URINE, UNSPECIFIED 10/19/2017 TOMAS GANDHI MD Ot R35.0 FREQUENCY OF MICTURITION 10/19/2017 TOMAS GANDHI MD Ot Z79.82 JAMMER HOOKER (CURRENT) USE OF ASPIRIN 10/19/2017 TOMAS GANDHI [...] MD Ot I25.10 ATHSCL HEART DISEASE OF [place] CORONARY 10/23/2017 TOMAS GANDHI MD Ot N40.1 BENIGN PROSTATIC HYPERPLASIA WITH LOWER 10/23/2017 TOMAS GANDHI MD Ot R33.9 RETENTION OF URINE, UNSPECIFIED 10/23/2017 TOMAS GANDHI MD Ot R35.0 FREQUENCY OF MICTURITION 10/23/2017 TOMAS GANDHI MD Ot Z79.82 JAMMER HOOKER (CURRENT) USE OF ASPIRIN 10/23/2017 TOMAS GANDHI MD Ot Z87.19 PERSONAL HISTORY OF OTHER DISEASES OF 10/23/2017 TOMAS GANDHI MD Ot Z87.442 PERSONAL HISTORY OF URINARY CALCULI 10/23/2017 TOAMS GANDHI MD Ot 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 BYPASS GRAFT 10/23/2017 TOMAS GANDHI MD Ot Z95.5 PRESENCE OF CORONARY ANGIOPLASTY IMPLANT 10/23/2017 TOMAS GANDHI MD Ot Z96.653 PRESENCE OF ARTIFICIAL KNEE JOINT, BILAT 11/11/2017 Ot E78.00 PUR E HYPERCHOLESTEROLEMIA, UNSPECIFIED 11/11/2017 Ot 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 11/11/2017 Ot I10 ESSENT IAL (PRIMARY) HYPERTENSION 11/11/2017 Ot I25.10 ATH SCL HEART DISEASE OF [place] CORONARY 11/11/2017 Ot M54.16 RAD ICULOPATHY, LUMBAR REGION 11/11/2017 Ot M79.672 PA IN IN LEFT FOOT 11/11/2017 Ot Z79.82 STARLA G TERM (CURRENT) USE OF ASPIRIN 11/11/2017 Ot Z87.19 PER MARCO A HISTORY OF OTHER DISEASES OF TH 11/11/2017 Ot Z87.442 PE RSONAL HISTORY OF URINARY CALCULI 11/11/2017 Ot Z95.1 PRES ENCE OF AORTOCORONARY BYPASS GRAFT 11/11/2017 Ot Z95.5 PRES ENCE OF CORONARY ANGIOPLASTY IMPLANT 11/11/2017 Ot Z96.653 NV ESENCE OF ARTIFICIAL KNEE JOINT, BILAT 12/12/2017 YAMILE GRIGSBY MD Ot E78. 2 MIXED HYPERLIPIDEMIA 12/12/2017 YAMILE GRIGSBY MD Ot I25. 10 ATHSCL HEART DISEASE OF [place] CORONARY 12/12/2017 YAMILE GRIGSBY MD Ot I65. 23 OCCLUSION AND STENOSIS OF BILATERAL [place] 12/12/2017 YAMILE GRIGSBY MD Ot R07. 89 OTHER CHEST PAIN 12/12/2017 YAMILE GRIGSBY MD Ot E78. 2 MIXED HYPERLIPIDEMIA 12/12/2017 YAMILE GRIGSBY MD Ot I25. 10 ATHSCL HEART DISEASE OF [place] CORONARY 12/12/2017 YAMILE GRIGSBY MD Ot I65. 23 OCCLUSION AND STENOSIS OF BILATERAL [place] 12/12/2017 YAMILE GRIGSBY MD Ot R07. 89 OTHER CHEST PAIN 12/12/2017 MARINA HERNANDEZ Ot E78.2 MIXED HYPERLIPIDEMIA 12/12/2017 MARINA HERNANDEZ Ot I10 ESSENTIAL (PRIMARY) HYPERTENSION 12/12/2017 MARINA HERNANDEZ Ot 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 12/12/2017 MARINA HERNANDEZ Ot R07.89 OTHER CHEST PAIN 12/12/2017 MARINA HERNANDEZ Ot E78.2 MIXED HYPERLIPIDEMIA 12/12/2017 MARINA HERNANDEZ Ot I10 ESSENTIAL (PRIMARY) HYPERTENSION 12/12/2017 MARINA HERNANDEZ Ot 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 12/12/2017 OJ ESCALONA, MARINA Mckeon Ot R07.89 OTHER CHEST PAIN 12/12/2017 MEHDI NIETO, DELMAR Roldan Ot Z87.4 42 PERSONAL HISTORY OF URINARY CALCULI 12/12/2017 GEOFFREY NIETO, AUDI Pierre Ot R07. 9 CHEST PAIN, UNSPECIFIED 12/12/2017 MARINA HERNANDEZ Ot E78.2 MIXED HYPERLIPIDEMIA 12/12/2017 MARINA HERNANDEZ Ot I10 ESSENTIAL (PRIMARY) HYPERTENSION 12/12/2017 OJ ESCALONA, MARINA Mckeon Ot 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 12/12/2017 OJ ESCALONA, MARINA Mckeon Ot R07.89 OTHER CHEST PAIN 12/12/2017 TOMAS MIX DC, Ot M16. 0 BILATERAL PRIMARY OSTEOARTHRITIS OF HIP 12/12/2017 TOMAS MIX DC, Ot M43. 28 FUSION OF SPINE, SACRAL AND SACROCOCCYGE 12/12/2017 TOMAS MIX DC Ot M43.8X6 OTHER SPECIFIED DEFORMING DORSOPATHIES, 12/12/2017 TOMAS MIX DC Ot M47.816 SPONDYLOSIS W/O MYELOPATHY OR RADICULOPA 12/12/2017 TOMAS MIX DC, Ot M51. 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, LUMBOSACRAL REGION 12/17/2017 ELÍAS AKSPER DO, Ot M46.87 OTH INFLAMMATORY SPONDYLOPATHIES, LUMBOS 12/17/2017 ELÍAS KASPER DO Ot M47.26 OTHER SPONDYLOSIS WITH RADICULOPATHY, JESSIE 12/17/2017 ELÍAS KASPER DO Ot M48.07 SPINAL STENOSIS, LUMBOSACRAL REGION 12/17/2017 ELÍAS KASPER DO, Ot M51.16 INTERVERTEBRAL DISC DISORDERS W RADICULO 12/17/2017 ELÍAS KASPER DO, Ot M99.73 CONN TISS AND DISC STENOS OF INTVRT FORA 12/29/2017 RIKI DOW APRN Ot E78.00 PURE HYPERCHOLESTEROLEMIA, UNSPECIFIED 12/29/2017 RIKI DOW APRN Ot I10 ESSENTIAL (PRIMARY) HYPERTENSION 12/29/2017 RIKI DOW APRN Ot I25.10 ATHSCL HEART DISEASE OF [place] CORONARY 12/29/2017 RIKI DOW APRN Ot K08.89 OTHER SPECIFIED DISORDERS OF TEETH AND S 12/29/2017 RIKI DOW APRN Ot Z79.82 JAMMER HOOKER (CURRENT) USE OF ASPIRIN 12/29/2017 RIKI DOW APRN Ot Z87.19 PERSONAL HISTORY OF OTHER DISEASES OF TH 12/29/2017 RIKI DOW APRN Ot Z87.442 PERSONAL HISTORY OF URINARY CALCULI 12/29/2017 RIKI DOW APRN Ot Z95 .1 PRESENCE OF AORTOCORONARY BYPASS GRAFT 12/29/2017 RIKI DOW APRN Ot Z95 .5 PRESENCE OF CORONARY ANGIOPLASTY IMPLANT 12/29/2017 RIKI DOW APRN Ot Z96.653 PRESENCE OF ARTIFICIAL KNEE JOINT, BILAT 12/31/2017 RIKI DOW APRN Ot E78.00 PURE HYPERCHOLESTEROLEMIA, UNSPECIFIED 12/31/2017 RIKI DOW APRN Ot I10 ESSENTIAL (PRIMARY) HYPERTENSION 12/31/2017 RIKI DOW APRN Ot I25.10 ATHSCL HEART DISEASE OF [place] CORONARY 12/31/2017 RIKI DOW APRN Ot K08.89 OTHER SPECIFIED DISORDERS OF TEETH AND S 12/31/2017 RIKI DOW APRN Ot Z79.82 JAMMER HOOKER (CURRENT) USE OF ASPIRIN 12/31/2017 RIKI DOW APRN Ot Z87.19 PERSONAL HISTORY OF OTHER DISEASES OF TH 12/31/2017 RIIK DOW APRN Ot Z87.442 PERSONAL HISTORY OF URINARY CALCULI 12/31/2017 RIKI DOW APRN Ot Z95 .1 PRESENCE OF AORTOCORONARY BYPASS GRAFT 12/31/2017 RIKI DOW APRN Ot Z95 .5 PRESENCE OF CORONARY ANGIOPLASTY IMPLANT 12/31/2017 RIKI DOW APRN Ot Z96.653 PRESENCE OF ARTIFICIAL KNEE JOINT, BILAT 01/03/2018 ELÍAS KASPER DO Ot 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 00 PURE HYPERCHOLESTEROLEMIA, UNSPECIFIED 02/10/2018 MARILYN SOTO MD Ot I10 ESSENTIAL (PRIMARY) HYPERTENSION 02/10/2018 MARILYN SOTO MD Ot I25. 10 ATHSCL HEART DISEASE OF [place] CORONARY 02/10/2018 MARILYN SOTO MD Ot M47.817 SPONDYLS W/O MYELOPATHY OR RADICULOPATHY 02/10/2018 MARILYN SOTO MD Ot R20. 2 PARESTHESIA OF SKIN 02/10/2018 MARILYN SOTO MD Ot Z79. 82 JAMMER HOOKER (CURRENT) USE OF ASPIRIN 02/10/2018 MARILYN SOTO MD Ot Z87. 19 PERSONAL HISTORY OF OTHER DISEASES OF TH 02/10/2018 MARILYN SOTO MD Ot Z87.442 PERSONAL HISTORY OF URINARY CALCULI 02/10/2018 MARILYN SOTO MD Ot Z87.448 PERSONAL HISTORY OF OTHER DISEASES OF UR 02/10/2018 MARILYN SOTO MD Ot Z95. 1 PRESENCE OF AORTOCORONARY BYPASS GRAFT 02/10/2018 MARILYN SOTO MD Ot Z95. 5 PRESENCE OF CORONARY ANGIOPLASTY IMPLANT 02/10/2018 MARILYN SOTO MD Ot Z96.653 PRESENCE OF ARTIFICIAL KNEE JOINT, BILAT 02/12/2018 MARILYN SOTO MD Ot E78. 00 PURE HYPERCHOLESTEROLEMIA, UNSPECIFIED 02/12/2018 MARILYN SOTO MD Ot I10 ESSENTIAL (PRIMARY) HYPERTENSION 02/12/2018 MARILYN SOTO MD Ot I25. 10 ATHSCL HEART DISEASE OF [place] CORONARY 02/12/2018 MARILYN SOTO MD Ot M47.817 SPONDYLS W/O MYELOPATHY OR RADICULOPATHY 02/12/2018 MARILYN SOTO MD Ot R20. 2 PARESTHESIA OF SKIN 02/12/2018 MARILYN SOTO MD Ot Z79. 82 JAMMER HOOKER (CURRENT) USE OF ASPIRIN 02/12/2018 MARLIYN SOTO MD Ot Z87. 19 PERSONAL HISTORY OF OTHER DISEASES OF TH 02/12/2018 MARILYN SOTO MD Ot Z87.442 PERSONAL HISTORY OF URINARY CALCULI 02/12/2018 MARILYN SOTO MD Ot Z87.448 PERSONAL HISTORY OF OTHER DISEASES OF UR 02/12/2018 MARILYN SOTO MD Ot Z95. 1 PRESENCE OF AORTOCORONARY BYPASS GRAFT 02/12/2018 MARILYN SOTO MD Ot Z95. 5 PRESENCE OF CORONARY ANGIOPLASTY IMPLANT 02/12/2018 MARILYN SOTO MD Ot Z96.653 PRESENCE OF ARTIFICIAL KNEE JOINT, BILAT 02/16/2018 MARILYN SOTO MD Ot E78. 00 PURE HYPERCHOLESTEROLEMIA, UNSPECIFIED 02/16/2018 MARILYN SOTO MD Ot I10 ESSENTIAL (PRIMARY) HYPERTENSION 02/16/2018 MARILYN SOTO MD Ot I25. 10 ATHSCL HEART DISEASE OF [place] CORONARY 02/16/2018 MARILYN SOTO MD Ot M47.817 SPONDYLS W/O MYELOPATHY OR RADICULOPATHY 02/16/2018 MARILYN SOTO MD Ot R20. 2 PARESTHESIA OF SKIN 02/16/2018 MARILYN SOTO MD Ot Z79. 82 JAMMER HOOKER (CURRENT) USE OF ASPIRIN 02/16/2018 MARILYN SOTO MD Ot Z87. 19 PERSONAL HISTORY OF OTHER DISEASES OF TH 02/16/2018 MARILYN SOTO MD Ot Z87.442 PERSONAL HISTORY OF URINARY CALCULI 02/16/2018 MARILYN SOTO MD Ot Z87.448 PERSONAL HISTORY OF OTHER DISEASES OF UR 02/16/2018 MARILYN SOTO MD Ot Z95. 1 PRESENCE OF AORTOCORONARY BYPASS GRAFT 02/16/2018 MARILYN SOTO MD Ot Z95. 5 PRESENCE OF CORONARY ANGIOPLASTY IMPLANT 02/16/2018 MARILYN SOTO MD Ot Z96.653 PRESENCE OF ARTIFICIAL KNEE JOINT, BILAT 05/23/2018 MARINA HERNANDEZ Ot E78.5 HYPERLIPIDEMIA, UNSPECIFIED 05/23/2018 MARINA HERNANDEZ Ot I25.10 ATHSCL HEART DISEASE OF [place] CORONARY 05/23/2018 MARINA HERNANDEZ Ot R07.89 OTHER CHEST PAIN 06/14/2018 MARINA HERNANDEZ Ot E78.5 HYPERLIPIDEMIA, UNSPECIFIED 06/14/2018 MARINA HERNANDEZ Ot I25.10 ATHSCL HEART DISEASE OF [place] CORONARY 06/14/2018 MARINA HERNANDEZ Ot R07.89 OTHER CHEST PAIN 09/25/2018 RIKI DOW APRN Ot E78.00 PURE HYPERCHOLESTEROLEMIA, UNSPECIFIED 09/25/2018 RIKI DOW APRN Ot I10 ESSENTIAL (PRIMARY) HYPERTENSION 09/25/2018 RIKI DOW APRN Ot I25.10 ATHSCL HEART DISEASE OF [place] CORONARY 09/25/2018 RIKI DOW APRN Ot M25.671 STIFFNESS OF RIGHT ANKLE, NOT ELSEWHERE 09/25/2018 RIKI DOW APRN Ot M25.672 STIFFNESS OF LEFT ANKLE, NOT ELSEWHERE C 09/25/2018 RIKI DOW APRN Ot N40 .0 BENIGN PROSTATIC HYPERPLASIA WITHOUT LOW 09/25/2018 RIKI DOW APRN Ot Z79.82 JAMMER HOOKER (CURRENT) USE OF ASPIRIN 09/25/2018 RIKI DOW APRN Ot Z87.19 PERSONAL HISTORY OF OTHER DISEASES OF TH 09/25/2018 RIKI DOW APRN Ot Z87.442 PERSONAL HISTORY OF URINARY CALCULI 09/25/2018 RIKI DOW APRN Ot Z87.81 PERSONAL HISTORY OF (HEALED) TRAUMATIC F 09/25/2018 RIKI DOW APRN Ot Z95 .1 PRESENCE OF AORTOCORONARY BYPASS GRAFT 09/25/2018 RIKI DOW APRN Ot Z96.653 PRESENCE OF ARTIFICIAL KNEE JOINT, BILAT 09/27/2018 RIKI DOW APRN Ot E78.00 PURE HYPERCHOLESTEROLEMIA, UNSPECIFIED 09/27/2018 RIKI DOW APRN Ot I10 ESSENTIAL (PRIMARY) HYPERTENSION 09/27/2018 RIKI DOW APRN Ot I25.10 ATHSCL HEART DISEASE OF [place] CORONARY 09/27/2018 RIKI DOW APRN Ot M25.671 STIFFNESS OF RIGHT ANKLE, NOT ELSEWHERE 09/27/2018 RIKI DOW APRN Ot M25.672 STIFFNESS OF LEFT ANKLE, NOT ELSEWHERE C 09/27/2018 RIKI DOW APRN Ot N40 .0 BENIGN PROSTATIC HYPERPLASIA WITHOUT LOW 09/27/2018 RIKI DOW APRN Ot Z79.82 JAMMER HOOKER (CURRENT) USE OF ASPIRIN 09/27/2018 RIKI DOW APRN Ot Z87.19 PERSONAL HISTORY OF OTHER DISEASES OF TH 09/27/2018 RIKI DOW APRN Ot Z87.442 PERSONAL HISTORY OF URINARY CALCULI 09/27/2018 RIKI DOW APRN Ot Z87.81 PERSONAL HISTORY OF (HEALED) TRAUMATIC F 09/27/2018 RIKI DOW APRN Ot Z95 .1 PRESENCE OF AORTOCORONARY BYPASS GRAFT 09/27/2018 RIKI DOW APRN Ot Z96.653 PRESENCE OF ARTIFICIAL KNEE JOINT, BILAT 12/28/2018 TOMAS GANDHI MD Ot E78.00 PURE HYPERCHOLESTEROLEMIA, UNSPECIFIED 12/28/2018 TOMAS GANDHI MD Ot I10 ESSENTIAL (PRIMARY) HYPERTENSION 12/28/2018 TOMAS GANDHI MD Ot I25.10 ATHSCL HEART DISEASE OF [place] CORONARY 12/28/2018 TOMAS GANDHI MD Ot N39.0 URINARY TRACT INFECTION, SITE NOT SPECIF 12/28/2018 TOMAS GANDHI MD Ot R25.2 CRAMP AND SPASM 12/28/2018 TOMAS GANDHI MD Ot Z87.442 PERSONAL HISTORY OF URINARY CALCULI 12/28/2018 TOMAS GANDHI MD Ot 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 BYPASS GRAFT 12/28/2018 TOMAS GANDHI MD Ot Z96.653 PRESENCE OF ARTIFICIAL KNEE JOINT, BILAT 12/31/2018 TOMAS GANDHI MD Ot E78.00 PURE HYPERCHOLESTEROLEMIA, UNSPECIFIED 12/31/2018 TOMAS GANDHI MD Ot I10 ESSENTIAL (PRIMARY) HYPERTENSION 12/31/2018 TOMAS GANDHI MD Ot I25.10 ATHSCL HEART DISEASE OF [place] CORONARY 12/31/2018 TOMAS GANDHI MD Ot N39.0 URINARY TRACT INFECTION, SITE NOT SPECIF 12/31/2018 TOMAS GANDHI MD Ot R25.2 CRAMP AND SPASM 12/31/2018 TOMAS GANDHI MD Ot Z87.442 PERSONAL HISTORY OF URINARY CALCULI 12/31/2018 TOMAS GANDHI MD Ot 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 BYPASS GRAFT 12/31/2018 TOMAS GANDHI MD Ot Z96.653 PRESENCE OF ARTIFICIAL KNEE JOINT, BILAT 04/03/2019 ANJELICA NIETO, TRACY Holder Ot E78. 00 PURE HYPERCHOLESTEROLEMIA, UNSPECIFIED 04/03/2019 ANJELICA NIETO, TRACY Holder Ot I10 ESSENTIAL (PRIMARY) HYPERTENSION 04/03/2019 ANJELICA NIETO, TRACY Holder Ot I25. 10 ATHSCL HEART DISEASE OF [place] CORONARY 04/03/2019 TRACY DEJESUS MD Ot I48. 91 UNSPECIFIED ATRIAL FIBRILLATION 04/03/2019 TRACY DEJESUS MD Ot R07. 89 OTHER CHEST PAIN 04/03/2019 ANJELICA NIETO, TRACY Holder Ot Z87.442 PERSONAL HISTORY OF URINARY CALCULI 04/03/2019 TRACY DEJESUS MD Ot Z95. 1 PRESENCE OF AORTOCORONARY BYPASS GRAFT 04/03/2019 TRACY DEJESUS MD Ot Z96.653 PRESENCE OF ARTIFICIAL KNEE JOINT, BILAT 04/11/2019 ANJELICA NIETO, TRACY Holder Ot E78. 00 PURE HYPERCHOLESTEROLEMIA, UNSPECIFIED 04/11/2019 ANJELICA NIETO, TRACY Holder Ot I10 ESSENTIAL (PRIMARY) HYPERTENSION 04/11/2019 ANJELICA NIETO, TRACY Holder Ot I25. 10 ATHSCL HEART DISEASE OF [place] CORONARY 04/11/2019 TRACY DEJESUS MD Ot I48. 91 UNSPECIFIED ATRIAL FIBRILLATION 04/11/2019 TRACY DEJESUS MD Ot R07. 89 OTHER CHEST PAIN 04/11/2019 ANJELICA NIETO, TRACY Holder Ot Z87.442 PERSONAL HISTORY OF URINARY CALCULI 04/11/2019 ANJELICA NIETO, TRACY Holder Ot Z95. 1 PRESENCE OF AORTOCORONARY BYPASS GRAFT 04/11/2019 TRACY DEJESUS MD Ot Z96.653 PRESENCE OF ARTIFICIAL KNEE JOINT, BILAT Procedures There is no data. Results Test Result Range Complete urinalysis with reflex to cultu re - 01/13/16 07:15 Urine color determination YELLOW NRG Urine clarity determination CLEAR NR G Urine pH measurement by test strip 5 5-9 Specific gravity of urine by test strip 1.030 1.016-1.022 Urine protein assay by test strip, semi-quantitative 2+ NEGATIVE Urine glucose detection by automated test strip NE GATIVE NEGATIVE Erythrocytes detection in urine sediment by light micr oscopy 1+ NEGATIVE Urine ketones detection by automated test strip NE GATIVE NEGATIVE Urine nitrite detection by test strip NEGATIVE NEGATIVE Urine total bilirubin detection by test strip 1+ NEGATIVE Urine urobilinogen measurement by automated test strip (mass/volume) 1 mg/dL NORMAL Urine leukocyte esterase detection by dipstick 1+ NEGATIVE Automated urine sediment erythrocyte cou nt by microscopy (number/high power field) NONE NRG Automated urine sediment leukocyte count by microscopy (number/high power field) [HPF] NRG Bacteria detection in urine sediment by light microsco py TRACE NRG Squamous epithelial cells detection in u rine sediment by light microscopy RARE NRG Crystals detection in urine sediment by light microsco py PRESENT NRG Casts detection in urine sediment by light microscopy PRESENT NRG Mucus detection in urine sediment by light microscopy SMALL NRG Complete urinalysis with reflex to culture YES NRG Yeast detection in urine sediment by light microscopy FEW NRG Hyaline casts detection in urine sediment by light fer roscopy 2-5 NRG Calcium oxalate crystals detection in ur ine sediment by light microscopy MODERATE NRG Bacterial urine culture - 01/13/16 07:15 Bacterial urine culture [id number] NRG COLONY COUNT <10,000 NRG Complete blood count (CBC) with automate d white blood cell (WBC) differential - 01/13/16 07:57 Blood leukocytes automated count (number/volume) 7.0 10*3/uL 4.3-11.0 Blood erythrocytes automated count (number/volume) 4.63 10*6/uL 4.35-5.85 Venous blood hemoglobin measurement (mass/volume) 14.1 g/dL 13.3-17.7 Blood hematocrit (volume fraction) 41 % 40-54 Automated erythrocyte mean corpuscular volume 89 [ foz_us] 80-99 Automated erythrocyte mean corpuscular h emoglobin (mass per erythrocyte) 31 pg 25-34 Automated erythrocyte mean corpuscular h emoglobin concentration measurement (mass/volume) 34 g/dL 32-36 Automated erythrocyte distribution width ratio 12. 9 % 10.0- 14.5 Automated blood platelet count (count/volume) 171 10*3/uL [...] 10*3 1.0-4.0 Blood monocytes automated count (number/volume) 0. 7 10*3 0.0-1.0 Automated eosinophil count 0.2 10*3/uL 0 .0-0.3 Automated blood basophil count (count/volume) 0.0 10*3/uL 0.0-0.1 Comprehensive metabolic panel - 01/13/16 07:57 Serum or plasma sodium measurement (moles/volume) 140 mmol/L 135-145 Serum or plasma potassium measurement (moles/volume) 4.1 mmol/L 3.6-5.0 Serum or plasma chloride measurement (moles/volume) 110 mmol/L 98-107 Carbon dioxide 22 mmol/L 21-32 Serum or plasma anion gap determination (moles/volume) 8 mmol/L 5-14 Serum or plasma urea nitrogen measurement (mass/volume ) 19 mg/dL 7-18 Serum or plasma creatinine measurement (mass/volume) 1.03 mg/dL 0.60-1.30 Serum or plasma urea nitrogen/creatinine mass ratio 18 NRG Serum or plasma creatinine measurement w ith calculation of estimated glomerular filtration rate > NRG Serum or plasma glucose measurement (mass/volume) 114 mg/dL 70-105 Serum or plasma calcium measurement (mass/volume) 8.8 mg/dL 8.5-10.1 Serum or plasma total bilirubin measurement (mass/volu me) 0.7 mg/dL 0.1-1.0 Serum or plasma alkaline phosphatase karlo surement (enzymatic activity/volume) 52 U/L 40-136 Serum or plasma aspartate aminotransfera se measurement (enzymatic activity/volume) 27 U/L 5-34 Serum or plasma alanine aminotransferase measurement (enzymatic activity/volume) 29 U/L 0-55 Serum or plasma protein [...] 5-14 Serum or plasma urea nitrogen measurement (mass/volume ) 18 mg/dL 7-18 Serum or plasma creatinine measurement (mass/volume) 1.15 mg/dL 0.60-1.30 Serum or plasma urea nitrogen/creatinine mass ratio 16 NRG Serum or plasma creatinine measurement w ith calculation of estimated glomerular filtration rate > NRG Serum or plasma glucose measurement (mass/volume) 137 mg/dL 70-105 Serum or plasma calcium measurement (mass/volume) 8.8 mg/dL 8.5-10.1 Serum or plasma total bilirubin measurement (mass/volu me) 1.0 mg/dL 0.1-1.0 Serum or plasma alkaline phosphatase karlo surement (enzymatic activity/volume) 59 U/L 40-136 Serum or plasma aspartate aminotransfera se measurement (enzymatic activity/volume) 25 U/L 5-34 Serum or plasma alanine aminotransferase measurement (enzymatic activity/volume) 23 U/L 0-55 Serum or plasma protein measurement (mass/volume) 6.4 g/dL 6.4-8.2 Serum or plasma albumin measurement (mass/volume) 4.1 g/dL 3.2-4.5 Complete urinalysis with reflex to cultu re - 12/07/16 15:50 Urine color determination YELLOW NRG Urine clarity determination SLIGHTLY CLOUDY NRG Urine pH measurement by test strip 6.5 5-9 Specific gravity of urine by test strip 1.015 1.016-1.022 Urine protein assay by test strip, semi-quantitative 1+ NEGATIVE Urine glucose detection by automated test strip NE GATIVE NEGATIVE Erythrocytes detection in urine sediment by light micr oscopy 5+ NEGATIVE Urine ketones detection by automated test strip 3+ NEGATIVE Urine nitrite detection by test strip NEGATIVE NEGATIVE Urine total bilirubin detection by test strip NEGA TIVE NEGATIVE Urine urobilinogen measurement by automated test strip (mass/volume) NORMAL NORMAL Urine leukocyte esterase detection by dipstick NEG ATIVE NEGATIVE Automated urine sediment erythrocyte cou nt by microscopy (number/high power field) [HPF] NRG Automated urine sediment leukocyte count by microscopy (number/high power field) NONE NRG Bacteria detection in urine sediment by light microsco py NONE NRG Crystals detection in urine sediment by light microsco py NONE NRG Casts detection in urine sediment by light microscopy NONE NRG Mucus detection in urine sediment by light microscopy NEGATIVE NRG Complete urinalysis with reflex to culture NO NRG Automated blood complete blood count (he mogram) panel - 12/07/16 16:05 Blood leukocytes automated count (number/volume) 17.9 10*3/uL 4.3-11.0 Blood erythrocytes automated count (number/volume) 4.40 10*6/uL 4.35-5.85 Venous blood hemoglobin measurement (mass/volume) 13.4 g/dL 13.3-17.7 Blood hematocrit (volume fraction) 40 % 40-54 Automated erythrocyte mean corpuscular volume 90 [ foz_us] 80-99 Automated erythrocyte mean corpuscular h emoglobin (mass per erythrocyte) 31 pg 25-34 Automated erythrocyte mean corpuscular h emoglobin concentration measurement (mass/volume) 34 g/dL 32-36 Automated erythrocyte distribution width ratio 13. 0 % 10.0- 14.5 Automated blood platelet count (count/volume) 168 10*3/uL 130-400 Automated blood platelet mean volume measurement 9.9 [foz_us] 7.4-10.4 PT panel in platelet poor plasma by coag ulation assay - 12/07/16 16:05 Prothrombin time (PT) in platelet poor plasma by coagu lation assay 14.7 s 12.2-14.7 INR in platelet poor plasma or blood by coagulation as say 1.1 0.8-1.4 Activated partial thromboplastin time (a PTT) in platelet poor plasma bycoagulation assay - 12/07/16 16:05 Activated partial thromboplastin time (a PTT) in platelet poor plasma bycoagulation assay 27 s 24-35 Complete urinalysis with reflex to cultu re - 12/09/16 00:50 Urine color determination YELLOW NRG Urine clarity determination CLEAR NR G Urine pH measurement by test strip 5 5-9 Specific gravity of urine by test strip 1.015 1.016-1.022 Urine protein assay by test strip, semi-quantitative NEGATIVE NEGATIVE Urine glucose detection by automated test strip NE GATIVE NEGATIVE Erythrocytes detection in urine sediment by light micr oscopy 4+ NEGATIVE Urine ketones detection by automated test strip NE GATIVE NEGATIVE Urine nitrite detection by test strip NEGATIVE NEGATIVE Urine total bilirubin detection by test strip NEGA TIVE NEGATIVE Urine urobilinogen measurement by automated test strip (mass/volume) NORMAL NORMAL Urine leukocyte esterase detection by dipstick NEG ATIVE NEGATIVE Automated urine sediment erythrocyte cou nt by microscopy (number/high power field) [HPF] NRG Automated urine sediment leukocyte count by microscopy (number/high power field) NONE NRG Bacteria detection in urine sediment by light microsco py NEGATIVE NRG Crystals detection in urine sediment by light microsco py NONE NRG Casts detection in urine sediment by light microscopy NONE NRG Mucus detection in urine sediment by light microscopy NEGATIVE NRG Complete urinalysis with reflex to culture NO NRG Methicillin resistant Staphylococcus aur eus (MRSA) screening culture - 09/03/17 09:37 Methicillin resistant Staphylococcus aureus (MRSA) scr eening culture NEG NRG Complete urinalysis with reflex to cultu re - 10/17/17 05:45 Urine color determination YELLOW NRG Urine clarity determination CLEAR NR G Urine pH measurement by test strip 6.5 5-9 Specific gravity of urine by test strip 1.010 1.016-1.022 Urine protein assay by test strip, semi-quantitative NEGATIVE NEGATIVE Urine glucose detection by automated test strip NE GATIVE NEGATIVE Erythrocytes detection in urine sediment by light micr oscopy NEGATIVE NEGATIVE Urine ketones detection by automated test strip NE GATIVE NEGATIVE Urine nitrite detection by test strip NEGATIVE NEGATIVE Urine total bilirubin detection by test strip NEGA TIVE NEGATIVE Urine urobilinogen measurement by automated test strip (mass/volume) NORMAL NORMAL Urine leukocyte esterase detection by dipstick NEG ATIVE NEGATIVE Automated urine sediment erythrocyte cou nt by microscopy (number/high power field) NONE NRG Automated urine sediment leukocyte count by microscopy (number/high power field) RARE NRG Bacteria detection in urine sediment by light microsco py TRACE NRG Squamous epithelial cells detection in u rine sediment by light microscopy RARE NRG Crystals detection in urine sediment by light microsco py NONE NRG Casts detection in urine sediment by light microscopy NONE NRG Mucus detection in urine sediment by light microscopy NEGATIVE NRG Complete urinalysis with reflex to culture NO NRG Complete blood count (CBC) with automate d white blood cell (WBC) differential - 02/10/18 13:48 Blood leukocytes automated count (number/volume) 7.3 10*3/uL 4.3-11.0 Blood erythrocytes automated count (number/volume) 4.23 10*6/uL 4.35-5.85 Venous blood hemoglobin measurement (mass/volume) 13.0 g/dL 13.3-17.7 Blood hematocrit (volume fraction) 38 % 40-54 Automated erythrocyte mean corpuscular volume 91 [ foz_us] 80-99 Automated erythrocyte mean corpuscular h emoglobin (mass per erythrocyte) 31 pg 25-34 Automated erythrocyte mean corpuscular h emoglobin concentration measurement (mass/volume) 34 g/dL 32-36 Automated erythrocyte distribution width ratio 12. 5 % 10.0- 14.5 Automated blood platelet count (count/volume) 186 10*3/uL 130-400 Automated blood platelet mean volume measurement 9.5 [foz_us] 7.4-10.4 Automated blood neutrophils/100 leukocytes 72 % 42-75 Automated blood lymphocytes/100 leukocytes 18 % 12-44 Blood monocytes/100 leukocytes 8 % 0-12 Automated blood eosinophils/100 leukocytes 1 % 0-10 Automated blood basophils/100 leukocytes 0 % 0-10 Blood neutrophils automated count (number/volume) 5.3 10*3 1.8-7.8 Blood lymphocytes automated count (number/volume) 1.3 10*3 1.0-4.0 Blood monocytes automated count (number/volume) 0. 6 10*3 0.0-1.0 Automated eosinophil count 0.1 10*3/uL 0 .0-0.3 Automated blood basophil count (count/volume) 0.0 10*3/uL 0.0-0.1 Comprehensive metabolic panel - 02/10/18 13:48 Serum or plasma sodium measurement (moles/volume) 141 mmol/L 135-145 Serum or plasma potassium measurement (moles/volume) 3.7 mmol/L 3.6-5.0 Serum or plasma chloride measurement (moles/volume) 109 mmol/L 98-107 Carbon dioxide 21 mmol/L 21-32 Serum or plasma anion gap determination (moles/volume) 11 mmol/L 5-14 Serum or plasma urea nitrogen measurement (mass/volume ) 20 mg/dL 7-18 Serum or plasma creatinine measurement (mass/volume) 0.82 mg/dL 0.60-1.30 Serum or plasma urea nitrogen/creatinine mass ratio 24 NRG Serum or plasma creatinine measurement w ith calculation of estimated glomerular filtration rate > NRG Serum or plasma glucose measurement (mass/volume) 143 mg/dL 70-105 Serum or plasma calcium measurement (mass/volume) 9.2 mg/dL 8.5-10.1 Serum or plasma total bilirubin measurement (mass/volu me) 0.6 mg/dL 0.1-1.0 Serum or plasma alkaline phosphatase karlo surement (enzymatic activity/volume) 52 U/L 40-136 Serum or plasma aspartate aminotransfera se measurement (enzymatic activity/volume) 26 U/L 5-34 Serum or plasma alanine aminotransferase measurement (enzymatic activity/volume) 28 U/L 0-55 Serum or plasma protein measurement (mass/volume) 6.4 g/dL 6.4-8.2 Serum or plasma albumin measurement (mass/volume) 4.0 g/dL 3.2-4.5 CALCIUM CORRECTED 9.2 mg/dL 8.5-10.1 Serum or plasma lithium measurement (mol es/volume) - 02/10/18 13:48 BNP level 94.3 pg/mL <100.0 Complete blood count (CBC) with automate d white blood cell (WBC) differential - 12/28/18 09:28 Blood leukocytes automated count (number/volume) 7.3 10*3/uL 4.3-11.0 Blood erythrocytes automated count (number/volume) 4.85 10*6/uL 4.35-5.85 Venous blood hemoglobin measurement (mass/volume) 14.8 g/dL 13.3-17.7 Blood hematocrit (volume fraction) 43 % 40-54 Automated erythrocyte mean corpuscular volume 89 [ foz_us] 80-99 Automated erythrocyte mean corpuscular h emoglobin (mass per erythrocyte) 31 pg 25-34 Automated erythrocyte mean corpuscular h emoglobin concentration measurement (mass/volume) 35 g/dL 32-36 Automated erythrocyte distribution width ratio 13. 0 % 10.0- 14.5 Automated blood platelet count (count/volume) 211 10*3/uL 130-400 Automated blood platelet mean volume measurement 9.6 [foz_us] 7.4-10.4 Automated blood neutrophils/100 leukocytes 70 % 42-75 Automated blood lymphocytes/100 leukocytes 20 % 12-44 Blood monocytes/100 leukocytes 8 % 0-12 Automated blood eosinophils/100 leukocytes 1 % 0-10 Automated blood basophils/100 leukocytes 1 % 0-10 Blood neutrophils automated count (number/volume) 5.1 10*3 1.8-7.8 Blood lymphocytes automated count (number/volume) 1.5 10*3 1.0-4.0 Blood monocytes automated count (number/volume) 0. 6 10*3 0.0-1.0 Automated eosinophil count 0.1 10*3/uL 0 .0-0.3 Automated blood basophil count (count/volume) 0.0 10*3/uL 0.0-0.1 Comprehensive metabolic panel - 12/28/18 09:28 Serum or plasma sodium measurement (moles/volume) 140 mmol/L 135-145 Serum or plasma potassium measurement (moles/volume) 5.2 mmol/L 3.6-5.0 Serum or plasma chloride measurement (moles/volume) 108 mmol/L 98-107 Carbon dioxide 24 mmol/L 21-32 Serum or plasma anion gap determination (moles/volume) 8 mmol/L 5-14 Serum or plasma urea nitrogen measurement (mass/volume ) 20 mg/dL 7-18 Serum or plasma creatinine measurement (mass/volume) 1.09 mg/dL 0.60-1.30 Serum or plasma urea nitrogen/creatinine mass ratio 18 NRG Serum or plasma creatinine measurement w ith calculation of estimated glomerular filtration rate > NRG Serum or plasma glucose measurement (mass/volume) 142 mg/dL 70-105 Serum or plasma calcium measurement (mass/volume) 9.1 mg/dL 8.5-10.1 Serum or plasma total bilirubin measurement (mass/volu me) 0.9 mg/dL 0.1-1.0 Serum or plasma alkaline phosphatase karlo surement (enzymatic activity/volume) 74 U/L 40-136 Serum or plasma aspartate aminotransfera se measurement (enzymatic activity/volume) 38 U/L 5-34 Serum or plasma alanine aminotransferase measurement (enzymatic activity/volume) 30 U/L 0-55 Serum or plasma protein measurement (mass/volume) 7.5 g/dL 6.4-8.2 Serum or plasma albumin measurement (mass/volume) 4.2 g/dL 3.2-4.5 CALCIUM CORRECTED 8.9 mg/dL 8.5-10.1 Serum or plasma C reactive protein measu rement (mass/volume) - 12/28/18 09:28 Serum or plasma C reactive protein measurement (mass/v olume) 0.07 mg/dL 0.00-0.50 Erythrocyte sedimentation rate by fabricio gren method - 12/28/18 09:28 Erythrocyte sedimentation rate by westergren method 7 mm 0- 30 Complete urinalysis with reflex to cultu re - 12/28/18 09:54 Urine color determination YELLOW NRG Urine clarity determination SLIGHTLY CLOUDY NRG Urine pH measurement by test strip 7 5-9 Specific gravity of urine by test strip 1.015 1.016-1.022 Urine protein assay by test strip, semi-quantitative NEGATIVE NEGATIVE Urine glucose detection by automated test strip NE GATIVE NEGATIVE Erythrocytes detection in urine sediment by light micr oscopy NEGATIVE NEGATIVE Urine ketones detection by automated test strip NE GATIVE NEGATIVE Urine nitrite detection by test strip NEGATIVE NEGATIVE Urine total bilirubin detection by test strip NEGA TIVE NEGATIVE Urine urobilinogen measurement by automated test strip (mass/volume) NORMAL NORMAL Urine leukocyte esterase detection by dipstick 2+ NEGATIVE Automated urine sediment erythrocyte cou nt by microscopy (number/high power field) NONE NRG Automated urine sediment leukocyte count by microscopy (number/high power field) [HPF] NRG Bacteria detection in urine sediment by light microsco py LARGE NRG Squamous epithelial cells detection in u rine sediment by light microscopy 0-2 NRG Crystals detection in urine sediment by light microsco py PRESENT NRG Casts detection in urine sediment by light microscopy NONE NRG Mucus detection in urine sediment by light microscopy NEGATIVE NRG Complete urinalysis with reflex to culture YES NRG Amorphous sediment detection in urine sediment by ligh t microscopy FEW CLAUDIO PHOSPHATE NRG Bacterial urine culture - 12/28/18 09:54 Bacterial urine culture GRAM POS M NRG COLONY COUNT >100,000/ML NRG FTX;REPORTABLE SUSCEPTIBILITY REPORTED 12/31/18 9:3 5 NRG Dirithromycin susceptibility test by dis k diffusion - 12/28/18 09:54 Gentamicin susceptibility test by minimum inhibitory c oncentration <= NRG Trimethoprim/sulfamethoxazole susceptibi lity test by minimum inhibitoryconcentration <= NRG Levofloxacin susceptibility test by minimum inhibitory concentration <= NRG Ampicillin susceptibility test by minimum inhibitory c oncentration > NRG Cefazolin susceptibility test by minimum inhibitory co ncentration 4 NRG Ceftriaxone susceptibility test by minimum inhibitory concentration <= NRG Ciprofloxacin susceptibility test by minimum inhibitor y concentration 1 NRG Meropenem susceptibility test by minimum inhibitory co ncentration <= NRG Nitrofurantoin susceptibility test by mi nimum inhibitory concentration <= NRG Amoxicillin and clavulanate potassium susc FER = NRG Complete blood count (CBC) with automate d white blood cell (WBC) differential - 04/03/19 08:09 Blood leukocytes automated count (number/volume) 6.0 10*3/uL 4.3-11.0 Blood erythrocytes automated count (number/volume) 4.38 10*6/uL 4.35-5.85 Venous blood hemoglobin measurement (mass/volume) 13.2 g/dL 13.3-17.7 Blood hematocrit (volume fraction) 39 % 40-54 Automated erythrocyte mean corpuscular volume 90 [ foz_us] 80-99 Automated erythrocyte mean corpuscular h emoglobin (mass per erythrocyte) 30 pg 25-34 Automated erythrocyte mean corpuscular h emoglobin concentration measurement (mass/volume) 34 g/dL 32-36 Automated erythrocyte distribution width ratio 13. 1 % 10.0- 14.5 Automated blood platelet count (count/volume) 188 10*3/uL 130-400 Automated blood platelet mean volume measurement 9.6 [foz_us] 7.4-10.4 Automated blood neutrophils/100 leukocytes 64 % 42-75 Automated blood lymphocytes/100 leukocytes 23 % 12-44 Blood monocytes/100 leukocytes 11 % 0-12 Automated blood eosinophils/100 leukocytes 2 % 0-10 Automated blood basophils/100 leukocytes 1 % 0-10 Blood neutrophils automated count (number/volume) 3.8 10*3 1.8-7.8 Blood lymphocytes automated count (number/volume) 1.4 10*3 1.0-4.0 Blood monocytes automated count (number/volume) 0. 7 10*3 0.0-1.0 Automated eosinophil count 0.1 10*3/uL 0 .0-0.3 Automated blood basophil count (count/volume) 0.0 10*3/uL 0.0-0.1 Fibrin D-dimer FEU measurement in platel et poor plasma (mass/volume) - 04/03/19 08:09 Fibrin D-dimer FEU measurement in platelet poor plasma (mass/volume) 0.78 ug/mL 0.00-0.49 Comprehensive metabolic panel - 04/03/19 08:09 Serum or plasma sodium measurement (moles/volume) 142 mmol/L 135-145 Serum or plasma potassium measurement (moles/volume) 3.8 mmol/L 3.6-5.0 Serum or plasma chloride measurement (moles/volume) 110 mmol/L 98-107 Carbon dioxide 21 mmol/L 21-32 Serum or plasma anion gap determination (moles/volume) 11 mmol/L 5-14 Serum or plasma urea nitrogen measurement (mass/volume ) 21 mg/dL 7-18 Serum or plasma creatinine measurement (mass/volume) 0.84 mg/dL 0.60-1.30 Serum or plasma urea nitrogen/creatinine mass ratio 25 NRG Serum or plasma creatinine measurement w ith calculation of estimated glomerular filtration rate > NRG Serum or plasma glucose measurement (mass/volume) 107 mg/dL 70-105 Serum or plasma calcium measurement (mass/volume) 8.5 mg/dL 8.5-10.1 Serum or plasma total bilirubin measurement (mass/volu me) 0.8 mg/dL 0.1-1.0 Serum or plasma alkaline phosphatase karlo surement (enzymatic activity/volume) 57 U/L 40-136 Serum or plasma aspartate aminotransfera se measurement (enzymatic activity/volume) 23 U/L 5-34 Serum or plasma alanine aminotransferase measurement (enzymatic activity/volume) 23 U/L 0-55 Serum or plasma protein measurement (mass/volume) 6.1 g/dL 6.4-8.2 Serum or plasma albumin measurement (mass/volume) 3.9 g/dL 3.2-4.5 CALCIUM CORRECTED 8.6 mg/dL 8.5-10.1 Erythrocyte sedimentation rate by fabricio gren method - 04/03/19 08:09 Erythrocyte sedimentation rate by westergren method 7 mm 0- 30 Serum or plasma troponin i.cardiac measu rement (mass/volume) - 04/03/19 08:09 Serum or plasma troponin i.cardiac measurement (mass/v olume) < ng/mL <0.028 Serum or plasma C reactive protein measu rement (mass/volume) - 04/03/19 08:09 Serum or plasma C reactive protein measurement (mass/v olume) 0.03 mg/dL 0.00-0.50 Serum or plasma lithium measurement (mol es/volume) - 04/03/19 08:09 BNP PT 133.3 pg/mL <100.0 Complete urinalysis with reflex to cultu re - 04/03/19 08:17 Urine color determination YELLOW NRG Urine clarity determination CLEAR NR G Urine pH measurement by test strip 6.0 5-9 Specific gravity of urine by test strip >= 1.016-1.022 Urine protein assay by test strip, semi-quantitative NEGATIVE NEGATIVE Urine glucose detection by automated test strip NE GATIVE NEGATIVE Erythrocytes detection in urine sediment by light micr oscopy NEGATIVE NEGATIVE Urine ketones detection by automated test strip NE GATIVE NEGATIVE Urine nitrite detection by test strip NEGATIVE NEGATIVE Urine total bilirubin detection by test strip NEGA TIVE NEGATIVE Urine urobilinogen measurement by automated test strip (mass/volume) 0.2 mg/dL < = 1.0 Urine leukocyte esterase detection by dipstick NEG ATIVE NEGATIVE Automated urine sediment erythrocyte cou nt by microscopy (number/high power field) RARE NRG Automated urine sediment leukocyte count by microscopy (number/high power field) [HPF] NRG Bacteria detection in urine sediment by light microsco py TRACE NRG Squamous epithelial cells detection in u rine sediment by light microscopy RARE NRG Crystals detection in urine sediment by light microsco py PRESENT NRG Casts detection in urine sediment by light microscopy NONE NRG Mucus detection in urine sediment by light microscopy MODERATE NRG Complete urinalysis with reflex to culture NO NRG Calcium oxalate crystals detection in ur ine sediment by light microscopy RARE NRG Encounters ACCT No. Visit Date/Time Discharge Status Pt. Type Provider Facility Loc./Unit Complaint [id number] 07/25/2017 09:40:00 07/25/2017 23:59: 00 DIS Outpatient KAREEN FLOWERS [id number] 07/24/2017 09:11:00 07/24/2017 23:59: 00 DIS Outpatient KAREEN FLOWERS [id number] 07/04/2017 11:40:00 07/04/2017 23:59: 00 DIS Outpatient KAREEN FLOWERS [id number] 07/04/2017 11:03:00 07/04/2017 23:59: 00 DIS Outpatient KAREEN FLOWERS [id number] 04/03/2019 06:59:00 10:58:00 DIS Emergency ANJELICA NIETO, TRACY Holder [facility] ER PAIN UNDER RT NIPPLE,ST ABBING PAIN [id number] 12/28/2018 09:13:00 019 11:34:00 DIS Emergency OKSANA NIETO, TOMAS Villarreal [facility] ER BACK PAIN / TRAINING AND 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 MPING IN LEGS [id number] 09/25/2018 12:20:00 019 12:53:00 DIS Emergency RIKI DOW APRN [facility] ER FOOT SWELLING [id number] 05/22/2018 11:38:00 23:59:59 CLS Outpatient OJ ESCALONA, CASSIDY Mckeon [facility] CARD CAD, CHEST PAIN SYNDROME, HYPERLIPEDMIA [id number] 02/10/2018 12:40:00 018 16:02:00 DIS Emergency MARILYN SOTO MD [facility] ER FEET ARE SWOLLEN,SWELLI NG IS SPREAD UP TO KNEES [id number] 12/29/2017 13:50:00 018 14:50:00 DIS Emergency RIKI DOW APRN [facility] ER TOOTH PAIN [id number] 12/11/2017 14:11:00 018 23:59:59 CLS Outpatient ELÍAS KASPER DO Via [facility] RAD M54.16 RADICULO ARA [id number] 10/17/2017 05:41:00 018 07:00:00 DIS Emergency OKSANA NIETO, TOMAS Villarreal [facility] ER UNABLE TO URINA TE [id number] 10/11/2017 12:27:00 018 13:24:00 DIS Outpatient ELÍAS KASPER DO [facility] CARD LUMBAR RADICULO ARA [id number] 10/06/2017 07:23:00 018 08:23:00 DIS Emergency BRITTANY NIETO, MARILYN Velasquez [facility] ER R FOOT SWELLING [id number] 09/10/2017 06:00:00 018 11:15:00 DIS Outpatient DOMINICK NOVAK DPM [facility] SDC HALLUX VALGUS D EFORMITY RT FOOT [id number] 09/03/2017 09:11:00 018 09:40:00 DIS Outpatient DOMINICK NOVAK DPM [facility] PREOP HALLUX VALGUS D EFORMITY RT FOOT [id number] 08/10/2017 12:49:00 018 14:54:00 DIS Outpatient TASHA YEN DO [facility] REHAB LUMBAR DDD;LUMB AR SPONDYLOSIS;L5-S1 SPONDYLOLISTHE [id number] 08/13/2017 10:39:00 018 23:59:59 CLS Outpatient TOMAS MIX DC [facility] RAD LOW BACK PAIN,SCIATICA LT LEG [id number] 02/28/2017 08:03:00 017 23:59:59 CLS Outpatient CASSIDY HERNANDEZ [facility] CARD CHEST PAIN SYNDROME [id number] 02/12/2017 08:02:00 017 23:59:59 CLS Outpatient CASSIDY HERNANDEZ [facility] CARD PALPITATION S R00.2,CAD I25.10 [id number] 02/02/2017 08:14:00 017 23:59:59 CLS Outpatient CASSIDY HERNANDEZ [facility] CARD HLP E78.2, CHEST PAIN SYNDROME R07.89 [id number] 01/10/2017 10:47:00 017 23:59:59 CLS Outpatient AUDI HALE MD [facility] RAD CHEST PAIN,RIGHT SIDED [id number] 12/13/2016 11:52:00 017 23:59:59 CLS Outpatient DELMAR HARDING MD [facility] RAD LT URETERAL STONE [id number] 12/09/2016 00:26:00 017 01:48:00 DIS Emergency MARILYN SOTO MD [facility] ER POSS KIDNEY STONE [id number] 12/07/2016 14:07:00 017 18:21:00 DIS Emergency MARILYN SOTO MD [facility] ER ABD PAIN [id number] 11/14/2016 15:45:00 017 16:27:00 DIS Outpatient TASHA YEN DO [facility] REHAB LUMBAR SCOLIOSIS;SPONDYLOSIS;DDD;R HIP PAIN [id number] 01/21/2016 13:00:00 016 16:20:00 DIS Outpatient CHRISSIE NEWBERRY MD [facility] SDC BLOOD IN STOOLS [id number] 01/19/2016 05:39:00 11:30:00 DIS Outpatient CHRISSIE NEWBERRY MD [facility] PREOP BLOOD IN STOOLS [id number] 01/13/2016 06:57:00 09:31:00 DIS Emergency SADI MATHEWS MD [facility] ER FEELS BAD ALL OVER,DIZZ Y [id number] 06/02/2015 12:05:00 016 23:59:59 CLS Outpatient YAMILE GRIGSBY MD [facility] CARD CAD CAROTID ARTERY STEN OSIS CHEST PAIN [id number] 05/20/2015 11:33:00 016 23:59:59 CLS Outpatient YAMILE GRIGSBY MD [facility] CARD CAD CAROTID ARTERY STEN OSIS CHEST PAIN [id number] 02/28/2015 04:45:00 015 06:09:00 DIS Emergency MERCEDEZ GUERRA MD [facility] ER ABD,BACK PAIN [id number] 12/02/2013 07:00:00 014 12:15:00 DIS Outpatient DELMAR HARDING MD [facility] RIGHT URETERAL STONE [id number] 11/28/2013 08:48:00 014 23:59:59 CLS Outpatient MEHDI NIETO, DELMAR Roldan [facility] PREOP RIGHT URETERAL STONE [id number] 11/03/2013 06:04:00 014 08:24:00 DIS Emergency MIRIAM LANDEROS DO [facility] ER ABD PAIN [id number] 08/18/2013 07:18:00 014 23:59:59 CLS Outpatient OJ ESCALONA, CASSIDY Mckeon [facility] CARD CAD,DJD,HIP PAIN,HLP [id number] 08/14/2013 08:44:00 014 23:59:59 CLS Outpatient CASSIDY HERNANDEZ [facility] CARD CAD,DJD,HIP PAIN,HLP [id number] 05/31/2013 09:18:00 014 10:56:00 DIS Emergency SADI MATHEWS MD [facility] ER CHEST PAIN [id number] 01/02/2013 02:37:00 013 07:40:00 DIS Emergency TOMAS GANDHI MD [facility] ER ALLERGIC RXN [id number] 12/30/2012 21:47:00 013 22:25:00 DIS Emergency RIKI DOW INSURANCE UNDERWRITER [facility] ER KHANG AGUILLON ALLERGIC RE ACTION [id number] 11/11/2017 06:23:00 Document Registration [id number] 05/20/2015 11:33:00 Document Registration [id number] 11/21/2013 12:43:00 Document Registration [id number] 03/13/2012 11:18:00 Document Registration [id number] 03/06/2012 10:06:00 Document Registration [id number] 11/11/2011 09:08:00 Document Registration [id number] 11/10/2011 16:03:00 Document Registration [id number] 09/16/2011 23:47:00 Document Registration [id number] 08/11/2011 22:00:00 Document Registration [id number] 05/19/2011 09:49:00 Document Registration [id number] 05/17/2011 09:28:00 Document Registration [id number] 01/18/2011 12:13:00 Document Registration
== END 2019-06-27 13:40 | disposition home or self-care (01) ==
LOC: EDUNIT# 13:09 → ER 13:10
DX: M79.89 Other specified soft tissue disorders (principal); Z96.653 Presence of artificial knee joint, bilateral; Z95.1 Presence of aortocoronary bypass graft
CPT/HCPCS: 99282

== ENCOUNTER 2019-11-28 07:57 | Emergency (ER) | payer MEDICARE, OTHER ==
[~2019-11-28] VITALS: Ht 170 cm; Wt 78.0 kg
[2019-11-28 08:15] LABS: BASOPHILS % (AUTO) 0 % (0-10); EOSINOPHILS # (AUTO) 0.1 10^3/uL (0.0-0.3); EOSINOPHILS % (AUTO) 2 % (0-10); HEMATOCRIT 40 % (40-54); HEMOGLOBIN 13.6 G/DL (13.3-17.7); LYMPHOCYTES # (AUTO) 1.8 X 10^3 (1.0-4.0); LYMPHOCYTES % (AUTO) 25 % (12-44); MEAN CORPUSCULAR HEMOGLOBIN 31 PG (25-34); MEAN CORPUSCULAR HGB CONC 34 G/DL (32-36); MEAN CORPUSCULAR VOLUME 90 FL (80-99); MEAN PLATELET VOLUME 9.6 FL (7.4-10.4); MONOCYTES # (AUTO) 0.6 X 10^3 (0.0-1.0); MONOCYTES % (AUTO) 9 % (0-12); NEUTROPHILS # (AUTO) 4.7 X 10^3 (1.8-7.8); NEUTROPHILS % (AUTO) 64 % (42-75); PLATELET COUNT 186 10^3/uL (130-400); RED CELL DISTRIBUTION WIDTH 12.7 % (10.0-14.5); WHITE BLOOD COUNT 7.3 10^3/uL (4.3-11.0)
[2019-11-28] MEDS ORDERED: ASPIRIN 81 MG CHEW (CHILDREN'S ASA) PO ONE (08:15)
[2019-11-28 08:26] LABS: ALBUMIN 3.9 GM/DL (3.2-4.5)
[2019-11-28 08:27] LABS: CHLORIDE 107 MMOL/L (98-107); INR 1.1 (0.8-1.4); PROTHROMBIN TIME PATIENT 14.8 SEC (12.2-14.7); SODIUM 140 MMOL/L (135-145)
[2019-11-28 08:28] LABS: CALCIUM 8.5 MG/DL (8.5-10.1)
[2019-11-28 08:29] LABS: GLUCOSE 137 MG/DL (70-105); TOTAL PROTEIN 6.8 GM/DL (6.4-8.2)
[2019-11-28 08:30] LABS: CARBON DIOXIDE 23 MMOL/L (21-32)
[2019-11-28 08:31] LABS: BILIRUBIN,TOTAL 0.7 MG/DL (0.1-1.0)
[2019-11-28 08:33] LABS: ALKALINE PHOSPHATASE 59 U/L (40-136); CREATININE SERUM 0.97 MG/DL (0.60-1.30); GFR ESTIMATED > 60
[2019-11-28 08:34] LABS: BUN/CREATININE RATIO 18
[2019-11-28 08:35] LABS: MAGNESIUM 2.1 MG/DL (1.6-2.4)
[2019-11-28 08:36] LABS: ALANINE AMINOTRANSFERASE 22 U/L (0-55)
[2019-11-28 08:39] LABS: POTASSIUM 4.3 MMOL/L (3.6-5.0)
--- NOTE | 2019-11-28 09:21 | ED Chest Pain ---
General Chief Complaint: Chest Pain Stated Complaint: CHEST PAIN Source: patient Exam Limitations: no limitations History of Present Illness Date Seen by Provider: Nov 28, 2019 Time Seen by Provider: 08:10 Initial Comments Here by EMS with report of chest pain that started at about 3 AM. He did take some Tylenol and it subsequently went away. Later he was concerned and called EMS who brought him to the emergency department. Arrives pain-free. Denies current chest pain, breathing problems, weakness, shortness of air, diarrhea or dysuria. Timing/Duration: 4-6 hours, changing over time, gone now Severity/Quality: mild, pressure Location: central Radiation: no radiation Activities at Onset: none Prior CP/Workup: cardiac cath, echocardiography ASA po LIMOUSINE AND HEARSE UPHOLSTERER: Yes NTG SL LIMOUSINE AND HEARSE UPHOLSTERER: No Associated Symptoms: No abdominal pain, No back pain, No diaphoresis, No edema, No fever/chills, No nausea/vomiting, No shortness of breath, No weakness Allergies and Home Medications Allergies Coded Allergies: No Known Drug Allergies (Unverified , 05/19/11) Home Medications Tramadol HCl 50 Mg Tablet, 50 MG PO TID Prescribed by: RIKI DOW on 06/27/19 [id number] Patient Home Medication List Home Medication List Reviewed: Yes Review of Systems Review of Systems Constitutional: see HPI; No chills, No fever EENTM: No Symptoms Reported Respiratory: No Symptoms Reported Cardiovascular: See HPI Gastrointestinal: Denies Nausea, Denies Vomiting Genitourinary: No Symptoms Reported Musculoskeletal: no symptoms reported All Other Systems Reviewed Negative Unless Noted: Yes Past Sqqyzpq-Rzrzjm-Utrwnv Hx Past Med/Social Hx: Reviewed Nursing Past Med/Soc Hx Patient Social History Alcohol Use: Denies Use Recreational Drug Use: No Smoking Status: Never a Smoker 2nd Hand Smoke Exposure: No Recent Foreign Travel: No Contact w/Someone Who Travel: No Recent Hopitalizations: No Physical Abuse: No Sexual Abuse: No Immunizations Up To Date Tetanus Booster (TDap): Unknown PED Vaccines UTD: No Date of Influenza Vaccine: Jan 31, 2013 Seasonal Allergies Seasonal Allergies: No Past Medical History Surgeries: Yes (BILAT TKR, QUAD BYPASS, STENT, ESWL, R ARM FX, R FOOT) Cardiac, CABG, Joint Replacement, Orthopedic Respiratory: No Cardiac: Yes (QUAD BYPASS) Coronary Artery Disease, High Cholesterol, Hypertension Neurological: No Reproductive Disorders: No Sexually Transmitted Disease: No HIV/AIDS: No Genitourinary: Yes Benign Prostatic Hyperpl, Kidney Stones Gastrointestinal: Yes (BLOOD IN STOOLS) Chronic Constipation Musculoskeletal: Yes Arthritis, Chronic Back Pain, Fractures Endocrine: No HEENT: No Loss of Vision: Bilateral Hearing Impairment: Denies Cancer: No Psychosocial: No Integumentary: No Blood Disorders: No Adverse Reaction/Blood Tranf: Yes Family Medical History Reviewed Nursing Family Hx No Pertinent Family Hx Physical Exam Vital Signs Vital Signs - First Documented 11/28/19 07:57 Temp 36.5 Pulse 62 Resp 18 B/P (MAP) 156/79 (104) Pulse Ox 99 O2 Delivery Room Air Capillary Refill : Less Than 3 Seconds Height, Weight, BMI Height: 5'7.00" Weight: 170lbs. 0.0oz. 77.378366fm; 28.00 BMI Method:Stated General Appearance: No Apparent Distress, WD/WN HEENT: PERRL/EOMI, Pharynx Normal Neck: Non Tender, Supple Respiratory: Lungs Clear, Normal Breath Sounds Cardiovascular: No Murmur, Bradycardia Extremity: Normal Inspection, Normal Range of Motion, Non Tender, No Calf Tenderness Neurologic/Psychiatric: Alert, Oriented x3 Skin: Normal Color, Warm/Dry Progress/Results/Core Measures Results/Orders Lab Results Laboratory Tests Test 11/28/19 08:06 11/28/19 10:00 Range/Units White Blood Count 7.3 4.3-11.0 10^3/uL Red Blood Count 4.44 4.35-5.85 10^6/uL Hemoglobin 13.6 13.3-17.7 G/DL Hematocrit 40 40-54 % Mean Corpuscular Volume 90 80-99 FL Mean Corpuscular Hemoglobin 31 25-34 PG Mean Corpuscular Hemoglobin Concent 34 32-36 G/DL Red Cell Distribution Width 12.7 10.0-14.5 % Platelet Count 186 130-400 10^3/uL Mean Platelet Volume 9.6 7.4-10.4 FL Neutrophils (%) (Auto) 64 42-75 % Lymphocytes (%) (Auto) 25 12-44 % Monocytes (%) (Auto) 9 0-12 % Eosinophils (%) (Auto) 2 0-10 % Basophils (%) (Auto) 0 0-10 % Neutrophils # (Auto) 4.7 1.8-7.8 X 10^3 Lymphocytes # (Auto) 1.8 1.0-4.0 X 10^3 Monocytes # (Auto) 0.6 0.0-1.0 X 10^3 Eosinophils # (Auto) 0.1 0.0-0.3 10^3/uL Basophils # (Auto) 0.0 0.0-0.1 10^3/uL Prothrombin Time 14.8 H 12.2-14.7 SEC INR Comment 1.1 0.8-1.4 Activated Partial Thromboplast Time 30 24-35 SEC D-Dimer 0.73 H 0.00-0.49 UG/ML Sodium Level 140 135-145 MMOL/L Potassium Level 4.3 3.6-5.0 MMOL/L Chloride Level 107 98-107 MMOL/L Carbon Dioxide Level 23 21-32 MMOL/L Anion Gap 10 5-14 MMOL/L Blood Urea Nitrogen 17 7-18 MG/DL Creatinine 0.97 0.60-1.30 MG/DL Estimat Glomerular Filtration Rate > 60 BUN/Creatinine Ratio 18 Glucose Level 137 H 70-105 MG/DL Calcium Level 8.5 8.5-10.1 MG/DL Corrected Calcium 8.6 8.5-10.1 MG/DL Magnesium Level 2.1 1.6-2.4 MG/DL Total Bilirubin 0.7 0.1-1.0 MG/DL Aspartate Amino Transf (AST/SGOT) 28 5-34 U/L Alanine Aminotransferase (ALT/SGPT) 22 0-55 U/L Alkaline Phosphatase 59 40-136 U/L Myoglobin 71.9 10.0-92.0 NG/ML Troponin I < 0.028 < 0.028 <0.028 NG/ML Total Protein 6.8 6.4-8.2 GM/DL Albumin 3.9 3.2-4.5 GM/DL My Orders Orders - TOMAS GANDHI MD Cbc With Automated Diff (11/28/19 08:02) Magnesium (11/28/19 08:02) Chest 1 View, Ap/Pa Only (11/28/19 08:02) Ekg Tracing (11/28/19 08:02) Comprehensive Metabolic Panel (11/28/19 08:02) Myoglobin Serum (11/28/19 08:02) Protime With Inr (11/28/19 08:02) Partial Thromboplastin Time (11/28/19 08:02) O2 (11/28/19 08:02) Monitor-Rhythm Ecg Trace Only (11/28/19 08:02) Lipid Panel (11/29/19 06:00) Ed Iv/Invasive Line Start (11/28/19 08:02) Fibrin Degradation Products (11/28/19 08:02) Troponin I (11/28/19 08:02) Aspirin Chewable Tablet (Baby Aspirin Ch (11/28/19 08:15) Troponin I (11/28/19 09:41) Medications Given in ED Current Medications Medications Dose Ordered Sig/Emeli Route Start Time Stop Time Status Last Admin Dose Admin Aspirin 324 mg ONCE ONCE PO 11/28/19 08:15 11/28/19 08:16 DC 11/28/19 08:10 324 MG Vital Signs/I&O 11/28/19 11/28/19 07:57 07:57 Temp 36.5 Pulse 62 Resp 18 B/P (MAP) 156/79 (104) Pulse Ox 99 O2 Delivery Room Air Progress Progress Note : Progress Note Seen and evaluated. IV, labs, EKG and chest x-ray ordered. ASA 324 mg by mouth ordered. Monitor patient. Patient does state that he would like to go home as soon as he could. He just wanted to make sure he wasn't having a heart attack. We discussed labs and probable repeat labs and patient states he understands. 1005: Repeat troponin done and pending. 1045: Repeat troponin negative. Patient has been without chest pain the entire time and he wants to go home now. Discharged home with return precautions. Patient verbalize understanding instructions and agreement with plan. Initial ECG Impression Date: Nov 28, 2019 Initial ECG Impression Time: 07:57 Initial ECG Rate: 59 Comment Sinus or atrial rhythm with normal axis. No evidence of ST elevation AR. Similar to previous of 04/03/19. Interpreted by me. Diagnostic Imaging Diagonstic Imaging: Xray Plain Films/CT/US/NM/MRI: chest Comments [facility] [place], [place] NAME: EL LINDO MED REC#: [id number] PT STATUS: REG ER : 1935 PHYSICIAN: TOMAS GANDHI MD ADMIT DATE: 11/28/19/ER Draft Date of Exam:11/28/19 CHEST 1 VIEW, AP/PA ONLY INDICATION: Chest pain. TIME OF EXAM: 9:01 AM Correlation is made with prior chest from 04/03/2019. FINDINGS: The heart is enlarged, but stable. There are changes of median sternotomy and CABG. No infiltrates are seen. There is no evidence of congestive failure. The pulmonary vascularity is normal. No effusion or pneumothorax is detected. IMPRESSION: No acute cardiopulmonary process is detected. Dictated on workstation # [id number] Dict: 11/28/1931 Trans: 11/28/1931 [id number] Interpreted by: MARY ANN PARKS MD Electronically signed by: Departure Impression Primary Impression: Chest pain Qualified Codes: R07.9 - Chest pain, unspecified Disposition: HOME, SELF-CARE Condition: Improved Departure-Patient Inst. Decision time for Depature: 10:46 Referrals: AUDI HALE MD (PCP/Family) Primary Care Physician Patient Instructions: Chest Pain (DC) Add. Discharge Instructions: All discharge instructions reviewed with patient and/or family. Voiced understanding. Take medications as previously prescribed. Follow-up with your doctor early next week for recheck and further evaluation. Return for worse pain, fever, vomiting, weakness, breathing problems, repeat chest pain or other concerns as needed. Copy Copies To 1: AUDI HALE MD Copies To 2: YAMILE GRIGSBY MD, TIMOTHY D MD Nov 28, 2019 09:21
--- NOTE | 2019-11-28 09:31 | Diagnostic Imaging Report ---
INDICATION: Chest pain. TIME OF EXAM: 9:01 AM Correlation is made with prior chest from 04/03/2019. FINDINGS: The heart is enlarged, but stable. There are changes of median sternotomy and CABG. No infiltrates are seen. There is no evidence of congestive failure. The pulmonary vascularity is normal. No effusion or pneumothorax is detected. IMPRESSION: No acute cardiopulmonary process is detected. Dictated by: Dictated on workstation # [id number]
[2019-11-28 10:52] VITALS: BP 139/86
== END 2019-11-28 10:57 | disposition home or self-care (01) ==
LOC: EDUNIT# 07:57 → ER 07:59
DX: R07.89 Other chest pain (principal); G89.29 Other chronic pain; M54.9 Dorsalgia, unspecified; Z79.891 Long term (current) use of opiate analgesic; Z95.1 Presence of aortocoronary bypass graft
CPT/HCPCS: 36415; 71045; 80053; 83735; 83874; 84484; 85025; 85379; 85610; 85730; 93005; 93041

== ENCOUNTER 2020-03-04 08:27 | Emergency (ER) | payer MEDICARE, OTHER ==
[~2020-03-04] VITALS: Ht 170.1 cm; Wt 77.2 kg
--- NOTE | 2020-03-04 08:51 | ED Cardiac General ---
History of Present Illness General Stated Complaint: RAPID HR [id number] Source: patient Exam Limitations: no limitations History of Present Illness Date Seen by Provider: Mar 04, 2020 Time Seen by Provider: 08:45 Initial Comments Patient is an 84-year-old male who presents to the emergency room with a chief complaint of feeling palpitations. He states that he woke up around 745 this morning and felt like his heart was about to "beat out of my chest". He states he was afraid that his heart might "just stop". Patient states that he checked his blood pressure with his wrist blood pressure cuff and he states that he felt like his heart was going 160 280 bpm. Patient states that he did not have any chest pain or feels short of breath at the time. Patient came in here to the emergency department "just to be checked out". At the time of presentation the patient's rapid heart rate has resolved. He denies any history of known atrial fibrillation. He states that his normal blood pressures are running anywhere from systolic of 1 10-1 30. This morning of note at the bedside the patient's blood pressure is 170 systolic. Again the patient has no chest pain, no shortness of breath, no nausea, no other GI or symptoms. Does not have any swelling in his lower extremities and does not otherwise feel sick. It seems that what ever rapid heart rhythm the patient had was short-lived. All other review of systems reviewed and negative except as stated. Timing/Duration: 1 hour Severity: mild Prior CP/Workup: no prior chest pain NTG SL SENIOR MANAGEMENT CONSULTANT: No ASA po SENIOR MANAGEMENT CONSULTANT: No Associated Systoms: No Chest Pain, No Diaphoresis, No Malaise, No Nausea/Vomiting Allergies and Home Medications Allergies Coded Allergies: No Known Drug Allergies (Unverified , 05/19/11) Home Medications Tramadol HCl 50 Mg Tablet, 50 MG PO TID Prescribed by: RIKI DOW on 06/27/19 0856 Patient Home Medication List Home Medication List Reviewed: Yes Review of Systems Review of Systems Constitutional: see HPI Respiratory: No Symptoms Reported Cardiovascular: Palpitations Gastrointestinal: No Symptoms Reported Genitourinary: No Symptoms Reported Musculoskeletal: no symptoms reported Skin: no symptoms reported Past Ojxeysl-Eyzipe-Hrrveg Hx Patient Social History 2nd Hand Smoke Exposure: No Recent Foreign Travel: No Contact w/Someone Who Travel: No Recent Hopitalizations: No Immunizations Up To Date Tetanus Booster (TDap): Unknown PED Vaccines UTD: No Date of Influenza Vaccine: Jan 31, 2013 Seasonal Allergies Seasonal Allergies: No Past Medical History Surgeries: Yes (BILAT TKR, QUAD BYPASS, STENT, ESWL, R ARM FX, R FOOT) Cardiac, CABG, Joint Replacement, Orthopedic Respiratory: No Cardiac: Yes (QUAD BYPASS) Coronary Artery Disease, High Cholesterol, Hypertension Neurological: No Reproductive Disorders: No Sexually Transmitted Disease: No HIV/AIDS: No Genitourinary: Yes Benign Prostatic Hyperpl, Kidney Stones Gastrointestinal: Yes (BLOOD IN STOOLS) Chronic Constipation Musculoskeletal: Yes Arthritis, Chronic Back Pain, Fractures Endocrine: No HEENT: No Loss of Vision: Bilateral Hearing Impairment: Denies Cancer: No Psychosocial: No Integumentary: No Blood Disorders: No Adverse Reaction/Blood Tranf: Yes Family Medical History No Pertinent Family Hx Physical Exam Vital Signs Vital Signs - First Documented 03/04/20 08:31 Temp 35.8 Pulse 66 Resp 18 B/P (MAP) 170/74 (106) Pulse Ox 99 O2 Delivery Room Air Capillary Refill : Height, Weight, BMI Height: 5'7.00" Weight: 170lbs. 0.0oz. 77.036291il; 26.00 BMI Method:Stated General Appearance: No Apparent Distress, WD/WN Respiratory: Normal Breath Sounds, No Accessory Muscle Use, No Respiratory Distress Cardiovascular: Regular Rate, Rhythm, No Murmur, Normal Peripheral Pulses Gastrointestinal: Normal Bowel Sounds, Non Tender, Soft Extremity: Normal Capillary Refill, Normal Inspection, Normal Range of Motion, No Calf Tenderness Neurologic/Psychiatric: Alert, Oriented x3, No Motor/Sensory Deficits, Normal Mood/Affect, primer inserting machine adjuster II-XII Norm as Tested Skin: Normal Color, Warm/Dry Progress/Results/Core Measures Results/Orders Vital Signs/I&O 03/04/20 03/04/20 08:31 09:00 Temp 35.8 Pulse 66 63 Resp 18 18 B/P (MAP) 170/74 (106) 156/72 Pulse Ox 99 97 O2 Delivery Room Air Room Air Progress Progress Note : Time: 08:49 Progress Note 84-year-old male presents with a chief complaint of palpitations that have res olved. The patient had an EKG which showed a normal sinus rhythm with a rate of 60 with one premature ventricular contraction. The patient has nonspecific ST-T wave changes in the anterior lateral leads without any evidence of ST segment elevations or depressions. Patient's QTC is slightly prolonged at 523. Again the patient feels completely asymptomatic. Suspect that the patient might have had a brief run of atrial fibrillation. Again this is resolved and the patient is asymptomatic. No further work-up is indicated at this time. The patient has no clinical or objective findings to warrant chest x-ray or laboratory studies a t this time. Patient is comfortable with discharge to home. He will follow up with his primary care physician. All questions are sought and answered and he is stable for discharge. Initial ECG Impression Date: Mar 04, 2020 Initial ECG Impression Time: 08:35 Initial ECG Rate: 60 Initial ECG Rhythm: Normal Sinus Initial ECG Intervals: QT (523) Initial ECG Impression: Nonspecific Changes Departure Impression Primary Impression: History of palpitations Disposition: 01 HOME, SELF-CARE Condition: Stable Departure-Patient Inst. Decision time for Depature: 08:50 Referrals: AUDI HALE MD (PCP/Family) Primary Care Physician Patient Instructions: Palpitations (DC) Add. Discharge Instructions: Drink plenty of fluids to stay well-hydrated. Continue your home routine daily medications. If you have further palpitations, rapid heartbeat, chest pain or any other concerning symptoms please come back to the emergency department for reevalu ation. Please call and follow-up with your primary care physician either this week or early next week. JENNA ALLRED MD Mar 04, 2020 08:51
[2020-03-04 09:00] VITALS: BP 156/72
== END 2020-03-04 08:58 | disposition home or self-care (01) ==
LOC: EDUNIT# 08:27 → ER 08:28
DX: Z86.79 Personal history of other diseases of the circulatory system (principal); Z95.1 Presence of aortocoronary bypass graft
CPT/HCPCS: 93005; 99283

== ENCOUNTER 2020-04-07 21:13 | Emergency (ER) | payer MEDICARE, OTHER ==
[~2020-04-07] VITALS: Ht 168 cm; Wt 77.2 kg
[2020-04-07 21:19] VITALS: BP 173/76
--- NOTE | 2020-04-07 21:25 | NUR ---
pt positioned with hand elevated.
--- NOTE | 2020-04-07 21:54 | ED Upper Extremity ---
General Chief Complaint: Upper Extremity Stated Complaint: L HAND INJ, SWELLING, PAIN Nursing Triage Note: reports fall 04/04/20 with skin tear. seen by pcp today et. hand wrapped. reports hand swelling/pain /p being wrapped. Nursing Sepsis Screen: No Definite Risk Source: patient Exam Limitations: no limitations History of Present Illness Date Seen by Provider: Apr 07, 2020 Time Seen by Provider: 21:40 Initial Comments This is an 84-year-old male who presents to the ER with complaints of left hand skin tear and hand swelling. Sates he fell a few days ago and saw his primary care provider who cleaned up his wound and wrapped his hand today. States he felt like the wrap was causing his hand to swell and he wanted to get it checked out this evening. No other complaints. Method of Injury: fell Allergies and Home Medications Allergies Coded Allergies: No Known Drug Allergies (Unverified , 05/19/11) Home Medications Tramadol HCl 50 Mg Tablet, 50 MG PO TID Prescribed by: RIKI DOW on 06/27/19 1336 Patient Home Medication List Home Medication List Reviewed: Yes Review of Systems Constitutional: no symptoms reported EENTM: no symptoms reported Respiratory: no symptoms reported Cardiovascular: no symptoms reported Gastrointestinal: no symptoms reported Genitourinary: no symptoms reported Musculoskeletal: no symptoms reported Skin: see HPI Psychiatric/Neurological: No Symptoms Reported Past Xswrxyc-Ocnghp-Olnvvh Hx Patient Social History Alcohol Use: Denies Use Recreational Drug Use: No Smoking Status: Never a Smoker 2nd Hand Smoke Exposure: No Recent Foreign Travel: No Contact w/Someone Who Travel: No Recent Infectious Disease Expo: No Recent Hopitalizations: No Immunizations Up To Date Tetanus Booster (TDap): Unknown PED Vaccines UTD: No Date of Influenza Vaccine: Jan 31, 2013 Seasonal Allergies Seasonal Allergies: No Past Medical History Surgeries: Yes (BILAT TKR, QUAD BYPASS, STENT, ESWL, R ARM FX, R FOOT) Cardiac, CABG, Joint Replacement, Orthopedic Respiratory: No Cardiac: Yes Coronary Artery Disease, High Cholesterol, Hypertension Neurological: No Reproductive Disorders: No Sexually Transmitted Disease: No HIV/AIDS: No Genitourinary: Yes Benign Prostatic Hyperpl, Kidney Stones Gastrointestinal: Yes Chronic Constipation Musculoskeletal: Yes Arthritis, Chronic Back Pain, Fractures Endocrine: No HEENT: No Loss of Vision: Bilateral Hearing Impairment: Denies Cancer: No Psychosocial: No Integumentary: No Blood Disorders: No Adverse Reaction/Blood Tranf: Yes Family Medical History No Pertinent Family Hx Physical Exam Vital Signs Vital Signs - First Documented 04/07/20 21:19 Temp 36.5 Pulse 61 Resp 18 B/P (MAP) 173/76 (108) Pulse Ox 98 O2 Delivery Room Air Capillary Refill : Less Than 3 Seconds Height, Weight, BMI Height: 5'7.00" Weight: 170lbs. 0.0oz. 77.810753qf; 27.00 BMI Method:Stated General Appearance: WD/WN, no apparent distress HEENT: PERRL/EOMI, pharynx normal Neck: full range of motion, normal inspection Cardiovascular: regular rate, rhythm, no edema, no gallop, no JVD Respiratory: chest non-tender, lungs clear, normal breath sounds Gastrointestinal: normal bowel sounds, non tender, soft Back: normal inspection, no vertebral tenderness Shoulder: normal inspection, non-tender, no evidence of injury Elbow/Forearm: normal inspection, non-tender, no evidence of injury Wrist: Yes normal inspection, Yes non-tender, Yes no evidence of injury Hand: abrasions (skin tear to dorsal aspect of right hand ) Neurologic/Tendon: normal sensation, normal motor functions, normal tendon functions Neurologic/Psychiatric: no motor/sensory deficits, alert, normal mood/affect, oriented x 3 Skin: normal color, warm/dry Progress/Results/Core Measures Results/Orders Vital Signs/I&O Blood Pressure Mean: 108 Progress Progress Note : Progress Note Cleansed area with Chlorhexadine and saline wash. Applied xeroform and non adherent telfa. Demonstrated how to perform wound care. Verbalized understanding. Reviewed discharge plan and he is agreeable with plan. No questions or concerns at this time. Departure Impression Primary Impression: Skin tear of hand without complication Disposition: HOME, SELF-CARE Condition: Improved Departure-Patient Inst. Decision time for Depature: 21:52 Referrals: AUDI HALE MD (PCP/Family) Primary Care Physician Patient Instructions: Wound Care Add. Discharge Instructions: Plan: 1. Wash hand with mild soap and water daily. 2. Change dressing as shown in ED daily, keep dressing clean and dry. 3. Keep your hand above your heart for the next 24-48 hours to reduce swelling. 4. Monitor for signs of infection: redness, fever, green or yellow drainage. Follow up with your doctor or return if infection occurs. 5. Return to ER for any new or concerning symptoms. All discharge instructions reviewed with patient and/or family. Voiced understanding. SOL DOMINGUEZ DOCUMENT CONTROLLER Apr 07, 2020 21:54
== END 2020-04-07 22:00 | disposition home or self-care (01) ==
LOC: EDUNIT# 21:13 → ER 21:15
DX: S61.411A Laceration without foreign body of right hand, initial encounter (principal); I10 Essential (primary) hypertension; G89.29 Other chronic pain; Z96.653 Presence of artificial knee joint, bilateral; Z95.1 Presence of aortocoronary bypass graft; Z79.891 Long term (current) use of opiate analgesic; W19.XXXA Unspecified fall, initial encounter
CPT/HCPCS: 99282

== ENCOUNTER 2020-12-03 16:22 | Emergency (ER) | payer MEDICARE, OTHER ==
[~2020-12-03] VITALS: Ht 170.2 cm; Wt 77.1 kg
[~2020-12-03 16:22] MED LIST changes: -SULF1TAB35 PO; +SULF1TAB38 PO
[2020-12-03 16:44] LABS: BASOPHILS % (AUTO) 1 % (0-10); EOSINOPHILS # (AUTO) 0.1 10^3/uL (0.0-0.3); EOSINOPHILS % (AUTO) 2 % (0-10); HEMATOCRIT 37 % (40-54); LYMPHOCYTES # (AUTO) 1.5 10^3/uL (1.0-4.0); LYMPHOCYTES % (AUTO) 20 % (12-44); MEAN CORPUSCULAR HEMOGLOBIN 31 pg (25-34); MEAN CORPUSCULAR HGB CONC 33 g/dL (32-36); MEAN CORPUSCULAR VOLUME 93 fL (80-99); MEAN PLATELET VOLUME 10.4 fL (9.0-12.2); MONOCYTES # (AUTO) 0.8 10^3/uL (0.0-1.0); MONOCYTES % (AUTO) 11 % (0-12); NEUTROPHILS # (AUTO) 4.8 10^3/uL (1.8-7.8); NEUTROPHILS % (AUTO) 66 % (42-75); PLATELET COUNT 180 10^3/uL (130-400); WHITE BLOOD COUNT 7.3 10^3/uL (4.3-11.0)
[2020-12-03 16:51] LABS: ALBUMIN 3.7 GM/DL (3.2-4.5)
[2020-12-03 16:52] LABS: CALCIUM 8.9 MG/DL (8.5-10.1)
[2020-12-03 16:54] LABS: TOTAL PROTEIN 6.3 GM/DL (6.4-8.2)
[2020-12-03 16:55] LABS: BILIRUBIN,TOTAL 0.6 MG/DL (0.1-1.0)
[2020-12-03 16:57] LABS: CREATININE SERUM 0.85 MG/DL (0.60-1.30)
--- NOTE | 2020-12-03 17:05 | Diagnostic Imaging Report ---
INDICATION: Left hip pain. AP pelvis and AP and lateral views of the left hip are obtained at 4:54 p.m. Comparison made to 08/13/2017. FINDINGS: There is a comminuted intertrochanteric fracture of the left proximal femur, with mild displacement. There are underlying moderate degenerative findings of the hip joints on both sides. There is osteopenia. IMPRESSION: Comminuted intertrochanteric fracture of the left proximal femur, with mild displacement. Underlying chronic changes. Dictated by: Dictated on workstation # [id number]
--- NOTE | 2020-12-03 17:30 | ED Fall/Injury ---
General Chief Complaint: Trauma-Non Activation Stated Complaint: FALL Nursing Triage Note: PT BROUGHT IN BY [facility] FROM HOME WITH COMPLAINT OF LEFT HIP PAIN AFTER FALL. PT TRIPPED OVER HOSE IN GARAGE AND LANDED ON LEFT HIP. DENIES LOC OR OTHER INJURY. Source: patient, EMS Exam Limitations: no limitations History of Present Illness Date Seen by Provider: Dec 03, 2020 Time Seen by Provider: 16:30 Initial Comments This 85-year-old gentleman presents to the emergency room via EMS with a left hip pain after falling in his garage. He was attempting to air of his tires when he tripped on the hose. He landed directly on his left hip. He denies any head or neck injury. There was no loss of consciousness. He has moderate pain in the left hip. He has an abrasion on his right elbow but no other significant injuries. Allergies and Home Medications Allergies Coded Allergies: No Known Drug Allergies (Unverified , 05/19/11) Patient Home Medication List Home Medication List Reviewed: Yes Rosuvastatin Calcium (Crestor) 20 Mg Tablet, Unknown Dose PO, (Reported) Entered as Reported by: GEMMA LEON on 12/28/18 0939 Tramadol HCl (Ultram) 50 Mg Tablet, 50 MG PO TID Prescribed by: RIKI DOW on 06/27/19 1336 Review of Systems Review of Systems Constitutional: no symptoms reported Eyes: No Symptoms Reported Ears, Nose, Mouth, Throat: no symptoms reported Respiratory: no symptoms reported Cardiovascular: no symptoms reported Gastrointestinal: no symptoms reported Genitourinary: no symptoms reported Musculoskeletal: see HPI Skin: see HPI Psychiatric/Neurological: No Symptoms Reported Past Sywsxhb-Qwtwcj-Iotmeh Hx Patient Social History Tobacco Use?: No Use of E-Cig and/or Vaping dev: No Substance use?: No Alcohol Use?: No Pt feels they are or have been: No Immunizations Up To Date Tetanus Booster (TDap): Unknown PED Vaccines UTD: No Seasonal Allergies Seasonal Allergies: No Past Medical History Surgeries: Yes (BILAT TKR, QUAD BYPASS, STENT, ESWL, R ARM FX, R FOOT) Cardiac, CABG, Joint Replacement, Orthopedic Respiratory: No Cardiac: Yes Coronary Artery Disease, High Cholesterol, Hypertension Neurological: No Reproductive Disorders: No Sexually Transmitted Disease: No HIV/AIDS: No Genitourinary: Yes Benign Prostatic Hyperpl, Kidney Stones Gastrointestinal: Yes Chronic Constipation Musculoskeletal: Yes Arthritis, Chronic Back Pain, Fractures Endocrine: No HEENT: No Loss of Vision: Bilateral Hearing Impairment: Denies Cancer: No Psychosocial: No Integumentary: No Blood Disorders: No Adverse Reaction/Blood Tranf: Yes Family Medical History No Pertinent Family Hx Physical Exam Vital Signs Vital Signs - First Documented 12/03/20 16:27 Temp 36.3 Pulse 52 Resp 16 B/P (MAP) 149/72 (97) Pulse Ox 97 O2 Delivery Room Air Capillary Refill : Less Than 3 Seconds Height, Weight, BMI Height: 5'7.00" Weight: 170lbs. 0.0oz. 77.248345jt; 26.00 BMI Method:Stated General Appearance: WD/WN, no apparent distress HEENT: PERRL/EOMI, normal ENT inspection Neck: normal inspection Cardiovascular: regular rate, rhythm, no edema, no murmur Respiratory: lungs clear, normal breath sounds, no respiratory distress Gastrointestinal: normal bowel sounds, non tender, soft Extremities: normal inspection, no pedal edema, other (Tenderness over the left lateral hip and mild pain with rotation of the hip. Distal examination unrem arkable. Normal sensation and pedal pulse.) Neurologic/Psychiatric: marketing coordinator II-XII nml as tested, no motor/sensory deficits, alert, normal mood/affect, oriented x 3 Skin: normal color, warm/dry, other (Abrasion of right elbow) Progress/Results/Core Measures Results/Orders Lab Results Laboratory Tests Test 12/03/20 16:30 Range/Units White Blood Count 7.3 4.3-11.0 10^3/uL Red Blood Count 3.91 L 4.30-5.52 10^6/uL Hemoglobin 12.0 L 13.3-17.7 g/dL Hematocrit 37 L 40-54 % Mean Corpuscular Volume 93 80-99 fL Mean Corpuscular Hemoglobin 31 25-34 pg Mean Corpuscular Hemoglobin Concent 33 32-36 g/dL Red Cell Distribution Width 12.7 10.0-14.5 % Platelet Count 180 130-400 10^3/uL Mean Platelet Volume 10.4 9.0-12.2 fL Immature Granulocyte % (Auto) 0 % Neutrophils (%) (Auto) 66 42-75 % Lymphocytes (%) (Auto) 20 12-44 % Monocytes (%) (Auto) 11 0-12 % Eosinophils (%) (Auto) 2 0-10 % Basophils (%) (Auto) 1 0-10 % Neutrophils # (Auto) 4.8 1.8-7.8 10^3/uL Lymphocytes # (Auto) 1.5 1.0-4.0 10^3/uL Monocytes # (Auto) 0.8 0.0-1.0 10^3/uL Eosinophils # (Auto) 0.1 0.0-0.3 10^3/uL Basophils # (Auto) 0.0 0.0-0.1 10^3/uL Immature Granulocyte # (Auto) 0.0 0.0-0.1 10^3/uL Sodium Level 143 135-145 MMOL/L Potassium Level 4.0 3.6-5.0 MMOL/L Chloride Level 112 H 98-107 MMOL/L Carbon Dioxide Level 21 21-32 MMOL/L Anion Gap 10 5-14 MMOL/L Blood Urea Nitrogen 15 7-18 MG/DL Creatinine 0.85 0.60-1.30 MG/DL Estimat Glomerular Filtration Rate 85 BUN/Creatinine Ratio 18 Glucose Level 107 H 70-105 MG/DL Calcium Level 8.9 8.5-10.1 MG/DL Corrected Calcium 9.1 8.5-10.1 MG/DL Total Bilirubin 0.6 0.1-1.0 MG/DL Aspartate Amino Transf (AST/SGOT) 26 5-34 U/L Alanine Aminotransferase (ALT/SGPT) 23 0-55 U/L Alkaline Phosphatase 51 40-136 U/L Total Protein 6.3 L 6.4-8.2 GM/DL Albumin 3.7 3.2-4.5 GM/DL My Orders Orders - MERCEDEZ GUERRA MD Cbc With Automated Diff (12/03/20 16:38) Comprehensive Metabolic Panel (12/03/20 16:38) Pelvis With Left Hip 2-3 Views (12/03/20 16:38) Morphine Injection (Morphine Injection (12/03/20 17:53) Vital Signs/I&O 12/03/20 16:27 Temp 36.3 Pulse 52 Resp 16 B/P (MAP) 149/72 (97) Pulse Ox 97 O2 Delivery Room Air Blood Pressure Mean: 97 Progress Progress Note #1: Time: 17:50 Progress Note Patient was found to have a left intertrochanteric hip fracture. [facility] does not have orthopedic coverage through the weekend. After speaking with the patient and his family, transfer to a [place] facility was preferred. [facility] in [place] was able to accept the transfer to their ER. Progress Note #2: Time: 19:25 Progress Note Due to numerous transfers by EMS is engaged with present, transfer will likely be delayed by several hours. [facility] ER was updated. Diagnostic Imaging Diagonstic Imaging: Xray Plain Films/CT/US/NM/MRI: pelvis, hip Comments X-ray viewed by me and report reviewed. See report below: NAME: EL LINDO MED REC#: [id number] PT STATUS: REG ER : 1935 PHYSICIAN: MERCEDEZ GUERRA MD ADMIT DATE: 12/03/20/ER Draft Date of Exam:12/03/20 PELVIS WITH LEFT HIP 2-3 VIEWS INDICATION: Left hip pain. AP pelvis and AP and lateral views of the left hip are obtained at 4:54 p.m. Comparison made to 08/13/2017. FINDINGS: There is a comminuted intertrochanteric fracture of the left proximal femur, with mild displacement. There are underlying moderate degenerative findings of the hip joints on both sides. There is osteopenia. IMPRESSION: Comminuted intertrochanteric fracture of the left proximal femur, with mild displacement. Underlying chronic changes. Dictated on workstation # [id number] Dict: 12/03/20 1659 Trans: 12/03/20 1705 [id number] Interpreted by: TASHA ZABALA MD Departure Impression Primary Impression: Intertrochanteric fracture of left hip Qualified Codes: S72.142A - Displaced intertrochanteric fracture of left femur, initial encounter for closed fracture Additional Impression: Fall on same level Qualified Codes: W18.30XA - Fall on same level, unspecified, initial encounter Disposition: XFER SHT-TRM HOSP Condition: Stable Transfer Transfer Reason: Exceeds level of care Transfer Progress Notes Dr. Chamberlain accepts transfer to the emergency department at [facility]. Transfer Facility: [facility] Method of Transfer: EMS Departure-Patient Inst. Referrals: AUDI HALE MD (PCP/Family) Primary Care Physician MERCEDEZ GUERRA MD Dec 03, 2020 17:30
[2020-12-03] MEDS ORDERED: morphine INJ 10 MG/ML 1ML (SYR OR VIAL) IVP STA ×2 (17:53→20:25)
[2020-12-03 20:30] VITALS: BP 135/69
== END 2020-12-03 20:30 | disposition short-term general hospital (02) ==
LOC: ER 16:23
DX: S72.142A Displaced intertrochanteric fracture of left femur, initial encounter for closed fracture (principal); S50.311A Abrasion of right elbow, initial encounter; I10 Essential (primary) hypertension; E78.00 Pure hypercholesterolemia, unspecified; I25.10 Atherosclerotic heart disease of native coronary artery without angina pectoris; Z79.899 Other long term (current) drug therapy; W18.30XA Fall on same level, unspecified, initial encounter
CPT/HCPCS: 36415; 51702; 80053; 85025

== ENCOUNTER 2020-12-27 00:25 | Emergency (ER) | payer MEDICARE, OTHER ==
[~2020-12-27] VITALS: Ht 170.2 cm; Wt 77.1 kg
[2020-12-27] MEDS ORDERED: ASPIRIN 81 MG CHEW (CHILDREN'S ASA) PO ONE (00:45)
[2020-12-27] MEDS ORDERED: NS IV 500 ML 500 ML IV ONE (00:45)
--- NOTE | 2020-12-27 00:48 | ED Abdominal Pain ---
General Chief Complaint: Abdominal/GI Problems Stated Complaint: CP Nursing Triage Note: brought in by intermediate staff. pt reports difuse abdominal pain/constipation. intermediate staff reports chest pain. Source of Information: Patient Exam Limitations: No Limitations History of Present Illness Date Seen by Provider: Dec 27, 2020 Time Seen by Provider: 00:30 Initial Comments Patient ER [facility] with chief complaint he is having some abdominal pain off and on for the past couple days. He has been having constipation more frequently. He takes Colace and was started on a regimen of MiraLAX for the same issue a few weeks ago which helped. He has not been taking MiraLAX recently. He has passed only a tiny smear of stool today. Has had no abdominal surgeries. He denies having any chest pain shortness of air nausea fevers chills cough or shortness of air. He does have a history of coronary disease but states he was not complaining about coronary or chest pain to his nurse but rather abdominal pain but he thinks she misunderstood him. Dr. Borjas to the cardiac catheterization 2019 demonstrating subtle abnormality of the basal to mid inferior lateral wall with no significant reversibility or ischemia or infarction noted. EF is 70%. Echocardiogram demonstrated grade 3 diastolic dysfunction EF of 55 to 65% in 2017. Cardiac catheterization 2012 demonstrated significant multivessel disease. Balloon angioplasty at that time. EF is 65%. Aortogram showing severe atherosclerotic disease. Allergies and Home Medications Allergies Coded Allergies: No Known Drug Allergies (Unverified , 05/19/11) Patient Home Medication List Home Medication List Reviewed: Yes Rosuvastatin Calcium (Crestor) 20 Mg Tablet, Unknown Dose PO, (Reported) Entered as Reported by: GEMMA LEON on 12/28/18 0939 Tramadol HCl (Ultram) 50 Mg Tablet, 50 MG PO TID Prescribed by: RIKI DOW on 06/27/19 1336 Review of Systems Review of Systems Constitutional: No chills, No diaphoresis EENTM: No Blurred Vision, No Double Vision Respiratory: Denies Cough, Denies Shortness of Air Cardiovascular: See HPI; Denies Chest Pain, Denies Lightheadedness Gastrointestinal: See HPI, Abdominal Pain (All over), Constipated; Denies Diarrhea, Denies Nausea, Denies Poor Appetite, Denies Poor Fluid Intake Genitourinary: No Symptoms Reported; Denies Burning, Denies Discharge Musculoskeletal: No back pain, No joint pain Skin: No pruritus, No rash Psychiatric/Neurological: Denies Headache, Denies Numbness All Other Systems Reviewed Negative Unless Noted: Yes Past Tyrlbfx-Rlqzlt-Eoyjdg Hx Patient Social History Tobacco Use?: No Substance use?: No Alcohol Use?: No Pt feels they are or have been: No Immunizations Up To Date Tetanus Booster (TDap): Unknown PED Vaccines UTD: No First/Initial COVID19 Vaccinat: 04/22 Second COVID19 Vaccination Evan: 05/23 COVID19 Vaccine Blow Mold Technician: Elasterakeya Seasonal Allergies Seasonal Allergies: No Past Medical History Surgery/Hospitalization HX: b tkr, left hip, cabg x4, stents, htn,afib,cad, hyperlipidemia, bph, arthritis, renal stones. Surgeries: Yes (BILAT TKR, QUAD BYPASS, STENT, ESWL, R ARM FX, R FOOT) Cardiac, CABG, Joint Replacement, Orthopedic Respiratory: No Cardiac: Yes Coronary Artery Disease, High Cholesterol, Hypertension Neurological: No Reproductive Disorders: No Sexually Transmitted Disease: No HIV/AIDS: No Genitourinary: Yes Benign Prostatic Hyperpl, Kidney Stones Gastrointestinal: Yes Chronic Constipation Musculoskeletal: Yes Arthritis, Chronic Back Pain, Fractures Endocrine: No HEENT: No Loss of Vision: Bilateral Hearing Impairment: Denies Cancer: No Psychosocial: No Integumentary: No Blood Disorders: No Adverse Reaction/Blood Tranf: Yes Family Medical History No Pertinent Family Hx Physical Exam Vital Signs Vital Signs - First Documented 12/27/20 00:29 Temp 36.0 Pulse 75 Resp 18 B/P (MAP) 170/75 (106) Pulse Ox 99 O2 Delivery Room Air Capillary Refill : Less Than 3 Seconds Height/Weight/BMI Height: 5'7.00" Weight: 170lbs. 0.0oz. 77.128412wp; 26.00 BMI Method:Stated General Appearance: WD/WN, mild distress HEENT: PERRL/EOMI, normal ENT inspection, pharynx normal Neck: full range of motion, supple, normal inspection Respiratory: lungs clear, normal breath sounds, no respiratory distress, no accessory muscle use Cardiovascular: normal peripheral pulses, regular rate, rhythm, no edema Peripheral Pulses: 2+ Dorsalis Pedis (R), 2+ Left Dors-Pedis (L), 2+ Radial Pulses (R), 2+ Radial Pulses (L) Gastrointestinal: normal bowel sounds (Quiescent), soft, tenderness (Generalized mild tenderness all 4 quadrants without rebound tenderness, or organomegaly, Rovsing sign, McBurney's point tenderness, Ospina sign.) Extremities: normal inspection, no pedal edema, normal capillary refill Neurologic/Psychiatric: alert, normal mood/affect, oriented x 3 Skin: normal color, warm/dry Focused Exam Lactate Level 12/27/20 00:45: Lactic Acid Level 1.18 Lactic Acid Level Laboratory Tests Test 12/27/20 00:45 Lactic Acid Level 1.18 MMOL/L (0.50-2.00) Progress/Results/Core Measures Results/Orders Lab Results Laboratory Tests Test 12/27/20 00:35 12/27/20 00:45 Range/Units White Blood Count 8.5 4.3-11.0 10^3/uL Red Blood Count 3.49 L 4.30-5.52 10^6/uL Hemoglobin 10.7 L 13.3-17.7 g/dL Hematocrit 34 L 40-54 % Mean Corpuscular Volume 97 80-99 fL Mean Corpuscular Hemoglobin 31 25-34 pg Mean Corpuscular Hemoglobin Concent 32 32-36 g/dL Red Cell Distribution Width 14.3 10.0-14.5 % Platelet Count 328 130-400 10^3/uL Mean Platelet Volume 9.1 9.0-12.2 fL Immature Granulocyte % (Auto) 0 % Neutrophils (%) (Auto) 72 42-75 % Lymphocytes (%) (Auto) 14 12-44 % Monocytes (%) (Auto) 11 0-12 % Eosinophils (%) (Auto) 2 0-10 % Basophils (%) (Auto) 1 0-10 % Neutrophils # (Auto) 6.1 1.8-7.8 10^3/uL Lymphocytes # (Auto) 1.2 1.0-4.0 10^3/uL Monocytes # (Auto) 0.9 0.0-1.0 10^3/uL Eosinophils # (Auto) 0.2 0.0-0.3 10^3/uL Basophils # (Auto) 0.0 0.0-0.1 10^3/uL Immature Granulocyte # (Auto) 0.0 0.0-0.1 10^3/uL Sodium Level 139 135-145 MMOL/L Potassium Level 4.6 3.6-5.0 MMOL/L Chloride Level 106 98-107 MMOL/L Carbon Dioxide Level 23 21-32 MMOL/L Anion Gap 10 5-14 MMOL/L Blood Urea Nitrogen 13 7-18 MG/DL Creatinine 0.95 0.60-1.30 MG/DL Estimat Glomerular Filtration Rate 75 BUN/Creatinine Ratio 14 Glucose Level 102 70-105 MG/DL Calcium Level 8.9 8.5-10.1 MG/DL Corrected Calcium 9.1 8.5-10.1 MG/DL Total Bilirubin 0.9 0.1-1.0 MG/DL Aspartate Amino Transf (AST/SGOT) 22 5-34 U/L Alanine Aminotransferase (ALT/SGPT) 20 0-55 U/L Alkaline Phosphatase 137 H 40-136 U/L Troponin I < 0.028 <0.028 NG/ML C-Reactive Protein High Sensitivity 1.08 H 0.00-0.50 MG/DL Total Protein 6.7 6.4-8.2 GM/DL Albumin 3.7 3.2-4.5 GM/DL Lipase 28 8-78 U/L Lactic Acid Level 1.18 0.50-2.00 MMOL/L My Orders Orders - MARILYN SOTO Continuous Ekg Monitoring (12/27/20 00:27) Ekg Tracing (12/27/20 00:27) Aspirin Chewable Tablet (Baby Aspirin Ch (12/27/20 00:45) Ct Abdomen/Pelvis W (12/27/20 00:38) Cbc With Automated Diff (12/27/20 00:38) Comprehensive Metabolic Panel (12/27/20 00:38) Hs C Reactive Protein (12/27/20 00:38) Troponin I (12/27/20 00:38) Lactic Acid Analyzer (12/27/20 00:38) Lipase (12/27/20 00:38) Ua Culture If Indicated (12/27/20 00:38) Ed Iv/Invasive Line Start (12/27/20 00:38) Ns Iv 500 Ml (Sodium Chloride 0.9%) (12/27/20 00:45) Medications Given in ED Current Medications Medications Dose Ordered Sig/Emeli Route Start Time Stop Time Status Last Admin Dose Admin Aspirin 324 mg ONCE ONCE PO 12/27/20 00:45 12/27/20 00:46 DC 12/27/20 00:45 324 MG Sodium Chloride 500 ml @ 0 mls/hr Q0M ONCE IV 12/27/20 00:45 12/27/20 00:46 DC 12/27/20 00:45 1,000 MLS/HR Vital Signs/I&O 12/27/20 00:29 Temp 36.0 Pulse 75 Resp 18 B/P (MAP) 170/75 (106) Pulse Ox 99 O2 Delivery Room Air Blood Pressure Mean: 106 Progress Progress Note #1: Time: 00:47 Progress Note Patient's not endorsing any chest pain. His EKG appears to be sinus and no evidence of ST changes. We will get a troponin but will also get a lactate since he has a significant history of atherosclerosis in his abdominal aorta seen on angiogram previously. CT of the abdomen pelvis with IV and oral contrast to look for bowel obstruction versus obstipation. 324 mg aspirin would protect against bowel ischemia as well as coronary disease. Progress Note #2: Time: 01:33 Progress Note Patient's not having any pain at the moment. He states that he is ready to go home. He has not provided a urine sample nor has he agreed to do the CT anymore. He did drink the contrast. He says he is feeling okay and he thinks that we are doing too much and making too much of it and he says at 85 years old he does not feel he needs to do all this work-up for a bellyache. We did develop a second plan to do some MiraLAX over the next couple days and follow-up with the primary care doctor. Return precautions were discussed. Initial ECG Impression Date: Dec 27, 2020 Initial ECG Impression Time: 00:32 Initial ECG Rate: 72 Initial ECG Intervals: QT (473) Initial ECG Impression: Normal, Nonspecific Changes Initial ECG Comparisson: Unchanged Comment Sinus rhythm without clinically relevant ST elevation or depression. Borderline prolonged QTc interval. Departure Impression Primary Impression: Abdominal pain Qualified Codes: R10.84 - Generalized abdominal pain Additional Impression: Obstipation Disposition: 01 HOME, SELF-CARE Condition: Stable Departure-Patient Inst. Decision time for Depature: 01:34 Referrals: AUDI HALE MD (PCP/Family) Primary Care Physician Patient Instructions: Constipation, Adult (DC) Add. Discharge Instructions: While we did not complete the CT or urinalysis to rule out a bladder infection I suspect perhaps you are constipated. I suggest you take MiraLAX 17 g in a 6 to 8 ounce glass of fluids of your choice 2 or 3 times a day until you pass stools. Follow-up later this week or next with your primary care doctor. Return to the ER promptly if you are still not able to pass a stool, having intractable pain, fever especially above 102.5, intractable vomiting, chest pain or other worrisome symptoms. All discharge instructions reviewed with patient and/or family. Voiced understanding. Scripts Polyethylene Glycol 3350 (Miralax) 119 Gm Powder 17 GM PO TIDWM for 3 Days, #119 GM 0 Refills Prov: MARILYN SOTO 12/27/20 Copy Copies To 1: AUDI HALE MD, TITUS J Dec 27, 2020 00:48
[2020-12-27 00:54] LABS: BASOPHILS % (AUTO) 1 % (0-10); EOSINOPHILS # (AUTO) 0.2 10^3/uL (0.0-0.3); EOSINOPHILS % (AUTO) 2 % (0-10); HEMATOCRIT 34 % (40-54); HEMOGLOBIN 10.7 g/dL (13.3-17.7); LYMPHOCYTES # (AUTO) 1.2 10^3/uL (1.0-4.0); LYMPHOCYTES % (AUTO) 14 % (12-44); MEAN CORPUSCULAR HEMOGLOBIN 31 pg (25-34); MEAN CORPUSCULAR HGB CONC 32 g/dL (32-36); MEAN CORPUSCULAR VOLUME 97 fL (80-99); MEAN PLATELET VOLUME 9.1 fL (9.0-12.2); MONOCYTES # (AUTO) 0.9 10^3/uL (0.0-1.0); MONOCYTES % (AUTO) 11 % (0-12); NEUTROPHILS # (AUTO) 6.1 10^3/uL (1.8-7.8); NEUTROPHILS % (AUTO) 72 % (42-75); PLATELET COUNT 328 10^3/uL (130-400); WHITE BLOOD COUNT 8.5 10^3/uL (4.3-11.0)
[2020-12-27 00:59] LABS: ALBUMIN 3.7 GM/DL (3.2-4.5); CHLORIDE 106 MMOL/L (98-107); POTASSIUM 4.6 MMOL/L (3.6-5.0); SODIUM 139 MMOL/L (135-145)
[2020-12-27 01:01] LABS: CALCIUM 8.9 MG/DL (8.5-10.1)
[2020-12-27 01:02] LABS: GLUCOSE 102 MG/DL (70-105); TOTAL PROTEIN 6.7 GM/DL (6.4-8.2)
[2020-12-27 01:03] LABS: BILIRUBIN,TOTAL 0.9 MG/DL (0.1-1.0); CARBON DIOXIDE 23 MMOL/L (21-32)
[2020-12-27 01:05] LABS: ALKALINE PHOSPHATASE 137 U/L (40-136); CREATININE SERUM 0.95 MG/DL (0.60-1.30); GFR ESTIMATED 75
[2020-12-27 01:07] LABS: BUN/CREATININE RATIO 14
[2020-12-27 01:08] LABS: ALANINE AMINOTRANSFERASE 20 U/L (0-55)
[2020-12-27 01:09] LABS: LIPASE 28 U/L (8-78)
[2020-12-27] MEDS ORDERED: POLY119P5 PO (01:36)
[2020-12-27 01:40] VITALS: BP 155/73
== END 2020-12-27 01:48 | disposition home or self-care (01) ==
LOC: EDUNIT# 00:25 → ER 00:26
DX: K59.09 Other constipation (principal); I10 Essential (primary) hypertension; I25.10 Atherosclerotic heart disease of native coronary artery without angina pectoris; E78.5 Hyperlipidemia, unspecified; G89.29 Other chronic pain; M54.9 Dorsalgia, unspecified; Z87.19 Personal history of other diseases of the digestive system; Z95.0 Presence of cardiac pacemaker; Z95.1 Presence of aortocoronary bypass graft; Z95.5 Presence of coronary angioplasty implant and graft; Z79.891 Long term (current) use of opiate analgesic; Z79.899 Other long term (current) drug therapy
CPT/HCPCS: 36415; 80053; 83605; 83690; 84484; 85025; 86141; 93005

== ENCOUNTER 2021-02-28 08:02 | Emergency (ER) | payer MEDICARE, OTHER ==
[~2021-02-28] VITALS: Ht 170 cm; Wt 77.0 kg
[~2021-02-28 08:02] MED LIST changes: +POLY119P5 PO
--- NOTE | 2021-02-28 08:31 | ED Fall/Injury ---
General Chief Complaint: Trauma-Non Activation Stated Complaint: R HIP PAIN-FELL Nursing Triage Note: AMB TO ROOM WITH HOME REPORT SLIPPED AND FELL 1 WEEK AGO. CON'T T HAVE PAIN IN R HIP. Source: patient Exam Limitations: no limitations History of Present Illness Date Seen by Provider: Feb 28, 2021 Time Seen by Provider: 08:18 Initial Comments Patient is a an 85-year-old who presents to the emergency department today with a chief complaint of posterior right hip pain. Patient states that he had a slip and fall about 2 weeks ago. He was getting out of a chair when his feet slipped and he fell down onto the right posterior hip. Patient states that he has been able to get up and ambulate with a cane. He was sitting at home today and realize that he had had pain for about 10 days and decided to come make sure that his hip was not "cracked". He denies any numbness weakness or tingling to the right leg. He is able to ambulate around with his cane. He denies any back pain, no abdominal pain. Did not hit his head or have a loss of consciousness. Is recently postoperative left hip ORIF. This was done in December of this year. Patient has been taking some Tylenol for pain and it seems to be helping. All other review of systems reviewed and negative except as stated. Occurred: other (2 weeks ago) Severity: mild Injuries/Pain Location: pelvis (right posterior hip) Context: slipped Loss of Consciousness: no loss of consciousness Modifying Factors: Improves With Pain Medication Associated Symptoms (Fall): Denies Symptoms Allergies and Home Medications Allergies Coded Allergies: No Known Drug Allergies (Unverified , 05/19/11) Patient Home Medication List Home Medication List Reviewed: Yes Polyethylene Glycol 3350 (Miralax) 119 Gm Powder, 17 GM PO TIDWM Prescribed by: MARILYN SOTO on 12/27/20 0136 Rosuvastatin Calcium (Crestor) 20 Mg Tablet, Unknown Dose PO, (Reported) Entered as Reported by: GEMMA LEON on 12/28/18 0939 Tramadol HCl (Ultram) 50 Mg Tablet, 50 MG PO TID Prescribed by: RIKI DOW on 06/27/19 1336 Review of Systems Review of Systems Constitutional: see HPI Respiratory: no symptoms reported Gastrointestinal: no symptoms reported Genitourinary: no symptoms reported Musculoskeletal: joint pain (right posterior hip/pelvis) Skin: no symptoms reported Psychiatric/Neurological: No Symptoms Reported All Other Systems Reviewed Negative Unless Noted: Yes Past Oqcuhhy-Uobyqc-Bnnhtx Hx Patient Social History Tobacco Use?: No Substance use?: No Alcohol Use?: No Pt feels they are or have been: No Immunizations Up To Date Tetanus Booster (TDap): Unknown PED Vaccines UTD: No First/Initial COVID19 Vaccinat: May COVID19 Vaccination Evan: ? 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 Surgeries: Yes (BILAT TKR, QUAD BYPASS, STENT, ESWL, R ARM FX, R FOOT) Cardiac, CABG, Joint Replacement, Orthopedic Respiratory: No Cardiac: Yes Coronary Artery Disease, High Cholesterol, Hypertension Neurological: No Reproductive Disorders: No Sexually Transmitted Disease: No HIV/AIDS: No Genitourinary: Yes Benign Prostatic Hyperpl, Kidney Stones Gastrointestinal: Yes Chronic Constipation Musculoskeletal: Yes Arthritis, Chronic Back Pain, Fractures Endocrine: No HEENT: No Loss of Vision: Bilateral Hearing Impairment: Denies Cancer: No Psychosocial: No Integumentary: No Blood Disorders: No Adverse Reaction/Blood Tranf: Yes Family Medical History No Pertinent Family Hx Physical Exam Vital Signs Vital Signs - First Documented 02/28/21 08:13 Temp 36.0 Pulse 57 Resp 18 B/P (MAP) 143/78 (99) Pulse Ox 97 O2 Delivery Room Air Capillary Refill : Less Than 3 Seconds Height, Weight, BMI Height: 5'7.00" Weight: 170lbs. 0.0oz. 77.489353mv; 26.00 BMI Method:Stated General Appearance: WD/WN, no apparent distress Neck: normal inspection Cardiovascular: regular rate, rhythm Respiratory: lungs clear, normal breath sounds, no respiratory distress, no accessory muscle use Gastrointestinal: normal bowel sounds, non tender, soft Extremities: normal range of motion, non-tender, normal inspection, other (patient has tenderness to palpation right low pelvic area, posteriorly; has good ROM of the right hip joint without any tenderness over the hip joint itself; distal NVI) Neurologic/Psychiatric: no motor/sensory deficits, alert, normal mood/affect, oriented x 3 Skin: normal color, warm/dry Progress/Results/Core Measures Results/Orders My Orders Orders - JENNA ALLRED MD Pelvis (02/28/21 08:27) Vital Signs/I&O 02/28/21 08:13 Temp 36.0 Pulse 57 Resp 18 B/P (MAP) 143/78 (99) Pulse Ox 97 O2 Delivery Room Air Blood Pressure Mean: 99 Diagnostic Imaging Diagonstic Imaging: Xray Plain Films/CT/US/NM/MRI: pelvis Comments pelvis Xray reviewed by me, no fractures or dislocations Departure Impression Primary Impression: Contusion of pelvis Qualified Codes: S30.0XXA - Contusion of lower back and pelvis, initial encounter Disposition: HOME, SELF-CARE Condition: Stable Departure-Patient Inst. Decision time for Depature: 09:05 Referrals: AUDI HALE MD (PCP/Family) Primary Care Physician Patient Instructions: Hip Pain in Older People Add. Discharge Instructions: Continue to take Tylenol extra strength, 2 pills every 6 hours as needed for pain. A heating pad may help your discomfort. Come back to the Emergency Room for re-evaluation of you have any worsening symptoms, numbness or weakness. Please follow up with your primary care provider. Copy Copies To 1: AUDI HALE MD, KATHRYN M MD Feb 28, 2021 08:31
--- NOTE | 2021-02-28 09:15 | Diagnostic Imaging Report ---
EXAMINATION: AP pelvis at 9:02 AM. INDICATION: Right posterior pelvic pain after a fall. TECHNIQUE: A single AP view was obtained. FINDINGS: The previous exam of 12/03/2020 noted a comminuted intertrochanteric fracture of the left femur. In the interval since the prior exam, the patient has undergone a surgical procedure. There is now an intramedullary savanna and orthopedic fixation screws securing the fracture. The main fracture fragments seem near anatomic in alignment. There is no fracture, dislocation, or acute bony abnormality identified. 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 These degenerative changes seem similar to the prior exam. The degenerative disc and bony disease involving the lumbar spine noted previously is also unchanged. The soft tissues are unremarkable. IMPRESSION: 1. There is no acute bony abnormality identified. 2. If clinical concern regarding an occult fracture persists, then CT would be recommended for further study. 3. There has been an interval surgical procedure involving the left femur. The orthopedic hardware appears to be in good position and the main fracture fragments are near anatomic in alignment. Dictated by: Dictated on workstation # [id number]
[2021-02-28 09:17] VITALS: BP 143/78
== END 2021-02-28 09:17 | disposition home or self-care (01) ==
LOC: EDUNIT# 08:02 → ER 08:04
DX: S30.0XXA Contusion of lower back and pelvis, initial encounter (principal); I10 Essential (primary) hypertension; E78.00 Pure hypercholesterolemia, unspecified; I25.10 Atherosclerotic heart disease of native coronary artery without angina pectoris; G89.29 Other chronic pain; M54.9 Dorsalgia, unspecified; Z79.891 Long term (current) use of opiate analgesic; Z79.899 Other long term (current) drug therapy; W01.0XXA Fall on same level from slipping, tripping and stumbling without subsequent striking against object, initial encounter
CPT/HCPCS: 72170; 99281

== ENCOUNTER 2021-04-24 11:48 | Emergency (ER) | payer MEDICARE, OTHER ==
[~2021-04-24] VITALS: Ht 170 cm; Wt 84.5 kg
--- NOTE | 2021-04-24 12:01 | ED General ---
General Chief Complaint: COVID19 Suspect/Confirmed Stated Complaint: TRAN, Source of Information: Patient Exam Limitations: No Limitations (RIKI DOW APRN) History of Present Illness Date Seen by Provider: Apr 24, 2021 Time Seen by Provider: 11:59 Initial Comments to ER with reports of a frontal headache behind the left eye that began last night. It is intermittent. He has had a runny nose. He states he only wants tested for COVID. I recommended a CT of the head and he states he does not want that done. He has had both COVID vaccines and a booster. Timing/Duration: 1-2 Days Severity: Moderate Associated Systoms: Denies Symptoms (RIKI DOW APRN) Allergies and Home Medications Allergies Coded Allergies: No Known Drug Allergies (Unverified , 05/19/11) Patient Home Medication List Home Medication List Reviewed: Yes (RIKI DOW APRN) Polyethylene Glycol 3350 (Miralax) 119 Gm Powder, 17 GM PO TIDWM Prescribed by: MARILYN SOTO on 12/27/20 0136 Rosuvastatin Calcium (Crestor) 20 Mg Tablet, Unknown Dose PO, (Reported) Entered as Reported by: GEMMA LEON on 12/28/18 0939 Tramadol HCl (Ultram) 50 Mg Tablet, 50 MG PO TID Prescribed by: RIKI DOW on 06/27/19 1336 Review of Systems Review of Systems Constitutional: see HPI EENTM: see HPI Respiratory: no symptoms reported Cardiovascular: no symptoms reported Genitourinary: no symptoms reported Musculoskeletal: no symptoms reported Skin: no symptoms reported Psychiatric/Neurological: No Symptoms Reported Hematologic/Lymphatic: No Symptoms Reported (RIKI DOW APRN) Past Ohpzska-Vximdo-Auxcxf Hx Immunizations Up To Date Tetanus Booster (TDap): Unknown PED Vaccines UTD: No First/Initial COVID19 Vaccinat: MAY Second COVID19 Vaccination Evan: ? (RIKI DOW APRN) Seasonal Allergies Seasonal Allergies: No (RIKI DOW APRN) Past Medical History Surgery/Hospitalization HX: b tkr, left hip, cabg x4, stents, htn,afib,cad, hyperlipidemia, bph, arthritis, renal stones. Surgeries: Yes (BILAT TKR, QUAD BYPASS, STENT, ESWL, R ARM FX, R FOOT) Cardiac, CABG, Joint Replacement, Orthopedic Respiratory: No Cardiac: Yes Coronary Artery Disease, High Cholesterol, Hypertension Neurological: No Reproductive Disorders: No Sexually Transmitted Disease: No HIV/AIDS: No Genitourinary: Yes Benign Prostatic Hyperpl, Kidney Stones Gastrointestinal: Yes Chronic Constipation Musculoskeletal: Yes Arthritis, Chronic Back Pain, Fractures Endocrine: No HEENT: No Loss of Vision: Bilateral Hearing Impairment: Denies Cancer: No Psychosocial: No Integumentary: No Blood Disorders: No Adverse Reaction/Blood Tranf: Yes (RIKI DOW APRN) Family Medical History No Pertinent Family Hx (RIKI DOW APRN) Physical Exam Vital Signs Vital Signs - First Documented 04/24/21 11:56 Temp 36.9 Pulse 66 Resp 18 B/P (MAP) 116/81 (93) Pulse Ox 97 (MERCEDEZ GUERRA MD) Vital Signs Capillary Refill : (RIKI DOW APRN) Height, Weight, BMI Height: 5'7.00" Weight: 170lbs. 0.0oz. 77.694123mu; 26.00 BMI Method:Stated General Appearance: No Apparent Distress, WD/WN Eyes: Bilateral Eye Normal Inspection, Bilateral Eye PERRL, Bilateral Eye EOMI HEENT: PERRL/EOMI, TMs Normal Neck: Full Range of Motion, Normal Inspection Respiratory: Normal Breath Sounds, No Accessory Muscle Use, No Respiratory Distress Cardiovascular: Regular Rate, Rhythm, Normal Peripheral Pulses Gastrointestinal: Normal Bowel Sounds, Non Tender, Soft Extremity: Normal Capillary Refill, Normal Inspection Neurologic/Psychiatric: Alert, Oriented x3 Skin: Normal Color, Warm/Dry (RIKI DOW APRN) Progress/Results/Core Measures Suspected Sepsis SIRS Temperature: Pulse: Respiratory Rate: Blood Pressure / Mean: (RIKI DOW APRN) Results/Orders Lab Results Laboratory Tests Test 04/24/21 11:55 Range/Units Influenza Type A (RT-PCR) Not Detected Not Detecte Influenza Type B (RT-PCR) Not Detected Not Detecte SARS-CoV-2 RNA (RT-PCR) Not Detected Not Detecte (MERCEDEZ GUERRA MD) Vital Signs/I&O 04/24/21 04/24/21 11:56 12:03 Temp 36.9 36.9 Pulse 66 66 Resp 18 18 B/P (MAP) 116/81 (93) 116/81 Pulse Ox 97 97 (MERCEDEZ GUERRA MD) Vital Signs/I&O Capillary Refill : (RIKI DOW APRN) Departure Communication (Admissions) Alert and oriented no distress. He states he does not want to wait on the COVID results he wants me to call them with the results. He walked in without difficulty. He denies falling and hitting his head or any anticoagulant use. H is symptoms are alleviated with Ricola lozenges. (RIKI DOW APRN) Impression Primary Impression: Headache Disposition: 01 HOME, SELF-CARE Condition: Stable Departure-Patient Inst. Decision time for Depature: 12:01 (RIKI DOW APRN) Referrals: AUDI HALE MD (PCP/Family) Primary Care Physician Patient Instructions: Headache, Adult ATTENDING PHYSICIAN NOTE: I was physically present as attending physician in the emergency department during the care of this patient, but I was not directly involved in the decision making or delivery of care for this patient. (MERCEDEZ GUERRA MD) RIKI DOW APRN Apr 24, 2021 12:01 MERCEDEZ GUERRA MD Apr 24, 2021 13:50
[2021-04-24 12:03] VITALS: BP 116/81
== END 2021-04-24 12:03 | disposition home or self-care (01) ==
LOC: EDUNIT# 11:48 → ER 11:50
DX: R51.9 Headache, unspecified (principal); I10 Essential (primary) hypertension; E78.00 Pure hypercholesterolemia, unspecified; I25.10 Atherosclerotic heart disease of native coronary artery without angina pectoris; Z20.822 Contact with and (suspected) exposure to COVID-19; Z79.899 Other long term (current) drug therapy
CPT/HCPCS: 87636; 99283

== ENCOUNTER 2021-09-06 01:25 | Emergency (ER) | payer MEDICARE, OTHER ==
[~2021-09-06] VITALS: Ht 170 cm; Wt 74.8 kg
[2021-09-06 02:05] VITALS: BP 192/97
[2021-09-06 02:39] LABS: BASOPHILS % (AUTO) 0 % (0-10); EOSINOPHILS # (AUTO) 0.1 10^3/uL (0.0-0.3); EOSINOPHILS % (AUTO) 1 % (0-10); HEMATOCRIT 37 % (40-54); HEMOGLOBIN 12.3 g/dL (13.3-17.7); LYMPHOCYTES # (AUTO) 1.2 10^3/uL (1.0-4.0); LYMPHOCYTES % (AUTO) 13 % (12-44); MEAN CORPUSCULAR HEMOGLOBIN 30 pg (25-34); MEAN CORPUSCULAR HGB CONC 33 g/dL (32-36); MEAN CORPUSCULAR VOLUME 91 fL (80-99); MEAN PLATELET VOLUME 9.7 fL (9.0-12.2); MONOCYTES # (AUTO) 0.9 10^3/uL (0.0-1.0); MONOCYTES % (AUTO) 10 % (0-12); NEUTROPHILS # (AUTO) 6.7 10^3/uL (1.8-7.8); NEUTROPHILS % (AUTO) 75 % (42-75); PLATELET COUNT 178 10^3/uL (130-400); WHITE BLOOD COUNT 8.9 10^3/uL (4.3-11.0)
[2021-09-06] MEDS ORDERED: PANTOPRAZOLE 40 MG (PROTONIX) VIAL IV ONE (02:45)
[2021-09-06] MEDS ORDERED: ONDANSETRON 4 MG/2 ML (SDV) Z0FRAN IVP ONE (02:45)
[2021-09-06 02:48] LABS: INR 1.2 (0.8-1.4); PROTHROMBIN TIME PATIENT 15.5 SEC (12.2-14.7)
[2021-09-06 02:49] LABS: AMYLASE 37 U/L (25-125); CHLORIDE 106 MMOL/L (98-107); POTASSIUM 3.7 MMOL/L (3.6-5.0); SODIUM 142 MMOL/L (135-145)
[2021-09-06 02:51] LABS: GLUCOSE 117 MG/DL (70-105); TOTAL PROTEIN 6.8 GM/DL (6.4-8.2)
[2021-09-06 02:52] LABS: CARBON DIOXIDE 23 MMOL/L (21-32)
[2021-09-06 02:53] LABS: BILIRUBIN,TOTAL 0.7 MG/DL (0.1-1.0)
[2021-09-06 02:54] LABS: ALKALINE PHOSPHATASE 77 U/L (40-136); CREATININE SERUM 0.79 MG/DL (0.60-1.30); GFR ESTIMATED 85
[2021-09-06 02:55] LABS: BUN/CREATININE RATIO 25
[2021-09-06 02:57] LABS: ALANINE AMINOTRANSFERASE 24 U/L (0-55)
[2021-09-06 02:58] LABS: LIPASE 17 U/L (8-78)
[2021-09-06 04:14] LABS: BILIRUBIN,URINE NEGATIVE (NEGATIVE); CLARITY,URINE SL CLOUDY; COLOR,URINE YELLOW; GLUCOSE, URINE (UA) NEGATIVE (NEGATIVE); KETONES,URINE NEGATIVE (NEGATIVE); LEUKOCYTE ESTERASE ,URINE NEGATIVE (NEGATIVE); NITRITE,URINE NEGATIVE (NEGATIVE); PROTEIN,URINE TRACE (NEGATIVE)
[2021-09-06 04:22] LABS: BACTERIA,URINE NEGATIVE /HPF; CALCIUM OXALATE CRYSTALS,UR FEW /LPF; RBC,URINE 0-2 /HPF; SQUAMOUS EPITHELIAL CELL,UR 0-2 /HPF
--- NOTE | 2021-09-06 04:54 | ED GI ---
General Chief Complaint: Abdominal/GI Problems Stated Complaint: SPITTING UP BLOOD,ABD PAIN Nursing Triage Note: Pt arrives per POV w/ c/o epigastric pain that started "about a year ago." Pt ambulatory to room w/ cane, attached to NIBP and SpO2 monitor. Pt belching while doing assessment. Source of Information: Patient Allergies and Home Medications Allergies Coded Allergies: No Known Drug Allergies (Unverified , 05/19/11) Patient Home Medication List Ondansetron (Ondansetron Odt) 4 Mg Tab.rapdis, 4 MG PO Q4H Prescribed by: POLO PAL on 09/06/21 0459 Pantoprazole Sodium (Protonix) 40 Mg Tablet.dr, 40 MG PO DAILY Prescribed by: POLO PAL on 09/06/21458 Polyethylene Glycol 3350 (Miralax) 119 Gm Powder, 17 GM PO TIDWM Prescribed by: MARILYN SOTO on 12/27/20 0136 Rosuvastatin Calcium (Crestor) 20 Mg Tablet, Unknown Dose PO, (Reported) Entered as Reported by: GEMMA LEON on 12/28/18 0939 Tramadol HCl (Ultram) 50 Mg Tablet, 50 MG PO TID Prescribed by: RIKI DOW on 06/27/19 1336 Past Wdgfogu-Hdduan-Nsbiiq Hx Patient Social History Tobacco Use?: No Use of E-Cig and/or Vaping dev: No Alcohol Use?: No Immunizations Up To Date Tetanus Booster (TDap): Unknown PED Vaccines UTD: No First/Initial COVID19 Vaccinat: 2020 Second COVID19 Vaccination Evan: 2020 Third COVID19 Vaccination Date: 2021 Seasonal Allergies Seasonal Allergies: No Past Medical History Surgery/Hospitalization HX: b tkr, left hip, cabg x4, stents, htn,afib,cad, hyperlipidemia, bph, arthritis, renal stones. Surgeries: Yes (BILAT TKR, QUAD BYPASS, STENT, ESWL, R ARM FX, R FOOT) Cardiac, CABG, Joint Replacement, Orthopedic Respiratory: No Cardiac: Yes Coronary Artery Disease, High Cholesterol, Hypertension Neurological: No Reproductive Disorders: No Sexually Transmitted Disease: No HIV/AIDS: No Genitourinary: Yes Benign Prostatic Hyperpl, Kidney Stones Gastrointestinal: Yes Chronic Constipation Musculoskeletal: Yes Arthritis, Chronic Back Pain, Fractures Endocrine: No HEENT: No Loss of Vision: Bilateral Hearing Impairment: Denies Cancer: No Psychosocial: No Integumentary: No Blood Disorders: No Adverse Reaction/Blood Tranf: Yes Family Medical History No Pertinent Family Hx Physical Exam Vital Signs Vital Signs - First Documented 09/06/21 02:05 Temp 36.7 Pulse 58 Resp 20 B/P (MAP) 192/97 (128) Pulse Ox 96 Capillary Refill : Height/Weight/BMI Height: 5'7.00" Weight: 170lbs. 0.0oz. 77.945963fu; 25.00 BMI Method:Stated Progress/Results/Core Measures Results/Orders Lab Results Laboratory Tests Test 09/06/21 02:05 09/06/21 02:20 09/06/21 02:30 Range/Units Urine Color YELLOW Urine Clarity SL CLOUDY Urine pH 6.0 5-9 Urine Specific [place] 1.025 H 1.016-1.022 Urine Protein TRACE H NEGATIVE Urine Glucose (UA) NEGATIVE NEGATIVE Urine Ketones NEGATIVE NEGATIVE Urine Nitrite NEGATIVE NEGATIVE Urine Bilirubin NEGATIVE NEGATIVE Urine Urobilinogen 0.2 < = 1.0 MG/DL Urine Leukocyte Esterase NEGATIVE NEGATIVE Urine RBC (Auto) TRACE-I H NEGATIVE Urine RBC 0-2 /HPF Urine WBC NONE /HPF Urine Squamous Epithelial Cells 0-2 /HPF Urine Crystals PRESENT H /LPF Urine Calcium Oxalate Crystals FEW H /LPF Urine Bacteria NEGATIVE /HPF Urine Casts NONE /LPF Urine Mucus SMALL H /LPF Urine Culture Indicated NO Influenza Type A (RT-PCR) Not Detected Not Detecte Influenza Type B (RT-PCR) Not Detected Not Detecte SARS-CoV-2 RNA (RT-PCR) Not Detected Not Detecte White Blood Count 8.9 4.3-11.0 10^3/uL Red Blood Count 4.09 L 4.30-5.52 10^6/uL Hemoglobin 12.3 L 13.3-17.7 g/dL Hematocrit 37 L 40-54 % Mean Corpuscular Volume 91 80-99 fL Mean Corpuscular Hemoglobin 30 25-34 pg Mean Corpuscular Hemoglobin Concent 33 32-36 g/dL Red Cell Distribution Width 13.2 10.0-14.5 % Platelet Count 178 130-400 10^3/uL Mean Platelet Volume 9.7 9.0-12.2 fL Immature Granulocyte % (Auto) 0 % Neutrophils (%) (Auto) 75 42-75 % Lymphocytes (%) (Auto) 13 12-44 % Monocytes (%) (Auto) 10 0-12 % Eosinophils (%) (Auto) 1 0-10 % Basophils (%) (Auto) 0 0-10 % Neutrophils # (Auto) 6.7 1.8-7.8 10^3/uL Lymphocytes # (Auto) 1.2 1.0-4.0 10^3/uL Monocytes # (Auto) 0.9 0.0-1.0 10^3/uL Eosinophils # (Auto) 0.1 0.0-0.3 10^3/uL Basophils # (Auto) 0.0 0.0-0.1 10^3/uL Immature Granulocyte # (Auto) 0.0 0.0-0.1 10^3/uL Prothrombin Time 15.5 H 12.2-14.7 SEC INR Comment 1.2 0.8-1.4 Activated Partial Thromboplast Time 33 24-35 SEC Sodium Level 142 135-145 MMOL/L Potassium Level 3.7 3.6-5.0 MMOL/L Chloride Level 106 98-107 MMOL/L Carbon Dioxide Level 23 21-32 MMOL/L Anion Gap 13 5-14 MMOL/L Blood Urea Nitrogen 20 H 7-18 MG/DL Creatinine 0.79 0.60-1.30 MG/DL Estimat Glomerular Filtration Rate 85 BUN/Creatinine Ratio 25 Glucose Level 117 H 70-105 MG/DL Calcium Level 9.0 8.5-10.1 MG/DL Corrected Calcium 9.0 8.5-10.1 MG/DL Total Bilirubin 0.7 0.1-1.0 MG/DL Aspartate Amino Transf (AST/SGOT) 24 5-34 U/L Alanine Aminotransferase (ALT/SGPT) 24 0-55 U/L Alkaline Phosphatase 77 40-136 U/L Troponin I < 0.028 <0.028 NG/ML Total Protein 6.8 6.4-8.2 GM/DL Albumin 4.0 3.2-4.5 GM/DL Amylase Level 37 25-125 U/L Lipase 17 8-78 U/L My Orders Orders - POLO PAL DO Ed Iv/Invasive Line Start (09/06/21 02:05) Ekg Tracing (09/06/21 02:05) Monitor-Rhythm Ecg Trace Only (09/06/21 02:05) Amylase (09/06/21 02:05) Cbc With Automated Diff (09/06/21 02:05) Comprehensive Metabolic Panel (09/06/21 02:05) Lipase (09/06/21 02:05) Protime With Inr (09/06/21 02:05) Partial Thromboplastin Time (09/06/21 02:05) Ua Culture If Indicated (09/06/21 02:05) Troponin I [place] (09/06/21 02:05) Chest 1 View, Ap/Pa Only (09/06/21 02:05) Covid 19 Inhouse Test (09/06/21 02:05) Influenza A And B By Pcr (09/06/21 02:05) Isolation Central Supply Req (09/06/21 02:05) Ct Chest/Abdomen/Pelvis Wo (09/06/21 02:41) Pantoprazole Injection (Protonix Injecti (09/06/21 02:45) Ondansetron Injection (Zofran Injectio (09/06/21 02:45) Medications Given in ED Current Medications Medications Dose Ordered Sig/Emeli Route Start Time Stop Time Status Last Admin Dose Admin Ondansetron HCl 4 mg ONCE ONCE IVP 09/06/21 02:45 09/06/21 02:46 DC 09/06/21 03:19 4 MG Pantoprazole 40 mg ONCE ONCE IV 09/06/21 02:45 09/06/21 02:46 DC 09/06/21 03:21 40 MG Vital Signs/I&O 09/06/21 02:05 Temp 36.7 Pulse 58 Resp 20 B/P (MAP) 192/97 (128) Pulse Ox 96 Blood Pressure Mean: 128 Progress Progress Note : Progress Note GIVEN ZOFRAN AND PROTONIX WITH RELIEF OF SYMPTOMS PT STATES MULTIPLE TIMES DURING ER STAY THAT HE WANTS TO GO HOME AND IS FEELING BETTER AND IS ADAMANT ABOUT DRIVING HIMSELF HOME HE REFUSES TAXI OR CALLING ANYONE TO PICK HIM UP AND TAKE HIM HOME Departure Impression Primary Impression: Cholelithiasis Additional Impression: Gastritis Disposition: 01 HOME, SELF-CARE Condition: Improved Departure-Patient Inst. Decision time for Depature: 04:55 Referrals: AUDI HALE MD (PCP/Family) Primary Care Physician Patient Instructions: Gastritis ED, Gallstones ED, Gallbladder Diet Add. Discharge Instructions: CONTINUE YOUR REGULAR MEDICATIONS PRESCRIBED BY YOUR DR YOU MAY TAKE TYLENOL FOR YOUR HIP AND JOINT PAIN DO NOT TAKE ANY IBUPROFEN OR ALEVE OR NAPROXEN OR MOTRIN OR ADVIL. FOLLOW UP WITH DR. HALE THIS WEEK FOR FURTHER CARE, RETURN TO ER IF YOUR SYMPTOMS WORSEN All discharge instructions reviewed with patient and/or family. Voiced understanding. Scripts Ondansetron (Ondansetron Odt) 4 Mg Tab.rapdis 4 MG PO Q4H for Nausea/Vomiting, #10 TAB Prov: POLO PAL DO 09/06/21 Pantoprazole Sodium (Protonix) 40 Mg Tablet. 40 MG PO DAILY, #15 TAB Prov: POLO PAL DO 09/06/21 POLO PAL DO Sep 06, 2021 04:54
[2021-09-06] MEDS ORDERED: PANT40TA2 PO (04:59)
[2021-09-06] MEDS ORDERED: ONDA4TAB11 PO (04:59)
--- NOTE | 2021-09-06 05:49 | Diagnostic Imaging Report ---
PROCEDURE: CT chest, abdomen, and pelvis without contrast. TECHNIQUE: Multiple contiguous axial images were obtained through the chest, abdomen, and pelvis without the use of intravenous contrast. Auto Exposure Controls were utilized during the CT exam to meet ALARA standards for radiation dose reduction. INDICATION: Epigastric pain, cough and congestion. Compared with CT angio chest 04/03/2019, abdominal pelvic CT compared 12/07/2016. CHEST: Extensive coronary artery atherosclerotic vascular calcifications and likely stenting with previous sternotomy, but no dehiscence. Trace dependent zones of partial atelectasis in the lung bases. Lungs otherwise clear. No findings of edema or pneumonia. No suspicious lung nodule or thoracic adenopathy. Atherosclerotic aorta is nonfocal. No effusion or pneumothorax. Abdomen and pelvis: There are small gallstones present but no secondary features of cholecystitis. Liver, bile ducts, spleen, adrenals and pancreas all nonacute. There are renal vascular calcifications as well as nonobstructing calculus within the left upper pole calyx measuring 7 mm. There is atherosclerotic aortic disease with its mild infrarenal ectasia to 2.6 cm not clearly changed from priors. There is no small or large bowel obstruction. There is no ascites, abscess, hematoma or acute fluid collection. No pneumatosis. No free gas. No bowel wall thickening. No perienteric or pericolonic edema. No inflammatory process or stranding of the fat. 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 There are chronic appearing L2 and L1 compression deformities with advanced lumbar spondylosis chronic. There are postsurgical changes and chronic deformities to the left hip. IMPRESSION: CHEST: Atherosclerotic disease and surgical residua. No acute chest pathology. Abdomen/pelvis: Nephrolithiasis and cholelithiasis without obstruction or focal inflammatory process. Ectatic infrarenal atherosclerotic aorta is stable and unruptured. Chronic degenerative changes surgery to the left hip L5 spondylolysis with grade 1 slip and old appearing lumbar endplate compression deformities. Agree with preliminary. Dictated by: Dictated on workstation # [id number]
--- NOTE | 2021-09-06 06:03 | Diagnostic Imaging Report ---
INDICATION: Pain FINDINGS: Sternal wires midline. The heart mildly enlarged. No focal consolidation or pio edema. No pleural fluid or pneumothorax. IMPRESSION: Prior sternotomy. Upper limits heart size. No acute finding identified. Dictated by: Dictated on workstation # [id number]
== END 2021-09-06 05:15 | disposition home or self-care (01) ==
LOC: EDUNIT# 01:25 → ER 01:29
DX: K80.20 Calculus of gallbladder without cholecystitis without obstruction (principal); K29.70 Gastritis, unspecified, without bleeding; Z20.822 Contact with and (suspected) exposure to COVID-19
CPT/HCPCS: 36415; 71045; 71250; 74176; 80053; 81000; 82150; 83690; 84484; 85025; 85610; 85730; 87636; 93005

== ENCOUNTER 2021-11-01 12:45 | Emergency (ER) | payer MEDICARE, OTHER ==
[~2021-11-01] VITALS: Ht 158 cm; Wt 72.5 kg
[~2021-11-01 12:45] MED LIST changes: +ONDA4TAB11 PO; +PANT40TA2 PO
--- NOTE | 2021-11-01 13:18 | ED Cardiac General ---
History of Present Illness General Chief Complaint: Cardiac/General Problems Stated Complaint: LOW HEART RATE 49 Nursing Triage Note: PT ARRIVED VIA WHEELCHAIR. PT STATES HE WAS CALLED BY DR LYMAN OFFICE AND TOLD TO COME TO ER. PER PT, HIS "HOME MANUEL" CAME IN AND TOOK HIS HR THEN CALLED NURA OFFICE AND TOLD THEM HIS HR WAS 49. DENIES CP. DENIES SOA. Source: patient Exam Limitations: no limitations History of Present Illness Date Seen by Provider: Nov 01, 2021 Time Seen by Provider: 13:12 Initial Comments Patient is an 86-year-old male who presents to the emergency department today with a chief complaint of concern for bradycardia. Patient states that his home health aide came to the house this morning and was checking his vitals and found that his heart rate was 49. She talked to his nurse and they recommended he come to the emergency department to be checked out. He has absolutely no symptoms of illness. He is having no headache, weakness, chest pain, shortness of breath. No nausea, no diarrhea, no problems urinating. He has chronic back and lower extremity pain. He does not see a environmental protection officer, he had a bypass about 20 or 30 years ago. His appetite has been good. All other review of systems reviewed and negative except as stated. Associated Systoms: Denies Symptoms Allergies and Home Medications Allergies Coded Allergies: No Known Drug Allergies (Unverified , 05/19/11) Patient Home Medication List Home Medication List Reviewed: Yes Ondansetron (Ondansetron Odt) 4 Mg Tab.rapdis, 4 MG PO Q4H Prescribed by: POLO PAL on 09/06/21 045 Pantoprazole Sodium (Protonix) 40 Mg Tablet.dr, 40 MG PO DAILY Prescribed by: POLO PAL on 09/06/21 045 Polyethylene Glycol 3350 (Miralax) 119 Gm Powder, 17 GM PO TIDWM Prescribed by: MARILYN SOTO on 12/27/20 0136 Rosuvastatin Calcium (Crestor) 20 Mg Tablet, Unknown Dose PO, (Reported) Entered as Reported by: GEMMA LEON on 12/28/18 0939 Tramadol HCl (Ultram) 50 Mg Tablet, 50 MG PO TID Prescribed by: RIKI DOW on 06/27/19 1336 Review of Systems Review of Systems Constitutional: see HPI EENTM: No Symptoms Reported Respiratory: No Symptoms Reported Cardiovascular: No Symptoms Reported Gastrointestinal: No Symptoms Reported Genitourinary: No Symptoms Reported Musculoskeletal: joint pain (chronic) Skin: no symptoms reported Psychiatric/Neurological: No Symptoms Reported All Other Systems Reviewed Negative Unless Noted: Yes Past Tsycqov-Ahrzxe-Zcyoto Hx Patient Social History Tobacco Use?: No Substance use?: No Alcohol Use?: No Pt feels they are or have been: Unable to obtain Immunizations Up To Date Tetanus Booster (TDap): Unknown PED Vaccines UTD: No First/Initial COVID19 Vaccinat: 2020 Second COVID19 Vaccination Evan: 2020 Third COVID19 Vaccination Date: 2021 Seasonal Allergies Seasonal Allergies: No Past Medical History Surgery/Hospitalization HX: b tkr, left hip, cabg x4, stents, htn,afib,cad, hyperlipidemia, bph, arthritis, renal stones. Surgeries: Yes (BILAT TKR, QUAD BYPASS, STENTS, ESWL, R ARM FX, R FOOT) Cardiac, CABG, Joint Replacement, Orthopedic, Renal Respiratory: No Cardiac: Yes Atrial Fibrillation, Coronary Artery Disease, High Cholesterol, Hypertension Neurological: No Reproductive Disorders: No Sexually Transmitted Disease: No HIV/AIDS: No Genitourinary: Yes Benign Prostatic Hyperpl, Kidney Stones Gastrointestinal: Yes Chronic Constipation Musculoskeletal: Yes (CHRONIC HIP PAIN ) Arthritis, Chronic Back Pain, Fractures Endocrine: No HEENT: No Loss of Vision: Bilateral Hearing Impairment: Denies Cancer: No Psychosocial: No Integumentary: No Blood Disorders: No Adverse Reaction/Blood Tranf: No Family Medical History No Pertinent Family Hx Physical Exam Vital Signs Vital Signs - First Documented 11/01/21 12:50 Pulse 58 Resp 20 B/P (MAP) 148/72 (97) Pulse Ox 97 O2 Delivery Room Air Capillary Refill : Less Than 3 Seconds Height, Weight, BMI Height: 5'7.00" Weight: 170lbs. 0.0oz. 77.849141ko; 29.00 BMI Method:Stated General Appearance: No Apparent Distress, WD/WN, Other (appears stated age; NAD) HEENT: PERRL/EOMI Respiratory: Lungs Clear, Normal Breath Sounds, No Accessory Muscle Use, No Respiratory Distress Cardiovascular: No Edema, Irregularly Irregular (rate mid 50's) Gastrointestinal: Non Tender, Soft Extremity: Normal Capillary Refill, Normal Inspection, Normal Range of Motion, No Pedal Edema Neurologic/Psychiatric: Alert, Oriented x3, No Motor/Sensory Deficits, Normal Mood/Affect Skin: Normal Color, Warm/Dry Progress/Results/Core Measures Results/Orders My Orders Orders - JENNA ALLRED MD Ekg Tracing (11/01/21 13:01) Vital Signs/I&O 11/01/21 12:50 Pulse 58 Resp 20 B/P (MAP) 148/72 (97) Pulse Ox 97 O2 Delivery Room Air Blood Pressure Mean: 97 Initial ECG Impression Date: Nov 01, 2021 Initial ECG Impression Time: 13:12 Initial ECG Rate: 55 Initial ECG Rhythm: A Fib/Flutter Initial ECG Intervals QRS 111 QTC 437 Comment Patient is noted to be in a rate controlled atrial fibrillation without ST segment deviation. Departure Impression Primary Impression: concern for bradycardia Additional Impression: Rate controlled atrial fibrillation Disposition: 01 HOME, SELF-CARE Condition: Stable Departure-Patient Inst. Decision time for Depature: 13:20 Referrals: AUDI HALE MD (PCP/Family) Primary Care Physician Patient Instructions: Atrial Fibrillation Add. Discharge Instructions: Continue your daily medications as prescribed. If you develop symptoms of palpitations, shortness of breath, nausea please come back to the emergency department for reevaluation. Please follow-up with your primary care doctor as scheduled. Copy Copies To 1: AUDI HALE MD, KATHRYN M MD Nov 01, 2021 13:18
[2021-11-01 13:45] VITALS: BP 138/44
== END 2021-11-01 13:45 | disposition home or self-care (01) ==
LOC: EDUNIT# 12:45 → ER 12:46
DX: I48.91 Unspecified atrial fibrillation (principal)
CPT/HCPCS: 93005

== ENCOUNTER 2021-11-14 00:08 | Emergency (ER) | payer MEDICARE, OTHER ==
[~2021-11-14] VITALS: Ht 170 cm; Wt 75.0 kg
[2021-11-14] MEDS ORDERED: KETOROLAC 60 MG/2 ML VIAL IM ONE (01:15)
[2021-11-14] MEDS ORDERED: methylPREDNISolone 125 MG (Solu-MEDROL) VIAL IM ONE (01:15)
--- NOTE | 2021-11-14 01:16 | ED Hip Pain/Injury ---
General Chief Complaint: General Problems/Pain Stated Complaint: BOTH HIPS PAINFUL Nursing Triage Note: PT TO ED W/ C/O BILAT HIP PAIN ET "BOWEL LEAKAGE". PT REPORTS PAIN ONSET X1 YR AFTER LT HIP REPLACEMENT. PT ALSO REPORTS HAS BEEN TAKING STOOL SOFTENERS ET STATES HIS DAUGHTER TOLD HIM THAT COULD BE CAUSING HIS "LEAKING". PT STATES HE TOOK PEPTO BISMOL ET THE "BOWEL LEAKAGE" HAS STOPPED. Source: patient Exam Limitations: no limitations History of Present Illness Date Seen by Provider: Nov 14, 2021 Time Seen by Provider: 01:12 Initial Comments Patient to the ER by private conveyance with chief complaint that for 1 year since he had a fall and hip fracture and gamma nail replacement by Dr. Hickey he has continued to have left hip pain. Couple weeks ago he went to Dr. Hickey and told him about it and he said maybe an injection would help him and sent him home without an injection. The patient went to Dr. Hale his primary care pro vider who gave him an injection 6 months ago and he says it helped him for several months. He has an appointment in 1 week with a different orthopedic surgeon here in [facility] who starts with larry Yancey. He says the pain is keeping him from sleeping tonight and would like something for it. He does not routinely take anything medicine cordova nor has he taken anything for his pain. He has been complaining of loose stools lately so he stopped taking his laxatives about a week ago and the loose stools have persisted so he took some Pepto-Bismol and then noted that his stool turned black after that. He does not have a history of anemia chest pain shortness of air nausea vomiting fevers chills. Allergies and Home Medications Allergies Coded Allergies: No Known Drug Allergies (Unverified , 05/19/11) Patient Home Medication List Home Medication List Reviewed: Yes Ondansetron (Ondansetron Odt) 4 Mg Tab.rapdis, 4 MG PO Q4H Prescribed by: POLO PAL on 09/06/21 045 Pantoprazole Sodium (Protonix) 40 Mg Tablet.dr, 40 MG PO DAILY Prescribed by: POLO PAL on 09/06/21458 Polyethylene Glycol 3350 (Miralax) 119 Gm Powder, 17 GM PO TIDWM Prescribed by: MARILYN SOTO on 12/27/20 0136 Rosuvastatin Calcium (Crestor) 20 Mg Tablet, Unknown Dose PO, (Reported) Entered as Reported by: GEMMA LEON on 12/28/18 0939 Tramadol HCl (Ultram) 50 Mg Tablet, 50 MG PO TID Prescribed by: RIKI DOW on 06/27/19 1336 Review of Systems Constitutional: No chills, No diaphoresis EENTM: No ear discharge, No ear pain Respiratory: No cough, No short of breath Cardiovascular: No chest pain, No edema Gastrointestinal: No abdominal pain; diarrhea; No nausea, No vomiting Genitourinary: No discharge, No dysuria All Other Systems Reviewed Negative Unless Noted: Yes Past Owtqldx-Pymltu-Ieooke Hx Patient Social History Tobacco Use?: No Use of E-Cig and/or Vaping dev: No Substance use?: No Alcohol Use?: No Pt feels they are or have been: No Immunizations Up To Date Tetanus Booster (TDap): Unknown PED Vaccines UTD: No First/Initial COVID19 Vaccinat: 2020 Second COVID19 Vaccination Evan: 2020 Third COVID19 Vaccination Date: 2021 Seasonal Allergies Seasonal Allergies: No Past Medical History Surgery/Hospitalization HX: LT HIP FX Surgeries: Yes (BILAT TKR, QUAD BYPASS, STENTS, ESWL, R ARM FX, R FOOT) Cardiac, CABG, Joint Replacement, Orthopedic, Renal Respiratory: No Cardiac: Yes Atrial Fibrillation, Coronary Artery Disease, High Cholesterol, Hypertension Neurological: No Reproductive Disorders: No Sexually Transmitted Disease: No HIV/AIDS: No Genitourinary: Yes Benign Prostatic Hyperpl, Kidney Stones Gastrointestinal: Yes Chronic Constipation Musculoskeletal: Yes (CHRONIC HIP PAIN ) Arthritis, Chronic Back Pain, Fractures Endocrine: No HEENT: No Loss of Vision: Bilateral Hearing Impairment: Denies Cancer: No Psychosocial: No Integumentary: No Blood Disorders: No Adverse Reaction/Blood Tranf: No Family Medical History No Pertinent Family Hx Physical Exam Vital Signs Vital Signs - First Documented 11/14/21 00:16 Temp 37.1 Pulse 55 Resp 20 B/P (MAP) 184/85 (118) Pulse Ox 99 O2 Delivery Room Air Capillary Refill : Less Than 3 Seconds Height, Weight, BMI Height: 5'7.00" Weight: 170lbs. 0.0oz. 77.947109pd; 25.00 BMI Method:Stated General Appearance: No Apparent Distress, WD/WN HEENT: PERRL/EOMI, Pharynx Normal, Moist Mucous Membranes Neck: Full Range of Motion, Normal Inspection Cardiovascular: Regular Rate, Rhythm, Normal Peripheral Pulses Respiratory: Chest Non Tender, Lungs Clear, Normal Breath Sounds, No Accessory Muscle Use, No Respiratory Distress Neurologic/Psychiatric: Alert, Oriented x3 Progress/Results/Core Measures Results/Orders My Orders Orders - MARILYN SOTO Fecal Occult Bedside (11/14/21 01:08) Ketorolac Injection (Toradol Injection) (11/14/21 01:15) Methylprednisolone Sod Succ (Solu-Medrol (11/14/21 01:15) Medications Given in ED Current Medications Medications Dose Ordered Sig/Emeli Route Start Time Stop Time Status Last Admin Dose Admin Ketorolac Tromethamine 30 mg ONCE ONCE IM 11/14/21 01:15 11/14/21 01:16 DC 11/14/21 01:15 30 MG Methylprednisolone Sodium Succinate 125 mg ONCE ONCE IM 11/14/21 01:15 11/14/21 01:16 DC 11/14/21 01:15 125 MG Vital Signs/I&O 11/14/21 11/14/21 00:16 01:15 Temp 37.1 37.1 Pulse 55 Resp 20 B/P (MAP) 184/85 (118) Pulse Ox 99 O2 Delivery Room Air Blood Pressure Mean: 118 Progress Progress Note : Time: 01:14 Progress Note His black stools likely due to him taking Pepto-Bismol. We will obtain a fecal occult stool test if possible. We will also give him a shot of Toradol and Solu-Medrol and have him follow-up next week with the orthopedic surgeon. Nontraumatic, chronic left hip pain. Departure Impression Primary Impression: Chronic left hip pain Disposition: HOME, SELF-CARE Condition: Stable Departure-Patient Inst. Decision time for Depature: 01:15 Referrals: AUDI HALE MD (PCP/Family) Primary Care Physician Patient Instructions: Hip Pain in Older People Add. Discharge Instructions: Tylenol 1000 mg every 8 hours as needed for pain. Keep your follow-up appointment with the surgeon. If your diarrhea does not stop in the next week then follow-up with Dr. Hale for reexamination. Pepto-Bismol will turn your stools black. All discharge instructions reviewed with patient and/or family. Voiced understanding. MARILYN SOTO J Nov 14, 2021 01:16
[2021-11-14 01:28] VITALS: BP 155/74
== END 2021-11-14 01:33 | disposition home or self-care (01) ==
LOC: EDUNIT# 00:08 → ER 00:10
DX: G89.29 Other chronic pain (principal); M25.552 Pain in left hip; R19.5 Other fecal abnormalities; Z87.81 Personal history of (healed) traumatic fracture; Z96.642 Presence of left artificial hip joint
CPT/HCPCS: 99284

== ENCOUNTER 2021-11-28 00:10 | Emergency (ER) | payer MEDICARE, OTHER ==
[~2021-11-28] VITALS: Ht 170.2 cm; Wt 74.8 kg
[2021-11-28 00:37] VITALS: BP 156/80
--- NOTE | 2021-11-28 00:58 | ED Lower Extremity ---
General Chief Complaint: Lower Extremity Stated Complaint: TOE PAIN ON BOTH FEET,STUBBED TOES Source: patient Exam Limitations: no limitations History of Present Illness Date Seen by Provider: Nov 28, 2021 Time Seen by Provider: 00:42 Initial Comments Patient to the ER by private conveyance from home with chief complaint that he is having pain in his right foot second toe after stubbing it about a week ago. He says is keeping him awake and he cannot sleep. He says he went to Dr. Mcclellan's office to have it looked at yesterday but the office was closed. He does not have a history of following with podiatry. He does have a history of hip replacement bilaterally. He is using Tylenol and Aleve without adequate r elief of pain. He is not having any fevers chills nausea vomiting or redness going up his foot or leg. Allergies and Home Medications Allergies Coded Allergies: No Known Drug Allergies (Unverified , 05/19/11) Patient Home Medication List Home Medication List Reviewed: Yes Hydrocodone/Acetaminophen (Hydrocodone-Acetamin 5-325 mg) 5 Mg-325 Mg Tablet, 1 TAB PO Q6H PRN for PAIN-MODERATE (5-7) Prescribed by: MARILYN SOTO on 11/28/21 0103 Ondansetron (Ondansetron Odt) 4 Mg Tab.rapdis, 4 MG PO Q4H Prescribed by: POLO PAL on 09/06/21 0459 Pantoprazole Sodium (Protonix) 40 Mg Tablet.dr, 40 MG PO DAILY Prescribed by: POLO PAL on 09/06/21 0459 Polyethylene Glycol 3350 (Miralax) 119 Gm Powder, 17 GM PO TIDWM Prescribed by: MARILYN SOTO on 12/27/20 0136 Rosuvastatin Calcium (Crestor) 20 Mg Tablet, Unknown Dose PO, (Reported) Entered as Reported by: GEMMA LEON on 12/28/18 0939 Tramadol HCl (Ultram) 50 Mg Tablet, 50 MG PO TID Prescribed by: RIKI DOW on 06/27/19 1336 Review of Systems Constitutional: No chills, No diaphoresis EENTM: No ear discharge, No ear pain Respiratory: No cough, No short of breath Cardiovascular: No chest pain, No edema Gastrointestinal: No abdominal pain, No nausea, No vomiting Genitourinary: No dysuria, No frequency Musculoskeletal: No joint swelling, No muscle pain All Other Systems Reviewed Negative Unless Noted: Yes Past Xrrbube-Nmhyim-Lwjmig Hx Patient Social History Tobacco Use?: No Use of E-Cig and/or Vaping dev: No Immunizations Up To Date Tetanus Booster (TDap): Unknown PED Vaccines UTD: No First/Initial COVID19 Vaccinat: 2020 Second COVID19 Vaccination Evan: 2020 Third COVID19 Vaccination Date: 2021 Seasonal Allergies Seasonal Allergies: No Past Medical History Surgery/Hospitalization HX: LT HIP FX Surgeries: Yes (BILAT TKR, QUAD BYPASS, STENTS, ESWL, R ARM FX, R FOOT) Cardiac, CABG, Joint Replacement, Orthopedic, Renal Respiratory: No Cardiac: Yes Atrial Fibrillation, Coronary Artery Disease, High Cholesterol, Hypertension Neurological: No Reproductive Disorders: No Sexually Transmitted Disease: No HIV/AIDS: No Genitourinary: Yes Benign Prostatic Hyperpl, Kidney Stones Gastrointestinal: Yes Chronic Constipation Musculoskeletal: Yes (CHRONIC HIP PAIN ) Arthritis, Chronic Back Pain, Fractures Endocrine: No HEENT: No Loss of Vision: Bilateral Hearing Impairment: Denies Cancer: No Psychosocial: No Integumentary: No Blood Disorders: No Adverse Reaction/Blood Tranf: No Family Medical History No Pertinent Family Hx Physical Exam Vital Signs Vital Signs - First Documented 11/28/21 00:37 Temp 36.5 Pulse 60 Resp 22 B/P (MAP) 156/80 (105) Pulse Ox 96 Capillary Refill : Height, Weight, BMI Height: 5'7.00" Weight: 170lbs. 0.0oz. 77.128364xc; 25.00 BMI Method:Stated General Appearance: WD/WN, no apparent distress HEENT: PERRL/EOMI, pharynx normal Neck: full range of motion, supple, normal inspection Cardiovascular: normal peripheral pulses, regular rate, rhythm Respiratory: no respiratory distress, no accessory muscle use Gastrointestinal: non tender, soft Feet: left foot non-tender, left foot normal inspection, left foot normal range of motion, left foot no evidence of injury; right foot swelling (Second toe of the right foot has ecchymoses, intact, mild swelling and tenderness to palpation with chronic deformity.) Neurologic/Psychiatric: alert, normal mood/affect, oriented x 3 Progress/Results/Core Measures Results/Orders My Orders Orders - MARILYN SOTO Rx-Hydrocodone/Apap 5-325 Mg (Rx-Vicodin (11/28/21 01:00) Foot, Right, 3 View (11/28/21 00:49) Vital Signs/I&O 11/28/21 00:37 Temp 36.5 Pulse 60 Resp 22 B/P (MAP) 156/80 (105) Pulse Ox 96 Progress Progress Note : Time: 00:58 Progress Note Offered hydrocodone and referral to podiatry. Plain film of the foot. Suspect toe fracture. We will do silas taping. Diagnostic Imaging Diagonstic Imaging: Xray Plain Films/CT/US/NM/MRI: other (fott) Comments [facility], [place] NAME: EL LINDO MED REC#: [id number] PT STATUS: DEP ER : 1935 PHYSICIAN: MARILYN SOTO MD ADMIT DATE: 11/28/21/ER Signed Date of Exam:11/28/21 FOOT, RIGHT, 3 VIEW EXAMINATION: Right foot radiograph EXAM DATE: 11/28/2021 1:37 AM COMPARISON: None available. HISTORY: Right foot pain TECHNIQUE: 3 views FINDINGS: There is no acute fracture, dislocation, or destructive osseous process. Multilevel degenerative changes within the right foot greatest at the interphalangeal joints. The soft tissues are normal. IMPRESSION: 1. Degenerative changes of the right foot without acute osseous abnormality. Dictated by: Dictated on workstation # [id number] Dict: 11/28/21702 Trans: 11/28/21809 [facility] [id number] Interpreted by: KEVIN CHAU DO Electronically signed by: KEVIN CHAU DO 11/28/21809 Reviewed: Reviewed by Me Departure Impression Primary Impression: Toe injury Qualified Codes: S99.921A - Unspecified injury of right foot, initial encounter Disposition: HOME, SELF-CARE Condition: Stable Departure-Patient Inst. Decision time for Depature: 01:01 Referrals: AUDI HALE MD (PCP/Family) Primary Care Physician RANI MCCLELLAN DPM Patient Instructions: Toe Injury (DC) Add. Discharge Instructions: Hydrocodone 1 tablet every 6 hours needed for severe pain not relieved by Tylenol or Aleve. Aleve 2 tablets twice a day as necessary for pain. Tylenol 1000 mg every 8 hours as needed for pain. Elevate your toe above the level of your heart to reduce swelling and pain. Call Dr. Mcclellan and request a follow-up appointment today. All discharge instructions reviewed with patient and/or family. Voiced understanding. Scripts Hydrocodone/Acetaminophen (Hydrocodone-Acetamin 5-325 mg) 5 Mg-325 Mg Tablet 1 TAB PO Q6H PRN for PAIN-MODERATE (5-7), #10 TAB 0 Refills Prov: MARILYN SOTO 11/28/21 Copy Copies To 1: RANI MCCLELLAN DPM MARILYN SOTO Nov 28, 2021 00:57
[2021-11-28] MEDS ORDERED: ACHD5005 PO (01:02)
--- NOTE | 2021-11-28 07:08 | Diagnostic Imaging Report ---
EXAMINATION: Right foot radiograph EXAM DATE: 11/28/2021 1:37 AM COMPARISON: None available. HISTORY: Right foot pain TECHNIQUE: 3 views FINDINGS: There is no acute fracture, dislocation, or destructive osseous process. Multilevel degenerative changes within the right foot greatest at the interphalangeal joints. The soft tissues are normal. IMPRESSION: 1. Degenerative changes of the right foot without acute osseous abnormality. Dictated by: Dictated on workstation # [id number]
== END 2021-11-28 01:17 | disposition home or self-care (01) ==
LOC: EDUNIT# 00:10 → ER 00:12
DX: S90.211A Contusion of right great toe with damage to nail, initial encounter (principal); W22.8XXA Striking against or struck by other objects, initial encounter
CPT/HCPCS: 73630

== ENCOUNTER 2021-12-09 15:05 | Emergency (ER) | payer MEDICARE, OTHER ==
[~2021-12-09] VITALS: Ht 170 cm; Wt 74.8 kg
--- NOTE | 2021-12-09 15:52 | ED Fall/Injury ---
General Chief Complaint: Hip/Pelvic Problems Stated Complaint: L HIP PAIN Nursing Triage Note: pt presents to ed via pov from home with complaints of l hip pain x 1 year after a fall. pt reports it has gotten woprse recently. pt also reports a toenail issue on r foot. Source: patient Exam Limitations: no limitations History of Present Illness Date Seen by Provider: Dec 09, 2021 Time Seen by Provider: 15:38 Initial Comments 86yo male to the ER by private vehicle (drove himself - lives alone). Complaints f left hip pain and concern for redness to right 2nd toe. Patient has chronic right hip keyanna - just a little worse today. Also states he "Stubbed" his right 2nd toe a couple of days ago and is concerned that the redness would spread up his foot. Has not been doing anything to the toe. Able to ambulate with a cane. No fevers, chills or SOB. No other concerns of illness or infection. No bowel or bladder problems. All other ROS reviewed and negative except as stated. Occurred: other (a couple of days ago) Severity: mild Injuries/Pain Location: lower extremity Context: tripped Loss of Consciousness: no loss of consciousness Associated Symptoms (Fall): Denies Symptoms Allergies and Home Medications Allergies Coded Allergies: No Known Drug Allergies (Unverified , 05/19/11) Patient Home Medication List Home Medication List Reviewed: Yes Hydrocodone/Acetaminophen (Hydrocodone-Acetamin 5-325 mg) 5 Mg-325 Mg Tablet, 1 TAB PO Q6H PRN for PAIN-MODERATE (5-7) Prescribed by: MARILYN SOTO on 11/28/21 0103 Ondansetron (Ondansetron Odt) 4 Mg Tab.rapdis, 4 MG PO Q4H Prescribed by: POLO PAL on 09/06/21 045 Pantoprazole Sodium (Protonix) 40 Mg Tablet.dr, 40 MG PO DAILY Prescribed by: POLO PAL on 09/06/21 045 Polyethylene Glycol 3350 (Miralax) 119 Gm Powder, 17 GM PO TIDWM Prescribed by: MARILYN SOTO on 12/27/20 0136 Rosuvastatin Calcium (Crestor) 20 Mg Tablet, Unknown Dose PO, (Reported) Entered as Reported by: GEMMA LEON on 12/28/18 0939 Tramadol HCl (Ultram) 50 Mg Tablet, 50 MG PO TID Prescribed by: RIKI DOW on 06/27/19 9496 Review of Systems Review of Systems Constitutional: see HPI Eyes: No Symptoms Reported Ears, Nose, Mouth, Throat: no symptoms reported Respiratory: no symptoms reported Cardiovascular: no symptoms reported Gastrointestinal: no symptoms reported Musculoskeletal: joint pain (left hip) Skin: change in hair/nails (right 2nd toe) All Other Systems Reviewed Negative Unless Noted: Yes Past Oqodspf-Khgddf-Zeymds Hx Patient Social History Tobacco Use?: No Substance use?: No Alcohol Use?: No Pt feels they are or have been: No Immunizations Up To Date Tetanus Booster (TDap): Unknown PED Vaccines UTD: No First/Initial COVID19 Vaccinat: 2020 Second COVID19 Vaccination Evan: 2020 Third COVID19 Vaccination Date: 2021 Seasonal Allergies Seasonal Allergies: No Past Medical History Surgery/Hospitalization HX: LT HIP FX Surgeries: Yes (BILAT TKR, QUAD BYPASS, STENTS, ESWL, R ARM FX, R FOOT) Cardiac, CABG, Joint Replacement, Orthopedic, Renal Respiratory: No Cardiac: Yes Atrial Fibrillation, Coronary Artery Disease, High Cholesterol, Hypertension Neurological: No Reproductive Disorders: No Sexually Transmitted Disease: No HIV/AIDS: No Genitourinary: Yes Benign Prostatic Hyperpl, Kidney Stones Gastrointestinal: Yes Chronic Constipation Musculoskeletal: Yes (CHRONIC HIP PAIN ) Arthritis, Chronic Back Pain, Fractures Endocrine: No HEENT: No Loss of Vision: Bilateral Hearing Impairment: Denies Cancer: No Psychosocial: No Integumentary: No Blood Disorders: No Adverse Reaction/Blood Tranf: No Family Medical History No Pertinent Family Hx Physical Exam Vital Signs Vital Signs - First Documented 12/09/21 12/09/21 15:24 16:46 Temp 36.8 Pulse 73 Resp 16 B/P (MAP) 170/77 (108) Pulse Ox 96 O2 Delivery Room Air Capillary Refill : Less Than 3 Seconds Height, Weight, BMI Height: 5'7.00" Weight: 170lbs. 0.0oz. 77.735762ze; 25.00 BMI Method:Stated General Appearance: WD/WN, no apparent distress Cardiovascular: regular rate, rhythm Respiratory: lungs clear, normal breath sounds, no respiratory distress, no accessory muscle use Gastrointestinal: non tender, soft Extremities: normal range of motion, normal inspection, other (no specific pont tenderness over the left hip. normal ROM. 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 Nail bed is black, + subungual hematoma. no tender. no erythematous streaking from the toe into the dorsum of the foot.) Progress/Results/Core Measures Results/Orders My Orders Orders - JENNA ALLRED MD Pelvis With Left Hip 2-3 Views (12/09/21 15:44) Foot, Right, 2 View (12/09/21 15:44) Vital Signs/I&O 12/09/21 12/09/21 15:24 16:46 Temp 36.8 36.2 Pulse 73 71 Resp 16 15 B/P (MAP) 170/77 (108) 129/73 Pulse Ox 96 95 O2 Delivery Room Air Blood Pressure Mean: 108 Progress Progress Note : Time: 16:34 Progress Note Patient's xrays look good. No obvious fractures of the right second toe - however limited due to his hammertoe deformity. I will advise him to place triple antibiotic ointment over the top of the right second toe. Tylenol, 1 gram every 6 hours for pain. Over the counter pain patches for chronic hip pain. Follow up with his PCP. Diagnostic Imaging Diagonstic Imaging: Xray Comments NAME: EL [facility] REC#: [id number] PT STATUS: REG ER : 1935 PHYSICIAN: JENNA ALLRED MD ADMIT DATE: 12/09/21/ER Draft Date of Exam:12/09/21 FOOT, RIGHT, 2 VIEW EXAMINATION: Right foot radiographs, 2 views. COMPARISON: September 10, 2017. HISTORY: 86-year-old male, right foot pain. FINDINGS: There is a calcaneal heel spur. There is degenerative type enthesopathy at the Achilles tendon insertion. There are atherosclerotic calcifications. There are limitations of the exam relating to the two-view technique. Well-corticated ossification adjacent to the distal fibula likely reflects a sequela of remote prior injury. There is no identified acute fracture. There is no cortical or aggressive bone destruction. 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 There is limited evaluation at the level of the metatarsophalangeal joints relating to patient positioning. There is mild osteoarthritis of the first metatarsophalangeal joint. There is a chronic appearing deformity of the base of the first proximal phalanx. IMPRESSION: 1. No identified acute bony abnormality of the right foot. 2. Degenerative type calcaneal enthesopathy. 3. 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 4. Mild osteoarthritis of the first metatarsophalangeal joint. Dictated on workstation # [id number] Dict: 12/09/21 1628 Trans: 12/09/21 1632 PJE [id number] Interpreted by: LOBITO JUNE MD Electronically signed by: Departure Impression Primary Impression: Chronic left hip pain Additional Impressions: Contusion of second toe, right Qualified Codes: S90.121D - Contusion of right lesser toe(s) without damage to nail, subsequent encounter subungual hematoma of right 2nd toe Disposition: 01 HOME, SELF-CARE Condition: Stable Departure-Patient Inst. Decision time for Depature: 16:36 Referrals: AUDI HALE MD (PCP/Family) Primary Care Physician Patient Instructions: Bruising Under the Nail, Toe Injury Add. Discharge Instructions: Take extra strength tylenol, 2 tablets every 6 hours as needed for pain. You can also use over the counter pain patches (lidocaine patches) to your left hip. Follow packaging Put Triple antibiotic ointment over the right 2nd toe, twice a day for 1 week. Keep the toe clean. Your toenail, will eventually fall off of that toe I think. If the redness gets larger, or you get a fever, either follow up with your doctor or come back to the emergency department for re-evaluation. JENNA ALLRED MD Dec 09, 2021 15:52
--- NOTE | 2021-12-09 16:33 | Diagnostic Imaging Report ---
EXAMINATION: Right foot radiographs, 2 views. COMPARISON: September 10, 2017. HISTORY: 86-year-old male, right foot pain. FINDINGS: There is a calcaneal heel spur. There is degenerative type enthesopathy at the Achilles tendon insertion. There are atherosclerotic calcifications. There are limitations of the exam relating to the two-view technique. Well-corticated ossification adjacent to the distal fibula likely reflects a sequela of remote prior injury. There is no identified acute fracture. There is no cortical or aggressive bone destruction. 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 There is limited evaluation at the level of the metatarsophalangeal joints relating to patient positioning. There is mild osteoarthritis of the first metatarsophalangeal joint. There is a chronic appearing deformity of the base of the first proximal phalanx. IMPRESSION: 1. No identified acute bony abnormality of the right foot. 2. Degenerative type calcaneal enthesopathy. 3. 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 4. Mild osteoarthritis of the first metatarsophalangeal joint. Dictated by: Dictated on workstation # [id number]
[2021-12-09 16:46] VITALS: BP 129/73
--- NOTE | 2021-12-09 17:00 | Diagnostic Imaging Report ---
EXAMINATION: Pelvis, single view. Left hip radiograph, 2 additional views, 4 total images. COMPARISON: Radiographs of the pelvis February 28, 2021. HISTORY: 86-year-old male, fall. Left hip pain. FINDINGS: There is an intramedullary savanna in the left femur with dynamic fixation screw. There is a prior left enteric femur fracture deformity. The hardware appears intact. There is a left knee prosthesis. There is no identified new fracture. The left hip is not dislocated. The right hip is not obviously dislocated. The pubic symphysis and sacroiliac joints are normally aligned. There are degenerative changes of the lower lumbar spine. IMPRESSION: 1. No identified acute bony abnormality of the pelvis or left hip. Dictated by: Dictated on workstation # [id number]
== END 2021-12-09 16:43 | disposition home or self-care (01) ==
LOC: EDUNIT# 15:05 → ER 15:09
DX: S90.221A Contusion of right lesser toe(s) with damage to nail, initial encounter (principal); G89.29 Other chronic pain; M25.552 Pain in left hip; W22.8XXA Striking against or struck by other objects, initial encounter
CPT/HCPCS: 73620

== ENCOUNTER 2022-01-01 08:33 | Emergency (ER) | payer MEDICARE, OTHER ==
[~2022-01-01] VITALS: Ht 170 cm; Wt 74.8 kg
--- NOTE | 2022-01-01 09:02 | ED General ---
General Chief Complaint: General Problems/Pain Stated Complaint: SORE ON FACE BLEEDING - BACK & FEET PAIN Nursing Triage Note: pt states multiple complaints, hx of skin ca and states it was bleeding on the rt side of his face, back and feet pain. Source of Information: Patient Exam Limitations: No Limitations History of Present Illness Date Seen by Provider: Jan 01, 2022 Time Seen by Provider: 08:40 Initial Comments 86-year-old male presents to the emergency department with a chief complaint of concern for bleeding from a wound on his right episcopal. Patient has a long history of skin cancer across the nasal bridge and on the scalp. He states he woke up this morning with bleeding from the area at his right episcopal. No pain. No chest pain, shortness of breath. No nausea or vomiting. He does endorse chronic pain in his low back, left hip and left knee. He took Tylenol, extra strength 2 tablets approximately an hour prior to arrival. He states he washed the area and applied a Band-Aid. He states he is not sure if he has follow-up with his skin cancer doctor or not. He states that Dr. Rajat Jackson prescribed him some ointment to place over the lesion. He states his daughter took it and she is not in town currently. No fevers or chills. No drainage other than a little bleeding noted this morning. The patient thinks that he must of rubs the area during the night. All other review of systems reviewed and negative except as stated. Timing/Duration: 1 Hour Severity: Mild Associated Systoms: Other (chronic joint pains) Allergies and Home Medications Allergies Coded Allergies: No Known Drug Allergies (Unverified , 05/19/11) Patient Home Medication List Home Medication List Reviewed: Yes Hydrocodone/Acetaminophen (Hydrocodone-Acetamin 5-325 mg) 5 Mg-325 Mg Tablet, 1 TAB PO Q6H PRN for PAIN-MODERATE (5-7) Prescribed by: MARILYN SOTO on 11/28/21 010 Ondansetron (Ondansetron Odt) 4 Mg Tab.rapdis, 4 MG PO Q4H Prescribed by: POLO PAL on 09/06/21 045 Pantoprazole Sodium (Protonix) 40 Mg Tablet.dr, 40 MG PO DAILY Prescribed by: POLO PAL on 09/06/21458 Polyethylene Glycol 3350 (Miralax) 119 Gm Powder, 17 GM PO TIDWM Prescribed by: MARILYN SOTO on 12/27/20 0136 Rosuvastatin Calcium (Crestor) 20 Mg Tablet, Unknown Dose PO, (Reported) Entered as Reported by: GEMMA LEON on 12/28/18 0939 Tramadol HCl (Ultram) 50 Mg Tablet, 50 MG PO TID Prescribed by: RIKI DOW on 06/27/19 1336 Review of Systems Review of Systems Constitutional: see HPI EENTM: no symptoms reported Respiratory: no symptoms reported Cardiovascular: no symptoms reported Gastrointestinal: no symptoms reported Genitourinary: no symptoms reported Musculoskeletal: joint pain (chronic) Skin: other (bleeding right episcopal from abrasion) Psychiatric/Neurological: Anxiety All Other Systems Reviewed Negative Unless Noted: Yes Past Xaomdly-Dvsfdb-Geduez Hx Patient Social History Tobacco Use?: No Substance use?: No Alcohol Use?: No Immunizations Up To Date Tetanus Booster (TDap): Unknown PED Vaccines UTD: No First/Initial COVID19 Vaccinat: 2020 Second COVID19 Vaccination Evan: 2020 Third COVID19 Vaccination Date: 2021 Seasonal Allergies Seasonal Allergies: No Past Medical History Surgery/Hospitalization HX: LT HIP FX, SKIN CA, CABD Surgeries: Yes (BILAT TKR, QUAD BYPASS, STENTS, ESWL, R ARM FX, R FOOT) Cardiac, CABG, Joint Replacement, Orthopedic, Renal Respiratory: No Cardiac: Yes Atrial Fibrillation, Coronary Artery Disease, High Cholesterol, Hypertension Neurological: No Reproductive Disorders: No Sexually Transmitted Disease: No HIV/AIDS: No Genitourinary: Yes Benign Prostatic Hyperpl, Kidney Stones Gastrointestinal: Yes Chronic Constipation Musculoskeletal: Yes (CHRONIC HIP PAIN ) Arthritis, Chronic Back Pain, Fractures Endocrine: No HEENT: No Loss of Vision: Bilateral Hearing Impairment: Denies Cancer: No Psychosocial: No Integumentary: No Blood Disorders: No Adverse Reaction/Blood Tranf: No Family Medical History No Pertinent Family Hx Physical Exam Vital Signs Vital Signs - First Documented 01/01/22 08:43 Temp 36.7 Pulse 82 Resp 20 B/P (MAP) 167/85 (112) Pulse Ox 97 O2 Delivery Room Air Capillary Refill : Less Than 3 Seconds Height, Weight, BMI Height: 5'7.00" Weight: 170lbs. 0.0oz. 77.754726ar; 25.00 BMI Method:Stated General Appearance: No Apparent Distress, WD/WN Eyes: Bilateral Eye Normal Inspection, Bilateral Eye PERRL, Bilateral Eye EOMI HEENT: PERRL/EOMI Neck: Normal Inspection Respiratory: Lungs Clear, Normal Breath Sounds, No Accessory Muscle Use, No Respiratory Distress Cardiovascular: Regular Rate, Rhythm Extremity: Normal Inspection Neurologic/Psychiatric: Alert, Oriented x3, No Motor/Sensory Deficits, Normal Mood/Affect Skin: Normal Color, Warm/Dry, Other (superficial abrasion to the right episcopal, denuded. no active bleeding. slightly tender to palpation. crusted lesions across the nasal bridge. area at right episcopal about 3cm x 3cm no surrounding inflammation, drainage) Progress/Results/Core Measures Suspected Sepsis SIRS Temperature: Pulse: 82 Respiratory Rate: 20 Blood Pressure 167 /85 Mean: 112 Results/Orders Vital Signs/I&O 01/01/22 08:43 Temp 36.7 Pulse 82 Resp 20 B/P (MAP) 167/85 (112) Pulse Ox 97 O2 Delivery Room Air Capillary Refill : Less Than 3 Seconds Blood Pressure Mean: 112 Progress Note : Time: 08:58 Progress Note local wound care, triple antibiotic ointment to right temporal area with a bandaid. VSS. no clinical or objective findings to warrant aggressive eval in the ER. [facility] with scheduled appointment with Dr Novak in 1 week. Departure Impression Primary Impression: Open facial wound Qualified Codes: S01.80XA - Unspecified open wound of other part of head, initial encounter Disposition: 01 HOME, SELF-CARE Condition: Stable Departure-Patient Inst. Decision time for Depature: 08:59 Referrals: CAROL NOVAK CHAD C MD (PCP/Family) Primary Care Physician Patient Instructions: Wound Care ED Add. Discharge Instructions: Keep the wound on your face clean dry and covered with a dry gauze bandage or Band-Aid. You can apply a little triple antibiotic ointment to the area to help keep it from sticking to the bandage. Continue extra strength Tylenol every 6-8 hours as needed for chronic left hip pain. Please keep your appointment with Dr. Novak in 1 week. Return to the emergency department for any new, concerning or emergent complaints. Copy Copies To 1: CAROL NOVAK KATHRYN M MD Jan 01, 2022 09:02
[2022-01-01 09:29] VITALS: BP 141/77
== END 2022-01-01 09:29 | disposition home or self-care (01) ==
LOC: EDUNIT# 08:33 → ER 08:33
DX: S01.80XA Unspecified open wound of other part of head, initial encounter (principal); X58.XXXA Exposure to other specified factors, initial encounter
CPT/HCPCS: 99282

== ENCOUNTER 2022-01-31 03:12 | Emergency (ER) | payer MEDICARE, OTHER ==
--- NOTE | 2022-01-31 03:26 | ED Lower Extremity ---
General Stated Complaint: RT HIP PX Source: patient Exam Limitations: no limitations History of Present Illness Date Seen by Provider: Jan 31, 2022 Time Seen by Provider: 03:19 Initial Comments 86-year-old male presents for right posterior buttock pain that sends sharp shooting pains down his right leg. Symptoms started at midnight. He took Tylenol about an hour prior to arrival which helped for a minute but pain has recurred. No injury. No weakness numbness or tingling. Has never had similar pains in the past, though he does state he has chronic right hip pain. He is ambulatory with his cane without difficulty. No loss of bowel or bladder control. Allergies and Home Medications Allergies Coded Allergies: No Known Drug Allergies (Unverified , 05/19/11) Patient Home Medication List Home Medication List Reviewed: Yes Hydrocodone/Acetaminophen (Hydrocodone-Acetamin 5-325 mg) 5 Mg-325 Mg Tablet, 1 TAB PO Q6H PRN for PAIN-MODERATE (5-7) Prescribed by: MARILYN SOTO on 11/28/21 0103 Ondansetron (Ondansetron Odt) 4 Mg Tab.rapdis, 4 MG PO Q4H Prescribed by: POLO PAL on 09/06/21 0459 Pantoprazole Sodium (Protonix) 40 Mg Tablet.dr, 40 MG PO DAILY Prescribed by: POLO PAL on 09/06/21 0459 Polyethylene Glycol 3350 (Miralax) 119 Gm Powder, 17 GM PO TIDWM Prescribed by: MARILYN SOTO on 12/27/20 0136 Rosuvastatin Calcium (Crestor) 20 Mg Tablet, Unknown Dose PO, (Reported) Entered as Reported by: GEMMA LEON on 12/28/18 0939 Tramadol HCl (Ultram) 50 Mg Tablet, 50 MG PO TID Prescribed by: RIKI DOW on 06/27/19 1336 Review of Systems Constitutional: no symptoms reported EENTM: no symptoms reported Respiratory: no symptoms reported Cardiovascular: no symptoms reported Gastrointestinal: no symptoms reported Genitourinary: no symptoms reported Musculoskeletal: joint pain Skin: no symptoms reported Psychiatric/Neurological: No Symptoms Reported Past Encjkcs-Ilqdyl-Penyaq Hx Patient Social History Tobacco Use?: No Use of E-Cig and/or Vaping dev: No Substance use?: No Alcohol Use?: No Immunizations Up To Date Tetanus Booster (TDap): Unknown PED Vaccines UTD: No First/Initial COVID19 Vaccinat: 2020 Second COVID19 Vaccination Evan: 2020 Third COVID19 Vaccination Date: 2021 Seasonal Allergies Seasonal Allergies: No Past Medical History Surgery/Hospitalization HX: LT HIP FX, SKIN CA, CABD Surgeries: Yes (BILAT TKR, QUAD BYPASS, STENTS, ESWL, R ARM FX, R FOOT) Cardiac, CABG, Joint Replacement, Orthopedic, Renal Respiratory: No Cardiac: Yes Atrial Fibrillation, Coronary Artery Disease, High Cholesterol, Hypertension Neurological: No Reproductive Disorders: No Sexually Transmitted Disease: No HIV/AIDS: No Genitourinary: Yes Benign Prostatic Hyperpl, Kidney Stones Gastrointestinal: Yes Chronic Constipation Musculoskeletal: Yes (CHRONIC HIP PAIN ) Arthritis, Chronic Back Pain, Fractures Endocrine: No HEENT: No Loss of Vision: Bilateral Hearing Impairment: Denies Cancer: No Psychosocial: No Integumentary: No Blood Disorders: No Adverse Reaction/Blood Tranf: No Family Medical History Reviewed Nursing Family Hx No Pertinent Family Hx Physical Exam Vital Signs Capillary Refill : Height, Weight, BMI Height: 5'7.00" Weight: 170lbs. 0.0oz. 77.725995qh; 25.00 BMI Method:Stated General Appearance: WD/WN, no apparent distress HEENT: normal ENT inspection, pharynx normal Neck: non-tender, full range of motion, supple, normal inspection Cardiovascular: regular rate, rhythm, no edema, no gallop, no JVD, no murmur Respiratory: chest non-tender, lungs clear, normal breath sounds, no respiratory distress, no accessory muscle use Gastrointestinal: normal bowel sounds, non tender, soft, no organomegaly, no pulsatile mass Hips: left hip non-tender, left hip normal inspection, left hip normal range of motion; right hip pain (Tenderness palpation right piriformis, sciatic nerve area. No bony tenderness. Neurovascular and sensory intact.) Legs: bilateral leg non-tender, bilateral leg normal inspection, bilateral leg normal range of motion Knees: bilateral knee non-tender, bilateral knee normal inspection, bilateral knee normal range of motion Ankles: bilateral ankle non-tender, bilateral ankle normal inspection, bilateral ankle normal range of motion Feet: bilateral foot non-tender, bilateral foot normal inspection, bilateral foot normal range of motion Neurologic/Psychiatric: no motor/sensory deficits, alert, normal mood/affect, oriented x 3 Skin: normal color, warm/dry Lymphatic: no adenopathy Progress/Results/Core Measures Results/Orders My Orders Orders - GALLITO GILLETTE DO Rx-Cyclobenzaprine Tablet (Rx-Flexeril T (01/31/22 03:34) Departure Communication (Admissions) Patient is hemodynamically stable. Successfully no bony tenderness throughout range of motion of his right lower extremity, internal and external rotation. Pain is nontraumatic. No indication for imaging at this time. Symptoms most consistent with sciatica or piriformis type pain. Patient treated conservatively. I was reluctant to give him muscle relaxers however he states he has been completely unable to sleep and requests them. He is driving so I gave him some to go home. I also gave him a prescription for a few days worth. He is comfortable [facility] plan of care and discharged in stable condition. Impression Primary Impression: Sciatica of right side Disposition: 01 HOME, SELF-CARE Condition: Stable Departure-Patient Inst. Referrals: CAROL NOVAK DO (PCP/Family) Primary Care Physician Patient Instructions: Sciatica ED Add. Discharge Instructions: Please use provided medication as needed. This may make you drowsy so make sure to use your cane, do not drive or make important decisions while taking it. Follow-up with your primary doctor for any nonemergent needs. Return to the emergency department for any severe concerns. GALLITO GILLETTE DO Jan 31, 2022 03:26
[2022-01-31] MEDS ORDERED: RX-CYCLOBENZAPRINE 10 MG (FLEXERIL) TAB PPK#3 PO STA (03:34)
[2022-01-31 03:50] VITALS: BP 119/76
== END 2022-01-31 03:50 | disposition home or self-care (01) ==
LOC: EDUNIT# 03:12 → ER 03:15
DX: M54.31 Sciatica, right side (principal); Z98.890 Other specified postprocedural states
CPT/HCPCS: 99281